=== PATIENT | female | born 1950 | race Caucasian/White ===

== ENCOUNTER 2016-12-16 10:54 | Day surgery (SDC) | payer OTHER, MEDICARE ==
[2016-12-09 13:35] VITALS: BMI 22.0
[~2016-12-16] VITALS: Ht 175.3 cm; Wt 97.8 kg
[~2016-12-16 10:54] MED LIST: ASCA500 PO; CALC500T PO; CEFAZOLIN 2000 MG/60 ML D5W IV SCH; CHOL1000 PO; COLON CARE PO; FENTANYL CITRATE INJ 50 MCG/1 ML 2 ML VIAL ONE; Glucosamine PO; HEPARIN SOD 5000 UNIT/0.5 ML CARP SQ SCH; LACTATED RINGER'S 1000ML 1,000 ML IV SCH; LEVO50TA6 PO; LUTE20CA PO; MIDAZOLAM HCL 1 MG/ML 2ML VIAL ONE; MULT-506 PO; NAPR1TAB9 PO; OMEG10007 PO; RALO60TA12 PO; VITA1TAB4 PO
[2016-12-16 11:28] VITALS: BP 144/81; PULSE 63; TEMP 37.2; O2SAT 94; Ht 175.3 cm; Wt 97.8 kg
[2016-12-16] MEDS ORDERED: LIDOCAINE HCL 2% 2 ML VIAL (20MG/ML) ONE (12:00)
[2016-12-16] MEDS ORDERED: PROPOFOL IV EMULSION 10 MG/ML 20 ML VIAL IV ONE ×4 (12:00→13:32)
[2016-12-16] MEDS ORDERED: ONDANSETRON INJ 2 MG/ML 2 ML VIAL IV PRN ×2 (12:15→14:00)
[2016-12-16] MEDS ORDERED: FENTANYL CITRATE INJ 50 MCG/1 ML 2 ML VIAL IV PRN (12:15)
[2016-12-16] MEDS ORDERED: ATROPINE SULFATE 0.1 MG/ML 5ML SYR IV PRN (12:15)
[2016-12-16] MEDS ORDERED: KETOROLAC TROMETHAMINE 30 MG/ML VIAL IV. PRN (12:15)
--- NOTE | 2016-12-16 12:23 | History and Physical ---
History & Physical Date Dec 16, 2016. Chief Complaint breast ca History of Present Illness The patient is a 66 year old female with complaints of left breast ca...needs infusaport for chemo Additional History Hepatic Disease: No Endocrine Disorder: No Kidney Disease: No Hypertension: No Heart Disease: No Bleeding Tendencies: No Infectious Diseases: No Allergies Coded Allergies: No Known Allergies (Unverified , 12/16/16) PER H&P Home Medications Scheduled Ascorbic Acid (Vitamin C), 500 MG PO QAM Calcium Gluconate (Calcium Gluconate), 250 MG PO DAILY Cholecalciferol (Vitamin D3), 2,000 UNITS PO QAM Fish Oil (Henriette-3), 1 CAP PO NOON Levothyroxine Sodium (Levothyroxine Sodium), 1 TAB PO QAM Lutein (Lutein), 20 MG PO QAM Multivitamin (Multivitamin), 1 TAB PO QAM Raloxifene Hcl (Evista), 60 MG PO QAM Vitamin E (Vitamin E), 400 UNITS PO QAM [Colon Care], 1 TAB PO BID [Glucosamine], 500 MG PO BID Scheduled PRN Naproxen (Aleve), 220 MG PO QAM PRN for Pain Physical Examination Skin: warm/dry Eyes: normal inspection, EOMI Head: normocephalic Neck: supple, no adenopathy Respiratory/Chest: lungs clear, no respiratory distress Cardiovascular: regular rate, rhythm Abdomen / GI: normal bowel sounds, non tender Back: normal inspection Extremities: normal inspection Neurologic/Psych: no motor/sensory deficits, oriented x 3 Diagnosis breast ca needs mediport for chemo infustion Plan of Treatment right subclavian mediport insertion under fluro
[2016-12-16] MEDS ORDERED: HYDR-5688 PO (12:44)
--- NOTE | 2016-12-16 12:46 | Discharge Instructions ---
Discharge Instructions Visit Reason for Visit: Left Breast Cancer Discharge Discharge Diagnosis / Problem: A-port placement Discharge Goals Goal(s): Therapeutic intervention Activity Recommendations Activity Limitations: per Instructions/Follow-up section Shower/Bathe: no limitations Anesthesia . Post Anesthesia Instructions: If you have had General Anesthesia or IV Sedation: * Do not drive today. * Resume driving when surgeon permits. * Do not make important decisions or sign legal documents today. * Call surgeon for: 1. Temperature elevations greater than 101 degrees F. 2. Uncontrollable pain. 3. Excessive bleeding. 4. Persistent nausea and vomiting. 5. Medication intolerance (nausea, vomiting or rash). * For nausea and vomiting use only clear liquids such as: tea, soda, bouillon until nausea subsides, then gradually increase diet as tolerated. * If you have any concerns or questions, call your surgeon's office. If physician is unavailable and it is an emergency, call 911 or go to the nearest emergency room. . Instructions / Follow-Up Instructions / Follow-Up Dr. Peña in 1-2 weeks, call [phone] if you do not already have an appt Diet Recommendations Recommended Home Diet: no limitations Pending Studies Studies pending at discharge: no Medical Emergencies . Who to Call and When: Medical Emergencies: If at any time you feel your situation is an emergency, please call 911 immediately. . Non-Emergent Contact Non-Emergency issues call your: Surgeon Call Non-Emergent contact if: you have a fever, temperature is above 101.5, your pain is not controlled . . "Provider Documentation" section prepared by Howard Schwarz.
[2016-12-16] MEDS ORDERED: LACTATED RINGER'S 1000ML 1,000 ML IV SCH (13:50)
[2016-12-16] MEDS ORDERED: BUPIVACAINE/EPINEPHRINE 0.5% MPF 1:200,000 30 ML VIAL INJ ONE (13:54)
[2016-12-16] MEDS ORDERED: HEPARIN SOD (PORCINE) 1000 UNIT/ML 10 ML VIAL FLUSH ONE (13:54)
[2016-12-16] MEDS ORDERED: HYDROCODONE/ACETAMOPHEN 5/325MG TAB PO PRN (14:00)
[2016-12-16] MEDS ORDERED: MoRPHine SULFATE 2 MG/ML CARP IV PRN (14:00)
--- NOTE | 2016-12-16 14:09 | [facility] Operative Report ---
Operative Report Operative Date Dec 16, 2016. Pre-Operative Diagnosis Left Breast Cancer Post-Operative Diagnosis left breast cancer Procedure(s) Performed right subclavian mediport insertion under fluoro Surgeon Dr. Peña Machining Manager Surgeon(s) None Estimated Blood Loss 50ml Findings normal anatomy Specimens None per Surgeon Complication(s) None Disposition Recovery Room / PACU I attest to the content of the Intraoperative Record and any orders documented therein. Any exceptions are noted below.
--- NOTE | 2016-12-16 14:21 | DIAGNOSTIC IMAGING REPORT ---
CHEST ONE VIEW PORTABLE CLINICAL HISTORY: Port placement. COMPARISON STUDY: Chest radiograph November 04, 2016. FINDINGS: The tip of the right sided [id number] projects over the proximal SVC. There is no pneumothorax. No consolidation is present. Cardiomediastinal silhouette is stable. IMPRESSION: No pneumothorax following placement of a right subclavian [id number]. Electronically signed by: Flash Rios M.D. 12/16/2016 2:19 PM Dictated Date/Time: 12/16/2016 2:19 PM
[2016-12-16 14:25] VITALS: BP 152/85; PULSE 61; TEMP 36.7; O2SAT 96
--- NOTE | 2016-12-16 15:00 | Anesthesiology Progress Note ---
Anesthesia Post Op Note Date & Time Dec 16, 2016 at 15:00 Vital Signs Vital Signs Past 12 Hours Date Time Temp Pulse Resp B/P Pulse Ox O2 Delivery O2 Flow Rate FiO2 12/16/16 14:25 36.7 61 16 152/85 96 Room Air 12/16/16 14:20 36.1 55 16 146/84 96 Room Air 12/16/16 14:20 36.1 12/16/16 14:10 56 16 137/80 96 Room Air 12/16/16 14:03 36.2 65 16 119/74 96 Room Air 12/16/16 11:28 37.2 63 20 144/81 94 Room Air Notes Mental Status: alert / awake / arousable, participated in evaluation Pt Amnestic to Procedure: Yes Nausea / Vomiting: adequately controlled Pain: adequately controlled Airway Patency, RR, SpO2: stable & adequate BP & HR: stable & adequate Hydration State: stable & adequate Anesthetic Complications: no major complications apparent
--- NOTE | 2016-12-16 17:11 | OPERATIVE REPORT ---
DATE OF OPERATION: 12/16/2016 PREOPERATIVE DIAGNOSIS: Left breast cancer with need for chemotherapy/MediPort insertion. POSTOPERATIVE DIAGNOSIS: Same. PROCEDURE: Right subclavian MediPort insertion under fluoroscopy. SURGEON: Germán Peña DO ESTIMATED BLOOD LOSS: Approximately 50 mL. COMPLICATIONS: No immediate. ANESTHESIA: IV sedation with local. DESCRIPTION OF PROCEDURE: After informed consent was obtained, the patient was taken to the operating suite and placed in supine position. IV sedation was administered by anesthesia. The right arm was tucked and the towel was placed between her shoulder blades. The right upper chest wall was sterilely prepped and draped in usual fashion. Began by using Marcaine with epinephrine to create a skin wheal below the clavicle and up to the periosteum of the clavicle. I then made a horizontal skin incision with a 15 blade scalpel and carried it down through the soft tissue using electrocautery. I used blunt finger dissection to create housing pocket in the anterior portion of the incision. Next, I used an 18-gauge finder needle to access the right subclavian vein which I was able to do with a single stick. I easily advanced the guidewire. We used fluoroscopy to verify positioning. I also used fluoroscopy to advance a vascular dilator with a peel away sheath. All this went perfectly fine. However, when we went to advance the actually catheter right at where the sheath when underneath the clavicle, I was then able to get the catheter to make the turn. It was simply too flexed mobile. We tried multiple times taking the guidewire in and out as well as a vascular dilator. I decided to try a second stick. I took a more medial technique and again cannulated the subclavian vein with a second single stick. We used the same technique by advancing guidewire under fluoroscopy as well as the dilator and peel away sheath. Again, the angle of the sheath was such that the flexible catheter would not make the turn. I therefore placed the guidewire through the catheter itself. By doing this, I was able to remove the vascular dilator and advance the wire as well as the catheter through the peel away sheath simultaneously. Again, we did this under fluoroscopy. Once I got the catheter where I wanted in the superior vena cava, I was then able to remove the guidewire leaving the catheter and peel away sheath. We were able to cut the catheter and place it on to the MediPort itself. I will note that we did flush the entire system with injectable heparin prior to doing this. We were then able to peel away sheath leaving the catheter in the superior vena cava. I then secured the MediPort itself to the pectoralis muscle using 0 Ethibond. I used 3-point fixation to do this. I was able to draw dark venous blood without difficulty as well as flushed the MediPort easily with injectable heparin. I irrigated the wound. I closed in 2 layers using 3-0 Monocryl for both layers. An Op-Site dressing was placed. The patient was awakened and transferred to recovery in stable condition. Postoperative portable chest x-ray is currently pending to verify cath position around pneumothorax. I attest to the content of the Intraoperative Record and any orders documented therein. Any exceptions are noted below. JAIMEED
== END 2016-12-16 15:05 | disposition home or self-care (01) ==
LOC: C.ACU 10:54
PROVIDERS: ATTEND Surgery
DX: C50.912 Malignant neoplasm of unspecified site of left female breast (principal); E07.9 Disorder of thyroid, unspecified; M19.90 Unspecified osteoarthritis, unspecified site

== ENCOUNTER → 2016-12-17 | Outpatient (CLI) | payer OTHER, MEDICARE ==
[~2016-12-17] MED LIST changes: -CEFAZOLIN 2000 MG/60 ML D5W IV SCH; -FENTANYL CITRATE INJ 50 MCG/1 ML 2 ML VIAL ONE; -HEPARIN SOD 5000 UNIT/0.5 ML CARP SQ SCH; +HYDR-5688 PO; -LACTATED RINGER'S 1000ML 1,000 ML IV SCH; -MIDAZOLAM HCL 1 MG/ML 2ML VIAL ONE
[2016-12-17 13:44] LABS: HEMATOCRIT 39.6 % (37-47); MEAN CELL VOLUME 87.6 fL (80-100); MEAN CORPUSCULAR HEMOGLOBIN 29.9 pg (25-34); MEAN CORPUSCULAR HGB CONC 34.1 g/dl (32-36); MEAN PLATELET VOLUME 12.2 fL (7.4-10.4); PLATELET COUNT 206 K/uL (130-400); RED BLOOD COUNT 4.52 M/uL (4.2-5.4); WHITE BLOOD COUNT 7.44 K/uL (4.8-10.8)
[2016-12-17 14:10] LABS: MDIFF REQUEST Y
[2016-12-17 14:11] LABS: EOSINOPHIL % 2.7 %; LYMPH ABS # 1.99 K/uL (1.2-3.4); LYMPHOCYTE % 26.8 %; NEUTROPHILS % 64.2 %
[2016-12-17 14:16] LABS: ALT/SGPT 20 U/L (12-78); AST/SGOT 16 U/L (15-37); BLOOD UREA NITROGEN 19 mg/dl (7-18); BUN/CREATININE RATIO 33.1 (10-20); CALCIUM 9.5 mg/dl (8.5-10.1); CARBON DIOXIDE 24 mmol/L (21-32); CHLORIDE 107 mmol/L (98-107); CREATININE 0.58 mg/dl (0.60-1.20); GLUCOSE 88 mg/dl (70-99); POTASSIUM 3.9 mmol/L (3.5-5.1); SODIUM 143 mmol/L (136-145)
[2016-12-17 14:19] LABS: ALB/GLOB RATIO 1.2 (0.9-2); ALKALINE PHOSPHATASE 59 U/L (45-117)
--- NOTE | 2016-12-17 17:21 | ECHOCARDIOGRAM REPORT ---
*NOTICE TO RECEIVING [employer] This information is strictly Confidential and protected under [place] law. [place] law prohibits you from making any further disclosure of this information unless further disclosure is expressly permitted by the written consent of the person to whom it pertains or is authorized by law. A general authorization for the release of medical or other information is not sufficient for this purpose. Hospital accepts no responsibility if the information is made available to any other person, INCLUDING THE PATIENT. Interpretation Summary * Name: RAMON BECK Study Date: 12/17/2016 01:07 PM BP: 140/77 mmHg * Patient Location: [facility] HR: 62 * : 1950 (M/d/yyyy) Gender: Female Height: 69 in * Age: 66 yrs Ethnicity: [place] Weight: 215 lb * Referring Physician: DAVID * Performed By: Rachel Berg RDCS * * Reason For Study: Neoplasm, Pre chemotherapy, Breast Cancer * BSA: 2.1 m2 * -- Conclusions -- * 1. Normal left ventricular size with hyperdynamic systolic function. EF 65-70%. Mild left ventricular hypertrophy. Type I diastolic dysfunction. * 2. The left atrium is mildly dilated. * 3. No significant valvular abnormalities. * 4. No prior study available for comparison. Procedure Details * A complete two-dimensional transthoracic echocardiogram was performed (2D, M-mode, Doppler and color flow Doppler). Left Ventricle * Normal left ventricular size with hyperdynamic systolic function. EF 65-70%. Mild left ventricular hypertrophy. Type I diastolic dysfunction. Right Ventricle * The right ventricle is normal in size and function. * The right ventricular systolic function is normal as assessed by tricuspid annular plane systolic excursion (TAPSE) (normal >1.5 cm). Atria * The left atrium is mildly dilated. * The right atrium is borderline dilated. * There is no evidence of atrial septal defect, but resolution does not allow assessment for a patent foramen ovale. Mitral Valve * There is mild mitral annular calcification. * There is no mitral valve stenosis. * There is trace mitral regurgitation. Tricuspid Valve * The tricuspid valve is not well visualized, but is grossly normal. * There is no tricuspid stenosis. * Significant tricuspid regurgitation is absent. Aortic Valve * The aortic valve is normal in structure and function. * The aortic valve is trileaflet. * No hemodynamically significant valvular aortic stenosis. * No aortic regurgitation is present. Pulmonic Valve * The pulmonary valve is inadequately visualized, but the Doppler data is adequate for interpretation. * There is no pulmonic valvular stenosis. * There is no significant pulmonary regurgitation. Great Vessels * The aortic root is normal size. * Aortic arch of normal dimension. * Normal pulmonary venous flow pattern. Pericardium/Pleural * There is no pericardial effusion. Great Vessels * Normal inferior vena cava size and collapsability with sniff indicates a normal right atrial pressure of 3 mmHg Left Ventricular Diastolic Function * Grade I diastolic dysfunction, (abnormal relaxation pattern). MMode 2D Measurements and Calculations IVSd 1.2 cm IVSs 1.6 cm LVIDd 5.1 cm LVIDs 2.9 cm LVPWd 1.1 cm LVPWs 1.8 cm IVS/LVPW 1.1 FS 42.5 % EDV(Teich) 122.1 ml ESV(Teich) 32.6 ml EF(Teich) 73.3 % EDV(cubed) 130.3 ml ESV(cubed) 24.8 ml EF(cubed) 81.0 % % IVS thick 40.6 % % LVPW thick 62.8 % LV mass(C)d 217.4 grams LV mass(C)dI 102.1 grams/m\S\2 LV mass(C)s 188.9 grams LV mass(C)sI 88.7 grams/m\S\2 SV(Teich) 89.5 ml SI(Teich) 42.0 ml/m\S\2 SV(cubed) 105.5 ml SI(cubed) 49.5 ml/m\S\2 Ao root diam 3.5 cm Ao root area 9.4 cm\S\2 ACS 2.5 cm LA dimension 4.0 cm LA/Ao 1.1 LVAd ap4 30.5 cm\S\2 LVLd ap4 8.8 cm EDV(MOD-sp4) 90.9 ml EDV(sp4-el) 89.9 ml LVAs ap4 14.9 cm\S\2 LVLs ap4 6.8 cm ESV(MOD-sp4) 30.5 ml ESV(sp4-el) 28.0 ml EF(MOD-sp4) 66.4 % EF(sp4-el) 68.9 % LVAd ap2 22.1 cm\S\2 LVLd ap2 8.4 cm EDV(MOD-sp2) 49.3 ml EDV(sp2-el) 49.2 ml LVAs ap2 12.4 cm\S\2 LVLs ap2 7.6 cm ESV(MOD-sp2) 17.4 ml ESV(sp2-el) 17.2 ml EF(MOD-sp2) 64.7 % EF(sp2-el) 65.0 % LVLd %diff -4.51 % EDV(MOD-bp) 68.8 ml LVLs %diff 11.1 % ESV(MOD-bp) 24.0 ml EF(MOD-bp) 65.1 % SV(MOD-sp4) 60.4 ml SI(MOD-sp4) 28.4 ml/m\S\2 SV(MOD-sp2) 31.9 ml SI(MOD-sp2) 15.0 ml/m\S\2 SV(MOD-bp) 44.8 ml SI(MOD-bp) 21.0 ml/m\S\2 SV(sp4-el) 61.9 ml SI(sp4-el) 29.1 ml/m\S\2 SV(sp2-el) 32.0 ml SI(sp2-el) 15.0 ml/m\S\2 Doppler Measurements and Calculations MV E max danielito 67.9 cm/sec MV A max danielito 112.0 cm/sec MV E/A 0.61 MV dec time 0.23 sec Ao V2 max 157.5 cm/sec Ao max PG 9.9 mmHg Ao max PG (full) 2.5 mmHg LV V1 max PG 7.4 mmHg LV V1 max 136.2 cm/sec TV E max danielito 48.1 cm/sec PA V2 max 99.9 cm/sec PA max PG 4.0 mmHg
== END | disposition home or self-care (01) ==
LOC: C.CPL 12:39
PROVIDERS: ATTEND Internal Medicine Hematology & Oncology
DX: C50.919 Malignant neoplasm of unspecified site of unspecified female breast (principal)

== ENCOUNTER → 2017-09-10 | Outpatient (CLI) | payer OTHER, MEDICARE ==
[~2017-09-10] MED LIST changes: -HYDR-5688 PO; -RALO60TA12 PO; +RALO60TA30 PO
[2017-09-10 13:11] VITALS: BP 114/72; PULSE 64; TEMP 37.1; O2SAT 94
--- NOTE | 2017-09-10 16:55 | Radiation Oncology Follow-Up ---
Radiation Oncology Follow-Up Date of Visit Sep 10, 2017. Reason For Visit One-month follow-up and cancer survivorship care plan Radiation Completion Date 07/24/17 Diagnosis (1) Breast cancer Status: Resolved Onset Date: 10/30/2016 Stage: ll Permanent Comment: Multiple prior breast biopsies benign Participation in a tamoxifen clinical trial. Abnormal left breast mammogram 10/01/2016 Status post ultrasound-guided biopsy 10/30/2016 revealing ductal carcinoma grade 2 Estrogen receptor was negative, progesterone receptor was negative, and HER-2/ max was negative Status post left partial mastectomy and sentinel lymph node biopsy 11/14/2016 Stage pT2 pN0 cM0 Status post systemic chemotherapy with Adriamycin and Cytoxan for 4 cycles followed by weekly Taxol for 12 weeks. Status post completion of radiation therapy 07/24/2017. She received 6640 cGy Last Edited By: Rosi Jennings on Sep 10, 2017 16:54 History of Present Illness Ms. Epstein has a remote family history of breast cancer. The patient's maternal grandmother had breast cancer. The patient's mother from leukemia. The patient has had a history of prior lumpectomies. Her first was of a lump in the left breast in her early 20s which was benign. The second was a lump in the right breast in her early 30s. The third was a left breast lumpectomy in her mid 40s and the fourth was a right breast lumpectomy in her mid 50s. After the final surgery the patient was placed on a study that randomized her to tamoxifen or a placebo. The patient stated that she was on the study for at least 5 years but that she terminated in early. This was not due to any side effects. She further stated that ultimately she was told after the study was unblinded that she was receiving tamoxifen. Because of this history the patient was followed closely with screening mammograms. On 10/01/2016 the patient underwent a bilateral digital screening mammogram with CAD. This revealed an asymmetry in the left breast at the 12:00 anterior depth. Additional imaging was recommended. Therefore on 10/16/2016 the patient underwent a unilateral left digital diagnostic mammogram with tomosynthesis and a targeted left breast ultrasound. This confirmed the persistence of an irregular and spiculated mass/focal asymmetry at the 12 o'clock position middle to anterior depth of the left breast that was new compared to the prior available mammogram dated on 08/31/2015 and 08/30/2014. An axillary lymph node was noted projecting over the pectoralis muscle on the MLO view. Further evaluation by targeted ultrasound was performed. Real-time high-resolution sonographic evaluation was performed at the 12 o'clock position of the left breast and the left axilla. At the 12:00 axis 1 cm from the nipple there was a multilobulated irregular hypoechoic solid vascular mass measuring approximately 3.3 x 1.6 x 3.3 cm. This correlated with the mammographic mass/focal asymmetry and was suspicious for malignancy. Additional sonographic evaluation of the left axilla demonstrated a slightly enlarged lymph node that maintain a normal echogenic fatty hilum. However there was a focal cortical thickening measuring from 3.3-5.0 mm that was indeterminant. This was given a BI-RADS Category 5 which was highly suggestive of malignancy and a biopsy was recommended. On 10/30/2016 the patient underwent a biopsy of the left breast mass and left axillary lymph node. The left axillary lymph node was benign with no tumor seen. 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 There was no lymphovascular or perineural invasion. Estrogen receptors were negative, progesterone receptors were negative and HER-2/max by IHC was negative. Further evaluation by FISH analysis confirmed the negativity of her to. The patient is therefore a triple negative. Case: [id number]. Patient was seen by Dr. Germán Peña for evaluation and discussion of the surgical options. The patient proceeded with a left breast partial mastectomy with sentinel node biopsy performed on . A labeled non-sentinel lymph node was negative for metastatic carcinoma on frozen section. An additional sentinel node was identified and was also negative for metastatic carcinoma. The partial mastectomy specimen confirmed a tumor mass measuring 3.5 x 2.0 x 2.0 cm. This was a high-grade lesion with [place] grade 3. There was also high- grade DCIS with comedonecrosis. No lymphovascular invasion and no perineural invasion was seen. The invasive carcinoma margins were negative however the distance from the closest margin was less than 0.1 cm and was listed as the inferior margin. The DCIS was negative but the distance from the closest margin was 0.1 cm and also listed as the inferior margin. The final AJCC staging was therefore a pT2 pN0(sn-), ER negative, AR negative and HER-2/max negative. Case : [id number]. The patient was seen by Dr. Angelo Arroyo for medical oncology evaluation on . He recommended systemic chemotherapy to reduce her risk of recurrence. He discussed dose dense AC-T this consists of 4 cycles (every 14 days) of doxorubicin 60 mg/m and cyclophosphamide 600 mg/m given IV once every 2 weeks with G-CSF support. This will be followed by Paclitaxel, dosed either once every 2 weeks at 175 mg/m for 4 cycles or weekly at 80 mg/m for 12 weeks. He also discussed the possibility of participating in a clinical trial, and RG- BR 003. This is a large phase 3 cooperative group trial for patients with node positive or high-risk node-negative triple negative breast cancers. This randomizes the patient to dose dense AC followed by weekly Taxol plus or minus carboplatin dosed once every 3 weeks. The patient is scheduled for a port placement. We were also asked to see the patient to discuss the ultimate role of adjuvant radiation following the completion of her systemic chemotherapy. She has now completed systemic chemotherapy. Her last treatment was 05/01/2017. She received dose dense Adriamycin and Cytoxan for 4 cycles. She then received Taxol weekly for 12 weeks. She tolerated this well. She did not require any breaks in treatment. She did develop fatigue. She has alopecia and changes of her fingernails and toenails. She denies neuropathy. She has noticed no changes to her breast. She's noted no masses or tenderness and no change of the axilla. She's had no swelling of her arm. She is here to discuss radiation therapy. She was treated with conventional radiation therapy. Treatment completed 2016. She received 6640 cGy. Interim History She's been doing well over this past month. She did have some dryness of the skin and mild peeling. She is noted no masses or tenderness no change of the axilla. She has had no swelling of her arm. She has seen Dr. Arroyo in follow-up and mammography has been scheduled next month. She stated she will be having her port flushed also that day and has a follow-up appointment with Dr. Arroyo on 10/07/2017. She was noted to have a 4 pound weight gain today and she was concerned about the weight gain. Allergies Coded Allergies: No Known Allergies (Unverified , 12/16/16) PER H&P Home Medications Scheduled Ascorbic Acid (Vitamin C), 500 MG PO QAM Calcium Gluconate (Calcium Gluconate), 250 MG PO DAILY Cholecalciferol (Vitamin D3), 2,000 UNITS PO QAM Fish Oil ([place]-3), 1 CAP PO NOON Levothyroxine Sodium (Levothyroxine Sodium), 1 TAB PO QAM Lutein (Lutein), 20 MG PO QAM Multivitamin (Multivitamin), 1 TAB PO QAM Raloxifene Hcl (Evista), 60 MG PO QAM Vitamin E (Vitamin E), 400 UNITS PO QAM [Colon Care], 1 TAB PO BID [Glucosamine], 500 MG PO BID Scheduled PRN Naproxen (Aleve), 220 MG PO QAM PRN for Pain Review of Systems Gastrointestinal: Symptoms: WNL Oral: Symptoms: No Problems Respiratory: Symptoms: WNL Urinary: Symptoms: WNL Skin: Symptoms: Dry Desquamation Other Skin Symptoms: Skin on left areaola area w/minimal slight salgado desquamation -resolving; Breast: Right Upper Arm Measurement: 33.0 Right Mid Arm Measurement: 27.0 Right Wrist Measurement: 17.3 Left Upper Arm Measurement: 33.0 Left Mid Arm Measurement: 26.5 Left Wrist Measurement: 16.5 Arm Dominence: Right Additional Notes: She completed a distress management report and answered "no" to all questions. Physical Exam Vital Signs Date Time Temp Pulse Resp B/P (MAP) Pulse Ox O2 Delivery O2 Flow Rate FiO2 09/10/17 13:11 37.1 64 16 114/72 94 Fatigue: None General Appearance: no apparent distress Eyes: normal inspection, EOMI ENT: normal ENT inspection, hearing grossly normal Neck: no adenopathy, thyroid normal Respiratory/Chest: lungs clear, no respiratory distress, no accessory muscle use Breast: Breast examination reveals well-healed incisions of the left breast. She does have dryness of the skin with resolving dry desquamation and hyperpigmentation. There are no masses or tenderness and no axillary adenopathy. She has no skin retractions or nipple changes. Using the [place] score cosmesis she has a good outcome. The right breast showed no masses or tenderness and no axillary adenopathy. Cardiovascular: regular rate, rhythm, no gallop, no murmur Extremities: no pedal edema Neurologic/Psychiatric: no motor/sensory deficits, alert, normal mood/affect Skin: warm/dry Laboratory Studies Test 07/04/17 10:40 White Blood Count 4.49 K/uL (4.8-10.8) Red Blood Count 4.28 M/uL (4.2-5.4) Hemoglobin 13.1 g/dL (12.0-16.0) Hematocrit 38.2 % (37-47) Mean Corpuscular Volume 89.3 fL (80-100) Mean Corpuscular Hemoglobin 30.6 pg (25-34) Mean Corpuscular Hemoglobin Concent 34.3 g/dl (32-36) Platelet Count 196 K/uL (130-400) Mean Platelet Volume 11.7 fL (7.4-10.4) Neutrophils (%) (Auto) 55.7 % Lymphocytes (%) (Auto) 28.7 % Monocytes (%) (Auto) 8.5 % Eosinophils (%) (Auto) 6.2 % Basophils (%) (Auto) 0.7 % Neutrophils # (Auto) 2.50 K/uL (1.4-6.5) Lymphocytes # (Auto) 1.29 K/uL (1.2-3.4) Monocytes # (Auto) 0.38 K/uL (0.11-0.59) Eosinophils # (Auto) 0.28 K/uL (0-0.5) Basophils # (Auto) 0.03 K/uL (0-0.2) RDW Standard Deviation 43.8 fL (36.4-46.3) RDW Coefficient of Variation 13.5 % (11.5-14.5) Immature Granulocyte % (Auto) 0.2 % Immature Granulocyte # (Auto) 0.01 K/uL (0.00-0.02) Sodium Level 141 mmol/L (136-145) Potassium Level 3.9 mmol/L (3.5-5.1) Chloride Level 107 mmol/L (98-107) Carbon Dioxide Level 28 mmol/L (21-32) Anion Gap 6.0 mmol/L (3-11) Blood Urea Nitrogen 14 mg/dl (7-18) Creatinine 0.64 mg/dl (0.60-1.20) Estimated GFR () 106.3 Estimated GFR (Non- 91.7 BUN/Creatinine Ratio 21.9 (10-20) Random Glucose 105 mg/dl (70-99) Calcium Level 9.0 mg/dl (8.5-10.1) Total Bilirubin 0.4 mg/dl (0.2-1) Aspartate Amino Transferase (AST) 25 U/L (15-37) Alanine Aminotransferase (ALT) 36 U/L (12-78) Alkaline Phosphatase 51 U/L (45-117) Lactate Dehydrogenase 197 U/L (84-246) Total Protein 6.9 gm/dl (6.4-8.2) Albumin 3.5 gm/dl (3.4-5.0) Globulin 3.4 gm/dl (2.5-4.0) Albumin/Globulin Ratio 1.0 (0.9-2) Assessment & Plan Plan: Continue with scheduled mammography. We discussed using a over-the- counter moisturizer for the dry skin. Continue follow-up with her primary care physician. She'll continue follow-up with Dr. Arroyo. Today we completed a cancer survivorship care plan. A copy of the document was given to the patient. She was given a survivorship booklet. We asked her to return to our office in 6 months. She will call if she has any questions or concerns in the interim. Total Time In Follow-Up I spent 20 minutes speaking to the patient and performing examination. I spent 20 minutes reviewing information, preparing the survivorship document, and completing this note. Copy To Jonathan Strong M.D.; Germán Peña D.O.; Angelo Arroyo MD Problem Qualifiers (1) Breast cancer: Breast location: central portion of breast Estrogen receptor status: negative Patient sex: female Laterality: left Qualified Codes: C50.112 - Malignant neoplasm of central portion of left female breast; Z17.1 - Estrogen receptor negative status [ER-]
== END | disposition home or self-care (01) ==
LOC: C.ONC 12:50
PROVIDERS: ATTEND Physician Assistant Medical
DX: Z08 Encounter for follow-up examination after completed treatment for malignant neoplasm (principal); Z92.3 Personal history of irradiation; Z85.3 Personal history of malignant neoplasm of breast

== ENCOUNTER → 2017-10-07 | Outpatient (CLI) | payer OTHER, MEDICARE ==
--- NOTE | 2017-10-08 14:37 | MAMMOGRAPHY REPORT ---
BILATERAL DIGITAL DIAGNOSTIC MAMMOGRAM TOMOSYNTHESIS WITH CAD AND TARGETED LEFT ULTRASOUND: 7 CLINICAL HISTORY: 66-year-old woman with a history of left breast cancer status post breast conservat ion treatment presents to establish new baseline in the left breast and for routine screening of the right breast. She has a history of left lumpectomy and sentinel lymph node biopsy as well as radiati on and adjuvant chemotherapy. TECHNIQUE: Bilateral CC and MLO 2-D and tomosynthesis images and spot magnification left CC and ML v iews were obtained. Current study was also evaluated with a Computer Aided Detection (CAD) system. COMPARISON: Comparison is made to exams dated: 10/30/2016 mammogram, 10/16/2016 mammogram, 10/16/2016 ultrasound, 10/01/2016 mammogram - [facility], 08/31/2015 mammogram, and 08/31/2015 m ammogram. BREAST COMPOSITION: There are scattered areas of fibroglandular density in both breasts. FINDINGS: There is diffuse skin thickening and trabecular edema of the left breast. There is also e xpected architectural distortion, density and surgical clips in the 12:00 anterior through posterior left breast, denoting the surgical site. Surgical clips also project over the left axilla, denoting the area of lymph node sampling. No obvious new mass, unexpected distortion or suspicious calcificat ions are seen in the left breast. The mammographic findings are likely related to treatment. Howeve r, there is a 12 mm diameter dense round mass projecting over the superior left pectoralis muscle on the MLO view, with associated biopsy marker clip. This could represent the previously biopsied lymph node which yielded benign pathology results without evidence of metastatic disease. It does not rep resent the sentinel lymph node which was biopsied during surgery as the marker clip remains in the east. Further evaluation with ultrasound was performed. The right breast parenchymal pattern is similar to prior exams. There are mild vascular calcificatio ns. No new suspicious mass, asymmetry, architectural distortion or suspicious calcifications are mary ntified in the right breast. Targeted ultrasound was performed in the left axilla to assess for the newly visualized 12 mm diamete r mass with associated biopsy marker clip, and also throughout the superior left breast to assess the area of prior surgery. In the left axilla, there is a circumscribed lobulated hypoechoic homogeneou s solid mass measuring 1.2 x 1.4 x 1.2 cm. Internal blood flow is demonstrated and a biopsy marker c lip is seen along the lateral edge. This likely represents the previously biopsied lymph node but th ere has been interval increase in cortical thickening and it is now morphologically abnormal. Option s of repeat biopsy versus excisional biopsy were discussed with the patient and also the patient's ph ysicians, Dr. Arroyo and Dr. Peña. We will opt to excise the entire lymph node with preoperat oni wire localization to ensure removal of the lymph node containing a biopsy marker clip. Another l ymph node is seen in the left axilla measuring 10 mm, slightly deeper within the axilla. Sonographic evaluation of the superior left breast 11:00 through 2:00 axes demonstrates trabecular ed dasha and a linear defect representing surgical scar. No suspicious solid or cystic mass is currently identified. IMPRESSION: ACR BI-RADS CATEGORY 4: SUSPICIOUS, TARGETED ULTRASOUND ACR BI-RADS CATEGORY 4: SUSPICIO US 1. There are expected postsurgical and posttreatment changes in the left breast without definite odell mographic evidence of malignancy. 2. However, there is an enlarging 12 mm left axillary lymph node comparing to prior mammograms, ultr asound and prior ultrasound-guided biopsy, as this lymph node contains a ribbon-shaped biopsy marker clip. It is morphologically abnormal on ultrasound and suspicious for metastatic disease. Surgical excisional biopsy with preoperative wire localization is recommended. 3. Stable mammographic appearance of the right breast, without mammographic evidence of malignancy. These results and recommendations were discussed with the patient at the time of the exam. The findi ngs also discussed with the patient's oncologist, Dr. Arroyo and her surgeon, Dr. Peña, after the exam. Approximately 10% of breast cancers are not detected with mammography. A negative mammographic report should not delay biopsy if a clinically suggestive mass is present. Val Denis M.D. ay/:10/07/2017 14:15:22 [employer] Draftsman: Sabiha ACOSTA(Johny)(Bean), [facility] letter sent: Abnormal 4/5 BI-RADS Code: ACR BI-RADS Category 4: Suspicious Ultrasound BI-RADS: ACR BI-RADS Category 4: Suspici ous
--- NOTE | 2017-10-11 11:52 | CODING QUERY NO DIAGNOSIS ---
TREATMENT RENDERED WITHOUT A DIAGNOSIS To promote full compliance with coding requirements relating to patient care, physician participation is requested in all cases of objective c developer uncertainty. Please assist us with providing a diagnosis/symptom for the test(s) below: A diagnosis/symptom was not documented on your Order. A valid diagnosis/symptom is required to bill all insurances. Please remember that we are unable to code a diagnosis of rule out, probable, possible, questionable, or suspected. Tests that require a diagnosis: DOS: 10/07/17 * B/L DIAGNOSTIC MAMMOGRAM W/ ULTRASOUND DIAGNOSIS: Provider Signature: Date: Thank you [facility] Information Management Once completed, please kindly fax back to [phone] For questions please call [phone]
== END | disposition home or self-care (01) ==
LOC: C.MAMM 12:47
PROVIDERS: ATTEND Internal Medicine
DX: R92.8 Other abnormal and inconclusive findings on diagnostic imaging of breast (principal); Z85.3 Personal history of malignant neoplasm of breast; Z98.890 Other specified postprocedural states

== ENCOUNTER → 2017-11-06 | Day surgery (SDC) | payer OTHER, MEDICARE ==
[2017-10-31 14:47] VITALS: BMI 33.0
--- NOTE | 2017-10-31 15:22 | PAT Medication Instructions ---
Service Date Oct 31, 2017. Current Home Medication List Ascorbic Acid (Vitamin C), 500 MG PO QAM Calcium Gluconate (Calcium Gluconate), 250 MG PO BID Cholecalciferol (Vitamin D3), 2,000 UNITS PO QAM Fish Oil ([place]-3), 1 CAP PO NOON Levothyroxine Sodium (Levothyroxine Sodium), 1 TAB PO QAM Lutein (Lutein), 20 MG PO QAM Multivitamin (Multivitamin), 1 TAB PO QAM Naproxen (Aleve), 220 MG PO QAM PRN for Pain Raloxifene Hcl (Evista), 60 MG PO QAM Vitamin E (Vitamin E), 400 UNITS PO QAM [Colon Care], 1 TAB PO BID [Glucosamine], 500 MG PO BID Medication Instructions For Your Scheduled Surgery - Check with surgeon for instructions: Raloxifene Hcl (Evista), 60 MG PO QAM Naproxen (Aleve), 220 MG PO QAM PRN for Pain - Hold the following medications starting 11/01/17: Fish Oil ([place]-3), 1 CAP PO NOON [Glucosamine], 500 MG PO BID Lutein (Lutein), 20 MG PO QAM Vitamin E (Vitamin E), 400 UNITS PO QAM - Hold the following medications the morning of surgery: Ascorbic Acid (Vitamin C), 500 MG PO QAM Calcium Gluconate (Calcium Gluconate), 250 MG PO BID Multivitamin (Multivitamin), 1 TAB PO QAM Cholecalciferol (Vitamin D3), 2,000 UNITS PO QAM [Colon Care], 1 TAB PO BID - Take the following medications the morning of surgery with a sip of water: Levothyroxine Sodium (Levothyroxine Sodium), 1 TAB PO QAM If you have any questions please call us at [phone] or [phone] or [phone]
[~2017-11-06] VITALS: Ht 175.3 cm; Wt 103.2 kg
[~2017-11-06] MED LIST changes: +ATROPINE SULFATE 0.1 MG/ML 5ML SYR IV PRN; +BUPIVACAINE/EPINEPHRINE 0.5% MPF 1:200,000 30 ML VIAL ONE; +CEFAZOLIN 2000MG IV PUSH 10 ML IV SCH; +EpHEDrine SULFATE INJ 50 MG/ML AMP IV PRN; +EpHEDrine SULFATE INJ 50 MG/ML AMP ONE; +FENTANYL CITRATE INJ 50 MCG/1 ML 2 ML VIAL IV PRN; +FENTANYL CITRATE INJ 50 MCG/1 ML 2 ML VIAL ONE; +GLYCOPYRROLATE INJ 0.2 MG/ML VIAL ONE; +HYDR-5688 PO; +HYDROCODONE/ACETAMOPHEN 5/325MG TAB PO PRN; +LACTATED RINGER'S 1000ML 1,000 ML IV SCH; +LACTATED RINGER'S 1000ML IV SCH; +LIDOCAINE HCL 2% 2 ML VIAL (20MG/ML) ONE; +MIDAZOLAM HCL 1 MG/ML 2ML VIAL ONE; +MoRPHine SULFATE 2 MG/ML CARP IV PRN; +ONDANSETRON INJ 2 MG/ML 2 ML VIAL IV PRN; +PROMETHAZINE HCL INJ 6.25 MG in SODIUM CHLORIDE 0.9% 50ML 50 ML IV PRN; +PROPOFOL IV EMULSION 10 MG/ML 20 ML VIAL IV ONE
[2017-11-06 08:55] VITALS: BP 132/74; PULSE 57; TEMP 37; O2SAT 93; Ht 175.3 cm; Wt 103.2 kg
--- NOTE | 2017-11-06 11:34 | History & Physical Bridge Note ---
H&P Re-Evaluation Bridge Note: I have examined the patient, reviewed the History & Physical and in the interval since the performance of the History & Physical I have noted the following changes of clinical significance: No changes noted
--- NOTE | 2017-11-06 11:52 | Discharge Instructions ---
Discharge Instructions Date of Service Nov 06, 2017. Visit Reason for Visit: L Axillary Lymphadenopathy, L Br Ca/Hos Loc Discharge Discharge Diagnosis / Problem: lymph node biopsy Discharge Goals Goal(s): Diagnostic testing Activity Recommendations Activity Limitations: as noted below Shower/Bathe: tomorrow Driving or Machine Use: resume 3 days after discharge (if not taking [place]) Anesthesia . Post Anesthesia Instructions: If you have had General Anesthesia or IV Sedation: * Do not drive today. * Resume driving when surgeon permits. * Do not make important decisions or sign legal documents today. * Call surgeon for: 1. Temperature elevations greater than 101 degrees F. 2. Uncontrollable pain. 3. Excessive bleeding. 4. Persistent nausea and vomiting. 5. Medication intolerance (nausea, vomiting or rash). * For nausea and vomiting use only clear liquids such as: tea, soda, bouillon until nausea subsides, then gradually increase diet as tolerated. * If you have any concerns or questions, call your surgeon's office. If physician is unavailable and it is an emergency, call 911 or go to the nearest emergency room. . Instructions / Follow-Up Instructions / Follow-Up Dr. Peña in 1-2 weeks, call [phone] if you do not already have an appt Diet Recommendations Recommended Home Diet: no limitations Pending Studies Studies pending at discharge: yes List of pending studies: pathology Medical Emergencies . Who to Call and When: Medical Emergencies: If at any time you feel your situation is an emergency, please call 911 immediately. . Non-Emergent Contact Non-Emergency issues call your: Surgeon Call Non-Emergent contact if: you have a fever, temperature is above 101.5, your pain is not controlled, wound has increased redness, you have any medication questions . . "Provider Documentation" section prepared by Howard Schwarz. .
--- NOTE | 2017-11-06 13:29 | [facility] Operative Report ---
Operative Report Operative Date Nov 06, 2017. Pre-Operative Diagnosis Left Axillary Lymphadenopathy Post-Operative Diagnosis Same as preoperative Procedure(s) Performed Left Axillary Excisional Lymph Node Biopsy with Needle Localization Surgeon Dr. Germán Peña Brand Recorder Surgeon(s) Howard Schwarz PA-C Estimated Blood Loss 5ml Findings firm/enlarged left axillary lymph node Specimens FROZEN: 1.) Left Axillary Lymph Node PERMANENT: A.) Additional Left Axillary Lymph Node Tissue Anesthesia LMA Disposition Recovery Room / PACU Description of Procedure Prior to arriving in the operating area the patient had been to radiology and had an ultrasound-guided needle localization of the left axillary lymph node. After informed consent was obtained she was then taken to the operating room and placed in a supine position with the left arm extended. After successful placement of a laryngeal mask airway the identifying needle was cut down to about half an inch from the skin and then the left axillary area was sterilely prepped and draped in usual fashion. I began with of vertical incision just lateral to the insertion point of the guidewire. We made skin flaps and then delivered the wire into the wound itself. I continued using traction countertraction and electrocautery to create flaps and to come around the area of the guidewire in 360. As we went more distally I was then able to palpate the enlarged node. I was actually able to identify the marking clip. We continued to used traction countertraction electrocautery to come around underneath the node itself. I was able to identify the pedicle and clipped it twice proximally once distally with a clip vehicle technician and transected it with a scissor. We delivered the node in one large specimen. It was sent to the lab for frozen section is requested by oncology as well as for permanent sectioning. It would not change the course of her treatment so we did not wait for the results. We thoroughly irrigated the wound and closed it in multiple layers using 2-0 Vicryl for deep layers 3-0 Vicryl for mid layers and 4-0 Monocryl for skin. There was adequate hemostasis at the end of the procedure. Benzoin Steri-Strips and sterile dressing were applied. The patient was awaken and transferred recovery in stable condition I attest to the content of the Intraoperative Record and any orders documented therein. Any exceptions are noted below.
--- NOTE | 2017-11-06 13:50 | Anesthesiology Progress Note ---
Anesthesia Post Op Note Date & Time Nov 06, 2017 at 13:50 Vital Signs Pain Intensity: 1 Vital Signs Past 12 Hours Date Time Temp Pulse Resp B/P (MAP) Pulse Ox O2 Delivery O2 Flow Rate FiO2 11/06/17 13:40 36.5 72 16 133/73 97 Room Air 11/06/17 13:30 74 16 130/72 95 Room Air 11/06/17 13:20 80 16 132/81 97 Oxymask 7 11/06/17 13:10 36.7 89 16 127/75 97 Oxymask 7 11/06/17 08:55 37 57 20 132/74 (93) 93 Room Air Notes Mental Status: alert / awake / arousable, participated in evaluation Pt Amnestic to Procedure: Yes Nausea / Vomiting: adequately controlled Pain: adequately controlled Airway Patency, RR, SpO2: stable & adequate BP & HR: stable & adequate Hydration State: stable & adequate Anesthetic Complications: no major complications apparent
[2017-11-06 13:55] VITALS: BP 129/66; PULSE 72; TEMP 36.6; O2SAT 94
[2017-11-06 14:25] VITALS: BP 137/80; PULSE 71; O2SAT 95
--- NOTE | 2017-11-06 14:27 | MAMMOGRAPHY REPORT ---
NEEDLE LOCALIZATION LEFT BREAST: 11/06/2017 CLINICAL HISTORY: Abnormal left axillary lymph node. The axillary lymph node was previously biopsied and yielded benign pathology, however, the lymph node has increased in size on follow-up. History o f left breast cancer status post lumpectomy. PROCEDURE DESCRIPTION: With ultrasound guidance, aseptic technique, and 1% lidocaine as the local ane sthetic, the abnormal left axillary lymph node with an associated biopsy marker clip was localized wi th a 5 cm Hernandez II needle. The distal aspect of the wire is located within the lymph node. The nee dle was removed. The patient tolerated the procedure without complication. COMPARISON: Comparison is made to exams dated: 10/07/2017 ultrasound, 10/07/2017 mammogram, 10/16/20 16 mammogram, 10/16/2016 ultrasound, 10/01/2016 mammogram - [facility], and 5 mammogram. IMPRESSION: NEEDLE LOCALIZATION Ultrasound-guided needle localization of the abnormal left axillary lymph node and associated biopsy marker clip. Sindy Dixon M.D. ah/:11/06/2017 08:23:51 Rubber Tubing Backer: Eliane ACOSTA(Johny)(M), [facility]
[2017-11-06 14:55] VITALS: BP 142/77; PULSE 76; TEMP 36.4; O2SAT 95
== END | disposition home or self-care (01) ==
LOC: C.ACU 07:55
PROVIDERS: ATTEND Surgery
DX: C77.3 Secondary and unspecified malignant neoplasm of axilla and upper limb lymph nodes (principal); Z85.3 Personal history of malignant neoplasm of breast; Z90.12 Acquired absence of left breast and nipple; M19.90 Unspecified osteoarthritis, unspecified site; L82.1 Other seborrheic keratosis; Z82.3 Family history of stroke; Z80.3 Family history of malignant neoplasm of breast

== ENCOUNTER → 2017-11-12 | Day surgery (SDC) | payer OTHER, MEDICARE ==
[2017-11-03 11:02] VITALS: Ht 175.3 cm; Wt 103.2 kg
[~2017-11-12] VITALS: Ht 175.3 cm; Wt 103.2 kg
[~2017-11-12] MED LIST changes: +500ML BSS 0.3ML EPI 1:1000PF IRRIG ONE; +ACETAMINOPHEN 325 MG TAB PO PRN; +AMVISC PLUS 0.8ML SYRINGE INT OCU ONE; +BSS FLUSH ONE; -BUPIVACAINE/EPINEPHRINE 0.5% MPF 1:200,000 30 ML VIAL ONE; -CEFAZOLIN 2000MG IV PUSH 10 ML IV SCH; +ENDOCOAT 0.85ML SYRINGE INT OCU ONE; -EpHEDrine SULFATE INJ 50 MG/ML AMP ONE; +EpINEphrine INJ 1MG/ML AMP 1 MG/ML AMP ONE; -FENTANYL CITRATE INJ 50 MCG/1 ML 2 ML VIAL IV PRN; -FENTANYL CITRATE INJ 50 MCG/1 ML 2 ML VIAL ONE; -GLYCOPYRROLATE INJ 0.2 MG/ML VIAL ONE; -HYDROCODONE/ACETAMOPHEN 5/325MG TAB PO PRN; -LACTATED RINGER'S 1000ML 1,000 ML IV SCH; +LACTATED RINGER'S 1000ML 500 ML IV SCH; -LACTATED RINGER'S 1000ML IV SCH; +LIDOCAINE 4% OP SOLN DROP CHARGE ONE; +LIDOCAINE 4% OP SOLN DROP CHARGE OPR SCH; +LIDOCAINE HCL 1% MPF 2 ML VIAL ONE; -LIDOCAINE HCL 2% 2 ML VIAL (20MG/ML) ONE; +MIX: 4ML BSS 1ML EPI 1:1000 PF TOP ONE; +MOXIFLOXACIN OPH SOLN PER DROP CHARGE ONE; -MoRPHine SULFATE 2 MG/ML CARP IV PRN; -ONDANSETRON INJ 2 MG/ML 2 ML VIAL IV PRN; +POVIDONE-IODINE OP SOLN 30 ML BTL ONE; -PROMETHAZINE HCL INJ 6.25 MG in SODIUM CHLORIDE 0.9% 50ML 50 ML IV PRN; +PROPARACAINE 0.5% OP SOLN PER DROP CHARGE OPR SCH; -PROPOFOL IV EMULSION 10 MG/ML 20 ML VIAL IV ONE; +TOBRAMYCIN/DEXAMETHASONE OPH OINT PER APPLN CHARGE ONE
[2017-11-12] MEDS: PHENYLEPHRINE HCL 2.5% OP SOLN PER DROP CHARGE OPR SCH ×3 (07:27→07:35)
[2017-11-12] MEDS: TROPICAMIDE 1% OP SOLN PER DROP CHARGE OPR SCH ×3 (07:28→07:36)
[2017-11-12] MEDS: CYCLOPENTOLATE HCL 1% OP SOLN PER DROP CHARGE OPR SCH ×3 (07:29→07:37)
[2017-11-12] MEDS: MOXIFLOXACIN OPH SOLN PER DROP CHARGE OPR SCH ×3 (07:30→07:38)
--- NOTE | 2017-11-12 08:31 | [facility] Post Operative Brief Note ---
Immediate Operative Summary Operative Date Nov 12, 2017. Pre-Operative Diagnosis Cataract Right Eye Post-Operative Diagnosis Same Procedure(s) Performed Right Cataract Phacoemulsification With Intraocular Lens Implant Surgeon Dr. Castillo Entry Level Mechanical Engineer Surgeon(s) None Estimated Blood Loss 0 Findings right cataract Specimens None Complication(s) None Disposition
--- NOTE | 2017-11-12 08:32 | [facility] Operative Report ---
Operative Report Date of Service Nov 12, 2017. Operative Report DATE OF OPERATION: 11/12/17 PREOPERATIVE DIAGNOSIS: Senile nuclear cataract, right eye POSTOPERATIVE DIAGNOSIS: Senile nuclear cataract, right eye PROCEDURE PERFORMED: Phacoemulsification with intraocular lens implantation, right eye SURGEON: Dr. Justin Castillo ANESTHESIA: Topical with 1% intracameral lidocaine and monitored anesthesia care COMPLICATIONS: None DESCRIPTION OF PROCEDURE: After positively identifying the patient both verbally and by wristband in the preoperative area, the right eye was marked as the operative eye. The patient was then brought back to the operating room by the anesthesia and nursing staff where they were given a drop of Lidocaine and betadine into the operative eye. They were then sterilely prepped and draped in the standard fashion typical for ophthalmic surgery. Steri-strips were placed along the upper eyelids to keep the lashes back, and a lid speculum was placed into the operative eye. At this point, a documented time out was performed with members of the ophthalmology, nursing, and anesthesia staffs all agreeing upon the correct patient, correct location for surgery, correct procedure, and correct type and power of intraocular lens to be implanted. The microscope was then swung into position. First, a paracentesis wound was made using a sideport blade. Then, in sequence, 1% preservative-free lidocaine followed by Endocoat viscoelastic was injected into the anterior chamber. Next , the main incision was made with a keratome blade in triplanar fashion. A sharp cystotome was introduced into the eye and used to create a tear in the anterior capsule, which was directed into a continuous curvilinear capsulorrhexis using Utrata forceps. Hydrodissection was then performed with BSS on a flat-tip cannula. Next, the phacoemulsification handpiece was introduced into the eye and used to remove the nucleus in a [id number] fashion. This was done without complication and then the irrigation-aspiration handpiece was introduced into the eye and used to remove all remaining cortical and epinuclear material. Amvisc was then injected into the anterior chamber as well as into the capsular bag and using the lens injector system, an MX60 9.0 D lens, serial number [id number], and expiration date 11/2019 was injected into the capsular bag and rotated into the correct position. Next, the irrigation- aspiration handpiece was used to remove all remaining Amvisc. BSS was used to hydrate the main wound, and then BSS was injected into the paracentesis site to reach physiologic pressure and then the main wound was checked and found to be watertight. The patient was given drops of Vigamox and Tobradex ointment into the operative eye, and then the surrounding area was cleaned and dried. A clear plastic shield was placed over the eye and the patient was then sat up and taken from the operating room by the anesthesia staff having tolerated the procedure well and suffering no complications. DISPOSITION: The patient was returned to the recovery room in stable condition. I attest to the content of the Intraoperative Record and any orders documented therein. Any exceptions are noted below.
--- NOTE | 2017-11-12 08:33 | Discharge Instructions-SurgCtr ---
Discharge Instructions Date of Service Nov 12, 2017. Visit Reason for Visit: Right Cataract Discharge Discharge Diagnosis / Problem: right cataract Discharge Goals Goal(s): Decrease discomfort, Improve function Activity Recommendations Activity Limitations: as noted below Anesthesia . Post Anesthesia Instructions: If you have had General Anesthesia or IV Sedation: * Do not drive today. * Resume driving when surgeon permits. * Do not make important decisions or sign legal documents today. * Call surgeon for: 1. Temperature elevations greater than 101 degrees F. 2. Uncontrollable pain. 3. Excessive bleeding. 4. Persistent nausea and vomiting. 5. Medication intolerance (nausea, vomiting or rash). * For nausea and vomiting use only clear liquids such as: tea, soda, bouillon until nausea subsides, then gradually increase diet as tolerated. * If you have any concerns or questions, call your surgeon's office. If physician is unavailable and it is an emergency, call 911 or go to the nearest emergency room. . Instructions / Follow-Up Instructions / Follow-Up ACTIVITY RECOMMENDATIONS: * Light activities. * You may walk outside, read, watch television. * You may notice redness on the white part of the eye and some blurry vision - this is normal. MEDICATIONS: Resume previous medications unless instructed otherwise by your surgeon. Start all eye drops at 10:30 am today: * Eye drops (today): Prednisone - one drop in operative eye every 2 hours while awake Ofloxacin - one drop in operative eye every 2 hours while awake Ilevro - one drop in operative eye daily SPECIAL CARE INSTRUCTIONS: * Tape plastic shield over eye to sleep at night. Call your doctor at with any concerns or problems. FOLLOW UP VISIT: Follow-up with Dr Castillo at [place] office as scheduled. Diet Recommendations Home Diet: no limitations Procedures Procedures Performed: Right Cataract Phacoemulsification With Intraocular Lens Implant Pending Studies Studies pending at discharge: no Medical Emergencies . Who to Call and When: Medical Emergencies: If at any time you feel your situation is an emergency, please call 911 immediately. . Non-Emergent Contact Non-Emergency issues call your: Surgeon . . "Provider Documentation" section prepared by Justin Castillo. .
[2017-11-12 08:36] VITALS: TEMP 36.7
[2017-11-12 09:02] VITALS: BP 134/82; PULSE 56; O2SAT 96
--- NOTE | 2017-11-12 09:10 | Anesthesiology Progress Note ---
Anesthesia Post Op Note Date & Time Nov 12, 2017 at 09:10 Vital Signs Pain Intensity: 0 Vital Signs Past 12 Hours Date Time Temp Pulse Resp B/P (MAP) Pulse Ox O2 Delivery O2 Flow Rate FiO2 11/12/17 09:02 56 18 134/82 (99) 96 Room Air 11/12/17 08:36 36.7 58 16 167/98 (121) 95 Room Air 11/12/17 07:19 36.6 66 16 135/85 (102) 95 Room Air Notes Mental Status: alert / awake / arousable, participated in evaluation Nausea / Vomiting: adequately controlled Pain: adequately controlled Airway Patency, RR, SpO2: stable & adequate BP & HR: stable & adequate Hydration State: stable & adequate Anesthetic Complications: no major complications apparent
== END | disposition home or self-care (01) ==
LOC: X.SURG 07:10
PROVIDERS: ATTEND Ophthalmology
DX: H25.11 Age-related nuclear cataract, right eye (principal); E89.0 Postprocedural hypothyroidism; M19.90 Unspecified osteoarthritis, unspecified site; Z85.3 Personal history of malignant neoplasm of breast; Z92.21 Personal history of antineoplastic chemotherapy; E66.9 Obesity, unspecified

== ENCOUNTER → 2017-12-01 | Outpatient (CLI) | payer OTHER, MEDICARE ==
[~2017-12-01] MED LIST changes: -500ML BSS 0.3ML EPI 1:1000PF IRRIG ONE; -ACETAMINOPHEN 325 MG TAB PO PRN; -AMVISC PLUS 0.8ML SYRINGE INT OCU ONE; -ATROPINE SULFATE 0.1 MG/ML 5ML SYR IV PRN; -BSS FLUSH ONE; -ENDOCOAT 0.85ML SYRINGE INT OCU ONE; -EpHEDrine SULFATE INJ 50 MG/ML AMP IV PRN; -EpINEphrine INJ 1MG/ML AMP 1 MG/ML AMP ONE; -HYDR-5688 PO; -LACTATED RINGER'S 1000ML 500 ML IV SCH; -LIDOCAINE 4% OP SOLN DROP CHARGE ONE; -LIDOCAINE 4% OP SOLN DROP CHARGE OPR SCH; -LIDOCAINE HCL 1% MPF 2 ML VIAL ONE; -MIDAZOLAM HCL 1 MG/ML 2ML VIAL ONE; -MIX: 4ML BSS 1ML EPI 1:1000 PF TOP ONE; -MOXIFLOXACIN OPH SOLN PER DROP CHARGE ONE; -POVIDONE-IODINE OP SOLN 30 ML BTL ONE; -PROPARACAINE 0.5% OP SOLN PER DROP CHARGE OPR SCH; -TOBRAMYCIN/DEXAMETHASONE OPH OINT PER APPLN CHARGE ONE
--- NOTE | 2017-12-01 12:49 | DIAGNOSTIC IMAGING REPORT ---
PET/CT HISTORY: BREAST CANCER TECHNIQUE: PET/CT was performed from the base of the skull through the pelvis following the intravenous administration of 12.1 mCi of F18-FDG. Non-contrast CT imaging was performed over the same range without breath-hold for attenuation correction of PET images and anatomic correlation, but not for primary interpretation as it is not of standard diagnostic quality. CT DOSE: 667.66 mGycm COMPARISON: None. FINDINGS: HEAD AND NECK: There is no FDG-avid disease or significant lymphadenopathy in the imaged portions of the head and the neck. CHEST: There are 4 FDG avid left axillary lymph nodes. The largest measures 2.5 x 1.6 cm. These lymph nodes demonstrate an SUV max of 18. There is a 5.5 cm fluid collection within the left axilla consistent with a seroma. There is mild FDG uptake associated with the superior border of the fluid collection demonstrating an SUV max of 2.5. This is adjacent to the surgical clip and favors postoperative change. There is also mild FDG uptake associated with the skin and trabecular thickening within the left breast also suggestive of postoperative changes. Right subclavian Port-A-Cath terminates in the SVC. No mediastinal or hilar lymphadenopathy. No FDG avid pulmonary nodules. There is a 6 mm nodule within the left lateral breast on image 82 which demonstrates mild FDG uptake with an SUV max of 1.9. ABDOMEN/PELVIS: Below the diaphragm, tracer is distributed physiologically in the gastrointestinal and genitourinary tracts. There is no significant lymphadenopathy and no FDG-avid disease. A 1.2 cm photopenic lesion within the right hepatic dome consistent with a cyst. Left-sided nephrolithiasis. Colonic diverticulosis. MUSCULOSKELETAL: There is no FDG-avid or destructive bone lesion. IMPRESSION: 1. FDG avid left axillary lymphadenopathy consistent with metastatic disease. 2. A 5.5 cm fluid collection within the left axilla which likely represents a postoperative seroma. 3. Mild FDG uptake associated with the left breast skin and trabecular thickening which also favors postoperative changes. 4. A 6 mm nodular focus within the lateral left breast demonstrating mild FDG uptake. This could be due postoperative changes or residual malignancy. Follow up breast MRI may help for further evaluation. Electronically signed by: Matti Bryan M.D. 12/01/2017 12:48 PM Dictated Date/Time: 12/01/2017 12:31 PM
== END | disposition home or self-care (01) ==
LOC: C.PET 09:24
PROVIDERS: ATTEND Internal Medicine Hematology & Oncology
DX: C50.212 Malignant neoplasm of upper-inner quadrant of left female breast (principal)

== ENCOUNTER → 2017-12-03 | Day surgery (SDC) | payer OTHER, MEDICARE ==
[2017-11-26 07:48] VITALS: Ht 175.3 cm; Wt 103.2 kg
[~2017-12-03] VITALS: Ht 175.3 cm; Wt 103.2 kg
[~2017-12-03] MED LIST changes: +500ML BSS 0.3ML EPI 1:1000PF IRRIG ONE; +ACETAMINOPHEN 325 MG TAB PO PRN; +AMVISC PLUS 0.8ML SYRINGE INT OCU ONE; +ATROPINE SULFATE 0.1 MG/ML 5ML SYR IV PRN; +AcetaZOLAMIDE 250 MG TAB ONE; +BSS FLUSH ONE; +ENDOCOAT 0.85ML SYRINGE INT OCU ONE; +EpHEDrine SULFATE INJ 50 MG/ML AMP IV PRN; +EpINEphrine INJ 1MG/ML AMP 1 MG/ML AMP ONE; +LACTATED RINGER'S 1000ML 1,000 ML IV SCH; +LIDOCAINE 4% OP SOLN DROP CHARGE ONE; +LIDOCAINE 4% OP SOLN DROP CHARGE OPL SCH; +LIDOCAINE HCL 1% MPF 2 ML VIAL ONE; +MIDAZOLAM HCL 1 MG/ML 2ML VIAL ONE; +MIX: 4ML BSS 1ML EPI 1:1000 PF TOP ONE; +MOXIFLOXACIN OPH SOLN PER DROP CHARGE ONE; +POVIDONE-IODINE OP SOLN 30 ML BTL ONE; +PROPARACAINE 0.5% OP SOLN PER DROP CHARGE OPL SCH; +TOBRAMYCIN/DEXAMETHASONE OPH OINT PER APPLN CHARGE ONE
[2017-12-03] MEDS: PHENYLEPHRINE HCL 2.5% OP SOLN PER DROP CHARGE OPL SCH ×3 (06:37→06:47)
[2017-12-03] MEDS: TROPICAMIDE 1% OP SOLN PER DROP CHARGE OPL SCH ×3 (06:38→06:48)
[2017-12-03] MEDS: CYCLOPENTOLATE HCL 1% OP SOLN PER DROP CHARGE OPL SCH ×4 (06:39→06:49)
[2017-12-03] MEDS: MOXIFLOXACIN OPH SOLN PER DROP CHARGE OPL SCH ×3 (06:40→06:51)
--- NOTE | 2017-12-03 07:30 | [facility] Post Operative Brief Note ---
Immediate Operative Summary Operative Date Dec 03, 2017. Pre-Operative Diagnosis Cataract Left Eye Post-Operative Diagnosis Same Procedure(s) Performed Left Cataract Phacoemulsification With Intraocular Lens Implant Surgeon Dr. Castillo Client Care Representative Surgeon(s) None Estimated Blood Loss 0 Findings left cataract Specimens None Complication(s) None Disposition
--- NOTE | 2017-12-03 07:31 | [facility] Operative Report ---
Operative Report Date of Service Dec 03, 2017. Operative Report DATE OF OPERATION: 12/03/17 PREOPERATIVE DIAGNOSIS: Senile nuclear cataract, left eye POSTOPERATIVE DIAGNOSIS: Senile nuclear cataract, left eye PROCEDURE PERFORMED: Phacoemulsification with intraocular lens implantation, left eye SURGEON: Dr. Justin Castillo ANESTHESIA: Topical with 1% intracameral lidocaine and monitored anesthesia care COMPLICATIONS: None DESCRIPTION OF PROCEDURE: After positively identifying the patient both verbally and by wristband in the preoperative area, the left eye was marked as the operative eye. The patient was then brought back to the operating room by the anesthesia and nursing staff where they were given a drop of Lidocaine and betadine into the operative eye. They were then sterilely prepped and draped in the standard fashion typical for ophthalmic surgery. Steri-strips were placed along the upper eyelids to keep the lashes back, and a lid speculum was placed into the operative eye. At this point, a documented time out was performed with members of the ophthalmology, nursing, and anesthesia staffs all agreeing upon the correct patient, correct location for surgery, correct procedure, and correct type and power of intraocular lens to be implanted. The microscope was then swung into position. First, a paracentesis wound was made using a sideport blade. Then, in sequence, 1% preservative-free lidocaine followed by Endocoat viscoelastic was injected into the anterior chamber. Next , the main incision was made with a keratome blade in triplanar fashion. A sharp cystotome was introduced into the eye and used to create a tear in the anterior capsule, which was directed into a continuous curvilinear capsulorrhexis using Utrata forceps. Hydrodissection was then performed with BSS on a flat-tip cannula. Next, the phacoemulsification handpiece was introduced into the eye and used to remove the nucleus in a [id number] fashion. This was done without complication and then the irrigation-aspiration handpiece was introduced into the eye and used to remove all remaining cortical and epinuclear material. Amvisc was then injected into the anterior chamber as well as into the capsular bag and using the lens injector system, an MX60 10.0 D lens, serial number [id number], and expiration date 02/2018 was injected into the capsular bag and rotated into the correct position. Next, the irrigation- aspiration handpiece was used to remove all remaining Amvisc. BSS was used to hydrate the main wound, and then BSS was injected into the paracentesis site to reach physiologic pressure and then the main wound was checked and found to be watertight. The patient was given drops of Vigamox and Tobradex ointment into the operative eye, and then the surrounding area was cleaned and dried. A clear plastic shield was placed over the eye and the patient was then sat up and taken from the operating room by the anesthesia staff having tolerated the procedure well and suffering no complications. DISPOSITION: The patient was returned to the recovery room in stable condition. I attest to the content of the Intraoperative Record and any orders documented therein. Any exceptions are noted below.
--- NOTE | 2017-12-03 07:32 | Discharge Instructions-SurgCtr ---
Discharge Instructions Date of Service Dec 03, 2017. Visit Reason for Visit: Cataract Left Eye Discharge Discharge Diagnosis / Problem: left cataract Discharge Goals Goal(s): Decrease discomfort, Improve function Activity Recommendations Activity Limitations: as noted below Anesthesia . Post Anesthesia Instructions: If you have had General Anesthesia or IV Sedation: * Do not drive today. * Resume driving when surgeon permits. * Do not make important decisions or sign legal documents today. * Call surgeon for: 1. Temperature elevations greater than 101 degrees F. 2. Uncontrollable pain. 3. Excessive bleeding. 4. Persistent nausea and vomiting. 5. Medication intolerance (nausea, vomiting or rash). * For nausea and vomiting use only clear liquids such as: tea, soda, bouillon until nausea subsides, then gradually increase diet as tolerated. * If you have any concerns or questions, call your surgeon's office. If physician is unavailable and it is an emergency, call 911 or go to the nearest emergency room. . Instructions / Follow-Up Instructions / Follow-Up ACTIVITY RECOMMENDATIONS: * Light activities. * You may walk outside, read, watch television. * You may notice redness on the white part of the eye and some blurry vision - this is normal. MEDICATIONS: Resume previous medications unless instructed otherwise by your surgeon. Start all eye drops at 9:30 am today: * Eye drops (today): Prednisone - one drop in operative eye every 2 hours while awake Ofloxacin - one drop in operative eye every 2 hours while awake Ilevro - one drop in operative eye daily SPECIAL CARE INSTRUCTIONS: * Tape plastic shield over eye to sleep at night. Call your doctor at with any concerns or problems. FOLLOW UP VISIT: Follow-up with Dr Castillo at [facility] as scheduled. Diet Recommendations Home Diet: no limitations Procedures Procedures Performed: Left Cataract Phacoemulsification With Intraocular Lens Implant Pending Studies Studies pending at discharge: no Medical Emergencies . Who to Call and When: Medical Emergencies: If at any time you feel your situation is an emergency, please call 911 immediately. . Non-Emergent Contact Non-Emergency issues call your: Surgeon . . "Provider Documentation" section prepared by Justin Castillo. .
[2017-12-03 07:41] VITALS: TEMP 36.8
[2017-12-03 08:00] VITALS: BP 124/85; PULSE 57; O2SAT 95
--- NOTE | 2017-12-03 08:11 | Anesthesiology Progress Note ---
Anesthesia Post Op Note Date & Time Dec 03, 2017 at 08:10 Vital Signs Pain Intensity: 0 Vital Signs Past 12 Hours Date Time Temp Pulse Resp B/P (MAP) Pulse Ox O2 Delivery O2 Flow Rate FiO2 12/03/17 08:00 57 124/85 (98) 95 Room Air 12/03/17 07:41 36.8 55 16 133/83 (100) 95 Room Air 12/03/17 06:26 36.7 62 16 123/84 (97) 95 Room Air Notes Mental Status: alert / awake / arousable, participated in evaluation Nausea / Vomiting: adequately controlled Pain: adequately controlled Airway Patency, RR, SpO2: stable & adequate BP & HR: stable & adequate Hydration State: stable & adequate Anesthetic Complications: no major complications apparent
== END | disposition home or self-care (01) ==
LOC: X.SURG 06:06
PROVIDERS: ATTEND Ophthalmology
DX: H25.12 Age-related nuclear cataract, left eye (principal); Z85.3 Personal history of malignant neoplasm of breast

== ENCOUNTER 2017-12-18 06:49 | Inpatient (IN) | payer OTHER, MEDICARE ==
[2017-12-11 15:43] VITALS: BMI 33.0
[~2017-12-18] VITALS: Ht 175.3 cm; Wt 100.0 kg
[~2017-12-18 06:49] MED LIST changes: -500ML BSS 0.3ML EPI 1:1000PF IRRIG ONE; +ACETAMINOPHEN 1000 MG/100 ML IV IV ONE; -ACETAMINOPHEN 325 MG TAB PO PRN; -AMVISC PLUS 0.8ML SYRINGE INT OCU ONE; -ATROPINE SULFATE 0.1 MG/ML 5ML SYR IV PRN; -AcetaZOLAMIDE 250 MG TAB ONE; -BSS FLUSH ONE; +CEFAZOLIN 2000MG IV PUSH 10 ML IV SCH; -ENDOCOAT 0.85ML SYRINGE INT OCU ONE; -EpHEDrine SULFATE INJ 50 MG/ML AMP IV PRN; -EpINEphrine INJ 1MG/ML AMP 1 MG/ML AMP ONE; -LIDOCAINE 4% OP SOLN DROP CHARGE ONE; -LIDOCAINE 4% OP SOLN DROP CHARGE OPL SCH; -LIDOCAINE HCL 1% MPF 2 ML VIAL ONE; -MIDAZOLAM HCL 1 MG/ML 2ML VIAL ONE; -MIX: 4ML BSS 1ML EPI 1:1000 PF TOP ONE; -MOXIFLOXACIN OPH SOLN PER DROP CHARGE ONE; +NEPA0.6D OPL; +OFLO0.3S OPL; -POVIDONE-IODINE OP SOLN 30 ML BTL ONE; +PRED1SUS OPL; -PROPARACAINE 0.5% OP SOLN PER DROP CHARGE OPL SCH; -TOBRAMYCIN/DEXAMETHASONE OPH OINT PER APPLN CHARGE ONE
[2017-12-18] MEDS ORDERED: PIPERACILL/TAZOBAC CONSULT ACTIVE PRN (07:30)
[2017-12-18 08:15] VITALS: BP 147/84; PULSE 68; TEMP 36.9; O2SAT 93; Ht 175.3 cm; Wt 100.0 kg
[2017-12-18 08:43] LABS: CALCIUM 9.5 mg/dl (8.5-10.1); CREATININE 0.57 mg/dl (0.60-1.20)
[2017-12-18 08:55] LABS: BASO % 0.3 %; BASO ABS # 0.02 K/uL (0-0.2); EOS % 0.9 %; EOS ABS # 0.05 K/uL (0-0.5); HEMATOCRIT 37.6 % (37-47); HEMOGLOBIN 12.9 g/dL (12.0-16.0); IG# 0.01 K/uL (0.00-0.02); LYMPH % 21.3 %; LYMPH ABS # 1.24 K/uL (1.2-3.4); MEAN CELL VOLUME 88.5 fL (80-100); MEAN CORPUSCULAR HEMOGLOBIN 30.4 pg (25-34); MEAN CORPUSCULAR HGB CONC 34.3 g/dl (32-36); MEAN PLATELET VOLUME 11.1 fL (7.4-10.4); MONO % 13.9 %; MONO ABS # 0.81 K/uL (0.11-0.59); NEUT % 63.4 %; NEUT ABS # 3.68 K/uL (1.4-6.5); PLATELET COUNT 172 K/uL (130-400); RED CELL DISTRIBUTION WIDTH SD 45.8 fL (36.4-46.3); WHITE BLOOD COUNT 5.81 K/uL (4.8-10.8)
[2017-12-18] MEDS ORDERED: PIPERACILL/TAZOBAC IV 3.375 GM in DEXTROSE 5% 100ML 100 ML IV SCH (09:00)
--- NOTE | 2017-12-18 09:57 | DIAGNOSTIC IMAGING REPORT ---
Study: Breast ultrasound. HISTORY: Pain. Edema. FINDINGS: Complex septated collection left breast upper outer aspect. This measures 6 x 5 cm at maximum. This is noted in the patient's prior PET scan dated 12/11/2017. Diagnostic considerations include seroma, old hematoma, with abscess less likely but completely impossible to exclude. IMPRESSION: Complex septated cystic collection upper outer aspect left breast measuring 6 x 5 cm. This potentially relates to the seroma noted in the patient's prior PET scan. Other possibilities include old hematoma, versus the less likely possibility of abscess. Electronically signed by: Efraín Vasquez M.D. 12/18/2017 9:56 AM Dictated Date/Time: 12/18/2017 9:47 AM
--- NOTE | 2017-12-18 13:50 | Surgery Progress Note ---
Surgery Progress Note Date of Service Dec 18, 2017. Subjective pt was here today for axillary dissection but surgery cancelled due to erythema at surgical site. per patient began friday/friday. denies fever. denies pain. Objective Vital Signs: Date Time Temp Pulse Resp B/P (MAP) Pulse Ox O2 Delivery O2 Flow Rate FiO2 12/18/17 07:26 37.5 63 18 131/75 (93) 93 Room Air General Appearance: no apparent distress Head: normocephalic, atraumatic Neck: no JVD Respiratory/Chest: no respiratory distress, no accessory muscle use Abdomen: non tender, non distended, soft Extremities: + pertinent finding (left breast and left axilla erythema. warm to touch. +blister on inferior aspect of breast. nontender. ) Laboratory Results: Results Past 24 Hours Test 12/18/17 07:14 12/18/17 08:02 12/18/17 08:45 Range/Units Bedside Glucose 102 70-90 mg/dl Sodium Level 138 136-145 mmol/L Potassium Level 3.7 3.5-5.1 mmol/L Chloride Level 106 98-107 mmol/L Carbon Dioxide Level 26 21-32 mmol/L Anion Gap 6.0 3-11 mmol/L Blood Urea Nitrogen 14 7-18 mg/dl Creatinine 0.57 0.60-1.20 mg/dl Est Creatinine Clear Calc Drug Dose 116.2 ml/min Estimated GFR () 109.6 Estimated GFR (Non- 94.6 BUN/Creatinine Ratio 25.3 10-20 Random Glucose 94 70-99 mg/dl Calcium Level 9.5 8.5-10.1 mg/dl White Blood Count 5.81 4.8-10.8 K/uL Red Blood Count 4.25 4.2-5.4 M/uL Hemoglobin 12.9 12.0-16.0 g/dL Hematocrit 37.6 37-47 % Mean Corpuscular Volume 88.5 80-100 fL Mean Corpuscular Hemoglobin 30.4 25-34 pg Mean Corpuscular Hemoglobin Concent 34.3 32-36 g/dl Platelet Count 172 130-400 K/uL Mean Platelet Volume 11.1 7.4-10.4 fL Neutrophils (%) (Auto) 63.4 % Lymphocytes (%) (Auto) 21.3 % Monocytes (%) (Auto) 13.9 % Eosinophils (%) (Auto) 0.9 % Basophils (%) (Auto) 0.3 % Neutrophils # (Auto) 3.68 1.4-6.5 K/uL Lymphocytes # (Auto) 1.24 1.2-3.4 K/uL Monocytes # (Auto) 0.81 0.11-0.59 K/uL Eosinophils # (Auto) 0.05 0-0.5 K/uL Basophils # (Auto) 0.02 0-0.2 K/uL RDW Standard Deviation 45.8 36.4-46.3 fL RDW Coefficient of Variation 14.0 11.5-14.5 % Immature Granulocyte % (Auto) 0.2 % Immature Granulocyte # (Auto) 0.01 0.00-0.02 K/uL Assessment & Plan mastitis. US shows complex fluid collection. wbc normal. erythema is already decreased from this AM after 1 dose of antibiotics will re-eval in AM for possible drainage. continue IV antibiotics
[2017-12-18] MEDS ORDERED: IV FLUIDS COMPLETED PRN (14:00)
[2017-12-18 15:27] VITALS: BP 122/76; PULSE 70; TEMP 36.4; O2SAT 92
[2017-12-18] MEDS: PIPERACILL/TAZOBAC IV 3.375 GM in DEXTROSE 5% 100ML 100 ML IV SCH ×2 (16:48→23:21)
[2017-12-18] MEDS ORDERED: NURSING VERBAL MED ORDER ONE (21:30)
[2017-12-18 22:56] VITALS: BP 119/74; PULSE 64; TEMP 36.8; O2SAT 94
[2017-12-19] MEDS: PIPERACILL/TAZOBAC IV 3.375 GM in DEXTROSE 5% 100ML 100 ML IV SCH ×3 (06:31→22:30)
[2017-12-19] MEDS: LEVOTHYROXINE 50 MCG TAB PO SCH (06:33)
[2017-12-19 07:34] VITALS: BP 130/85; PULSE 63; TEMP 37.1; O2SAT 92
[2017-12-19] MEDS ORDERED: NURSING VERBAL MED ORDER ONE (07:45)
[2017-12-19] MEDS ORDERED: AMOX875T PO (07:55)
--- NOTE | 2017-12-19 07:59 | Discharge Instructions ---
Discharge Instructions Date of Service Dec 19, 2017. Admission Reason for Admission: Left Breast Cancer Discharge Discharge Diagnosis / Problem: Breast abscess Discharge Goals Goal(s): Decrease discomfort, Improve function Activity Recommendations Activity Limitations: as noted below Lifting Limitations: gradually increase as tolerated Exercise/Sports Limitations: gradually increase as tolerated Shower/Bathe: tomorrow Driving or Machine Use: resume 1 day after discharge . Instructions / Follow-Up Instructions / Follow-Up You have been prescribed Augmentin to take as directed for your infection. Please finish this course of antibiotics as prescribed. Please follow-up with Dr. Peña in 1-2 weeks. Contact our office at to schedule an appointment if you have not done so already. Please contact our office with any other questions or concerns. [facility] [employer] [address] [facility] [address]. Current Hospital Diet Patient's current hospital diet: Regular Diet Discharge Diet Recommended Diet: Regular Diet Pending Studies Studies pending at discharge: no Medical Emergencies . Who to Call and When: Medical Emergencies: If at any time you feel your situation is an emergency, please call 911 immediately. . Non-Emergent Contact Non-Emergency issues call your: Primary Care Provider, Surgeon Call Non-Emergent contact if: you have a fever, temperature is above 101.5, your pain is not controlled, your pain is worsening, wound has increased drainage, wound has increased redness . "Provider Documentation" section prepared by Sancho Dubois. . VTE Core Measure Inpt VTE Proph given/why not?: SCD's [place] Drug Monitoring Program Search Results: patient reviewed within database, no issues identified
[2017-12-19] MEDS ORDERED: ZOLPIDEM TARTRATE 10 MG TAB PO PRN (08:00)
[2017-12-19 08:15] LABS: CREATININE 0.61 mg/dl (0.60-1.20)
--- NOTE | 2017-12-19 09:56 | Surgery Progress Note ---
Surgery Progress Note Date of Service Dec 19, 2017. Subjective + feeling well per the patient and nursing, the patient had a large volume of serous fluid drained overnight. she has no pain/no complaints. Objective Vital Signs: Date Time Temp Pulse Resp B/P (MAP) Pulse Ox O2 Delivery O2 Flow Rate FiO2 12/19/17 07:34 37.1 63 16 130/85 (100) 92 Room Air 12/18/17 22:56 36.8 64 18 119/74 (89) 94 Room Air 12/18/17 19:45 Room Air 12/18/17 15:27 36.4 70 18 122/76 (91) 92 Room Air General Appearance: no apparent distress Head: atraumatic Respiratory/Chest: no respiratory distress, no accessory muscle use Abdomen: non tender, soft Incision(s): findings (pt still has erythema over left breast/axilla but much improved. nontender. no palpable fluid. ) Laboratory Results: Results Past 24 Hours Test 12/19/17 07:41 Range/Units Creatinine 0.61 0.60-1.20 mg/dl Est Creatinine Clear Calc Drug Dose 109.6 ml/min Estimated GFR () 107.2 Estimated GFR (Non- 92.5 Hepatitis C Antibody Screen NEG NEG Assessment & Plan 12/19/17 the fluid appears to have self drained. I see no reason to go to the OR for drainage today clinically doing well will keep one more day for IV antibiotics. will plan d/c tomorrow am after morning antibiotics given d/c on augmentin Dr. Perry covering this weekend. 12/18/17 mastitis. US shows complex fluid collection. wbc normal. erythema is already decreased from this AM after 1 dose of antibiotics will re-eval in AM for possible drainage. continue IV antibiotics mastitis. US shows complex fluid collection. wbc normal. erythema is already decreased from this AM after 1 dose of antibiotics will re-eval in AM for possible drainage. continue IV antibiotics
[2017-12-19 15:28] VITALS: BP 124/76; PULSE 65; TEMP 37.8; O2SAT 95
[2017-12-19 15:47] VITALS: TEMP 36.7
[2017-12-19 23:25] VITALS: BP 107/64; PULSE 68; TEMP 37; O2SAT 91
[2017-12-20] MEDS: PIPERACILL/TAZOBAC IV 3.375 GM in DEXTROSE 5% 100ML 100 ML IV SCH ×2 (06:13→06:47)
[2017-12-20] MEDS: LEVOTHYROXINE 50 MCG TAB PO SCH (06:13)
[2017-12-20 06:57] VITALS: BP 117/84; PULSE 65; TEMP 36.9; O2SAT 93
[2017-12-20 08:42] LABS: CREATININE 0.53 mg/dl (0.60-1.20)
--- NOTE | 2017-12-20 10:50 | Surgery Progress Note ---
Surgery Progress Note Date of Service Dec 20, 2017. Subjective + feeling well, No nausea, No vomiting Less pain Thinks erythema is markedly improved Objective Vital Signs: Date Time Temp Pulse Resp B/P (MAP) Pulse Ox O2 Delivery O2 Flow Rate FiO2 12/20/17 06:57 36.9 65 14 117/84 (95) 93 Room Air 12/19/17 23:25 37.0 68 14 107/64 (78) 91 Room Air 12/19/17 23:20 Room Air 12/19/17 15:47 36.7 12/19/17 15:35 Room Air 12/19/17 15:28 37.8 65 18 124/76 (92) 95 Room Air Laboratory Results: Results Past 24 Hours Test 12/20/17 07:49 Range/Units Creatinine 0.53 0.60-1.20 mg/dl Est Creatinine Clear Calc Drug Dose 126.1 ml/min Estimated GFR () 112.3 Estimated GFR (Non- 96.9 Left breast with pale redness, mild tenderness Assessment & Plan S/P lumpectomy of left breat Developed cellulitis Improve with antibiotics Can D/C to home on oral antibiotics To see see Dr Peña next Friday
[2017-12-20 12:05] VITALS: BP 117/84; PULSE 65; TEMP 36.9; O2SAT 93
--- NOTE | 2017-12-26 13:07 | Discharge Summary ---
Discharge Summary Date of Service Dec 26, 2017. Admission Date/Reason Dec 19, 2017 at 13:38 Left Breast Cancer. Discharge Date/Disposition Dec 20, 2017 Home Diagnosis Principal Diagnosis: Left Breast Mastitis and complex fluid collection. Procedure(s) Performed None Medication Reconciliation Augmentin 1 Tablet BID x 14 Tabs Admission Physical Exam As per Admitting History & Physical. Hospital Course 12/18/17: Patient presented to same day surgery today for a scheduled left breast biopsy/axillary dissection for left breast cancer. At this time she was found to have erythema and swelling on her left breast. The procedure was cancelled due to possible mastitis vs abscess and the patient was admitted on observation to med/surg. At this time she was placed on antibiotics and an U/S was ordered to further evaluate for a possible abscess. US shows complex fluid collection. wbc normal. At this time we kept her on antibiotics and planned for reevaluation in the morning and possible I&D in the OR if there would be enough fluid to drain. 12/19/17: Erythema and swelling seem to be improving. No signs of a significant collection of fluid to drain at this time. Plan to keep her on IV antibiotics 1 more day and then possible D/C tomorrow if she is doing well on PO antibiotics and F/U with Dr. Peña in 1 week. [facility] covering this weekend. These findings were discussed with Dr. Perry who will be covering. 12/20/17: Dr. Perry covering today. Patient doing well, seems to be improving. D/C today on 1 week course of Augmentin and instructions to follow-up with Dr. Peña in 1 week. Discharge Instructions Please refer to the electronic Patient Visit Report (Discharge Instructions) for additional information.
== END 2017-12-20 12:35 | disposition home or self-care (01) | DRG 600 ==
LOC: C.ACU 06:49 → C.MSN 07:35 → EDBEDREQ 07:36 → ENRESERV 07:45 → OBSVTOIN 12-19 13:38
PROVIDERS: ADMIT Surgery; ATTEND Surgery
DX: N61.0 Mastitis without abscess (principal); C77.3 Secondary and unspecified malignant neoplasm of axilla and upper limb lymph nodes; C50.912 Malignant neoplasm of unspecified site of left female breast; M19.90 Unspecified osteoarthritis, unspecified site; L82.1 Other seborrheic keratosis; Z80.3 Family history of malignant neoplasm of breast; Z53.09 Procedure and treatment not carried out because of other contraindication

== ENCOUNTER → 2017-12-26 | Outpatient (CLI) | payer OTHER, MEDICARE ==
[~2017-12-26] MED LIST changes: -ACETAMINOPHEN 1000 MG/100 ML IV IV ONE; +AMOX875T PO; -CEFAZOLIN 2000MG IV PUSH 10 ML IV SCH; -LACTATED RINGER'S 1000ML 1,000 ML IV SCH
== END | disposition home or self-care (01) ==
LOC: C.PATHSPEC 14:07
PROVIDERS: ATTEND Surgery
DX: C44.501 Unspecified malignant neoplasm of skin of breast (principal)

== ENCOUNTER → 2017-12-29 | Outpatient (CLI) | payer OTHER, MEDICARE ==
--- NOTE | 2017-12-29 13:33 | DIAGNOSTIC IMAGING REPORT ---
CHEST 2 VIEWS ROUTINE HISTORY: 67 years-old Female R05 acute cough COMPARISON: Chest radiograph 12/16/2016, PET CT 12/01/2017 TECHNIQUE: PA and lateral views of the chest FINDINGS: Cardiomediastinal and hilar silhouettes are within normal limits. Mild ectasia of the thoracic aorta redemonstrated. Right subclavian [id number] catheter appears unchanged. No pneumothorax, pleural effusion, focal airspace consolidation or overt pulmonary edema. Surgical clips project over the left breast and axillary regions. Bones of the chest appear grossly intact. IMPRESSION: No acute process. The above report was generated using voice recognition software. It may contain grammatical, syntax or spelling errors. Electronically signed by: David Cabrera M.D. 12/29/2017 1:32 PM Dictated Date/Time: 12/29/2017 1:30 PM
== END | disposition home or self-care (01) ==
LOC: C.RAD1850 13:12
PROVIDERS: ATTEND Surgery
DX: R05 Cough (principal)

== ENCOUNTER → 2018-04-06 | Outpatient (CLI) | payer OTHER, MEDICARE ==
[~2018-04-06] MED LIST changes: -AMOX875T PO
[2018-04-06 13:34] LABS: BASO % 0.2 %; BASO ABS # 0.01 K/uL (0-0.2); EOS % 1.1 %; EOS ABS # 0.07 K/uL (0-0.5); HEMATOCRIT 28.4 % (37-47); HEMOGLOBIN 9.3 g/dL (12.0-16.0); IG# 0.05 K/uL (0.00-0.02); LYMPH % 15.1 %; LYMPH ABS # 0.98 K/uL (1.2-3.4); MEAN CELL VOLUME 98.6 fL (80-100); MEAN CORPUSCULAR HEMOGLOBIN 32.3 pg (25-34); MEAN CORPUSCULAR HGB CONC 32.7 g/dl (32-36); MEAN PLATELET VOLUME 10.6 fL (7.4-10.4); MONO % 11.9 %; MONO ABS # 0.77 K/uL (0.11-0.59); NEUT % 70.9 %; NEUT ABS # 4.61 K/uL (1.4-6.5); PLATELET COUNT 207 K/uL (130-400); RED CELL DISTRIBUTION WIDTH CV 23.4 % (11.5-14.5); RED CELL DISTRIBUTION WIDTH SD 81.5 fL (36.4-46.3); WHITE BLOOD COUNT 6.49 K/uL (4.8-10.8)
[2018-04-06 13:57] LABS: ALBUMIN 3.8 gm/dl (3.4-5.0); ALT/SGPT 36 U/L (12-78); AST/SGOT 26 U/L (15-37); BLOOD UREA NITROGEN 18 mg/dl (7-18); CALCIUM 8.9 mg/dl (8.5-10.1); CARBON DIOXIDE 27 mmol/L (21-32); CREATININE 0.66 mg/dl (0.60-1.20); GLUCOSE 87 mg/dl (70-99); SODIUM 140 mmol/L (136-145)
[2018-04-06 14:00] LABS: ALKALINE PHOSPHATASE 101 U/L (45-117); TOTAL PROTEIN 7.2 gm/dl (6.4-8.2)
== END | disposition home or self-care (01) ==
LOC: C.LABSPEC 13:22
PROVIDERS: ATTEND Internal Medicine Hematology & Oncology
DX: C50.212 Malignant neoplasm of upper-inner quadrant of left female breast (principal)

== ENCOUNTER → 2018-04-08 | Outpatient (CLI) | payer OTHER, MEDICARE | END | disposition home or self-care (01) | LOC: C.PATHSPEC 18:04 | PROVIDERS: ATTEND Surgery | DX: L98.9 Disorder of the skin and subcutaneous tissue, unspecified (principal); L82.1 Other seborrheic keratosis; C44.501 Unspecified malignant neoplasm of skin of breast ==

== ENCOUNTER → 2018-06-26 | Outpatient (CLI) | payer OTHER, MEDICARE ==
[~2018-06-26] MED LIST changes: +CAPE1TAB3 PO; +CEPH500C2 PO; -COLON CARE PO; +METR0.7527 EX; -MULT-506 PO; -OFLO0.3S OPL; -PRED1SUS OPL
[2018-06-26 09:27] LABS: EOS % 6.9 %; EOS ABS # 0.28 K/uL (0-0.5); HEMATOCRIT 35.5 % (37-47); IG# 0.01 K/uL (0.00-0.02); LYMPH ABS # 0.73 K/uL (1.2-3.4); MEAN CORPUSCULAR HEMOGLOBIN 31.1 pg (25-34); MEAN CORPUSCULAR HGB CONC 33.8 g/dl (32-36); MEAN PLATELET VOLUME 10.5 fL (7.4-10.4); MONO % 15.6 %; MONO ABS # 0.63 K/uL (0.11-0.59); NEUT % 59.3 %; PLATELET COUNT 172 K/uL (130-400); RED CELL DISTRIBUTION WIDTH CV 17.3 % (11.5-14.5); RED CELL DISTRIBUTION WIDTH SD 55.9 fL (36.4-46.3); WHITE BLOOD COUNT 4.05 K/uL (4.8-10.8)
[2018-06-26 09:45] LABS: ALBUMIN 3.2 gm/dl (3.4-5.0); ALT/SGPT 25 U/L (12-78); AST/SGOT 19 U/L (15-37); BLOOD UREA NITROGEN 15 mg/dl (7-18); CALCIUM 8.6 mg/dl (8.5-10.1); CARBON DIOXIDE 25 mmol/L (21-32); GLUCOSE 94 mg/dl (70-99); POTASSIUM 3.5 mmol/L (3.5-5.1); SODIUM 140 mmol/L (136-145)
[2018-06-26 09:49] LABS: ALKALINE PHOSPHATASE 58 U/L (45-117); TOTAL PROTEIN 6.3 gm/dl (6.4-8.2)
== END | disposition home or self-care (01) ==
LOC: C.LABSPEC 09:10
PROVIDERS: ATTEND Internal Medicine Hematology & Oncology
DX: C50.212 Malignant neoplasm of upper-inner quadrant of left female breast (principal)

== ENCOUNTER → 2018-07-13 | Outpatient (CLI) | payer OTHER, MEDICARE ==
[~2018-07-13] MED LIST changes: -CAPE1TAB3 PO; -CEPH500C2 PO
[2018-07-13 13:06] LABS: BASO % 0.1 %; BASO ABS # 0.01 K/uL (0-0.2); EOS % 0.1 %; EOS ABS # 0.01 K/uL (0-0.5); HEMATOCRIT 36.1 % (37-47); HEMOGLOBIN 12.7 g/dL (12.0-16.0); IG# 0.02 K/uL (0.00-0.02); LYMPH % 11.1 %; LYMPH ABS # 0.89 K/uL (1.2-3.4); MEAN CELL VOLUME 89.1 fL (80-100); MEAN CORPUSCULAR HEMOGLOBIN 31.4 pg (25-34); MEAN CORPUSCULAR HGB CONC 35.2 g/dl (32-36); MEAN PLATELET VOLUME 10.3 fL (7.4-10.4); MONO % 23.7 %; MONO ABS # 1.89 K/uL (0.11-0.59); NEUT % 64.7 %; NEUT ABS # 5.17 K/uL (1.4-6.5); PLATELET COUNT 209 K/uL (130-400); RED CELL DISTRIBUTION WIDTH CV 18.8 % (11.5-14.5); RED CELL DISTRIBUTION WIDTH SD 59.7 fL (36.4-46.3); WHITE BLOOD COUNT 7.99 K/uL (4.8-10.8)
[2018-07-13 13:25] LABS: ALBUMIN 2.8 gm/dl (3.4-5.0); ALT/SGPT 19 U/L (12-78); AST/SGOT 13 U/L (15-37); BLOOD UREA NITROGEN 16 mg/dl (7-18); CALCIUM 8.3 mg/dl (8.5-10.1); CARBON DIOXIDE 24 mmol/L (21-32); CREATININE 0.45 mg/dl (0.60-1.20); GLUCOSE 110 mg/dl (70-99); POTASSIUM 3.3 mmol/L (3.5-5.1); SODIUM 134 mmol/L (136-145)
[2018-07-13 13:30] LABS: ALKALINE PHOSPHATASE 59 U/L (45-117); TOTAL PROTEIN 6.1 gm/dl (6.4-8.2)
== END | disposition home or self-care (01) ==
LOC: C.LABSPEC 12:44
PROVIDERS: ATTEND Internal Medicine Hematology & Oncology
DX: C50.212 Malignant neoplasm of upper-inner quadrant of left female breast (principal)

== ENCOUNTER 2019-01-25 15:55 | Inpatient (IN) ==
[2019-01-25] MEDS ORDERED: PIPERACILL/TAZOBAC CONSULT ACTIVE PRN ×2 (16:35→19:10)
[2019-01-25] MEDS ORDERED: PIPERACILLIN/TAZOBACTAM 4.5 GM/120 ML BAG IV ONE (16:35)
[2019-01-25] MEDS ORDERED: DAPTOmycin 300 MG in SYRINGE 0 ML IV ONE (16:35)
[2019-01-25] MEDS ORDERED: CONSULT PHARMACY STA (17:48)
--- NOTE | 2019-01-25 17:59 | History & Physical Report ---
Date of Service January 25, 2019 Assessment & Plan (1) Cellulitis: - Presented with left breast cellulitis; follows with wound clinic, failed outpatient treatment with Doxycycline and Cefepime. - Most recent wound culture on 01/21 positive for Pseudomonas and MRSA. - Has been afebrile, hemodynamically stable. - Received Zosyn/Daptomycin in the ER; will continue antibiotics per recent sensitivities as Pseudomonas is now intermediately sensitive to cefepime. - ID consulted, follows with Dr. Britton as an outpatient. - Wound care consulted for dressing changes -- follows closely with wound clinic. - Blood cultures x 2 pending; no indication for lactate level. (2) Breast cancer: - Initially diagnosed in September 2016, triple negative breast cancer. - S/p partial left mastectomy and LN biopsy on 11/14/16. - Completed RT in 2016 and again in 2018. - Currently follows with Dr. Arroyo; has progressed through multiple chemotherapy treatments. - Receiving Halaven chemotherapy, most recent treatment on 01/21/19. (3) Chronic pain: - Continue home Oxycontin 40 mg twice daily with Oxycodone 10 mg every 4 hours as needed. (4) Hypothyroidism: - Continue Synthroid 50 mcg daily. - No recent documented TSH, will order in AM. (5) Chronic diastolic heart failure: - Echo in Nov 2016 showed EF 65-70%, grade I DD. - Monitor I/Os and daily weights. (6) Neutropenia: - ANC of 800, related to recent chemotherapy. - Neutropenic precautions. - Monitor CBC with diff qAM. (7) Anemia due to antineoplastic chemotherapy: - Hemoglobin currently stable. - Transfuse for hgb <7.5 or for active bleeding. (8) Hypokalemia: Replace with potassium chloride 20 mEq IV x1 now -Follow BMP in the morning (9) DVT prophylaxis: - SCDs; Lovenox q24hr. Dispo: Med/surg for IV abx, ID consult. FULL CODE - confirmed with patient and her son at bedside. History of Present Illness Chief Complaint: Cellulitis Primary Care Provider: Jonathan Dhillon MD Mrs. Epstein is a 68 year old female with history of metastatic breast cancer, hypothyroidism who presented for left breast cellulitis. Wound developed ~1.5 years ago; she has followed with the wound clinic closely with no improvement. Pt. has progressed through multiple lines of chemotherapy and is currently receiving Halaven treatment. Wound culture from 11/20 was positive for Pseudomonas and MRSA; she was taking Doxycycline as an outpatient. Cefepime IV was also added to antibiotic regimen again just 3 days prior to admission after she was seen in the wound clinic and had evidence of worsening infection with necrotic tissue that was debrided. Her repeat wound culture on 01/21 was positive for the same organisms, however the Pseudomonas was now intermediately sensitive to cefepime. She was sent to the ER by ID, Dr. Britton, due to failure of outpatient treatment. Pt. has chronic pain at site of wound and secondary to metastatic breast cancer. She takes Oxycontin 40 mg twice daily along with Oxycodone 10 mg every 4 hours at home for chronic pain. Denies increased drainage from wound over last week, fever/chills, N/V at home. Denies chest pain, SOB, increased LE edema, abdominal pain, diarrhea or constipation, dysuria or hematuria. Lab work showed neutropenia with an ANC of 800 and chemotherapy induced anemia. Blood cultures and urinalysis are pending. Will admit for IV antibiotics, ID consult and wound care. Allergies Allergy/AdvReac Type Severity Reaction Status Date / Time No Known Allergies Allergy Verified 01/25/19 17:19 Home Medications Home Medications Medication Instructions Recorded Confirmed Type ascorbic acid (vitamin C) 500 mg 500 mg PO QAM tab 07/24/18 01/25/19 History chewable tablet levothyroxine 50 mcg tablet 50 mcg PO DAILY 07/24/18 01/25/19 History naproxen sodium 220 mg tablet 220 mg PO BID PRN 07/24/18 01/25/19 History omega 8-hcw-[id number]-fish oil 1,000 mg 1 tab PO DAILY cap 07/24/18 01/25/19 History (120 mg-180 mg) capsule vitamin E (dl, acetate) 400 unit 400 units PO QAM cap 07/24/18 01/25/19 History capsule calcium citrate 250 mg tablet 250 mg PO DAILY tab 08/21/18 01/25/19 History cholecalciferol (vitamin D3) 1,000 1,000 units PO DAILY 08/21/18 01/25/19 History unit capsule oxycodone ER 10 mg tablet,crush 10 mg PO Q4 PRN 08/21/18 01/25/19 History resistant,extended release 12 hr doxycycline hyclate 100 mg capsule 100 mg PO BID #60 cap 11/30/18 01/25/19 Rx ondansetron HCl [Zofran] 8 mg PO Q8 PRN 01/25/19 01/25/19 History oxycodone [OxyContin] 40 mg PO Q12H 01/25/19 01/25/19 History Past Med/Surg History Medical History Bilateral cataracts (Chronic) Hypothyroidism (Chronic) Mastitis (Chronic) Metastatic breast cancer (Chronic) Osteoarthritis (Chronic) Surgical History Status post breast lumpectomy Status post left foot surgery (Chronic) Family History Mother Leukemia Grandmother (Maternal) Breast cancer Father CVA (cerebral vascular accident) Other No pertinent family history Social History Preferred Language: Portuguese Communication Ability: Effective Beliefs That Will Affect Care: None Current Living Situation: Alone Other Information That Helps Us Care for You: No Feels Safe at Home: Yes Safety Concerns: Feels Safe At This Time Smoking Status: Never smoker Hx Alcohol Use: No Hx Substance Use: No Review of Systems All systems reviewed & are unremarkable except as noted in HPI & below Constitutional: + fatigue and + weakness; no fever, no chills and no anorexia Respiratory: no cough, no chest congestion, no dyspnea and no sputum production Cardiovascular: no chest pain, no palpitations, no syncope and no edema Gastrointestinal: no abdominal pain, no nausea, no vomiting, no constipation and no diarrhea/loose stools Genitourinary (Female): no dysuria, no difficulty urinating and no hematuria Musculoskeletal: no joint pain Integumentary: + non-healing lesions (Left breast wound ); no rash Allergy / Immunological: no rash Physical Exam Vital Signs (Past 24 Hours): Last Vital Signs Temp 37.5 C 01/25/19 16:04 Pulse 81 01/25/19 17:19 Resp 17 01/25/19 17:19 BP 123/67 01/25/19 17:19 Pulse Ox 92 01/25/19 17:19 Physical Exam: General: Resting comfortably in no apparent distress HEENT: NC/AT; PERRLA with EOMI; [place] conjunctiva, MMM. Neck: Supple and nontender Cardiac: RRR s Lungs: CTA bilaterally Abdomen: Bowel normoactive X 4; Nontender to palpation Extremities: Warm. +1 bilat LE edema, non pitting. L slightly greater than R. Neuro: No focal weakness Skin: Extensive left breast wound extending into left abdomen, necrotic areas with large erythematous raised lesions. Results & Data Laboratory Results 01/25/19 01/25/19 01/25/19 Range/Units 21:00 19:35 19:35 WBC (4.8-10.8) K/uL RBC (4.2-5.4) M/uL Hgb (12.0-16.0) g/dL Hct (37-47) % MCV (80-100) fL MCH (25-34) pg MCHC (32-36) g/dL RDW Std Deviation (36.4-46.3) fL RDW Coeff of [place] (11.5-14.5) % Plt Count (130-400) K/uL MPV (7.4-10.4) fL Immature Gran % (Auto) % Neut % (Auto) % Lymph % (Auto) % [place] % (Auto) % Eos % (Auto) % Baso % (Auto) % Immature Gran # (Auto) (0.00-0.02) K/uL Neut # (Auto) (1.4-6.5) K/uL Lymph # (Auto) (1.2-3.4) K/uL [place] # (Auto) (0.11-0.59) K/uL Eos # (Auto) (0-0.5) K/uL Baso # (Auto) (0-0.2) K/uL Anisocytosis Ovalocytes PT 11.5 (9.0-12.0) Seconds INR 1.1 (0.9-1.1) APTT 47.6 H* (21.0-31.0) Seconds PTT Ratio 1.8 Sodium 137 (136-145) mmol/L Potassium 3.3 L (3.5-5.1) mmol/L Chloride 100 (98-107) mmol/L Carbon Dioxide 28 (21-32) mmol/L Anion Gap 9.0 (3-11) BUN 17 (7-18) mg/dl Creatinine 0.50 L (0.6-1.2) mg/dl Est Cr Clr Drug Dosing Not Reportable Est GFR ( Amer) 113.7 Est GFR (Non-Af Amer) 98.1 BUN/Creatinine Ratio 33.7 H (10-20) Glucose 98 (70-99) mg/dl Calcium 9.1 (8.5-10.1) mg/dl Total Bilirubin 0.5 (0.2-1) mg/dl AST 27 (15-37) U/L ALT 19 (12-78) U/L Alkaline Phosphatase 51 (45-117) U/L Total Protein 6.2 L (6.4-8.2) gm/dl Albumin 2.7 L (3.4-5.0) gm/dl Globulin 3.5 (2.5-4.0) gm/dl Albumin/Globulin Ratio 0.8 L (0.9-2) Lipase 76 (73-393) U/L Urine Color Yellow Urine Appearance Clear (Clear) Urine pH 7.5 (4.5-7.5) Ur Specific [place] 1.012 (1.000-1.030) Urine Protein Negative (Negative) Urine Glucose (UA) Negative (Negative) Urine Ketones Negative (Negative) Urine Blood 1+ H (Negative) Urine Nitrite Negative (Negative) Urine Bilirubin Negative (Negative) Urine Urobilinogen Negative (Negative) Ur Leukocyte Esterase Negative (Negative) Urine WBC (Auto) 1-5 (0-5) /hpf Urine RBC (Auto) 5-10 H (0-4) /hpf U Hyaline Cast (Auto) 0 (0-5) /lpf U Epithel Cells (Auto) 5-10 H (0-5) /lpf Urine Bacteria (Auto) Negative (Negative) 01/25/19 Range/Units 19:23 WBC 1.35 L (4.8-10.8) K/uL RBC 3.67 L (4.2-5.4) M/uL Hgb 8.7 L (12.0-16.0) g/dL Hct 28.1 L (37-47) % MCV 76.6 L (80-100) fL MCH 23.7 L (25-34) pg MCHC 31.0 L (32-36) g/dL RDW Std Deviation 55.3 H (36.4-46.3) fL RDW Coeff of [place] 19.9 H (11.5-14.5) % Plt Count 272 (130-400) K/uL MPV 9.8 (7.4-10.4) fL Immature Gran % (Auto) 0.0 % Neut % (Auto) 63.8 % Lymph % (Auto) 22.2 % [place] % (Auto) 9.6 % Eos % (Auto) 3.7 % Baso % (Auto) 0.7 % Immature Gran # (Auto) 0.00 (0.00-0.02) K/uL Neut # (Auto) 0.86 L* (1.4-6.5) K/uL Lymph # (Auto) 0.30 L (1.2-3.4) K/uL [place] # (Auto) 0.13 (0.11-0.59) K/uL Eos # (Auto) 0.05 (0-0.5) K/uL Baso # (Auto) 0.01 (0-0.2) K/uL Anisocytosis Present Ovalocytes 1+ PT (9.0-12.0) Seconds INR (0.9-1.1) APTT (21.0-31.0) Seconds PTT Ratio Sodium (136-145) mmol/L Potassium (3.5-5.1) mmol/L Chloride (98-107) mmol/L Carbon Dioxide (21-32) mmol/L Anion Gap (3-11) BUN (7-18) mg/dl Creatinine (0.6-1.2) mg/dl Est Cr Clr Drug Dosing Est GFR ( Amer) Est GFR (Non-Af Amer) BUN/Creatinine Ratio (10-20) Glucose (70-99) mg/dl Calcium (8.5-10.1) mg/dl Total Bilirubin (0.2-1) mg/dl AST (15-37) U/L ALT (12-78) U/L Alkaline Phosphatase (45-117) U/L Total Protein (6.4-8.2) gm/dl Albumin (3.4-5.0) gm/dl Globulin (2.5-4.0) gm/dl Albumin/Globulin Ratio (0.9-2) Lipase (73-393) U/L Urine Color Urine Appearance (Clear) Urine pH (4.5-7.5) Ur Specific [place] (1.000-1.030) Urine Protein (Negative) Urine Glucose (UA) (Negative) Urine Ketones (Negative) Urine Blood (Negative) Urine Nitrite (Negative) Urine Bilirubin (Negative) Urine Urobilinogen (Negative) Ur Leukocyte Esterase (Negative) Urine WBC (Auto) (0-5) /hpf Urine RBC (Auto) (0-4) /hpf U Hyaline Cast (Auto) (0-5) /lpf U Epithel Cells (Auto) (0-5) /lpf Urine Bacteria (Auto) (Negative) Code Status & VTE Plan Code Status FULL CODE Supervising Physician Co-Signing Physician Notes PA Supervision Note: I personally saw and examined the patient. I verified all dover points and agree with SALVADOR Hutton with the following exceptions and/or additions: Patient is a 68-year-old female here with history of metastatic breast cancer with long-standing, worsening left sided breast and chest wall cellulitis with open wounds. She has been followed closely with the wound care center and infectious disease and is growing out Pseudomonas and MRSA from the necrotic w ounds. They were recently debrided and culture is now showing that the Pseudomonas is resistant to cefepime. She has no evidence of sepsis but is mildly neutropenic secondary to recent chemotherapy, no fever. History as above ROS as above Vitals reviewed AAO x3, NAD Skin on left breast and left sided chest wall spreading down to left abdomen with massive area of erythema with necrotic open wounds draining purulence with granulation tissue, exquisitely tender to palpation. 68-year-old female here with metastatic breast cancer and worsening acute on chronic left sided breast and chest wall cellulitis and necrotic wound secondary to malignancy. -Start Zosyn and daptomycin as above and follow cultures -Follow CBC -Appreciate infectious disease and wound care consultations -Continue daily local wound care -Pain control as needed -will add normal saline plus KCl 20 mEq IV at 75 mL's per hour in the setting of infection and poor p.o. intake with recent chemotherapy (1) Cellulitis Site of cellulitis: other site Qualified Code(s): L03.818 - Cellulitis of other sites
[2019-01-25] MEDS ORDERED: MoRPHine SULFATE 2 MG/ML CARP IV STA (19:10)
[2019-01-25] MEDS ORDERED: PROCHLORPERAZINE 10 MG in SYRINGE 8 ML IV PRN (19:10)
[2019-01-25] MEDS ORDERED: ONDANSETRON INJ 2 MG/ML 2 ML VIAL IV PRN (19:10)
[2019-01-25] MEDS ORDERED: POLYETHYLENE (MIRALAX) 17 GM PACK PO PRN (19:10)
[2019-01-25] MEDS ORDERED: MoRPHine SULFATE 2 MG/ML CARP ONE (19:15)
[2019-01-25] MEDS ORDERED: DAPTOMYCIN CONSULT ACTIVE PRN (20:04)
[2019-01-25 20:13] LABS: Alanine Aminotransferase 19 U/L (12-78); Albumin Level 2.7 gm/dl (3.4-5.0); Aspartate Aminotransferase 27 U/L (15-37); BUN Creatinine Ratio 33.7 (10-20); Blood Urea Nitrogen 17 mg/dl (7-18); Calcium 9.1 mg/dl (8.5-10.1); Carbon Dioxide 28 mmol/L (21-32); Chloride 100 mmol/L (98-107); Est GFR (African American) 113.7; Est GFR (Non-African American) 98.1; Glucose 98 mg/dl (70-99); Potassium 3.3 mmol/L (3.5-5.1); Sodium 137 mmol/L (136-145)
[2019-01-25 20:15] LABS: Hematocrit (blood only) 28.1 % (37-47); Hemoglobin 8.7 g/dL (12.0-16.0); Mean Corpuscular Volume 76.6 fL (80-100); Mean Platelet Volume 9.8 fL (7.4-10.4); Platelet Count 272 K/uL (130-400); RDW Coefficient of Variation 19.9 % (11.5-14.5); RDW Standard Deviation 55.3 fL (36.4-46.3); Red Blood Count 3.67 M/uL (4.2-5.4); White Blood Count 1.35 K/uL (4.8-10.8)
[2019-01-25] MEDS ORDERED: PATIENT'S HEIGHT AND/OR WEIGHT NEEDED SCH (20:15)
[2019-01-25 20:17] LABS: Albumin Globulin Ratio 0.8 (0.9-2); Alkaline Phosphatase 51 U/L (45-117); Bilirubin,Total 0.5 mg/dl (0.2-1); Globulin 3.5 gm/dl (2.5-4.0); Total Protein 6.2 gm/dl (6.4-8.2)
[2019-01-25 20:24] LABS: Anisocytosis Present; Basophils # (auto) 0.01 K/uL (0-0.2); Basophils % (auto) 0.7 %; Eosinophils # (auto) 0.05 K/uL (0-0.5); Eosinophils % (auto) 3.7 %; Lymphocytes % (auto) 22.2 %; Monocytes # (auto) 0.13 K/uL (0.11-0.59); Monocytes % (auto) 9.6 %; Neutrophils # (auto) 0.86 K/uL (1.4-6.5); Neutrophils % (auto) 63.8 %; Ovalocytes 1+
[2019-01-25 20:45] LABS: INR 1.1 (0.9-1.1); Partial Thromboplastin Ratio 1.8; Prothrombin Time 11.5 Seconds (9.0-12.0)
[2019-01-25 20:48] LABS: Partial Thromboplastin Time 47.6 Seconds (21.0-31.0)
[2019-01-25] MEDS: DOCUSATE SODIUM 100 MG CAP PO SCH (20:55)
[2019-01-25] MEDS: OXYCODONE HCL IR 5 MG TAB (IMMEDIATE RELEASE) PO PRN (20:57)
[2019-01-25] MEDS: OXYCODONE HCL 40 MG TABCR (OXYCONTIN) PO SCH (21:05)
[2019-01-25 21:21] LABS: Appearance Urine Clear (Clear); Bacteria Urine Automated Negative (Negative); Bilirubin Urine Negative (Negative); Blood Urine 1+ (Negative); Cast Urine Automated 0 /lpf (0-5); Color Urine Yellow; Glucose Urine UA Negative (Negative); Ketones Urine Negative (Negative); Leukocyte Esterase Urine Negative (Negative); Nitrite Urine Negative (Negative); Protein Urine Negative (Negative); Specific Gravity Urine 1.012 (1.000-1.030); Urobilinogen Urine Negative (Negative); pH Urine 7.5 (4.5-7.5)
[2019-01-25] MEDS: PIPERACILLIN/TAZOBACTAM 3.375 GM in DEXTROSE 5% 100 ML IV SCH (21:49)
[2019-01-25] MEDS ORDERED: ENOXAPARIN INJ 40 MG/0.4 ML SYR SQ SCH (22:00)
[2019-01-25] MEDS ORDERED: PIPERACILLIN/TAZOBACTAM 3.375 GM/115 ML BAG IV SCH (22:30)
[2019-01-25] MEDS ORDERED: ZOLPIDEM TARTRATE 5 MG TAB PO ONE (22:45)
--- NOTE | 2019-01-25 23:16 | Emergency Department Note ---
Entered by Kirstin Kamara acting as a scribe for Marcio Sawyer DO History of Present Illness General Chief complaint: Referred by Doctor Stated complaint: SENT BY DOCTOR,BREAST CANCER Source: patient and family (son) History of Present Illness Onset (ago): year(s) 3 Location: left (breast) Radiation: other (left side) Pain Consistency: + other (worsening) Maximum Pain Intensity: 3 Quality: + other (left breast wound) Associated symptoms: + other (Negative any other open wounds or sores, abdominal pain); no cough and no fever/chills The patient is a 68 year old female who presents to the Emergency Room after being referred by her PCP. She is accompanied by her son who reports the patient has breast cancer and she has an infectious wound on her left breast spreading down her left side. Her son states she has been treated with IV antibiotics for the past 6 weeks. He reports he contacted infectious disease and they recommended the patient come to the ED for further evaluation. The patient states she has had this wound for the past 3 years and she has a home nurse soham gifford changes her dressing. She reports her wound has worsened and she has never been admitted for her wound in the past. Pt denies any fevers, chills, any other open wounds or sores, cough, abdominal pain. Home Medications Home Medications Medication Instructions Recorded Confirmed Type ascorbic acid (vitamin C) 500 mg 500 mg PO QAM tab 07/24/18 01/25/19 History chewable tablet levothyroxine 50 mcg tablet 50 mcg PO DAILY 07/24/18 01/25/19 History naproxen sodium 220 mg tablet 220 mg PO BID PRN 07/24/18 01/25/19 History omega 9-amw-eap-fish oil 1,000 mg 1 tab PO DAILY cap 07/24/18 01/25/19 History (120 mg-180 mg) capsule vitamin E (dl, acetate) 400 unit 400 units PO QAM cap 07/24/18 01/25/19 History capsule calcium citrate 250 mg tablet 250 mg PO DAILY tab 08/21/18 01/25/19 History cholecalciferol (vitamin D3) 1,000 1,000 units PO DAILY 08/21/18 01/25/19 History unit capsule oxycodone ER 10 mg tablet,crush 10 mg PO Q4 PRN 08/21/18 01/25/19 History resistant,extended release 12 hr doxycycline hyclate 100 mg capsule 100 mg PO BID #60 cap 11/30/18 01/25/19 Rx ondansetron HCl [Zofran] 8 mg PO Q8 PRN 01/25/19 01/25/19 History oxycodone [OxyContin] 40 mg PO Q12H 01/25/19 01/25/19 History Allergies Allergy/AdvReac Type Severity Reaction Status Date / Time No Known Allergies Allergy Verified 01/25/19 17:19 Past Med/Surg History Medical History Bilateral cataracts (Chronic) Hypothyroidism (Chronic) Mastitis (Chronic) Metastatic breast cancer (Chronic) Osteoarthritis (Chronic) Surgical History Status post breast lumpectomy Status post left foot surgery (Chronic) Family History Mother Leukemia Grandmother (Maternal) Breast cancer Father CVA (cerebral vascular accident) Other No pertinent family history Social History Preferred Language: Bangladeshi Communication Ability: Effective Beliefs That Will Affect Care: None Current Living Situation: Alone Other Information That Helps Us Care for You: No Feels Safe at Home: Yes Safety Concerns: Feels Safe At This Time Smoking Status: Never smoker Hx Alcohol Use: No Hx Substance Use: No Review of Systems See HPI for pertinent positives & negatives. and A total of 10 systems reviewed and were otherwise negative Physical Exam Vital Signs Vital Signs - 24 hr 01/25/19 16:04 01/25/19 17:18 01/25/19 17:19 Temperature 37.5 C Temperature Source Oral Sepsis Recent Fever Within 48 Hours No Sepsis New/Unexplained Change in Mental Status No Sepsis Action Taken by Nursing No Action Required Pulse Rate 90 Pulse Rate [Right Finger] 81 Pulse Rhythm [Right Finger] Pulse Strength [Right Finger] Respiratory Rate 18 17 Respiratory Effort / Characteristics Non-Labored Respiratory Depth Normal Respiratory Pattern Blood Pressure 125/75 Blood Pressure [Right Arm] 123/67 Blood Pressure Mean 91 Blood Pressure Mean [Right Arm] 85 Blood Pressure Position [Right Arm] Pulse Oximetry 93 92 Oxygen Delivery Method Room Air Room Air Room Air 01/25/19 18:52 01/25/19 19:45 01/25/19 22:56 Temperature 36.8 C 37.4 C Temperature Source Oral Oral Sepsis Recent Fever Within 48 Hours Sepsis New/Unexplained Change in Mental Status Sepsis Action Taken by Nursing Pulse Rate 83 Pulse Rate [Right Finger] 75 78 Pulse Rhythm [Right Finger] Regular Pulse Strength [Right Finger] Normal Respiratory Rate 18 20 18 Respiratory Effort / Characteristics Non-Labored Spontaneous Respiratory Depth Normal Respiratory Pattern Regular Blood Pressure 126/82 Blood Pressure [Right Arm] 122/70 102/59 L Blood Pressure Mean Blood Pressure Mean [Right Arm] 87 73 Blood Pressure Position [Right Arm] Lying Lying Pulse Oximetry 96 95 92 Oxygen Delivery Method Room Air Room Air Room Air GENERAL: Sitting up in bed, no distress, non-toxic EYE EXAM: normal conjunctiva. OROPHARYNX: no exudate, no erythema, lips, buccal mucosa, and tongue normal and mucous membranes are moist NECK: supple, no nuchal rigidity, no adenopathy, non-tender LUNGS: Clear to auscultation. Normal chest wall mechanics HEART: no murmurs, S1 normal and S2 normal ABDOMEN: abdomen soft, non-tender, normo-active bowel, sounds, no masses, no rebound or guarding. BACK: Back is symmetrical on inspection and there is no deformity, no midline tenderness, no CVA tenderness. SKIN: no rashes and no bruising. Erythema with multiple open wounds throughout the left chest tracking through the left axilla down to left upper abdomen. Foul smelling. UPPER EXTREMITIES: upper extremities are grossly normal. LOWER EXTREMITIES: No pitting edema. NEURO EXAM: Normal sensorium, cranial nerves II-XII grossly intact, normal speech, no gross weakness of arms, no gross weakness of legs. Course ED COURSE: Vital signs were reviewed and showed normotensive The patients medical record was reviewed The above diagnostic studies were performed and reviewed. ED treatments and interventions as stated above. 1611: The patient was evaluated in room C6. A complete history and physical examination was performed. 1639: I reviewed the patient's case with Dr. Montero, [facility] Hospitalist. She will evaluate the patient for further management. 1655: Upon reevaluation, the patient will be further evaluated by Dr. Montero, [facility] Hospitalist. I discussed my findings with the patient and she understands and agrees with the treatment plan. Based on the patients age, coexisting illnesses, exam and lab findings the decision to treat as an inpatient was made. The patient remained stable while under my care. The patient will be evaluated for further management. Consultations Consultation #1: I reviewed the patient's case with Dr. Montero, [facility] Hospitalist. She will evaluate the patient for further management. Time: 16:39 Administered Medications Docusate Sodium (Colace) 100 mg PO BID [facility] Stop: 02/24/19 20:59 Last Admin: 01/25/19 20:55 Dose: 100 mg Documented by: [id number] Enoxaparin Sodium (Lovenox) 40 mg SQ Q24H [facility] Stop: 02/24/19 19:09 Last Admin: 01/25/19 21:49 Dose: Not Given Documented by: [id number] Piperacillin Sod/Tazobactam (Sod 3.375 gm/ Dextrose) 115 mls @ 28.75 mls/hr IV Q8H [facility]; Protocol Stop: 02/04/19 21:59 Last Admin: 01/25/19 21:49 Dose: 28.8 mls/hr Documented by: [id number] Oxycodone HCl (Roxicodone Immediate Rel) 10 mg PO Q4H PRN PRN Reason: Pain Stop: 02/08/19 17:47 Last Admin: 01/25/19 20:57 Dose: 10 mg Documented by: [id number] Oxycodone HCl (Oxycontin) 40 mg PO Q12H [facility] Stop: 02/08/19 20:59 Last Admin: 01/25/19 21:05 Dose: 40 mg Documented by: [id number] Discontinued Medications Daptomycin 300 mg/ Syringe 6 mls @ 3 mls/min IV NOW ONE Stop: 01/25/19 16:36 Last Admin: 01/25/19 17:21 Dose: 3 mls/min Documented by: [id number] Piperacillin Sod/Tazobactam Sod (Zosyn) 4.5 gm in 120 mls @ 240 mls/hr IV NOW ONE Stop: 01/25/19 17:04 Last Infusion: 01/25/19 17:26 Dose: 0 mls/hr Documented by: [id number] Admin: 01/25/19 16:42 Dose: 240 mls/hr Documented by: [id number] Miscellaneous Information (Pharmacy Consult) 1 ea N/A NOW STA Stop: 01/25/19 17:49 Last Admin: 01/25/19 20:56 Dose: 1 ea Documented by: [id number] Morphine Sulfate (Morphine Sulfate) 2 mg IV NOW STA Stop: 01/25/19 19:11 Last Admin: 01/25/19 19:19 Dose: 2 mg Documented by: [id number] Morphine Sulfate (Morphine Sulfate) Confirm Administered Dose 2 mg .ROUTE .K- ED ONE Stop: 01/25/19 19:16 Last Admin: 01/25/19 19:19 Dose: Not Given Documented by: [id number] Zolpidem Tartrate (Ambien) 5 mg PO ONE ONE Stop: 01/25/19 22:46 Last Admin: 01/25/19 22:40 Dose: 5 mg Documented by: [id number] Medical Decision Making Differential Diagnosis Differential diagnosis includees etiologies such as cellulitis, abscess, MRSA infection, DVT, necrotizing fasciitis, dermatitis, drug eruption, as well as others were entertained. Medical Records Attestation: I reviewed the patient's medical records. Home Medications Current Medication List: was personally reviewed by me Laboratory Data Attestation: I reviewed the patient's lab results. Result diagrams: 01/25/19 19:23 01/25/19 19:35 Lab Results 01/25/19 01/25/19 01/25/19 Range/Units 19:23 19:35 19:35 WBC 1.35 L (4.8-10.8) K/uL RBC 3.67 L (4.2-5.4) M/uL Hgb 8.7 L (12.0-16.0) g/dL Hct 28.1 L (37-47) % MCV 76.6 L (80-100) fL MCH 23.7 L (25-34) pg MCHC 31.0 L (32-36) g/dL RDW Std Deviation 55.3 H (36.4-46.3) fL RDW Coeff of [place] 19.9 H (11.5-14.5) % Plt Count 272 (130-400) K/uL MPV 9.8 (7.4-10.4) fL Immature Gran % (Auto) 0.0 % Neut % (Auto) 63.8 % Lymph % (Auto) 22.2 % Todd % (Auto) 9.6 % Eos % (Auto) 3.7 % Baso % (Auto) 0.7 % Immature Gran # (Auto) 0.00 (0.00-0.02) K/uL Neut # (Auto) 0.86 L* (1.4-6.5) K/uL Lymph # (Auto) 0.30 L (1.2-3.4) K/uL Todd # (Auto) 0.13 (0.11-0.59) K/uL Eos # (Auto) 0.05 (0-0.5) K/uL Baso # (Auto) 0.01 (0-0.2) K/uL Anisocytosis Present Ovalocytes 1+ PT 11.5 (9.0-12.0) Seconds INR 1.1 (0.9-1.1) APTT 47.6 H* (21.0-31.0) Seconds PTT Ratio 1.8 Sodium 137 (136-145) mmol/L Potassium 3.3 L (3.5-5.1) mmol/L Chloride 100 (98-107) mmol/L Carbon Dioxide 28 (21-32) mmol/L Anion Gap 9.0 (3-11) BUN 17 (7-18) mg/dl Creatinine 0.50 L (0.6-1.2) mg/dl Est Cr Clr Drug Dosing Not Reportable Est GFR ( Amer) 113.7 Est GFR (Non-Af Amer) 98.1 BUN/Creatinine Ratio 33.7 H (10-20) Glucose 98 (70-99) mg/dl Calcium 9.1 (8.5-10.1) mg/dl Total Bilirubin 0.5 (0.2-1) mg/dl AST 27 (15-37) U/L ALT 19 (12-78) U/L Alkaline Phosphatase 51 (45-117) U/L Total Protein 6.2 L (6.4-8.2) gm/dl Albumin 2.7 L (3.4-5.0) gm/dl Globulin 3.5 (2.5-4.0) gm/dl Albumin/Globulin Ratio 0.8 L (0.9-2) Lipase 76 (73-393) U/L Urine Color Urine Appearance (Clear) Urine pH (4.5-7.5) Ur Specific [place] (1.000-1.030) Urine Protein (Negative) Urine Glucose (UA) (Negative) Urine Ketones (Negative) Urine Blood (Negative) Urine Nitrite (Negative) Urine Bilirubin (Negative) Urine Urobilinogen (Negative) Ur Leukocyte Esterase (Negative) Urine WBC (Auto) (0-5) /hpf Urine RBC (Auto) (0-4) /hpf U Hyaline Cast (Auto) (0-5) /lpf U Epithel Cells (Auto) (0-5) /lpf Urine Bacteria (Auto) (Negative) 01/25/19 Range/Units 21:00 WBC (4.8-10.8) K/uL RBC (4.2-5.4) M/uL Hgb (12.0-16.0) g/dL Hct (37-47) % MCV (80-100) fL MCH (25-34) pg MCHC (32-36) g/dL RDW Std Deviation (36.4-46.3) fL RDW Coeff of [place] (11.5-14.5) % Plt Count (130-400) K/uL MPV (7.4-10.4) fL Immature Gran % (Auto) % Neut % (Auto) % Lymph % (Auto) % Todd % (Auto) % Eos % (Auto) % Baso % (Auto) % Immature Gran # (Auto) (0.00-0.02) K/uL Neut # (Auto) (1.4-6.5) K/uL Lymph # (Auto) (1.2-3.4) K/uL Todd # (Auto) (0.11-0.59) K/uL Eos # (Auto) (0-0.5) K/uL Baso # (Auto) (0-0.2) K/uL Anisocytosis Ovalocytes PT (9.0-12.0) Seconds INR (0.9-1.1) APTT (21.0-31.0) Seconds PTT Ratio Sodium (136-145) mmol/L Potassium (3.5-5.1) mmol/L Chloride (98-107) mmol/L Carbon Dioxide (21-32) mmol/L Anion Gap (3-11) BUN (7-18) mg/dl Creatinine (0.6-1.2) mg/dl Est Cr Clr Drug Dosing Est GFR ( Amer) Est GFR (Non-Af Amer) BUN/Creatinine Ratio (10-20) Glucose (70-99) mg/dl Calcium (8.5-10.1) mg/dl Total Bilirubin (0.2-1) mg/dl AST (15-37) U/L ALT (12-78) U/L Alkaline Phosphatase (45-117) U/L Total Protein (6.4-8.2) gm/dl Albumin (3.4-5.0) gm/dl Globulin (2.5-4.0) gm/dl Albumin/Globulin Ratio (0.9-2) Lipase (73-393) U/L Urine Color Yellow Urine Appearance Clear (Clear) Urine pH 7.5 (4.5-7.5) Ur Specific [place] 1.012 (1.000-1.030) Urine Protein Negative (Negative) Urine Glucose (UA) Negative (Negative) Urine Ketones Negative (Negative) Urine Blood 1+ H (Negative) Urine Nitrite Negative (Negative) Urine Bilirubin Negative (Negative) Urine Urobilinogen Negative (Negative) Ur Leukocyte Esterase Negative (Negative) Urine WBC (Auto) 1-5 (0-5) /hpf Urine RBC (Auto) 5-10 H (0-4) /hpf U Hyaline Cast (Auto) 0 (0-5) /lpf U Epithel Cells (Auto) 5-10 H (0-5) /lpf Urine Bacteria (Auto) Negative (Negative) Blood Pressure Blood Pressure Findings: Normal blood pressure Blood Pressure Disposition: did not require urgent referral MDM Narrative Patient is a 68-year-old female who presents the ER for extensive cellulitis along her left chest wall with breast cancer getting chemotherapy. She is followed up with wound care clinic and infectious disease. Recent cultures grew out MRSA and Pseudomonas which were both fairly resistant. Labs were obtained and showed a leukopenia and neutropenia. INR was normal. BMP with mild hypokalemia. LFTs bilirubin and lipase was unremarkable. UA was negative. Patient was given IV Zosyn and daptomycin. She was given IV fluids. She was updated bedside. Previous cultures and blood work were reviewed. She is admitted to the hospitalist for further workup. Both the patient and family member were updated at bedside. Did discuss case with pharmacy. Impression & Plan Cellulitis, Neutropenia Discharge Plan Visit Data *Final* Discharge Date/Time: 01/25/19 18:52 Chief Complaint: Referred by Doctor Stated Complaint: SENT BY DOCTOR,BREAST CANCER ED Provider: Marcio Sawyer Discharge Problem: Cellulitis, Neutropenia Patient Disposition: Being Evaluated by Hospitalist Discharge Instructions Interventions: ED Discharge Assessment Last Done: 01/25/19 18:52 The scribe's documentation has been prepared under my direction and personally reviewed by me in its entirety. I confirm that the note above accurately reflects all work, treatment, procedures, and medical decision making performed by me.
[2019-01-25] MEDS: NSS + 20MEQ KCL 20 MEQ/1,000 ML BAG IV SCH (23:50)
[2019-01-25] MEDS: POTASSIUM CHLORIDE / WTR 10 MEQ/100 ML PLCT IV SCH (23:51)
[2019-01-26] MEDS: POTASSIUM CHLORIDE / WTR 10 MEQ/100 ML PLCT IV SCH (01:03)
[2019-01-26] MEDS: PIPERACILLIN/TAZOBACTAM 3.375 GM in DEXTROSE 5% 100 ML IV SCH (05:53)
[2019-01-26] MEDS: LEVOTHYROXINE SODIUM 50 MCG TABLET PO SCH (05:54)
[2019-01-26 06:56] LABS: Hematocrit (blood only) 28.1 % (37-47); Mean Corpuscular Volume 76.4 fL (80-100); Mean Platelet Volume 10.4 fL (7.4-10.4); Platelet Count 282 K/uL (130-400); RDW Coefficient of Variation 19.9 % (11.5-14.5); RDW Standard Deviation 55.7 fL (36.4-46.3); Red Blood Count 3.68 M/uL (4.2-5.4); White Blood Count 1.34 K/uL (4.8-10.8)
[2019-01-26 07:07] LABS: Anisocytosis Present; Basophils # (auto) 0.01 K/uL (0-0.2); Basophils % (auto) 0.7 %; Eosinophils # (auto) 0.04 K/uL (0-0.5); Giant Platelets 1+; Immature Granulocytes # (auto) 0.02 K/uL (0.00-0.02); Immature Granulocytes % (auto) 1.5 %; Lymphocytes # (auto) 0.35 K/uL (1.2-3.4); Lymphocytes % (auto) 26.1 %; Microcytosis Present; Monocytes # (auto) 0.15 K/uL (0.11-0.59); Monocytes % (auto) 11.2 %; Neutrophils # (auto) 0.77 K/uL (1.4-6.5); Neutrophils % (auto) 57.5 %; Ovalocytes 1+
[2019-01-26 07:13] LABS: Albumin Level 2.6 gm/dl (3.4-5.0); BUN Creatinine Ratio 26.8 (10-20); Creatinine Clr Calc Pharmacy 148.6 ml/min; Est GFR (African American) 121.3; Est GFR (Non-African American) 104.7; Magnesium 1.8 mg/dl (1.8-2.4); Potassium 3.5 mmol/L (3.5-5.1)
[2019-01-26 07:24] LABS: Albumin Globulin Ratio 0.7 (0.9-2); Bilirubin,Total 0.5 mg/dl (0.2-1); Globulin 3.5 gm/dl (2.5-4.0); Total Protein 6.1 gm/dl (6.4-8.2)
[2019-01-26] MEDS: CHOLECALCIFEROL 1,000 UNITS TAB PO SCH (08:10)
[2019-01-26] MEDS: ASCORBIC ACID 500 MG TAB PO SCH (08:10)
[2019-01-26] MEDS: DOCUSATE SODIUM 100 MG CAP PO SCH ×2 (08:10→20:14)
[2019-01-26] MEDS: OXYCODONE HCL 40 MG TABCR (OXYCONTIN) PO SCH ×2 (08:12→20:14)
--- NOTE | 2019-01-26 10:03 | Infectious Disease Consult ---
Date of Consultation January 26, 2019 Assessment & Plan (1) MRSA (methicillin resistant Staphylococcus aureus) infection: Patient with metastatic breast cancer on chemotherapy status post radiation therapy with large nonhealing left breast wound with MRSA and highly resistant Pseudomonas which also. Patient will be treated with IV Zerbaxa 1 g every 8 hours along with daptomycin. Length of antibiotics to be determined by clinical response, likely in the range of 7-10 days. Will follow. (2) Pseudomonas aeruginosa infection: (3) Cellulitis of left breast: History of Present Illness Reason for Consultation: Breast cellulitis Attending Physician: Christin Montero MD History of Present Illness 68-year-old female with known history of metastatic breast cancer on multiple chemotherapy regimens, previous radiation therapy, with long history of nonhealing left breast wound. She is been followed at the wound care center, with cultures growing MRSA and highly resistant pseudomonas aeruginosa. She was initially given oral doxycycline when she deferred IV therapy, more recently started on cefepime, but isolate is highly resistant and likely resistant to this antibiotic. She has had progression of the wound, but no fever, chills, or other systemic complaints other than weakness and fatigue. Pain at maximum 3 out of 10 in intensity left chest wall. Currently on daptomycin and Zosyn. Allergies Allergy/AdvReac Type Severity Reaction Status Date / Time No Known Allergies Allergy Verified 01/25/19 17:19 Home Medications Home Medications Medication Instructions Recorded Confirmed Type ascorbic acid (vitamin C) 500 mg 500 mg PO QAM tab 07/24/18 01/25/19 History chewable tablet levothyroxine 50 mcg tablet 50 mcg PO DAILY 07/24/18 01/25/19 History naproxen sodium 220 mg tablet 220 mg PO BID PRN 07/24/18 01/25/19 History omega 1-ent-zuv-fish oil 1,000 mg 1 tab PO DAILY cap 07/24/18 01/25/19 History (120 mg-180 mg) capsule vitamin E (dl, acetate) 400 unit 400 units PO QAM cap 07/24/18 01/25/19 History capsule calcium citrate 250 mg tablet 250 mg PO DAILY tab 08/21/18 01/25/19 History cholecalciferol (vitamin D3) 1,000 1,000 units PO DAILY 08/21/18 01/25/19 History unit capsule oxycodone ER 10 mg tablet,crush 10 mg PO Q4 PRN 08/21/18 01/25/19 History resistant,extended release 12 hr doxycycline hyclate 100 mg capsule 100 mg PO BID #60 cap 11/30/18 01/25/19 Rx ondansetron HCl [Zofran] 8 mg PO Q8 PRN 01/25/19 01/25/19 History oxycodone [OxyContin] 40 mg PO Q12H 01/25/19 01/25/19 History Patient History Medical History Bilateral cataracts (Chronic) Hypothyroidism (Chronic) Mastitis (Chronic) Metastatic breast cancer (Chronic) Osteoarthritis (Chronic) Surgical History Status post breast lumpectomy Status post left foot surgery (Chronic) Family History Mother Leukemia Grandmother (Maternal) Breast cancer Father CVA (cerebral vascular accident) Other No pertinent family history Social History Preferred Language: Slovenian Communication Ability: Effective Beliefs That Will Affect Care: None Current Living Situation: Alone Other Information That Helps Us Care for You: No Feels Safe at Home: Yes Safety Concerns: Feels Safe At This Time Smoking Status: Never smoker Hx Alcohol Use: No Hx Substance Use: No Review of Systems All systems were reviewed and are negative except as per HPI Physical Exam Vital Signs (Past 24 Hours): Last Vital Signs Temp 37.3 C 01/26/19 07:18 Pulse 72 01/26/19 07:18 Resp 20 01/26/19 07:18 BP 129/76 01/26/19 07:18 Pulse Ox 95 01/26/19 07:18 Constitutional: well developed, well nourished, + ill appearing (Chronically) and comfortable; no acute distress Eyes: PERRL, conjunctivae normal, anicteric sclerae ENMT: external ear and nose normal, oropharynx normal Neck: trachea midline, no thyromegaly neck nontender Respiratory: normal respiratory effort, lungs clear to auscultation normal percussion; does not use accessory muscles Cardiovascular: Rate/Rhythm: regular rate and regular rhythm Heart Sounds: normal S1 and normal S2; no gallop, no murmur and no cardiac rub Vessels: normal peripheral pulses; no JVD Gastrointestinal (Abdomen): normal bowel sounds, soft, nontender, no hepatospl enomegaly Musculoskeletal: no cyanosis or clubbing, extremities motor strength 5/5 Spine: thoracic spine normal to inspection and lumbar spine normal to inspection; no cervical spinal tenderness Skin: normal turgor and + wound (Large open wound left chest wall/left breast with significant extension and) Neurologic: patellar DTR's 2+ bilat, sensation intact no focal motor deficits Psychiatric: A+Ox3, euthymic affect Orientation: cooperative Lymphatic: no cervical or axillary lymphadenopathy no inguinal lymphadenopathy Results & Data Laboratory Results Short CBC 01/25/19 01/26/19 Range/Units 19:23 06:07 WBC 1.35 L 1.34 L (4.8-10.8) K/uL Hgb 8.7 L 9.0 L (12.0-16.0) g/dL Hct 28.1 L 28.1 L (37-47) % Plt Count 272 282 (130-400) K/uL BMP 01/25/19 01/26/19 19:35 06:07 Sodium 137 136 Potassium 3.3 L 3.5 Chloride 100 102 Carbon Dioxide 28 29 BUN 17 11 Creatinine 0.50 L 0.41 L Glucose 98 89 Calcium 9.1 8.0 L Liver Function 01/25/19 01/26/19 Range/Units 19:35 06:07 Total Bilirubin 0.5 0.5 (0.2-1) mg/dl AST 27 26 (15-37) U/L ALT 19 17 (12-78) U/L Alkaline Phosphatase 51 52 (45-117) U/L Albumin 2.7 L 2.6 L (3.4-5.0) gm/dl Urine 01/25/19 Range/Units 21:00 Urine Color Yellow Urine Appearance Clear (Clear) Urine pH 7.5 (4.5-7.5) Ur Specific [place] 1.012 (1.000-1.030) Urine Protein Negative (Negative) Urine Glucose (UA) Negative (Negative) Diagnostic Findings Clinical Laboratory Report Name: RAMON BECK Acct: [id number] Status: REG AMBR : 1950 [facility] Date: 01/21/19 Age: 68 Sex: F Dis Date: Loc: Wound Care Center Spec: [id number] Collected: 01/21/19-UNK Received: 01/21/19-[address]: Amanda Bennett,D.O. Copy To: Jonathan Strong M.D. Self, Referred Source: Breast,Left OV Order: Ordered: Surf Wnd Cul/Sm Procedure Result Verified Site Gram Stain Final 01/22/19 Gram Stain Result Rare Gram Positive Cocci No WBCs Seen Surface Wound Culture Final 01/23/19 Organism 1 Pseudomonas aeruginosa Quantity Moderate Sens Sensitivities to Follow +MixWound Plus Low Counts of Probable Skin Katarina Organism 2 Staph aureus MRSA Quantity Moderate Sens Sensitivities to Follow Sensitivity results indicate a Methicillin-Resistant Staph aureus. Phoned to WOUND CLINIC ANSWERING MACHINE on 01/23/19 at 0907 by Tom Isabel aerugino MRSA RX M.I.C. RX M.I.C. --- --------- --- --------- Amikacin S <=16 Aztreonam R >16 Cefepime I 16 Ceftazidime I 16 Ciprofloxacin R >2 Clindamycin S <=0.5 Daptomycin S <=0.5 Erythromycin S <=0.5 Gentamicin S <=4 Imipenem R >8 Levofloxacin R >4 Oxacillin R >2 Rifampin S <=1 Tetracycline S <=4 Tobramycin S <=4 Trimeth/Sulfa S <=0.5/9.5 Pip/Tazo S 64 Vancomycin S 2 S = SENSITIVE I = INTERMEDIATE R = RESISTANT Name: RAMON BECK : 1950 PAGE 1 Printed: 01/26/19 1003 END OF REPORT
[2019-01-26] MEDS: OXYCODONE HCL IR 5 MG TAB (IMMEDIATE RELEASE) PO PRN ×3 (12:25→21:33)
[2019-01-26] MEDS: NSS + 20MEQ KCL 20 MEQ/1,000 ML BAG IV SCH (13:27)
[2019-01-26] MEDS: CEFTOLOZANE/TAZOBACTAM 1,500 MG in DEXTROSE 5% 100 ML IV SCH ×2 (13:32→21:33)
--- NOTE | 2019-01-26 13:57 | Hospitalist Progress Note ---
Date of Service January 26, 2019 Assessment & Plan (1) Cellulitis: - Presented with left breast cellulitis; follows with wound clinic, failed outpatient treatment with Doxycycline and Cefepime. - Most recent wound culture on 01/21 positive for Pseudomonas and MRSA. - ID consulted, appreciate input. - Converted to Zerbaxa IV q8hr for Pseuomonas coverage; continue Daptomycin for MRSA. - Wound care consulted for dressing changes -- follows closely with wound clinic. - Blood cultures x 2 pending. - Will need minimum 7-10 day course of IV abx; pt. does not have home IV abx coverage -- will need daily infusion appointments if discharged to home. (2) Breast cancer: - Initially diagnosed in September 2016, triple negative breast cancer. - S/p partial left mastectomy and LN biopsy on 11/14/16. - Completed RT in 2016 and again in 2018. - Currently follows with Dr. Arroyo; has progressed through multiple chemotherapy treatments. - Receiving Halaven chemotherapy, most recent treatment on 01/21/19. (3) Chronic pain: - Continue home Oxycontin 40 mg twice daily with Oxycodone 10 mg every 4 hours as needed. (4) Hypothyroidism: - Continue Synthroid 50 mcg daily. - TSH was 1.3. (5) Chronic diastolic heart failure: - Echo in Nov 2016 showed EF 65-70%, grade I DD. - Monitor I/Os and daily weights. (6) Neutropenia: - ANC of 770, related to recent chemotherapy. - Neutropenic precautions. - Monitor CBC with diff qAM. (7) Anemia due to antineoplastic chemotherapy: - Hemoglobin currently stable. - Transfuse for hgb <7.5 or for active bleeding. (8) Hypokalemia: - Monitor K level daily. - Receiving IV fluids with KCl 20 mEq at 75 cc/hr. (9) DVT prophylaxis: - SCDs; Lovenox q24hr. Dispo: Med/surg for IV abx, ID following. FULL CODE - confirmed with patient and her son at bedside. Supervising Physician Co-Signing Physician Notes PA Supervision Note: I did not personally see or examine the patient today, but I verified all dover points of SALVADOR Hutton's assessment and plan with the following exceptions/additions: None Subjective Pt. is doing well today. Has chronic pain at site of wound, no increasing/acute pain noted. Pain is well controlled with Oxycodone/Oxycontin regimen. Will continue IV abx per ID recs. Wound care consulted to evaluate dressing change today. Review of Systems All systems reviewed & are unremarkable except as noted in HPI & below Constitutional: no fever, no chills, no fatigue, no weakness and no anorexia Respiratory: no cough and no dyspnea Cardiovascular: no chest pain, no palpitations and no edema Gastrointestinal: no abdominal pain, no nausea and no constipation Genitourinary (Female): no difficulty urinating Musculoskeletal: no joint pain Integumentary: + non-healing lesions (See HPI), + sores, + wounds and + erythema Allergy / Immunological: no rash Physical Exam Vital Signs (Past 24 Hours): Last Vital Signs Temp 37.3 C 01/26/19 11:20 Pulse 71 01/26/19 11:20 Resp 20 01/26/19 11:20 BP 121/70 01/26/19 11:20 Pulse Ox 90 01/26/19 11:20 Physical Exam: General: Resting comfortably in no apparent distress HEENT: NC/AT; PERRLA with EOMI; [place] conjunctiva, MMM. Neck: Supple and nontender Cardiac: RRR Lungs: CTA bilaterally Abdomen: Bowel normoactive X 4; Nontender to palpation Extremities: Warm. +1 bilat non pitting LE edema. Neuro: No focal weakness Skin: Extensive left breast wound not examined today -- will be evaluated by wound care. Results & Data Laboratory Results 01/26/19 01/26/19 01/25/19 Range/Units 06:07 06:07 21:00 WBC 1.34 L (4.8-10.8) K/uL RBC 3.68 L (4.2-5.4) M/uL Hgb 9.0 L (12.0-16.0) g/dL Hct 28.1 L (37-47) % MCV 76.4 L (80-100) fL MCH 24.5 L (25-34) pg MCHC 32.0 (32-36) g/dL RDW Std Deviation 55.7 H (36.4-46.3) fL RDW Coeff of [place] 19.9 H (11.5-14.5) % Plt Count 282 (130-400) K/uL MPV 10.4 (7.4-10.4) fL Immature Gran % (Auto) 1.5 % Neut % (Auto) 57.5 % Lymph % (Auto) 26.1 % Dixie % (Auto) 11.2 % Eos % (Auto) 3.0 % Baso % (Auto) 0.7 % Immature Gran # (Auto) 0.02 (0.00-0.02) K/uL Neut # (Auto) 0.77 L* (1.4-6.5) K/uL Lymph # (Auto) 0.35 L (1.2-3.4) K/uL Dixie # (Auto) 0.15 (0.11-0.59) K/uL Eos # (Auto) 0.04 (0-0.5) K/uL Baso # (Auto) 0.01 (0-0.2) K/uL Giant Platelets 1+ Anisocytosis Present Microcytosis Present Ovalocytes 1+ PT (9.0-12.0) Seconds INR (0.9-1.1) APTT (21.0-31.0) Seconds PTT Ratio Sodium 136 (136-145) mmol/L Potassium 3.5 (3.5-5.1) mmol/L Chloride 102 (98-107) mmol/L Carbon Dioxide 29 (21-32) mmol/L Anion Gap 5.0 (3-11) BUN 11 (7-18) mg/dl Creatinine 0.41 L (0.6-1.2) mg/dl Est Cr Clr Drug Dosing 148.6 Est GFR ( Amer) 121.3 Est GFR (Non-Af Amer) 104.7 BUN/Creatinine Ratio 26.8 H (10-20) Glucose 89 (70-99) mg/dl Calcium 8.0 L (8.5-10.1) mg/dl Magnesium 1.8 (1.8-2.4) mg/dl Total Bilirubin 0.5 (0.2-1) mg/dl AST 26 (15-37) U/L ALT 17 (12-78) U/L Alkaline Phosphatase 52 (45-117) U/L Total Protein 6.1 L (6.4-8.2) gm/dl Albumin 2.6 L (3.4-5.0) gm/dl Globulin 3.5 (2.5-4.0) gm/dl Albumin/Globulin Ratio 0.7 L (0.9-2) Lipase (73-393) U/L TSH 1.300 (0.300-4.500) uIu/ml Urine Color Yellow Urine Appearance Clear (Clear) Urine pH 7.5 (4.5-7.5) Ur Specific [place] 1.012 (1.000-1.030) Urine Protein Negative (Negative) Urine Glucose (UA) Negative (Negative) Urine Ketones Negative (Negative) Urine Blood 1+ H (Negative) Urine Nitrite Negative (Negative) Urine Bilirubin Negative (Negative) Urine Urobilinogen Negative (Negative) Ur Leukocyte Esterase Negative (Negative) Urine WBC (Auto) 1-5 (0-5) /hpf Urine RBC (Auto) 5-10 H (0-4) /hpf U Hyaline Cast (Auto) 0 (0-5) /lpf U Epithel Cells (Auto) 5-10 H (0-5) /lpf Urine Bacteria (Auto) Negative (Negative) 01/25/19 01/25/19 01/25/19 Range/Units 19:35 19:35 19:23 WBC 1.35 L (4.8-10.8) K/uL RBC 3.67 L (4.2-5.4) M/uL Hgb 8.7 L (12.0-16.0) g/dL Hct 28.1 L (37-47) % MCV 76.6 L (80-100) fL MCH 23.7 L (25-34) pg MCHC 31.0 L (32-36) g/dL RDW Std Deviation 55.3 H (36.4-46.3) fL RDW Coeff of Nahun 19.9 H (11.5-14.5) % Plt Count 272 (130-400) K/uL MPV 9.8 (7.4-10.4) fL Immature Gran % (Auto) 0.0 % Neut % (Auto) 63.8 % Lymph % (Auto) 22.2 % Dixie % (Auto) 9.6 % Eos % (Auto) 3.7 % Baso % (Auto) 0.7 % Immature Gran # (Auto) 0.00 (0.00-0.02) K/uL Neut # (Auto) 0.86 L* (1.4-6.5) K/uL Lymph # (Auto) 0.30 L (1.2-3.4) K/uL Dixie # (Auto) 0.13 (0.11-0.59) K/uL Eos # (Auto) 0.05 (0-0.5) K/uL Baso # (Auto) 0.01 (0-0.2) K/uL Giant Platelets Anisocytosis Present Microcytosis Ovalocytes 1+ PT 11.5 (9.0-12.0) Seconds INR 1.1 (0.9-1.1) APTT 47.6 H* (21.0-31.0) Seconds PTT Ratio 1.8 Sodium 137 (136-145) mmol/L Potassium 3.3 L (3.5-5.1) mmol/L Chloride 100 (98-107) mmol/L Carbon Dioxide 28 (21-32) mmol/L Anion Gap 9.0 (3-11) BUN 17 (7-18) mg/dl Creatinine 0.50 L (0.6-1.2) mg/dl Est Cr Clr Drug Dosing Not Reportable Est GFR ( Amer) 113.7 Est GFR (Non-Af Amer) 98.1 BUN/Creatinine Ratio 33.7 H (10-20) Glucose 98 (70-99) mg/dl Calcium 9.1 (8.5-10.1) mg/dl Magnesium (1.8-2.4) mg/dl Total Bilirubin 0.5 (0.2-1) mg/dl AST 27 (15-37) U/L ALT 19 (12-78) U/L Alkaline Phosphatase 51 (45-117) U/L Total Protein 6.2 L (6.4-8.2) gm/dl Albumin 2.7 L (3.4-5.0) gm/dl Globulin 3.5 (2.5-4.0) gm/dl Albumin/Globulin Ratio 0.8 L (0.9-2) Lipase 76 (73-393) U/L TSH (0.300-4.500) uIu/ml Urine Color Urine Appearance (Clear) Urine pH (4.5-7.5) Ur Specific [place] (1.000-1.030) Urine Protein (Negative) Urine Glucose (UA) (Negative) Urine Ketones (Negative) Urine Blood (Negative) Urine Nitrite (Negative) Urine Bilirubin (Negative) Urine Urobilinogen (Negative) Ur Leukocyte Esterase (Negative) Urine WBC (Auto) (0-5) /hpf Urine RBC (Auto) (0-4) /hpf U Hyaline Cast (Auto) (0-5) /lpf U Epithel Cells (Auto) (0-5) /lpf Urine Bacteria (Auto) (Negative) (1) Cellulitis Site of cellulitis: other site Qualified Code(s): L03.818 - Cellulitis of other sites (2) Neutropenia Neutropenia type: unspecified Qualified Code(s): D70.9 - Neutropenia, unspecified
[2019-01-26] MEDS: DAPTOmycin 275 MG in SYRINGE 0 ML IV SCH (16:43)
[2019-01-27] MEDS: NSS + 20MEQ KCL 20 MEQ/1,000 ML BAG IV SCH (02:01)
[2019-01-27] MEDS: OXYCODONE HCL IR 5 MG TAB (IMMEDIATE RELEASE) PO PRN ×4 (05:43→18:45)
[2019-01-27] MEDS: LEVOTHYROXINE SODIUM 50 MCG TABLET PO SCH (05:43)
[2019-01-27] MEDS: CEFTOLOZANE/TAZOBACTAM 1,500 MG in DEXTROSE 5% 100 ML IV SCH ×3 (05:44→22:04)
[2019-01-27 06:54] LABS: Hematocrit (blood only) 28.3 % (37-47); Hemoglobin 8.7 g/dL (12.0-16.0); Mean Corpuscular Hgb Conc 30.7 g/dL (32-36); Mean Corpuscular Volume 76.1 fL (80-100); Platelet Count 329 K/uL (130-400); RDW Coefficient of Variation 19.9 % (11.5-14.5); RDW Standard Deviation 54.8 fL (36.4-46.3); Red Blood Count 3.72 M/uL (4.2-5.4); White Blood Count 1.32 K/uL (4.8-10.8)
[2019-01-27 06:59] LABS: Albumin Globulin Ratio 0.7 (0.9-2); Albumin Level 2.6 gm/dl (3.4-5.0); BUN Creatinine Ratio 15.7 (10-20); Bilirubin,Total 0.5 mg/dl (0.2-1); Calcium 7.9 mg/dl (8.5-10.1); Creatinine Clr Calc Pharmacy 177.5 ml/min; Est GFR (Non-African American) 111.3; Globulin 3.5 gm/dl (2.5-4.0); Magnesium 1.8 mg/dl (1.8-2.4); Potassium 3.4 mmol/L (3.5-5.1); Total Protein 6.1 gm/dl (6.4-8.2)
[2019-01-27 08:17] LABS: Anisocytosis Present; Basophils # (auto) 0.02 K/uL (0-0.2); Basophils % (auto) 1.5 %; Eosinophils # (auto) 0.03 K/uL (0-0.5); Eosinophils % (auto) 2.3 %; Immature Granulocytes # (auto) 0.03 K/uL (0.00-0.02); Immature Granulocytes % (auto) 2.3 %; Lymphocytes # (auto) 0.43 K/uL (1.2-3.4); Lymphocytes % (auto) 32.6 %; Microcytosis Present; Monocytes # (auto) 0.19 K/uL (0.11-0.59); Monocytes % (auto) 14.4 %; Neutrophils # (auto) 0.62 K/uL (1.4-6.5); Neutrophils % (auto) 46.9 %; Ovalocytes 1+
[2019-01-27] MEDS: ASCORBIC ACID 500 MG TAB PO SCH (08:25)
[2019-01-27] MEDS: OXYCODONE HCL 40 MG TABCR (OXYCONTIN) PO SCH ×2 (08:25→20:33)
[2019-01-27] MEDS: DOCUSATE SODIUM 100 MG CAP PO SCH ×2 (08:25→20:33)
[2019-01-27] MEDS: CHOLECALCIFEROL 1,000 UNITS TAB PO SCH (08:26)
[2019-01-27] MEDS: ENOXAPARIN INJ 40 MG/0.4 ML SYR SQ SCH ×2 (10:49→10:58)
[2019-01-27] MEDS: HEPARIN 100 UNIT/ML 5ML FLUSH FLUSH PRN (10:51)
--- NOTE | 2019-01-27 15:07 | Hospitalist Progress Note ---
Date of Service January 27, 2019 Assessment & Plan (1) Cellulitis: - Presented with left breast and left hemithorax acute on chronic open wounds and cellulitis with necrosis related to metastatic breast CA; follows with wound clinic, failed outpatient treatment with Doxycycline and Cefepime. - Most recent wound culture on 01/21 positive for highly resistant Pseudomonas and MRSA. - ID consulted, appreciate input. - Cont to Zerbaxa IV q8hr for Pseuomonas coverage; continue Daptomycin for MRSA. Length of treatment at least 7-10 days and may need to stay in hospital for this if cannot be approved at home - Wound care consulted for dressing changes -- follows closely with wound clinic. - Blood cultures x 2 NGTD -pain control-increase oxycodone to 15mg prn on top of Oxycontin (2) Breast cancer: - Initially diagnosed in September 2016, triple negative breast cancer. WIth mets to skin - S/p partial left mastectomy and LN biopsy on 11/14/16. - Completed RT in 2017 and again in 2018. - Currently follows with Dr. Arroyo; has progressed through multiple chemotherapy treatments. - Receiving Halaven chemotherapy, most recent treatment on 01/21/19. (3) Chronic pain: - Continue home Oxycontin 40 mg twice daily with increased dose of Oxycodone 15 mg every 4 hours as needed. (4) Hypothyroidism: - Continue Synthroid 50 mcg daily. - TSH was 1.3. (5) Chronic diastolic heart failure: - Echo in Nov 2016 showed EF 65-70%, grade I DD.Not volume overloaded - Monitor I/Os and daily weights. (6) Neutropenia: - ANC of 600s, related to recent chemotherapy. - Neutropenic precautions. - Monitor CBC with diff qAM. (7) Anemia due to antineoplastic chemotherapy: - Hemoglobin currently stable. - Transfuse for hgb <7.5 or for active bleeding. (8) Hypokalemia: - Monitor K level daily. -replaced (9) Lightheaded: likely vagal secondary to pain-giove 1 L NS now at 150 mL/hr -increase pain meds watch vitals (10) DVT prophylaxis: - SCDs; Lovenox q24hr. Dispo: continued stay FULL CODE - confirmed with patient and her son at bedside. Subjective Having a lot of pain in left thorax at site of cellulitis and wounds. Feeling lightheaded when I saw her which improved by the time I left. Vitals stable. No CP or SOB, no abd pain, no nausea Review of Systems All systems reviewed & are unremarkable except as noted in HPI & below Physical Exam Vital Signs (Past 24 Hours): Last Vital Signs Temp 37.0 C 01/27/19 15:00 Pulse 82 01/27/19 15:00 Resp 20 01/27/19 15:00 BP 158/58 H 01/27/19 15:00 Pulse Ox 96 01/27/19 15:00 Constitutional: WD/WN, vitals as above Eyes: PERRL, conjunctivae normal, anicteric sclerae ENMT: external ear and nose normal, oropharynx normal Neck: trachea midline, no thyromegaly Respiratory: normal respiratory effort, lungs clear to auscultation Cardiovascular: RRR, no murmur, no edema Chest (Breasts): normal inspection/palpation of breasts (large area of erythema, open wounds, necrosis) Gastrointestinal (Abdomen): normal bowel sounds, soft, nontender, no hepatosplenomegaly Musculoskeletal: Extremities: extremities normal to inspection; no cyanosis and no clubbing Skin: no rashes, warm and dry Neurologic: moves all extremities and awake; no focal motor deficits Psychiatric: A+Ox3, euthymic affect Results & Data Laboratory Results 01/28/19 01/27/19 01/27/19 Range/Units 05:17 05:56 05:56 WBC 1.77 L (4.8-10.8) K/uL RBC 3.72 L (4.2-5.4) M/uL Hgb 8.9 L (12.0-16.0) g/dL Hct 28.2 L (37-47) % MCV 75.8 L (80-100) fL MCH 23.9 L (25-34) pg MCHC 31.6 L (32-36) g/dL RDW Std Deviation 54.2 H (36.4-46.3) fL RDW Coeff of Nahun 19.7 H (11.5-14.5) % Plt Count 332 (130-400) K/uL MPV 10.6 H (7.4-10.4) fL Immature Gran % (Auto) 1.7 2.3 % Neut % (Auto) 43.0 46.9 % Lymph % (Auto) 35.6 32.6 % [place] % (Auto) 16.9 14.4 % Eos % (Auto) 1.1 2.3 % Baso % (Auto) 1.7 1.5 % Immature Gran # (Auto) 0.03 H 0.03 H (0.00-0.02) K/uL Neut # (Auto) 0.76 L* 0.62 L* (1.4-6.5) K/uL Lymph # (Auto) 0.63 L 0.43 L (1.2-3.4) K/uL [place] # (Auto) 0.30 0.19 (0.11-0.59) K/uL Eos # (Auto) 0.02 0.03 (0-0.5) K/uL Baso # (Auto) 0.03 0.02 (0-0.2) K/uL Hypochromasia Present Anisocytosis Present Present Microcytosis Present Ovalocytes 1+ 1+ Total Creatine Kinase 50 (26-192) U/L (1) Cellulitis Site of cellulitis: other site Qualified Code(s): L03.818 - Cellulitis of other sites (2) Neutropenia Neutropenia type: unspecified Qualified Code(s): D70.9 - Neutropenia, unspecified
[2019-01-27] MEDS ORDERED: SODIUM CHLORIDE 0.9% 1000ML 1,000 ML IV SCH (15:15)
--- NOTE | 2019-01-27 16:21 | Infectious Disease Progress Nt ---
Date of Service January 27, 2019 Assessment & Plan (1) MRSA (methicillin resistant Staphylococcus aureus) infection: Patient with metastatic breast cancer on chemotherapy status post radiation therapy with large nonhealing left breast wound with MRSA and highly resistant Pseudomonas which also. Patient will be continued on IV Zerbaxa 1 g every 8 hours along with daptomycin. Length of antibiotics to be determined by clinical response, likely in the range of 7-10 days. Will follow. (2) Pseudomonas aeruginosa infection: (3) Cellulitis of left breast: Subjective Patient seen in follow-up for left breast infection and nonhealing wound. Now on daptomycin and Zerbaxa, tolerating without apparent difficulty. Remains afebrile Review of Systems All systems reviewed & are unremarkable except as noted in HPI & below Physical Exam Vital Signs (Past 24 Hours): Last Vital Signs Temp 37.0 C 01/27/19 15:00 Pulse 82 01/27/19 15:00 Resp 20 01/27/19 15:00 BP 158/58 H 01/27/19 15:00 Pulse Ox 96 01/27/19 15:00 Constitutional: well developed, well nourished, + ill appearing (Chronically) and comfortable; no acute distress Eyes: PERRL, conjunctivae normal, anicteric sclerae ENMT: external ear and nose normal, oropharynx normal Neck: trachea midline, no thyromegaly neck nontender Respiratory: normal respiratory effort, lungs clear to auscultation normal percussion; does not use accessory muscles Cardiovascular: Rate/Rhythm: regular rate and regular rhythm Heart Sounds: normal S1 and normal S2; no gallop, no murmur and no cardiac rub Vessels: normal peripheral pulses; no JVD Gastrointestinal (Abdomen): normal bowel sounds, soft, nontender, no hepatosplenomegaly Musculoskeletal: no cyanosis or clubbing, extremities motor strength 5/5 Spine: thoracic spine normal to inspection and lumbar spine normal to inspection; no cervical spinal tenderness Skin: normal turgor and + wound (Large open wound left chest wall/left breast with significant extension and) Neurologic: patellar DTR's 2+ bilat, sensation intact no focal motor deficits Psychiatric: A+Ox3, euthymic affect Orientation: cooperative Lymphatic: no cervical or axillary lymphadenopathy no inguinal lymphadenopathy Results & Data Laboratory Results Short CBC 01/27/19 Range/Units 05:56 WBC 1.32 L (4.8-10.8) K/uL Hgb 8.7 L (12.0-16.0) g/dL Hct 28.3 L (37-47) % Plt Count 329 (130-400) K/uL BMP 01/27/19 05:56 Sodium 137 Potassium 3.4 L Chloride 103 Carbon Dioxide 29 BUN 5 L D Creatinine 0.34 L Glucose 87 Calcium 7.9 L Cardiac Enzymes 01/27/19 Range/Units 05:56 Total Creatine Kinase 50 (26-192) U/L Liver Function 01/27/19 Range/Units 05:56 Total Bilirubin 0.5 (0.2-1) mg/dl AST 26 (15-37) U/L ALT 18 (12-78) U/L Alkaline Phosphatase 52 (45-117) U/L Albumin 2.6 L (3.4-5.0) gm/dl
[2019-01-27] MEDS: DAPTOmycin 275 MG in SYRINGE 0 ML IV SCH (17:41)
[2019-01-27] MEDS: ZOLPIDEM TARTRATE 5 MG TAB PO PRN (20:33)
[2019-01-28] MEDS: OXYCODONE HCL IR 5 MG TAB (IMMEDIATE RELEASE) PO PRN ×3 (05:35→14:07)
[2019-01-28] MEDS: LEVOTHYROXINE SODIUM 50 MCG TABLET PO SCH (05:39)
[2019-01-28 06:19] LABS: Hematocrit (blood only) 28.2 % (37-47); Hemoglobin 8.9 g/dL (12.0-16.0); Mean Corpuscular Hgb Conc 31.6 g/dL (32-36); Mean Corpuscular Volume 75.8 fL (80-100); Mean Platelet Volume 10.6 fL (7.4-10.4); Platelet Count 332 K/uL (130-400); RDW Coefficient of Variation 19.7 % (11.5-14.5); RDW Standard Deviation 54.2 fL (36.4-46.3); Red Blood Count 3.72 M/uL (4.2-5.4); White Blood Count 1.77 K/uL (4.8-10.8)
[2019-01-28] MEDS: CEFTOLOZANE/TAZOBACTAM 1,500 MG in DEXTROSE 5% 100 ML IV SCH ×3 (06:28→22:01)
[2019-01-28 06:38] LABS: Anisocytosis Present; Basophils # (auto) 0.03 K/uL (0-0.2); Basophils % (auto) 1.7 %; Eosinophils # (auto) 0.02 K/uL (0-0.5); Eosinophils % (auto) 1.1 %; Hypochromasia Present; Immature Granulocytes # (auto) 0.03 K/uL (0.00-0.02); Immature Granulocytes % (auto) 1.7 %; Lymphocytes # (auto) 0.63 K/uL (1.2-3.4); Lymphocytes % (auto) 35.6 %; Monocytes % (auto) 16.9 %; Neutrophils # (auto) 0.76 K/uL (1.4-6.5); Ovalocytes 1+
[2019-01-28] MEDS: OXYCODONE HCL 40 MG TABCR (OXYCONTIN) PO SCH (07:47)
[2019-01-28] MEDS: DOCUSATE SODIUM 100 MG CAP PO SCH ×2 (07:47→20:03)
[2019-01-28] MEDS: ENOXAPARIN INJ 40 MG/0.4 ML SYR SQ SCH (07:48)
[2019-01-28] MEDS: ASCORBIC ACID 500 MG TAB PO SCH (07:48)
[2019-01-28] MEDS: CHOLECALCIFEROL 1,000 UNITS TAB PO SCH (07:48)
[2019-01-28] MEDS: HEPARIN 100 UNIT/ML 5ML FLUSH FLUSH PRN (07:48)
[2019-01-28 08:53] LABS: BUN Creatinine Ratio 10.7 (10-20); Calcium 8.2 mg/dl (8.5-10.1); Creatinine Clr Calc Pharmacy 175.8 ml/min; Est GFR (Non-African American) 111.3; Magnesium 1.8 mg/dl (1.8-2.4); Potassium 3.2 mmol/L (3.5-5.1)
[2019-01-28] MEDS ORDERED: MAGNESIUM SULFATE / D5W 1 GM/100 ML BAG IV ONE (10:45)
[2019-01-28] MEDS: POTASSIUM CHLORIDE / WTR 20 MEQ/100 ML PLCT IV SCH ×2 (11:11→13:17)
[2019-01-28] MEDS ORDERED: MoRPHine SULFATE 4 MG/ML 1 ML CARP\\VIAL ONE (16:08)
[2019-01-28] MEDS: MoRPHine SULFATE 4 MG/ML 1 ML CARP\\VIAL IV PRN (16:20)
--- NOTE | 2019-01-28 16:56 | Hospitalist Progress Note ---
Date of Service January 28, 2019 Assessment & Plan (1) Cellulitis: - Presented with left breast and left hemithorax acute on chronic open wounds and cellulitis with necrosis related to metastatic breast CA; follows with wound clinic, failed outpatient treatment with Doxycycline and Cefepime. - Most recent wound culture on 01/21 positive for highly resistant Pseudomonas and MRSA. - ID consulted, appreciate input. -Difficult to tell if is much improved from previous-still continues with significant drainage - Cont Zerbaxa IV q8hr for Pseuomonas coverage; continue Daptomycin for MRSA. Length of treatment at least 7-10 days and may need to stay in hospital for this if cannot be approved at home-today is day #3 - Wound care consulted for dressing changes -- follows closely with wound clinic. - Blood cultures x 2 NGTD -pain control-increase OxyContin to 50 mg p.o. every 12 hours and continue oxycodone 15mg prn every 4 hours, added IV morphine as needed for breakthrough pain (2) Breast cancer: - Initially diagnosed in September 2016, triple negative breast cancer. WIth mets to skin - S/p partial left mastectomy and LN biopsy on 11/14/16. - Completed RT in 2017 and again in 2018. - Currently follows with Dr. Arroyo; has progressed through multiple chemotherapy treatments. - Receiving Halaven chemotherapy, most recent treatment on 01/21/19. (3) Chronic pain: -Increase Oxycontin to 50 mg twice daily as above with increased dose of Oxycodone 15 mg every 4 hours as needed. (4) Hypothyroidism: - Continue Synthroid 50 mcg daily. - TSH was 1.3. (5) Chronic diastolic heart failure: - Echo in Nov 2016 showed EF 65-70%, grade I DD.Not volume overloaded - Monitor I/Os and daily weights. (6) Neutropenia: - ANC in the 700s, related to recent chemotherapy. -Continue neutropenic precautions. - Monitor CBC with diff qAM. (7) Anemia due to antineoplastic chemotherapy: - Hemoglobin currently stable at 8.9. - Transfuse for hgb <7.5 or for active bleeding. (8) Hypokalemia: Persists at 3.2 today, likely due to poor oral intake -Replaced with IV potassium (9) Lightheaded: likely vagal secondary to pain-now resolved after 1 L of IV fluids and improved pain control (10) DVT prophylaxis: - SCDs; Lovenox q24hr. Dispo: continued stay for IV antibiotics, case management working on possibly transfer to [facility] if our pharmacy will supply her Zerbaxa Discussed her care with her son Al on the phone per her request FULL CODE - Subjective Pain is still not well controlled in the left hemithorax. No more lightheadedness today. No shortness of breath or abdominal pain, no diarrhea. She is tolerating p.o. Review of Systems All systems reviewed & are unremarkable except as noted in HPI & below Physical Exam Vital Signs (Past 24 Hours): Last Vital Signs Temp 37.2 C 01/28/19 15:02 Pulse 71 01/28/19 15:02 Resp 18 01/28/19 15:02 BP 126/74 01/28/19 15:02 Pulse Ox 91 01/28/19 15:02 Constitutional: WD/WN, vitals as above Eyes: PERRL, conjunctivae normal, anicteric sclerae ENMT: external ear and nose normal, oropharynx normal Neck: trachea midline, no thyromegaly Respiratory: normal respiratory effort, lungs clear to auscultation Cardiovascular: RRR, no murmur, no edema Chest (Breasts): normal inspection/palpation of breasts (large area of erythema, open wounds, necrosis) Gastrointestinal (Abdomen): normal bowel sounds, soft, nontender, no hepatosplenomegaly Musculoskeletal: Extremities: extremities normal to inspection; no cyanosis and no clubbing Skin: no rashes, warm and dry Neurologic: moves all extremities and awake; no focal motor deficits Psychiatric: A+Ox3, euthymic affect Results & Data Laboratory Results 01/28/19 Range/Units 05:15 Sodium 136 (136-145) mmol/L Potassium 3.2 L (3.5-5.1) mmol/L Chloride 101 (98-107) mmol/L Carbon Dioxide 29 (21-32) mmol/L Anion Gap 7.0 (3-11) BUN 4 L (7-18) mg/dl Creatinine 0.34 L (0.6-1.2) mg/dl Est Cr Clr Drug Dosing 175.8 ml/min Est GFR ( Amer) 129.0 Est GFR (Non-Af Amer) 111.3 BUN/Creatinine Ratio 10.7 (10-20) Glucose 99 (70-99) mg/dl Calcium 8.2 L (8.5-10.1) mg/dl Magnesium 1.8 (1.8-2.4) mg/dl (1) Cellulitis Site of cellulitis: other site Qualified Code(s): L03.818 - Cellulitis of other sites (2) Neutropenia Neutropenia type: unspecified Qualified Code(s): D70.9 - Neutropenia, unspecified
[2019-01-28] MEDS: DAPTOmycin 275 MG in SYRINGE 0 ML IV SCH (17:17)
[2019-01-28] MEDS: OXYCODONE HCL 10 MG TABCR (OXYCONTIN) PO SCH (20:04)
[2019-01-28] MEDS: ZOLPIDEM TARTRATE 5 MG TAB PO PRN (20:04)
[2019-01-29] MEDS: OXYCODONE HCL IR 5 MG TAB (IMMEDIATE RELEASE) PO PRN ×4 (05:18→20:37)
[2019-01-29] MEDS: CEFTOLOZANE/TAZOBACTAM 1,500 MG in DEXTROSE 5% 100 ML IV SCH ×3 (05:19→21:32)
[2019-01-29] MEDS: HEPARIN 100 UNIT/ML 5ML FLUSH FLUSH PRN ×3 (05:19→16:35)
[2019-01-29] MEDS: LEVOTHYROXINE SODIUM 50 MCG TABLET PO SCH (05:20)
[2019-01-29 07:06] LABS: Basophils # (auto) 0.01 K/uL (0-0.2); Basophils % (auto) 0.4 %; Eosinophils # (auto) 0.01 K/uL (0-0.5); Eosinophils % (auto) 0.4 %; Hematocrit (blood only) 29.7 % (37-47); Hemoglobin 9.3 g/dL (12.0-16.0); Immature Granulocytes # (auto) 0.03 K/uL (0.00-0.02); Immature Granulocytes % (auto) 1.1 %; Lymphocytes # (auto) 0.76 K/uL (1.2-3.4); Lymphocytes % (auto) 28.8 %; Mean Corpuscular Hgb Conc 31.3 g/dL (32-36); Mean Corpuscular Volume 75.4 fL (80-100); Mean Platelet Volume 10.1 fL (7.4-10.4); Monocytes # (auto) 0.49 K/uL (0.11-0.59); Monocytes % (auto) 18.6 %; Neutrophils # (auto) 1.34 K/uL (1.4-6.5); Neutrophils % (auto) 50.7 %; Platelet Count 341 K/uL (130-400); RDW Coefficient of Variation 19.7 % (11.5-14.5); RDW Standard Deviation 53.7 fL (36.4-46.3); Red Blood Count 3.94 M/uL (4.2-5.4); White Blood Count 2.64 K/uL (4.8-10.8)
[2019-01-29 07:43] LABS: BUN Creatinine Ratio 15.5 (10-20); Calcium 8.3 mg/dl (8.5-10.1); Est GFR (African American) 130.3; Est GFR (Non-African American) 112.4; Potassium 3.6 mmol/L (3.5-5.1)
[2019-01-29] MEDS: DOCUSATE SODIUM 100 MG CAP PO SCH ×2 (08:04→20:37)
[2019-01-29] MEDS: ENOXAPARIN INJ 40 MG/0.4 ML SYR SQ SCH (08:05)
[2019-01-29] MEDS: CHOLECALCIFEROL 1,000 UNITS TAB PO SCH (08:05)
[2019-01-29] MEDS: ASCORBIC ACID 500 MG TAB PO SCH (08:05)
[2019-01-29] MEDS: OXYCODONE HCL 10 MG TABCR (OXYCONTIN) PO SCH ×2 (08:11→20:37)
--- NOTE | 2019-01-29 14:52 | Infectious Disease Progress Nt ---
Date of Service January 29, 2019 Assessment & Plan (1) MRSA (methicillin resistant Staphylococcus aureus) infection: Patient with metastatic breast cancer on chemotherapy status post radiation therapy with large nonhealing left breast wound with MRSA and highly resistant Pseudomonas . Patient will be continued on IV Zerbaxa 1 g every 8 hours along with daptomycin. We will continue to follow. (2) Pseudomonas aeruginosa infection: (3) Cellulitis of left breast: Subjective Patient seen in follow-up for left breast infection and nonhealing wound. On daptomycin and Zerbaxa, tolerating without apparent difficulty. Remains afebrile Physical Exam Vital Signs (Past 24 Hours): Last Vital Signs Temp 37.2 C 01/29/19 12:09 Pulse 74 01/29/19 12:09 Resp 15 01/29/19 12:09 BP 119/72 01/29/19 12:09 Pulse Ox 92 01/29/19 12:09 Constitutional: well developed, well nourished, + ill appearing (Chronically) and comfortable; no acute distress Eyes: PERRL, conjunctivae normal, anicteric sclerae ENMT: external ear and nose normal, oropharynx normal Neck: trachea midline, no thyromegaly neck nontender Respiratory: normal respiratory effort, lungs clear to auscultation normal percussion; does not use accessory muscles Cardiovascular: Rate/Rhythm: regular rate and regular rhythm Heart Sounds: normal S1 and normal S2; no gallop, no murmur and no cardiac rub Vessels: normal peripheral pulses; no JVD Gastrointestinal (Abdomen): normal bowel sounds, soft, nontender, no hepatosplenomegaly Musculoskeletal: no cyanosis or clubbing, extremities motor strength 5/5 Spine: thoracic spine normal to inspection and lumbar spine normal to inspection; no cervical spinal tenderness Skin: normal turgor and + wound (Large open wound left chest wall/left breast with significant extension and) Neurologic: patellar DTR's 2+ bilat, sensation intact no focal motor deficits Psychiatric: A+Ox3, euthymic affect Orientation: cooperative Lymphatic: no cervical or axillary lymphadenopathy no inguinal lymphadenopathy Results & Data Laboratory Results Short CBC 01/29/19 Range/Units 06:53 WBC 2.64 L (4.8-10.8) K/uL Hgb 9.3 L (12.0-16.0) g/dL Hct 29.7 L (37-47) % Plt Count 341 (130-400) K/uL BMP 01/29/19 06:53 Sodium 133 L Potassium 3.6 Chloride 100 Carbon Dioxide 27 BUN 5 L Creatinine 0.33 L Glucose 99 Calcium 8.3 L Diagnostic Findings Microbiology 01/26/19 08:52 Blood Blood Culture - Preliminary No growth to date. 01/26/19 08:39 Blood Blood Culture - Preliminary No growth to date.
[2019-01-29] MEDS: DAPTOmycin 275 MG in SYRINGE 0 ML IV SCH (16:35)
--- NOTE | 2019-01-29 17:05 | Hospitalist Progress Note ---
Date of Service January 29, 2019 Assessment & Plan (1) Cellulitis: - Presented with left breast and left hemithorax acute on chronic open wounds and cellulitis with necrosis related to metastatic breast CA; follows with wound clinic, failed outpatient treatment with Doxycycline and Cefepime. - Most recent wound culture on 01/21 positive for highly resistant Pseudomonas and MRSA. - ID consulted, appreciate input. -Difficult to tell if is much improved from previous-still continues with significant drainage but perhaps is improved - Cont Zerbaxa IV q8hr for Pseuomonas coverage; continue Daptomycin for MRSA. Length of treatment at least 7-10 days and may need to stay in hospital for this if cannot be approved at home-today is day #4 - Wound care consulted for dressing changes -- follows closely with wound clinic. - Blood cultures x 2 remain NGTD -pain control- continue increased dose of OxyContin 50 mg p.o. every 12 hours and continue oxycodone 15mg prn every 4 hours, continue IV morphine as needed for breakthrough pain-encouraged her to not get behind on her as needed pain meds (2) Breast cancer: - Initially diagnosed in September 2016, triple negative breast cancer. With mets to skin - S/p partial left mastectomy and LN biopsy on 11/14/16. - Completed RT in 2017 and again in 2018. - Currently follows with Dr. Arroyo; has progressed through multiple chemotherapy treatments. - Receiving Halaven chemotherapy, most recent treatment on 01/21/19. -Patient reports she has received her chemotherapy while on IV antibiotics in the past 2 months-she is due for chemotherapy again this coming Friday - will defer to oncology as to whether she will get her dose next week (3) Chronic pain: --Continue increased dose of Oxycontin 50 mg twice daily as above with increased dose of Oxycodone 15 mg every 4 hours as needed. (4) Hypothyroidism: - Continue Synthroid 50 mcg daily. - TSH was 1.3. (5) Chronic diastolic heart failure: - Echo in Nov 2016 showed EF 65-70%, grade I DD.Not volume overloaded - Monitor I/Os and daily weights. (6) Neutropenia: - ANC now up to 1340 today-previous neutropenia related to recent chemotherapy. -Can discontinue neutropenic precautions - Monitor CBC with diff qAM. 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 (8) Hypokalemia: Improved today to 3.6 with increased p.o. intake -Check BMP and replace as needed (9) Lightheaded: likely vagal secondary to pain on 01/27-now resolved after 1 L of IV fluids and improved pain control (10) DVT prophylaxis: - SCDs; Lovenox q24hr. Dispo: continued stay for IV antibiotics, case management working on possibly transfer to [facility] if our pharmacy will supply her Zerbaxa. Patient needs continued stay for IV morphine as needed while working on improved pain regimen given severe pain in the left hemithorax -Consider palliative consult for pain management on Friday if needed Discussed her care with her son Al at the bedside FULL CODE - Subjective Patient reports increased pain this morning but she did not take any as needed pain meds overnight. Otherwise, appetite is low but she is trying to eat. No diarrhea. No chest pain or shortness of breath. I discussed her case with her son at the bedside and he is concerned about her being discharged too soon without her pain being adequately controlled. Review of Systems All systems reviewed & are unremarkable except as noted in HPI & below Physical Exam Vital Signs (Past 24 Hours): Last Vital Signs Temp 36.3 C L 01/29/19 15:13 Pulse 75 01/29/19 15:13 Resp 16 01/29/19 15:13 BP 120/62 01/29/19 15:13 Pulse Ox 92 01/29/19 15:13 Constitutional: WD/WN, vitals as above Eyes: PERRL, conjunctivae normal, anicteric sclerae ENMT: external ear and nose normal, oropharynx normal Neck: trachea midline, no thyromegaly Respiratory: normal respiratory effort, lungs clear to auscultation Cardiovascular: RRR, no murmur, no edema Chest (Breasts): normal inspection/palpation of breasts (large area of eryth dasha, open wounds, necrosis, with yellow serous drainage) Gastrointestinal (Abdomen): normal bowel sounds, soft, nontender, no hepatosplenomegaly Musculoskeletal: Extremities: extremities normal to inspection; no cyanosis and no clubbing Skin: no rashes, warm and dry Neurologic: moves all extremities and awake; no focal motor deficits Psychiatric: A+Ox3, euthymic affect Results & Data Laboratory Results 01/29/19 01/29/19 Range/Units 06:53 06:53 WBC 2.64 L (4.8-10.8) K/uL RBC 3.94 L (4.2-5.4) M/uL Hgb 9.3 L (12.0-16.0) g/dL Hct 29.7 L (37-47) % MCV 75.4 L (80-100) fL MCH 23.6 L (25-34) pg MCHC 31.3 L (32-36) g/dL RDW Std Deviation 53.7 H (36.4-46.3) fL RDW Coeff of Nahun 19.7 H (11.5-14.5) % Plt Count 341 (130-400) K/uL MPV 10.1 (7.4-10.4) fL Immature Gran % (Auto) 1.1 % Neut % (Auto) 50.7 % Lymph % (Auto) 28.8 % [place] % (Auto) 18.6 % Eos % (Auto) 0.4 % Baso % (Auto) 0.4 % Immature Gran # (Auto) 0.03 H (0.00-0.02) K/uL Neut # (Auto) 1.34 L (1.4-6.5) K/uL Lymph # (Auto) 0.76 L (1.2-3.4) K/uL [place] # (Auto) 0.49 (0.11-0.59) K/uL Eos # (Auto) 0.01 (0-0.5) K/uL Baso # (Auto) 0.01 (0-0.2) K/uL Sodium 133 L (136-145) mmol/L Potassium 3.6 (3.5-5.1) mmol/L Chloride 100 (98-107) mmol/L Carbon Dioxide 27 (21-32) mmol/L Anion Gap 6.0 (3-11) BUN 5 L (7-18) mg/dl Creatinine 0.33 L (0.6-1.2) mg/dl Est Cr Clr Drug Dosing 181.0 ml/min Est GFR ( Amer) 130.3 Est GFR (Non-Af Amer) 112.4 BUN/Creatinine Ratio 15.5 (10-20) Glucose 99 (70-99) mg/dl Calcium 8.3 L (8.5-10.1) mg/dl Magnesium 2.0 (1.8-2.4) mg/dl (1) Cellulitis Site of cellulitis: other site Qualified Code(s): L03.818 - Cellulitis of o ther sites (2) Neutropenia Neutropenia type: unspecified Qualified Code(s): D70.9 - Neutropenia, unspecified
[2019-01-29] MEDS: MoRPHine SULFATE 4 MG/ML 1 ML CARP\\VIAL IV PRN ×3 (18:10→23:19)
[2019-01-30] MEDS: ZOLPIDEM TARTRATE 5 MG TAB PO PRN ×2 (02:44→20:13)
[2019-01-30] MEDS: OXYCODONE HCL IR 5 MG TAB (IMMEDIATE RELEASE) PO PRN ×3 (05:57→16:48)
[2019-01-30] MEDS: CEFTOLOZANE/TAZOBACTAM 1,500 MG in DEXTROSE 5% 100 ML IV SCH ×3 (05:57→21:04)
[2019-01-30] MEDS: LEVOTHYROXINE SODIUM 50 MCG TABLET PO SCH (05:57)
[2019-01-30 06:24] LABS: Basophils # (auto) 0.01 K/uL (0-0.2); Basophils % (auto) 0.3 %; Eosinophils # (auto) 0.02 K/uL (0-0.5); Eosinophils % (auto) 0.6 %; Hematocrit (blood only) 29.2 % (37-47); Immature Granulocytes # (auto) 0.02 K/uL (0.00-0.02); Immature Granulocytes % (auto) 0.6 %; Lymphocytes # (auto) 0.73 K/uL (1.2-3.4); Lymphocytes % (auto) 23.1 %; Mean Corpuscular Hgb Conc 30.8 g/dL (32-36); Mean Corpuscular Volume 76.2 fL (80-100); Mean Platelet Volume 10.7 fL (7.4-10.4); Monocytes # (auto) 0.72 K/uL (0.11-0.59); Monocytes % (auto) 22.8 %; Neutrophils # (auto) 1.66 K/uL (1.4-6.5); Neutrophils % (auto) 52.6 %; Platelet Count 391 K/uL (130-400); RDW Coefficient of Variation 20.4 % (11.5-14.5); RDW Standard Deviation 55.7 fL (36.4-46.3); Red Blood Count 3.83 M/uL (4.2-5.4); White Blood Count 3.16 K/uL (4.8-10.8)
[2019-01-30 06:51] LABS: BUN Creatinine Ratio 18.7 (10-20); Calcium 8.4 mg/dl (8.5-10.1); Creatinine Clr Calc Pharmacy 161.4 ml/min; Est GFR (African American) 125.5; Est GFR (Non-African American) 108.3; Magnesium 2.1 mg/dl (1.8-2.4); Potassium 3.5 mmol/L (3.5-5.1)
[2019-01-30 06:52] LABS: Phosphorus 3.6 mg/dl (2.5-4.9)
[2019-01-30 06:59] LABS: Anisocytosis Present; Ovalocytes 1+
[2019-01-30] MEDS: CHOLECALCIFEROL 1,000 UNITS TAB PO SCH (08:12)
[2019-01-30] MEDS: OXYCODONE HCL 10 MG TABCR (OXYCONTIN) PO SCH (08:12)
[2019-01-30] MEDS: ASCORBIC ACID 500 MG TAB PO SCH (08:12)
[2019-01-30] MEDS: ENOXAPARIN INJ 40 MG/0.4 ML SYR SQ SCH (08:12)
[2019-01-30] MEDS: DOCUSATE SODIUM 100 MG CAP PO SCH ×2 (08:12→20:13)
[2019-01-30] MEDS: HEPARIN 100 UNIT/ML 5ML FLUSH FLUSH PRN ×5 (08:13→21:05)
[2019-01-30] MEDS: MoRPHine SULFATE 4 MG/ML 1 ML CARP\\VIAL IV PRN (10:24)
[2019-01-30] MEDS ORDERED: MoRPHine SULFATE 4 MG/ML 1 ML CARP\\VIAL IV PRN (12:25)
--- NOTE | 2019-01-30 16:22 | Hospitalist Progress Note ---
Date of Service January 30, 2019 Assessment & Plan (1) Cellulitis: - Presented with left breast and left hemithorax acute on chronic open wounds and cellulitis with necrosis related to metastatic breast CA; follows with wound clinic, failed outpatient treatment with Doxycycline and Cefepime. - Most recent wound culture on 01/21 positive for highly resistant Pseudomonas and MRSA. - ID consulted, appreciate input. -Difficult to tell if is much improved from previous-still continues with significant drainage but perhaps is improved - Cont Zerbaxa IV q8hr for Pseuomonas coverage; continue Daptomycin for MRSA. Length of treatment at least 7-10 days and may need to stay in hospital for this if cannot be approved at home-today is day #5 - Wound care consulted for dressing changes -- follows closely with wound clinic. - Blood cultures x 2 remain NGTD -pain control- remains inadequate, especially with dressing changes-->will AGAIN increase dose of OxyContin to 60 mg p.o. every 12 hours and continue oxycodone 15mg prn every 4 hours, -will dc IV morphine for adverse side effects and add IV Dilaudid 0.5mg IV q3h prn severe breakthrough pain -requires continued hospital stay mostly for pain management -consider Palliative/Pain Management consult on Friday (2) Breast cancer: - Initially diagnosed in September 2016, triple negative breast cancer. With mets to skin - S/p partial left mastectomy and LN biopsy on 11/14/16. - Completed RT in 2017 and again in 2018. - Currently follows with Dr. Arroyo; has progressed through multiple chemotherapy treatments. - Receiving Halaven chemotherapy, most recent treatment on 01/21/19. -Patient reports she has received her chemotherapy while on IV antibiotics in the past 2 months-she is due for chemotherapy again this coming Friday - will defer to oncology as to whether she will get her dose next week (3) Chronic pain: --Continue pain meds as above (4) Hypothyroidism: - Continue Synthroid 50 mcg daily. - TSH was 1.3. (5) Chronic diastolic heart failure: - Echo in Nov 2016 showed EF 65-70%, grade I DD.Not volume overloaded - Monitor I/Os and daily weights. (6) Neutropenia: - ANC now improved-previous neutropenia related to recent chemotherapy. - discontinued neutropenic precautions - Monitor CBC with diff qAM. (7) Anemia due to antineoplastic chemotherapy: - Hemoglobin stable at 9.0 - Transfuse for hgb <7.5 or for active bleeding. (8) Hypokalemia: resolved with replacement and with increased p.o. intake -Check BMP and replace as needed (9) Lightheaded: Resolved--> was likely vagal secondary to pain on 01/27-now resolved after 1 L of IV fluids and improved pain control (10) DVT prophylaxis: - SCDs; Lovenox q24hr. Dispo: continued stay for IV antibiotics, case management working on possibly transfer to [facility] if our pharmacy will supply her Zerbaxa. Patient needs continued stay for IV pain control as needed while working on improved pain regimen given severe pain in the left hemithorax -Consider palliative consult for pain management on Friday if needed FULL CODE - Subjective Still having some severe pain expecially with dressing changes here. Required IV morphine today but states this makes her feel "very weird." No nausea, is eating better today. No SOB. Not lightheaded Review of Systems All systems reviewed & are unremarkable except as noted in HPI & below Physical Exam Vital Signs (Past 24 Hours): Last Vital Signs Temp 37.0 C 01/30/19 15:29 Pulse 86 01/30/19 15:29 Resp 16 01/30/19 15:29 BP 111/69 01/30/19 15:29 Pulse Ox 93 01/30/19 15:29 Constitutional: WD/WN, vitals as above Eyes: PERRL, conjunctivae normal, anicteric sclerae ENMT: Ears: no hearing impairment Neck: trachea midline, no thyromegaly Respiratory: normal respiratory effort, lungs clear to auscultation Cardiovascular: RRR, no murmur, no edema Chest (Breasts): Chest: + abnormal inspection of chest (dressing not removed today as she just had it completely replaced) Gastrointestinal (Abdomen): normal bowel sounds, soft, nontender, no hepatosplenomegaly Musculoskeletal: Extremities: extremities normal to inspection; no cyanosis an d no clubbing Skin: no rashes, warm and dry Neurologic: moves all extremities and awake; no focal motor deficits Psychiatric: A+Ox3, euthymic affect Results & Data Laboratory Results 01/31/19 01/31/19 01/30/19 Range/Units 05:37 05:37 05:40 WBC 3.54 L 3.16 L (4.8-10.8) K/uL RBC 3.81 L 3.83 L (4.2-5.4) M/uL Hgb 9.1 L 9.0 L (12.0-16.0) g/dL Hct 28.9 L 29.2 L (37-47) % MCV 75.9 L 76.2 L (80-100) fL MCH 23.9 L 23.5 L (25-34) pg MCHC 31.5 L 30.8 L (32-36) g/dL RDW Std Deviation 56.7 H 55.7 H (36.4-46.3) fL RDW Coeff of Nahun 20.7 H 20.4 H (11.5-14.5) % Plt Count 396 391 (130-400) K/uL MPV 10.0 10.7 H (7.4-10.4) fL Immature Gran % (Auto) 1.4 0.6 % Neut % (Auto) 43.8 52.6 % Lymph % (Auto) 22.6 23.1 % [place] % (Auto) 31.6 22.8 % Eos % (Auto) 0.3 0.6 % Baso % (Auto) 0.3 0.3 % Immature Gran # (Auto) 0.05 H 0.02 (0.00-0.02) K/uL Neut # (Auto) 1.55 1.66 (1.4-6.5) K/uL Lymph # (Auto) 0.80 L 0.73 L (1.2-3.4) K/uL [place] # (Auto) 1.12 H 0.72 H (0.11-0.59) K/uL Eos # (Auto) 0.01 0.02 (0-0.5) K/uL Baso # (Auto) 0.01 0.01 (0-0.2) K/uL Anisocytosis Present Ovalocytes 1+ 1+ Sodium 137 (136-145) mmol/L Potassium 3.8 (3.5-5.1) mmol/L Chloride 101 (98-107) mmol/L Carbon Dioxide 29 (21-32) mmol/L Anion Gap 7.0 (3-11) BUN 9 (7-18) mg/dl Creatinine 0.44 L (0.6-1.2) mg/dl Est Cr Clr Drug Dosing 135.8 ml/min Est GFR ( Amer) 118.5 Est GFR (Non-Af Amer) 102.3 BUN/Creatinine Ratio 21.0 H (10-20) Glucose 90 (70-99) mg/dl Calcium 8.6 (8.5-10.1) mg/dl Phosphorus (2.5-4.9) mg/dl Magnesium (1.8-2.4) mg/dl 01/30/19 Range/Units 05:40 WBC (4.8-10.8) K/uL RBC (4.2-5.4) M/uL Hgb (12.0-16.0) g/dL Hct (37-47) % MCV (80-100) fL MCH (25-34) pg MCHC (32-36) g/dL RDW Std Deviation (36.4-46.3) fL RDW Coeff of Nahun (11.5-14.5) % Plt Count (130-400) K/uL MPV (7.4-10.4) fL Immature Gran % (Auto) % Neut % (Auto) % Lymph % (Auto) % [place] % (Auto) % Eos % (Auto) % Baso % (Auto) % Immature Gran # (Auto) (0.00-0.02) K/uL Neut # (Auto) (1.4-6.5) K/uL Lymph # (Auto) (1.2-3.4) K/uL [place] # (Auto) (0.11-0.59) K/uL Eos # (Auto) (0-0.5) K/uL Baso # (Auto) (0-0.2) K/uL Anisocytosis Ovalocytes Sodium 135 L (136-145) mmol/L Potassium 3.5 (3.5-5.1) mmol/L Chloride 101 (98-107) mmol/L Carbon Dioxide 30 (21-32) mmol/L Anion Gap 4.0 (3-11) BUN 7 (7-18) mg/dl Creatinine 0.37 L (0.6-1.2) mg/dl Est Cr Clr Drug Dosing 161.4 ml/min Est GFR ( Amer) 125.5 Est GFR (Non-Af Amer) 108.3 BUN/Creatinine Ratio 18.7 (10-20) Glucose 92 (70-99) mg/dl Calcium 8.4 L (8.5-10.1) mg/dl Phosphorus 3.6 (2.5-4.9) mg/dl Magnesium 2.1 (1.8-2.4) mg/dl (1) Cellulitis Site of cellulitis: other site Qualified Code(s): L03.818 - Cellulitis of other sites (2) Neutropenia Neutropenia type: unspecified Qualified Code(s): D70.9 - Neutropenia, unsp ecified
[2019-01-30] MEDS: DAPTOmycin 275 MG in SYRINGE 0 ML IV SCH (16:49)
[2019-01-30] MEDS: POLYETHYLENE (MIRALAX) 17 GM PACK PO SCH (16:55)
[2019-01-30] MEDS: OXYCODONE HCL 20 MG TABCR (OXYCONTIN) PO SCH (19:19)
[2019-01-30] MEDS: HYDROmorphone INJ 0.5 MG/0.5 ML SYR IV PRN (21:04)
[2019-01-31] MEDS: OXYCODONE HCL IR 5 MG TAB (IMMEDIATE RELEASE) PO PRN ×4 (01:42→21:16)
[2019-01-31] MEDS: LEVOTHYROXINE SODIUM 50 MCG TABLET PO SCH (05:31)
[2019-01-31] MEDS: HYDROmorphone INJ 0.5 MG/0.5 ML SYR IV PRN ×3 (05:31→17:11)
[2019-01-31] MEDS: CEFTOLOZANE/TAZOBACTAM 1,500 MG in DEXTROSE 5% 100 ML IV SCH ×3 (05:32→21:11)
[2019-01-31] MEDS: HEPARIN 100 UNIT/ML 5ML FLUSH FLUSH PRN ×3 (05:32→21:11)
[2019-01-31 05:58] LABS: Basophils # (auto) 0.01 K/uL (0-0.2); Basophils % (auto) 0.3 %; Eosinophils # (auto) 0.01 K/uL (0-0.5); Eosinophils % (auto) 0.3 %; Hematocrit (blood only) 28.9 % (37-47); Hemoglobin 9.1 g/dL (12.0-16.0); Immature Granulocytes # (auto) 0.05 K/uL (0.00-0.02); Immature Granulocytes % (auto) 1.4 %; Lymphocytes % (auto) 22.6 %; Mean Corpuscular Hgb Conc 31.5 g/dL (32-36); Mean Corpuscular Volume 75.9 fL (80-100); Monocytes # (auto) 1.12 K/uL (0.11-0.59); Monocytes % (auto) 31.6 %; Neutrophils # (auto) 1.55 K/uL (1.4-6.5); Neutrophils % (auto) 43.8 %; Platelet Count 396 K/uL (130-400); RDW Coefficient of Variation 20.7 % (11.5-14.5); RDW Standard Deviation 56.7 fL (36.4-46.3); Red Blood Count 3.81 M/uL (4.2-5.4); White Blood Count 3.54 K/uL (4.8-10.8)
[2019-01-31 06:29] LABS: Calcium 8.6 mg/dl (8.5-10.1); Creatinine Clr Calc Pharmacy 135.8 ml/min; Est GFR (African American) 118.5; Est GFR (Non-African American) 102.3; Potassium 3.8 mmol/L (3.5-5.1)
[2019-01-31 06:30] LABS: Ovalocytes 1+
[2019-01-31] MEDS: OXYCODONE HCL 20 MG TABCR (OXYCONTIN) PO SCH ×2 (07:58→19:37)
[2019-01-31] MEDS: DOCUSATE SODIUM 100 MG CAP PO SCH ×2 (07:58→19:37)
[2019-01-31] MEDS: CHOLECALCIFEROL 1,000 UNITS TAB PO SCH (07:58)
[2019-01-31] MEDS: ENOXAPARIN INJ 40 MG/0.4 ML SYR SQ SCH (07:59)
[2019-01-31] MEDS: ASCORBIC ACID 500 MG TAB PO SCH (07:59)
[2019-01-31] MEDS: POLYETHYLENE (MIRALAX) 17 GM PACK PO SCH ×2 (08:01→08:05)
[2019-01-31] MEDS: SENNA 8.6 MG TAB PO SCH (11:11)
[2019-01-31] MEDS: DAPTOmycin 275 MG in SYRINGE 0 ML IV SCH (17:10)
[2019-01-31] MEDS: CeleBREX 200 MG CAP PO SCH (17:20)
--- NOTE | 2019-01-31 20:45 | Hospitalist Progress Note ---
Date of Service January 31, 2019 Assessment & Plan (1) Cellulitis: Of the chest. Most recent cx with MDR pseudomonas & MRSA. Remains on zerbaxa q8h & daptomycin. has PORT in place for IV abx. ID consult appreciated; will defer to them length of abx course. (2) Breast cancer: Initial diagnosis - 09/2016. Extensive mets to skin. Primary oncologist - Dr. Arroyo. Current chemo - Halaven (last Rx 01/21/19). Mets to skin with infection causes severe pain. Oxycontin has been increased to 60mg BID during this admission. Will add celebrex 100 BID for adjunctive therapy. (3) Chronic pain: Add celebrex BID. Cont oxycontin BID along with IV dilaudid prn. Oxycodone prn as well. (4) Hypothyroidism: Continue Synthroid 50 mcg daily. Most recent TSH was 1.3. (5) Chronic diastolic heart failure: compensated (6) Neutropenia: Resolved. CBC in am. (7) Anemia due to antineoplastic chemotherapy: Microcytosis present. Check iron studies in am. (8) DVT prophylaxis: lovenox daily cont to titrate/adjust pain meds for optimal pain control will check with SW re:discharge plan Subjective main complaint is that of ongoing dull,achy pain of the chest wall requiring multiple doses of IV narcotic each day this is despite increases in oxycontin since admission no bowel movement in several days denies any new complaints Constitutional: no fever Respiratory: no cough and no dyspnea Cardiovascular: no chest pain Gastrointestinal: no abdominal pain Physical Exam Vital Signs (Past 24 Hours): Last Vital Signs Temp 37.4 C 01/31/19 15:53 Pulse 73 01/31/19 15:53 Resp 16 01/31/19 15:53 BP 106/57 L 01/31/19 15:53 Pulse Ox 94 01/31/19 15:53 Constitutional: well developed and well nourished; no acute distress ENMT: external ear and nose normal, oropharynx normal Respiratory: normal respiratory effort, lungs clear to auscultation Cardiovascular: Rate/Rhythm: regular rate and regular rhythm Heart Sounds: normal S1 and normal S2; no murmur Vessels: posterior tibial pulses present and dorsalis pedis pulses present; no JVD Extremities: normal capillary refill Chest (Breasts): Additional Comments: numerous dressings on chest wall - these were not removed today Gastrointestinal (Abdomen): normal bowel sounds, soft, nontender, no hepatosplenomegaly Psychiatric: Orientation: alert and oriented x 3 Mood: + depressed mood Results & Data Laboratory Results Laboratory Results - last 24 hr 01/31/19 01/31/19 05:37 05:37 WBC 3.54 L RBC 3.81 L Hgb 9.1 L Hct 28.9 L MCV 75.9 L MCH 23.9 L MCHC 31.5 L RDW Std Deviation 56.7 H RDW Coeff of Nahun 20.7 H Plt Count 396 MPV 10.0 Immature Gran % (Auto) 1.4 Neut % (Auto) 43.8 Lymph % (Auto) 22.6 [place] % (Auto) 31.6 Eos % (Auto) 0.3 Baso % (Auto) 0.3 Immature Gran # (Auto) 0.05 H Neut # (Auto) 1.55 Lymph # (Auto) 0.80 L [place] # (Auto) 1.12 H Eos # (Auto) 0.01 Baso # (Auto) 0.01 Ovalocytes 1+ Sodium 137 Potassium 3.8 Chloride 101 Carbon Dioxide 29 Anion Gap 7.0 BUN 9 Creatinine 0.44 L Est Cr Clr Drug Dosing 135.8 Est GFR ( Amer) 118.5 Est GFR (Non-Af Amer) 102.3 BUN/Creatinine Ratio 21.0 H Glucose 90 Calcium 8.6 (1) Cellulitis Site of cellulitis: other site Qualified Code(s): L03.818 - Cellulitis of other sites (2) Neutropenia Neutropenia type: unspecified Qualified Code(s): D70.9 - Neutropenia, unspecified
[2019-01-31] MEDS: ZOLPIDEM TARTRATE 5 MG TAB PO PRN (21:11)
[2019-02-01] MEDS: CEFTOLOZANE/TAZOBACTAM 1,500 MG in DEXTROSE 5% 100 ML IV SCH ×3 (05:48→21:15)
[2019-02-01] MEDS: LEVOTHYROXINE SODIUM 50 MCG TABLET PO SCH (05:50)
[2019-02-01] MEDS: OXYCODONE HCL IR 5 MG TAB (IMMEDIATE RELEASE) PO PRN ×5 (05:52→23:30)
[2019-02-01 06:02] LABS: Hematocrit (blood only) 28.6 % (37-47); Hemoglobin 8.8 g/dL (12.0-16.0); Mean Corpuscular Hgb Conc 30.8 g/dL (32-36); Mean Corpuscular Volume 77.5 fL (80-100); Mean Platelet Volume 9.7 fL (7.4-10.4); Platelet Count 353 K/uL (130-400); RDW Coefficient of Variation 20.6 % (11.5-14.5); RDW Standard Deviation 57.9 fL (36.4-46.3); Red Blood Count 3.69 M/uL (4.2-5.4); White Blood Count 4.15 K/uL (4.8-10.8)
[2019-02-01 06:29] LABS: Calcium 8.1 mg/dl (8.5-10.1); Creatinine Clr Calc Pharmacy 117.2 ml/min; Est GFR (African American) 112.9; Est GFR (Non-African American) 97.4
[2019-02-01 06:34] LABS: Ferritin 70.9 ng/ml (8-388)
[2019-02-01] MEDS: HYDROmorphone INJ 0.5 MG/0.5 ML SYR IV PRN ×4 (07:40→21:17)
[2019-02-01] MEDS: HEPARIN 100 UNIT/ML 5ML FLUSH FLUSH PRN ×7 (07:40→22:21)
[2019-02-01] MEDS: DOCUSATE SODIUM 100 MG CAP PO SCH ×2 (08:41→20:07)
[2019-02-01] MEDS: ENOXAPARIN INJ 40 MG/0.4 ML SYR SQ SCH (08:41)
[2019-02-01] MEDS: CeleBREX 200 MG CAP PO SCH (08:41)
[2019-02-01] MEDS: OXYCODONE HCL 20 MG TABCR (OXYCONTIN) PO SCH ×2 (08:41→20:07)
[2019-02-01] MEDS: SENNA 8.6 MG TAB PO SCH (08:42)
[2019-02-01] MEDS: ASCORBIC ACID 500 MG TAB PO SCH (08:42)
[2019-02-01] MEDS: CHOLECALCIFEROL 1,000 UNITS TAB PO SCH (08:42)
--- NOTE | 2019-02-01 11:18 | Infectious Disease Progress Nt ---
Date of Service February 01, 2019 Assessment & Plan (1) Cellulitis of left breast: pt will continue on current abx, now with highly resititant pseudomonas growing from most recent wound culture. will continue min 14 days and will plan to follow in wound center next Friday. will adjust duration of abx at that time. continue local wound care. ok for d/c when otherwise stable and plans for outpt abx arranged. Subjective pt seen in followup, tolerating dapto and zerbaxa. no f/c. still with pain in wound but unchanged. no pain at port site. states she has f/u at wound center next Friday. no abd pain, no n/v/d. all remaining ros reviewed and are negative. Physical Exam Vital Signs (Past 24 Hours): Last Vital Signs Temp 37.3 C 02/01/19 10:53 Pulse 79 02/01/19 10:53 Resp 16 02/01/19 10:53 BP 109/62 02/01/19 10:53 Pulse Ox 91 02/01/19 10:53 Constitutional: WD/WN, vitals as above Eyes: PERRL, conjunctivae normal, anicteric sclerae ENMT: external ear and nose normal, oropharynx normal Neck: normal visual inspection Respiratory: normal respiratory effort, lungs clear to auscultation Cardiovascular: RRR, no murmur, no edema Gastrointestinal (Abdomen): normal bowel sounds, soft, nontender, no hepatosplenomegaly Musculoskeletal: no cyanosis or clubbing, extremities motor strength 5/5 Skin: no rashes, warm and dry chest wall dressing c/d/i Psychiatric: A+Ox3, euthymic affect Results & Data Laboratory Results Microbiology 01/26/19 08:52 Blood Blood Culture - Final No growth 01/26/19 08:39 Blood Blood Culture - Final No growth
[2019-02-01] MEDS: DAPTOmycin 275 MG in SYRINGE 0 ML IV SCH (17:21)
[2019-02-01] MEDS: DOCUSATE SODIUM/SENNA 50/8.6MG TAB PO SCH (19:26)
--- NOTE | 2019-02-01 20:11 | Hospitalist Progress Note ---
Date of Service February 01, 2019 Assessment & Plan (1) Cellulitis: Of the chest. Most recent cx with MDR pseudomonas & MRSA. Remains on zerbaxa q8h & daptomycin. has PORT in place for IV abx. ID consult appreciated; will defer to them length of abx course. but looking at minimum of 14 days of Rx. will examine the chest tomorrow. (2) Breast cancer: Initial diagnosis - 09/2016. Extensive mets to skin. Primary oncologist - Dr. Arroyo. Current chemo - Halaven (last Rx 01/21/19). Mets to skin with infection causes severe pain. Oxycontin has been increased to 60mg BID during this admission. added celebrex 100 BID for adjunctive therapy. cont oxycodone for breakthrough. (3) Chronic pain: Added celebrex BID. Cont oxycontin BID along with IV dilaudid prn. Oxycodone prn. (4) Hypothyroidism: Continue Synthroid 50 mcg daily. Most recent TSH was 1.3. (5) Chronic diastolic heart failure: compensated (6) Neutropenia: CBC in am. (7) Anemia due to antineoplastic chemotherapy: Microcytosis present. Trans sat <20% add Fe at d/c (currently severely constipated --- Fe will make worse). (8) DVT prophylaxis: lovenox daily (9) Constipation due to opioid therapy: miralax senna and add additional colace/senna may need relistor left message for pt's son today to SNF next 1-2 days?? Subjective pain most times of the day -- 3/10 pain worst w/ dressing changes no "good" bowel movement in 1-2 weeks no new complaints Constitutional: no fever Respiratory: no cough and no dyspnea Cardiovascular: no chest pain Gastrointestinal: + constipation; no abdominal pain, no nausea, no vomiting and no diarrhea/loose stools Physical Exam Vital Signs (Past 24 Hours): Last Vital Signs Temp 37.5 C 02/01/19 19:20 Pulse 75 02/01/19 19:20 Resp 18 02/01/19 19:20 BP 117/67 02/01/19 19:20 Pulse Ox 93 02/01/19 19:20 Constitutional: well developed and well nourished; no acute distress ENMT: external ear and nose normal, oropharynx normal Respiratory: normal respiratory effort, lungs clear to auscultation Cardiovascular: Rate/Rhythm: regular rate and regular rhythm Heart Sounds: normal S1 and normal S2; no murmur Vessels: posterior tibial pulses present and dorsalis pedis pulses present; no JVD Extremities: normal capillary refill Gastrointestinal (Abdomen): normal bowel sounds, soft, nontender, no he patosplenomegaly Skin: large dressings covering the left chest Psychiatric: Orientation: alert and oriented x 3 Mood: + depressed mood Results & Data Laboratory Results Laboratory Results - last 24 hr 02/01/19 02/01/19 05:44 05:44 WBC 4.15 L RBC 3.69 L Hgb 8.8 L Hct 28.6 L MCV 77.5 L MCH 23.8 L MCHC 30.8 L RDW Std Deviation 57.9 H RDW Coeff of Nahun 20.6 H Plt Count 353 MPV 9.7 Sodium 136 Potassium 4.0 Chloride 102 Carbon Dioxide 30 Anion Gap 4.0 BUN 11 Creatinine 0.51 L Est Cr Clr Drug Dosing 117.2 Est GFR ( Amer) 112.9 Est GFR (Non-Af Amer) 97.4 BUN/Creatinine Ratio 22.0 H Glucose 86 Calcium 8.1 L Iron 16 L TIBC 219 L Transferrin 167 L Transferrin % Sat 7 L Ferritin 70.9 (1) Cellulitis Site of cellulitis: other site Qualified Code(s): L03.818 - Cellulitis of other sites (2) Neutropenia Neutropenia type: unspecified Qualified Code(s): D70.9 - Neutropenia, unspecified
[2019-02-02] MEDS: OXYCODONE HCL IR 5 MG TAB (IMMEDIATE RELEASE) PO PRN ×4 (05:31→22:24)
[2019-02-02] MEDS: LEVOTHYROXINE SODIUM 50 MCG TABLET PO SCH (05:37)
[2019-02-02] MEDS: CEFTOLOZANE/TAZOBACTAM 1,500 MG in DEXTROSE 5% 100 ML IV SCH ×3 (05:37→21:01)
[2019-02-02 06:14] LABS: Basophils # (auto) 0.02 K/uL (0-0.2); Basophils % (auto) 0.4 %; Eosinophils # (auto) 0.01 K/uL (0-0.5); Eosinophils % (auto) 0.2 %; Hematocrit (blood only) 28.6 % (37-47); Hemoglobin 8.9 g/dL (12.0-16.0); Immature Granulocytes # (auto) 0.06 K/uL (0.00-0.02); Immature Granulocytes % (auto) 1.2 %; Lymphocytes # (auto) 1.12 K/uL (1.2-3.4); Lymphocytes % (auto) 23.2 %; Mean Corpuscular Hgb Conc 31.1 g/dL (32-36); Mean Corpuscular Volume 76.5 fL (80-100); Monocytes # (auto) 1.29 K/uL (0.11-0.59); Monocytes % (auto) 26.7 %; Neutrophils # (auto) 2.33 K/uL (1.4-6.5); Neutrophils % (auto) 48.3 %; Platelet Count 377 K/uL (130-400); RDW Coefficient of Variation 20.5 % (11.5-14.5); RDW Standard Deviation 56.7 fL (36.4-46.3); Red Blood Count 3.74 M/uL (4.2-5.4); White Blood Count 4.83 K/uL (4.8-10.8)
[2019-02-02] MEDS: HYDROmorphone INJ 0.5 MG/0.5 ML SYR IV PRN ×2 (06:40→11:53)
[2019-02-02 06:42] LABS: Ovalocytes 1+
[2019-02-02 06:58] LABS: BUN Creatinine Ratio 21.5 (10-20); Creatinine Clr Calc Pharmacy 117.2 ml/min; Est GFR (African American) 112.9; Est GFR (Non-African American) 97.4
[2019-02-02] MEDS: OXYCODONE HCL 20 MG TABCR (OXYCONTIN) PO SCH (09:01)
[2019-02-02] MEDS: ENOXAPARIN INJ 40 MG/0.4 ML SYR SQ SCH (09:02)
[2019-02-02] MEDS: DOCUSATE SODIUM 100 MG CAP PO SCH ×2 (09:02→20:33)
[2019-02-02] MEDS: POLYETHYLENE (MIRALAX) 17 GM PACK PO SCH (09:02)
[2019-02-02] MEDS: ASCORBIC ACID 500 MG TAB PO SCH (09:02)
[2019-02-02] MEDS: CHOLECALCIFEROL 1,000 UNITS TAB PO SCH (09:02)
[2019-02-02] MEDS: SENNA 8.6 MG TAB PO SCH (09:02)
[2019-02-02] MEDS: CeleBREX 200 MG CAP PO SCH (09:03)
[2019-02-02] MEDS: HEPARIN 100 UNIT/ML 5ML FLUSH FLUSH PRN ×3 (11:54→16:10)
[2019-02-02] MEDS ORDERED: HYDROmorphone INJ 1 MG/ML SYRINGE ONE (12:17)
[2019-02-02] MEDS ORDERED: HYDROmorphone INJ 1 MG/ML SYRINGE IV STA (12:37)
[2019-02-02] MEDS ORDERED: BISACODYL 10 MG SUPP PR SCH (12:40)
[2019-02-02] MEDS ORDERED: OXYCODONE HCL 20 MG TABCR (OXYCONTIN) PO SCH (12:45)
[2019-02-02] MEDS: DAPTOmycin 275 MG in SYRINGE 0 ML IV SCH (16:09)
[2019-02-02] MEDS: DOCUSATE SODIUM/SENNA 50/8.6MG TAB PO SCH (18:11)
[2019-02-02] MEDS: ZOLPIDEM TARTRATE 5 MG TAB PO PRN (20:32)
[2019-02-02] MEDS: OXYCODONE HCL 40 MG TABCR (OXYCONTIN) PO SCH (20:32)
--- NOTE | 2019-02-02 22:02 | Hospitalist Progress Note ---
Date of Service February 02, 2019 Assessment & Plan (1) Cellulitis: Of the left chest. Most recent cx with MDR pseudomonas & MRSA. Remains on zerbaxa q8h & daptomycin. has PORT in place for IV abx. The patient had images of the left chest stored on her personal cell phone from November 2018. Comparing those images with the current appearance of the left chest I do believe there has been improvement with the infectious process present. I encouraged her to take a photo of this region at least once a week so that in the event she has future infection she can compare the appearance of her chest with old photos. Will speak with infectious disease about the length of antibiotic treatment. The social work team continues to help coordinate IV antibiotics for after discharge in conjunction with [facility]. (2) Breast cancer: Initial diagnosis - 09/2016. Extensive mets to skin. Primary oncologist - Dr. Arroyo. Current chemo - Halaven (last Rx 01/21/19). Mets to skin with infection causes severe pain. Despite recent increases in OxyContin to 60 mg twice daily as well as addition of Celebrex twice a day for adjunctive therapy she continues with frequent use of as needed oxycodone as well as as needed Dilaudid. She has been on narcotics for at least one year if not longer. She clearly has a large tolerance to narcotics and I believe she would benefit from additional adjustment in her OxyContin to 80 mg twice a day. (3) Chronic pain: See above in "breast cancer" (4) Hypothyroidism: Continue Synthroid 50 mcg daily. Most recent TSH was 1.3. (5) Chronic diastolic heart failure: compensated (6) Neutropenia: Resolved (7) Anemia due to antineoplastic chemotherapy: Microcytosis present. Trans sat <20% add Fe at d/c (currently severely constipated --- Fe will make worse). (8) DVT prophylaxis: lovenox daily (9) Constipation due to opioid therapy: Despite MiraLAX, senna, and Colace the patient has continued with severe opiate-induced constipation. I recommended use of suppository today. She was reluctant to do this. She would likely benefit from Relistor while hospitalized and after discharge Movantik. This will certainly continue to be an ongoing issue in light of her heavy narcotic usage. left message for pt's son on February 01 Disposition to fdc depends on coordination of IV antibiotic therapy Subjective A review of the patient's record shows that she continues to use copious amounts of oxycodone for breakthrough pain as well as intravenous Dilaudid. This is despite recent increases in OxyContin. The patient continues to state that most times her pain is less than 5 out of 10 on a pain scale. I examined the patient's left chest cellulitis and skin deformity from her breast cancer. I was chaperoned by her nurse Morena today. The patient voiced that she would love to stay at [facility] for the duration of her antibiotic course rather than transferring to fdc. She listed several reasons for these feelings. She continues to have severe constipation with last good bowel movement being nearly 2 weeks ago. Continues to blame the constipation on lack of receiving her [employer] branded stool softener which she typically takes at home. Constitutional: no fever and no chills Respiratory: no cough and no dyspnea Cardiovascular: no chest pain Gastrointestinal: + constipation Physical Exam Vital Signs (Past 24 Hours): Last Vital Signs Temp 37.1 C 02/02/19 19:04 Pulse 82 02/02/19 19:04 Resp 16 02/02/19 19:04 BP 110/68 02/02/19 19:04 Pulse Ox 91 02/02/19 19:04 Constitutional: well developed and well nourished; no acute distress ENMT: external ear and nose normal, oropharynx normal Respiratory: normal respiratory effort, lungs clear to auscultation Cardiovascular: Rate/Rhythm: regular rate and regular rhythm Heart Sounds: normal S1 and normal S2; no murmur Vessels: posterior tibial pulses present and dorsalis pedis pulses present; no JVD Extremities: normal capillary refill Gastrointestinal (Abdomen): normal bowel sounds, soft, nontender, no hepatosplenomegaly Skin: With the assistance of her nurse Morena all dressings from the left chest wall were removed. There is considerable deformity of the left chest wall. There are numerous tumor deposits of the skin particularly inferiorly. Just inferior to the left clavicle there is a large open ulceration with black eschar-like material covering that ulcer. Surrounding this open ulcer is 1/2 inch rim of additional ulceration that is covered with yellow to green exudate. For most of the left chest wall there is considerable erythema irritated skin but no obvious cellulitis. In the expected location of the left breast there appears to be remnants of left breast tissue with intact skin. There was no odor during the dressing changes. Psychiatric: Orientation: alert and oriented x 3 Mood: + depressed mood Results & Data Laboratory Results Laboratory Results - last 24 hr 02/02/19 02/02/19 05:38 05:39 WBC 4.83 RBC 3.74 L Hgb 8.9 L Hct 28.6 L MCV 76.5 L MCH 23.8 L MCHC 31.1 L RDW Std Deviation 56.7 H RDW Coeff of [place] 20.5 H Plt Count 377 MPV 10.0 Immature Gran % (Auto) 1.2 Neut % (Auto) 48.3 Lymph % (Auto) 23.2 [place] % (Auto) 26.7 Eos % (Auto) 0.2 Baso % (Auto) 0.4 Immature Gran # (Auto) 0.06 H Neut # (Auto) 2.33 Lymph # (Auto) 1.12 L [place] # (Auto) 1.29 H Eos # (Auto) 0.01 Baso # (Auto) 0.02 Ovalocytes 1+ Sodium 134 L Potassium 4.0 Chloride 99 Carbon Dioxide 27 Anion Gap 8.0 BUN 11 Creatinine 0.51 L Est Cr Clr Drug Dosing 117.2 Est GFR ( Amer) 112.9 Est GFR (Non-Af Amer) 97.4 BUN/Creatinine Ratio 21.5 H Glucose 88 Calcium 8.0 L (1) Cellulitis Site of cellulitis: other site Qualified Code(s): L03.818 - Cellulitis of other sites (2) Neutropenia Neutropenia type: unspecified Qualified Code(s): D70.9 - Neutropenia, unspecified
[2019-02-03] MEDS: OXYCODONE HCL IR 5 MG TAB (IMMEDIATE RELEASE) PO PRN ×4 (05:19→20:06)
[2019-02-03] MEDS: CEFTOLOZANE/TAZOBACTAM 1,500 MG in DEXTROSE 5% 100 ML IV SCH ×3 (05:20→21:27)
[2019-02-03] MEDS: LEVOTHYROXINE SODIUM 50 MCG TABLET PO SCH (05:31)
[2019-02-03 07:20] LABS: BUN Creatinine Ratio 24.6 (10-20); Calcium 8.1 mg/dl (8.5-10.1); Creatinine Clr Calc Pharmacy 135.8 ml/min; Est GFR (African American) 118.5; Est GFR (Non-African American) 102.3
[2019-02-03] MEDS: OXYCODONE HCL 40 MG TABCR (OXYCONTIN) PO SCH ×2 (08:20→21:27)
[2019-02-03] MEDS: CHOLECALCIFEROL 1,000 UNITS TAB PO SCH (08:21)
[2019-02-03] MEDS: ASCORBIC ACID 500 MG TAB PO SCH (08:21)
[2019-02-03] MEDS: CeleBREX 200 MG CAP PO SCH (08:21)
[2019-02-03] MEDS: DOCUSATE SODIUM 100 MG CAP PO SCH ×2 (08:21→21:27)
[2019-02-03] MEDS: SENNA 8.6 MG TAB PO SCH (08:22)
[2019-02-03] MEDS: POLYETHYLENE (MIRALAX) 17 GM PACK PO SCH (08:22)
[2019-02-03] MEDS: ENOXAPARIN INJ 40 MG/0.4 ML SYR SQ SCH (08:22)
[2019-02-03] MEDS: HYDROmorphone INJ 0.5 MG/0.5 ML SYR IV PRN ×2 (14:06→18:44)
[2019-02-03] MEDS: DAPTOmycin 275 MG in SYRINGE 0 ML IV SCH (17:16)
[2019-02-03] MEDS: HEPARIN 100 UNIT/ML 5ML FLUSH FLUSH PRN ×3 (17:22→22:29)
[2019-02-03] MEDS: DOCUSATE SODIUM/SENNA 50/8.6MG TAB PO SCH (18:43)
--- NOTE | 2019-02-03 21:42 | Hospitalist Progress Note ---
Date of Service February 03, 2019 Assessment & Plan (1) Cellulitis: Of the left chest. Most recent cx with MDR pseudomonas & MRSA. Remains on zerbaxa q8h & daptomycin. has PORT in place for IV abx. ID wants 14 more days of IV abx. will cont such. will not examine wounds today -did so yesterday. (2) Breast cancer: Initial diagnosis - 09/2016. Extensive mets to skin. Primary oncologist - Dr. Arroyo. Current chemo - Halaven (last Rx 01/21/19). Mets to skin with infection causes severe pain. Pain improved w/ titration of oxycontin to 80 BID cont oxycodone prn cont celebrex (3) Chronic pain: See above in "breast cancer" (4) Hypothyroidism: Continue Synthroid 50 mcg daily. Most recent TSH was 1.3. (5) Chronic diastolic heart failure: compensated (6) Neutropenia: Resolved (7) Anemia due to antineoplastic chemotherapy: Microcytosis present. Trans sat <20% add Fe at d/c (currently severely constipated --- Fe will make worse). (8) DVT prophylaxis: lovenox daily (9) Constipation due to opioid therapy: improved cont aggressive bowel regimen Disposition to residential depends on coordination of IV antibiotic therapy son updated at bedside today Subjective pt states pain is relatively well-controlled today despite her saying that she is still using PRN oxy frequently no new issues ambulating frequently finally had "good bowel movement" son at bedside and updated Constitutional: no fever and no chills Respiratory: no cough and no dyspnea Cardiovascular: no chest pain Physical Exam Vital Signs (Past 24 Hours): Last Vital Signs Temp 37.4 C 02/03/19 18:50 Pulse 74 02/03/19 18:50 Resp 18 02/03/19 18:50 BP 104/60 02/03/19 18:50 Pulse Ox 92 02/03/19 18:50 Constitutional: well developed and well nourished; no acute distress very comfortable today ENMT: external ear and nose normal, oropharynx normal Respiratory: normal respiratory effort, lungs clear to auscultation Cardiovascular: Rate/Rhythm: regular rate and regular rhythm Heart Sounds: normal S1 and normal S2; no murmur Vessels: posterior tibial pulses present and dorsalis pedis pulses present; no JVD Extremities: normal capillary refill Gastrointestinal (Abdomen): normal bowel sounds, soft, nontender, no he patosplenomegaly Psychiatric: Orientation: alert and oriented x 3 Results & Data Laboratory Results Laboratory Results - last 24 hr 02/03/19 02/03/19 06:35 06:35 Sodium 136 Potassium 4.0 Chloride 101 Carbon Dioxide 31 Anion Gap 5.0 BUN 11 Creatinine 0.44 L Est Cr Clr Drug Dosing 135.8 Est GFR ( Amer) 118.5 Est GFR (Non-Af Amer) 102.3 BUN/Creatinine Ratio 24.6 H Glucose 101 H Calcium 8.1 L Total Creatine Kinase 54 (1) Cellulitis Site of cellulitis: other site Qualified Code(s): L03.818 - Cellulitis of other sites (2) Neutropenia Neutropenia type: unspecified Qualified Code(s): D70.9 - Neutropenia, unspecified
[2019-02-04] MEDS: CEFTOLOZANE/TAZOBACTAM 1,500 MG in DEXTROSE 5% 100 ML IV SCH ×3 (05:50→21:31)
[2019-02-04] MEDS: LEVOTHYROXINE SODIUM 50 MCG TABLET PO SCH (05:50)
[2019-02-04] MEDS: OXYCODONE HCL IR 5 MG TAB (IMMEDIATE RELEASE) PO PRN ×3 (05:59→16:02)
[2019-02-04] MEDS: HEPARIN 100 UNIT/ML 5ML FLUSH FLUSH PRN ×3 (07:04→22:46)
[2019-02-04] MEDS: OXYCODONE HCL 40 MG TABCR (OXYCONTIN) PO SCH ×2 (08:01→21:31)
[2019-02-04] MEDS: DOCUSATE SODIUM 100 MG CAP PO SCH ×2 (08:02→21:31)
[2019-02-04] MEDS: CHOLECALCIFEROL 1,000 UNITS TAB PO SCH (08:02)
[2019-02-04] MEDS: ENOXAPARIN INJ 40 MG/0.4 ML SYR SQ SCH (08:03)
[2019-02-04] MEDS: ASCORBIC ACID 500 MG TAB PO SCH (08:03)
[2019-02-04] MEDS: SENNA 8.6 MG TAB PO SCH (08:03)
[2019-02-04] MEDS: POLYETHYLENE (MIRALAX) 17 GM PACK PO SCH (08:04)
[2019-02-04] MEDS: CeleBREX 200 MG CAP PO SCH (08:04)
[2019-02-04 10:03] LABS: Hematocrit (blood only) 28.7 % (37-47); Hemoglobin 8.8 g/dL (12.0-16.0); Mean Corpuscular Hgb Conc 30.7 g/dL (32-36); Mean Corpuscular Volume 77.4 fL (80-100); Platelet Count 350 K/uL (130-400); RDW Coefficient of Variation 20.1 % (11.5-14.5); RDW Standard Deviation 56.9 fL (36.4-46.3); Red Blood Count 3.71 M/uL (4.2-5.4); White Blood Count 5.75 K/uL (4.8-10.8)
[2019-02-04 10:28] LABS: BUN Creatinine Ratio 25.4 (10-20); C Reactive Protein 8.36 mg/dl (0-0.29); Calcium 8.4 mg/dl (8.5-10.1); Creatinine Clr Calc Pharmacy 128.8 ml/min; Est GFR (Non-African American) 100.1; Magnesium 2.1 mg/dl (1.8-2.4); Potassium 4.3 mmol/L (3.5-5.1)
[2019-02-04] MEDS: HYDROmorphone INJ 0.5 MG/0.5 ML SYR IV PRN ×2 (11:31→19:08)
[2019-02-04] MEDS: DAPTOmycin 275 MG in SYRINGE 0 ML IV SCH (17:21)
[2019-02-04] MEDS: DOCUSATE SODIUM/SENNA 50/8.6MG TAB PO SCH (19:08)
--- NOTE | 2019-02-04 20:44 | Hospitalist Progress Note ---
Date of Service February 04, 2019 Assessment & Plan (1) Cellulitis: Of the left chest. Most recent cx with MDR pseudomonas & MRSA. Remains on zerbaxa q8h & daptomycin. has PORT in place for IV abx. The patient will continue to receive at least 14 more days of IV Zerbaxa and daptomycin per infectious disease recommendations. (2) Breast cancer: Initial diagnosis - 09/2016. Extensive mets to skin. Primary oncologist - Dr. Arroyo. Current chemo - Halaven (last Rx 01/21/19). Mets to skin with infection causes severe pain. Pain is largely improved w/ titration of oxycontin to 80 BID recently. cont oxycodone prn cont celebrex We will try to wean the Dilaudid off as she likely will be transferring to [facility] soon (3) Chronic pain: See above in "breast cancer" (4) Hypothyroidism: Continue Synthroid 50 mcg daily. Most recent TSH was 1.3. (5) Chronic diastolic heart failure: compensated (6) Neutropenia: Resolved (7) Anemia due to antineoplastic chemotherapy: Microcytosis present. Trans sat <20% add Fe supplementation at d/c (8) DVT prophylaxis: lovenox daily (9) Breast mass, right: The patient's right sided breast mass very easily could be a separate primary breast cancer. I do not feel that this represents a cyst or abscess. I recommended to the patient that she focus on her cellulitis as as this is the largest problem she is currently is facing in addition to her original left- sided breast cancer. She can certainly talk to Dr. Arroyo in the cancer center upon follow-up there about any other testing for the right breast if she desires. (10) Constipation due to opioid therapy: improved cont aggressive bowel regimen Disposition to [facility] alf home depends on coordination of IV antibiotic therapy Social work continues to assist with her disposition Subjective during care of the patient today the registered nurse felt that she was palpating a right breast mass. The patient herself stated that she had not noticed any particular lesion in the right breast. Overall Mrs. Epstein feels her pain in the left chest wall is controlled. However, looking at the MAR, she continues to require frequent oxycodone on an as-needed basis as well as Dilaudid as needed. The patient also reports she had another stool. Denies any other new complaints. Constitutional: no fever, no chills and no anorexia Respiratory: no dyspnea Cardiovascular: no chest pain Gastrointestinal: no abdominal pain Physical Exam Vital Signs (Past 24 Hours): Last Vital Signs Temp 37.1 C 02/04/19 19:42 Pulse 74 02/04/19 19:42 Resp 18 02/04/19 19:42 BP 107/63 02/04/19 19:42 Pulse Ox 91 02/04/19 19:42 Constitutional: well developed and well nourished; no acute distress ENMT: external ear and nose normal, oropharynx normal Respiratory: normal respiratory effort, lungs clear to auscultation Cardiovascular: Rate/Rhythm: regular rate and regular rhythm Heart Sounds: normal S1 and normal S2; no murmur Vessels: posterior tibial pulses present and dorsalis pedis pulses present; no JVD Extremities: normal capillary refill Chest (Breasts): Additional Comments: In the presence of the patient's nurse I performed a right-sided breast exam. In the inferior portion of the breast between 9 and 6:00 there is a large area of either heavy induration versus a large breast mass. The skin has a dimpling appearance. There is no overlying erythema or swelling suggestive of an abscess. In the tail of the breast as it approaches the right axilla there were multiple but appeared to be metastatic breast lesions. I did not feel any discrete axillary lymph nodes. Gastrointestinal (Abdomen): normal bowel sounds, soft, nontender, no hepatosplenomegaly Psychiatric: Orientation: alert and oriented x 3 Mood: + depressed mood (1) Chronic pain Chronic pain type: due to neoplasm Qualified Code(s): G89.3 - Neoplasm related pain (acute) (chronic) (2) Cellulitis Site of cellulitis: other site Qualified Code(s): L03.818 - Cellulitis of other sites (3) Hypothyroidism Hypothyroidism type: acquired Qualified Code(s): E03.9 - Hypothyroidism, unspecified (4) Neutropenia Neutropenia type: unspecified Qualified Code(s): D70.9 - Neutropenia, unspecified (5) Breast cancer Breast location: unspecified site of breast Estrogen receptor status: unspecified Patient sex: female Laterality: left Qualified Code(s): C50.912 - Malignant neoplasm of unspecified site of left female breast
[2019-02-05] MEDS: OXYCODONE HCL IR 5 MG TAB (IMMEDIATE RELEASE) PO PRN ×3 (02:35→14:54)
[2019-02-05] MEDS: HYDROmorphone INJ 0.5 MG/0.5 ML SYR IV PRN (05:49)
[2019-02-05] MEDS: LEVOTHYROXINE SODIUM 50 MCG TABLET PO SCH (05:50)
[2019-02-05] MEDS: CEFTOLOZANE/TAZOBACTAM 1,500 MG in DEXTROSE 5% 100 ML IV SCH ×2 (05:50→13:10)
[2019-02-05 06:51] LABS: Creatinine Clr Calc Pharmacy 163.6 ml/min; Est GFR (African American) 125.5; Est GFR (Non-African American) 108.3
[2019-02-05] MEDS: HEPARIN 100 UNIT/ML 5ML FLUSH FLUSH PRN ×2 (07:09→14:55)
[2019-02-05] MEDS: POLYETHYLENE (MIRALAX) 17 GM PACK PO SCH (08:57)
[2019-02-05] MEDS: ASCORBIC ACID 500 MG TAB PO SCH (08:58)
[2019-02-05] MEDS: CHOLECALCIFEROL 1,000 UNITS TAB PO SCH (08:58)
[2019-02-05] MEDS: DOCUSATE SODIUM 100 MG CAP PO SCH (08:59)
[2019-02-05] MEDS: SENNA 8.6 MG TAB PO SCH (08:59)
[2019-02-05] MEDS: CeleBREX 200 MG CAP PO SCH (08:59)
[2019-02-05] MEDS: OXYCODONE HCL 40 MG TABCR (OXYCONTIN) PO SCH (09:00)
[2019-02-05] MEDS: ENOXAPARIN INJ 40 MG/0.4 ML SYR SQ SCH (09:00)
[2019-02-05 11:54] VITALS: BP 122/77; PULSE 75; TEMP 98.8; O2SAT 96
--- NOTE | 2019-02-05 12:00 | Discharge Summary ---
Date of Service February 05, 2019 Admission HPI Per Admitting Provider Mrs. Epstein is a 68 year old female with history of metastatic breast cancer, hypothyroidism who presented for left breast cellulitis. Wound developed ~1.5 years ago; she has followed with the wound clinic closely with no improvement. Pt. has progressed through multiple lines of chemotherapy and is currently receiving Halaven treatment. Wound culture from 11/20 was positive for Pseudomonas and MRSA; she was taking Doxycycline as an outpatient. Cefepime IV was also added to antibiotic regimen again just 3 days prior to admission after she was seen in the wound clinic and had evidence of worsening infection with necrotic tissue that was debrided. Her repeat wound culture on 01/21 was positive for the same organisms, however the Pseudomonas was now intermediately sensitive to cefepime. She was sent to the ER by ID, Dr. Britton, due to failure of outpatient treatment. Pt. has chronic pain at site of wound and secondary to metastatic breast cancer. She takes Oxycontin 40 mg twice daily along with Oxycodone 10 mg every 4 hours at home for chronic pain. Denies increased drainage from wound over last week, fever/chills, N/V at home. Denies chest pain, SOB, increased LE edema, abdominal pain, diarrhea or constipation, dysuria or hematuria. Lab work showed neutropenia with an ANC of 800 and chemotherapy induced anemia. Blood cultures and urinalysis are pending. Will admit for IV antibiotics, ID consult and wound care. Principal Diagnosis Extensive breast cellulitis Discharge Exam Constitutional WD/WN, vitals as above Eyes PERRL, conjunctivae normal, anicteric sclerae ENMT external ear and nose normal, oropharynx normal Ears: no hearing impairment Neck trachea midline, no thyromegaly Respiratory normal respiratory effort, lungs clear to auscultation Cardiovascular RRR, no murmur, no edema Chest (Breasts) normal inspection/palpation of breasts (large area of erythema, open wounds, necrosis, with yellow serous drainage on left, right breast with large area of induration in the entire lower right quadrant versus mass?) Chest: + abnormal inspection of chest (dressing not completely removed today as she just had it completely replaced-but erythema around the lateral left edge does seem improved, still with purulent drainage on dressings) Gastrointestinal (Abdomen) normal bowel sounds, soft, nontender, no hepatosplenomegaly Musculoskeletal Extremities: extremities normal to inspection; no cyanosis and no clubbing Skin no rashes, warm and dry Neurologic moves all extremities and awake; no focal motor deficits Psychiatric A+Ox3, euthymic affect Discharge Data Allergies Allergy/AdvReac Type Severity Reaction Status Date / Time No Known Allergies Allergy Verified 01/25/19 17:19 Consultations 01/25/19 16:36 ED Decision to Admit Stat 01/25/19 19:10 Consult Infectious Diseases Routine Ordered Studies Chest x-ray Hospital Course (1) Cellulitis: Of the left chest. Most recent cx with MDR pseudomonas & MRSA. Remains on zerbaxa q8h & daptomycin. has PORT in place for IV abx. The patient will continue to receive at least 12 more days of IV Zerbaxa and daptomycin per infectious disease recommendations. -Should have weekly CBC, CMP, CPK while on antibiotics -Should follow-up with the wound care center and infectious disease within 2 weeks -Continue wound care dressings as per their instructions (2) Breast cancer: Initial diagnosis - 09/2016. Extensive mets to skin. Primary oncologist - Dr. Arroyo. Current chemo - Halaven (last Rx 01/21/19). Mets to skin with infection causes severe pain. Pain is largely improved w/ titration of oxycontin to 80 BID recently. cont oxycodone immediate release 15 mg p.o. every 4 hours prn breakthrough pain cont celebrex 200 mg once daily She has been weaned off IV Dilaudid (3) Chronic pain: See above in "breast cancer" (4) Hypothyroidism: Continue Synthroid 50 mcg daily. Most recent TSH was 1.3. (5) Chronic diastolic heart failure: compensated (6) Neutropenia: Resolved (7) Anemia due to antineoplastic chemotherapy: Microcytosis present. Trans sat <20% Consider adding Fe supplementation, however with opioid-induced constipation, she may be a better candidate for IV iron-would defer to oncology for this (8) Breast mass, right: The patient's right sided breast mass very easily could be a separate primary breast cancer. I do not feel that this represents a cyst or abscess. I recommended to the patient that she focus on her cellulitis as as this is the largest problem she is currently is facing in addition to her original left- sided breast cancer. She can certainly talk to Dr. Arroyo in the cancer center upon follow-up there about any other testing for the right breast if she desires. (9) Constipation due to opioid therapy: improved cont aggressive bowel regimen (10) DVT prophylaxis: lovenox daily SQ was provided Disposition to [facility] nursing [facility] to continue on IV antibioti c therapy Stable for discharge today Total Time Total Time Spent Total Time Spent (In Minutes): Greater than 30 minutes Total Time Includes: Examination of the Patient, Discharge Planning, Medication Reconciliation and Communication With Other Providers (Pharmacist) Discharge Plan Discharge Items Patient Disposition: Transfer Shelter [facility] Reason For Visit: BREAST CELLULITIS Discharge Diagnosis: Breast cellulitis, chronic pain Condition: Fair Discharge Goals: Decrease discomfort, Diagnostic testing and Improve disease control Activity: As commented below Lifting: None Non-emergency contact: Primary Care Provider and Oncologist Call non-emergency contact if: you have any medication questions, your symptoms worsen, your pain is not controlled, your pain is worsening, your pain is unusual for you, your temperature is above 101, your wound has increased redness, your wound has increased drainage and your wound pain has increased Follow-up/Referrals: Shantel Britton DO [Physician] - (Follow-up within 2 weeks) Jonathan Dhillon MD [Primary Care Provider] - Diet: Regular Addtl Provider Instructions: This patient was admitted for MRSA and highly resistant Pseudomonas infection of the left hemithorax originally from a breast cellulitis. She has metastatic breast cancer to the skin. She needs 12 more days of IV Zerbaxa and daptomycin. She should follow-up with the wound care center as scheduled and with infectious disease specialist, Dr. Britton. She should follow-up with her oncologist within 2 weeks as well. Her chronic pain medication was adjusted during her inpatient stay. Her CBC should be followed as she is pancytopenic. She should have a CBC, CMP, CPK once weekly while on antibiotics. Prescriptions: New oxycodone [OxyContin] 40 mg Tablet,Oral Only,Ext.Rel.12 Hr 80 mg PO Q12 Qty: 12 RF: 0 celecoxib [Celebrex] 200 mg Capsule 200 mg PO QAM Qty: 30 RF: 0 oxycodone 5 mg Tablet 15 mg PO Q4H PRN (Reason: pain) Qty: 30 RF: 0 zolpidem 5 mg Tablet 5 mg PO HS PRN (Reason: insomnia) Qty: 3 RF: 0 sennosides [Senokot] 8.6 mg Tablet 17.2 mg PO QAM Qty: 60 RF: 0 polyethylene glycol 3350 [Miralax] 17 gram Powder In Packet 17 g PO DAILY Qty: 30 RF: 0 sennosides-docusate sodium [Senna with Docusate Sodium] 8.6-50 mg Tablet 1 tab PO DAILY@1900 Qty: 30 RF: 0 docusate sodium 100 mg Capsule 100 mg PO BID Qty: 60 RF: 0 Zerbaxa 1.5 gram recon soln 1.5 gm IV Q8H 12 Days RF: 0 daptomycin 350 mg recon soln 275 mg IV DAILY Qty: 12 RF: 0 Continued ascorbic acid (vitamin C) 500 mg tablet,chewable 500 mg PO QAM RF: 0 omega 8-izv-kel-fish oil 1,000 mg (120 mg-180 mg) capsule 1 tab PO DAILY RF: 0 levothyroxine 50 mcg tablet 50 mcg PO DAILY RF: 0 vitamin E (dl, acetate) 400 unit capsule 400 units PO QAM RF: 0 calcium citrate 250 mg calcium tablet 250 mg PO DAILY RF: 0 cholecalciferol (vitamin D3) 1,000 unit capsule 1,000 units PO DAILY RF: 0 ondansetron HCl [Zofran] 8 mg Tablet 8 mg PO Q8 PRN (Reason: Nausea) RF: 0 Discontinued naproxen sodium [Aleve] 220 mg tablet 220 mg PO BID PRN (Reason: pain) RF: 0 doxycycline hyclate 100 mg capsule 100 mg PO BID Qty: 60 RF: 0 oxycodone 10 mg tablet,oral only,ext.rel.12 hr 10 mg PO Q4 PRN (Reason: Breakthrough Pain) RF: 0 oxycodone [OxyContin] 40 mg Tablet,Oral Only,Ext.Rel.12 Hr 40 mg PO Q12H RF: 0 Stand-Alone Forms: [facility] Discharge Orders: Discharge Order (Routine); Ordered 02/05/19 Ordered By: Christin Montero Skilled Items Patient informed of condition?: Yes DNR: No Discharge Level of Care: Skilled Communicable Disease: Yes Discharge Prognosis: Improving Admission Data Admit Date/Time: 01/25/19 17:44 Attending Provider: Christin Montero Admit Provider: Christin Montero Primary Care Provider: Jonathan Dhillon Other Providers: Christin Montero ; Shantel Britton ; Home,Nursing Agency Service: Medical Other Pending Studies at Discharge: No
== END 2019-02-05 15:28 | DRG 844 ==
LOC: ED 15:55 → SUATTDRO 17:44 → 4E 17:44

== ENCOUNTER 2019-02-15 14:52 | Inpatient (IN) ==
[2019-02-15] MEDS ORDERED: SODIUM CHLORIDE 0.9% 1000ML 1,000 ML IV SCH (15:45)
[2019-02-15 15:52] LABS: Hematocrit (blood only) 30.6 % (37-47); Hemoglobin 9.4 g/dL (12.0-16.0); Mean Corpuscular Volume 76.1 fL (80-100); Red Blood Count 4.02 M/uL (4.2-5.4); White Blood Count 8.64 K/uL (4.8-10.8)
[2019-02-15 15:53] LABS: Basophils # (auto) 0.01 K/uL (0-0.2); Basophils % (auto) 0.1 %; Eosinophils # (auto) 0.13 K/uL (0-0.5); Eosinophils % (auto) 1.5 %; Immature Granulocytes # (auto) 0.01 K/uL (0.00-0.02); Immature Granulocytes % (auto) 0.1 %; Lymphocytes # (auto) 1.07 K/uL (1.2-3.4); Lymphocytes % (auto) 12.4 %; Mean Corpuscular Hgb Conc 30.7 g/dL (32-36); Mean Platelet Volume 10.5 fL (7.4-10.4); Monocytes # (auto) 0.48 K/uL (0.11-0.59); Monocytes % (auto) 5.6 %; Neutrophils # (auto) 6.94 K/uL (1.4-6.5); Neutrophils % (auto) 80.3 %; Platelet Count 457 K/uL (130-400); RDW Coefficient of Variation 20.7 % (11.5-14.5); RDW Standard Deviation 57.1 fL (36.4-46.3)
--- NOTE | 2019-02-15 15:58 | XRay Report ---
XR chest 1V portable CLINICAL HISTORY: Dyspnea dyspnea COMPARISON STUDY: 09/10/2018 FINDINGS: Interval development of parenchymal nodularity, right pleural effusion, as well as mediasti nal and hilar adenopathy. This is consistent with progressive metastatic disease. IMPRESSION: Interval development of parenchymal nodularity, adenopathy, and right pleural effusion. This appearance is consistent with progressive metastatic disease. The above report was generated using voice recognition software. It may contain grammatical, syntax or spelling errors. Electronically signed by: Efraín Vasquez M.D. 02/15/2019 3:57 PM
[2019-02-15 16:10] LABS: Albumin Level 2.5 gm/dl (3.4-5.0); Aspartate Aminotransferase 43 U/L (15-37); BUN Creatinine Ratio 42.5 (10-20); Blood Urea Nitrogen 15 mg/dl (7-18); Calcium 8.8 mg/dl (8.5-10.1); Carbon Dioxide 31 mmol/L (21-32); Chloride 104 mmol/L (98-107); Creatinine Clr Calc Pharmacy 180.7 ml/min; Est GFR (Non-African American) 111.3; Glucose 96 mg/dl (70-99); Magnesium 1.8 mg/dl (1.8-2.4); Potassium 3.9 mmol/L (3.5-5.1); Sodium 139 mmol/L (136-145)
[2019-02-15 16:14] LABS: Alanine Aminotransferase 20 U/L (12-78); Albumin Globulin Ratio 0.7 (0.9-2); Alkaline Phosphatase 57 U/L (45-117); Bilirubin,Total 0.3 mg/dl (0.2-1); Globulin 3.8 gm/dl (2.5-4.0); INR 1.1 (0.9-1.1); Partial Thromboplastin Ratio 1.8; Prothrombin Time 11.6 Seconds (9.0-12.0); Total Protein 6.3 gm/dl (6.4-8.2); Troponin I < 0.015 ng/ml (0-0.045)
[2019-02-15 16:17] LABS: iSTAT Creatinine 0.4 mg/dl (0.6-1.3); iSTAT Hemoglobin 9.9 g/dl (12.0-16.0); iSTAT Ionized Calcium 1.17 mmol/l (1.12-1.32); iSTAT Potassium 3.9 mEq/L (3.3-5.0)
[2019-02-15 16:18] LABS: Partial Thromboplastin Time 47.8 Seconds (21.0-31.0)
[2019-02-15 16:23] LABS: Anisocytosis Present; Ovalocytes 1+; Polychromasia 1+
[2019-02-15 16:28] LABS: Influenza A virus by PCR Neg for Influ A (Neg); Influenza B virus by PCR Neg for Influ B (Neg)
[2019-02-15] MEDS ORDERED: OPTIRAY 320 125ml IV PRN (17:16)
--- NOTE | 2019-02-15 17:28 | CT Scan Report ---
CT angio chest PE protocol CT DOSE: 700.02 mGy.cm HISTORY: Chest pain PE TECHNIQUE: Multiaxial CT images of the chest were performed following the intravenous administration of contrast to evaluate the pulmonary arteries. Maximal intensity projection images were also obtaine d. A dose lowering technique was utilized adhering to the principles of ALARA. COMPARISON STUDY: None. FINDINGS: Limited study in reference to pulmonary embolus due to patient respiratory and somatic telma on. No evidence for a major central pulmonary embolus. Second third order vessels are considered nondiagn ostic evaluated. Diffuse chest wall nodularity consistent with diffuse metastatic change. Large right pleural effusion . Underlying abnormal cystic nodularity of the lung bases with superimposed atelectasis of the right lower lobe. Similar but less prominent Findings involving the left hemithorax with multiple areas of nodularity as well as a smaller left ef fusion. Moderate superimposed chest wall anasarca. Limited evaluation the upper abdomen shows hepatic metastatic disease and probable upper abdominal ad enopathy. IMPRESSION: 1. No evidence for major central pulmonary embolus. 2. Nondiagnostic evaluation of the peripheral arterial vasculature due to respiratory and somatic mot ion. 3. Diffuse soft tissue and pulmonary nodularity throughout the chest wall as well as bilateral lungs consistent with diffuse metastatic disease. 4. Right and to a lesser extent left pleural effusion with right lower lobe volume loss and associate d parenchymal cystic/necrotic parenchymal change. The above report was generated using voice recognition software. It may contain grammatical, syntax or spelling errors. Electronically signed by: Efraín Vasquez M.D. 02/15/2019 5:27 PM
--- NOTE | 2019-02-15 17:38 | Ultrasound Report ---
US venous doppler LE BI HISTORY: Pain. Edema. R>L LE edema COMPARISON STUDY: None. FINDINGS: There is normal compressibility, flow, and augmentation within the bilateral lower extremit y deep venous systems. IMPRESSION: No DVT within the right or left lower extremity. The above report was generated using voice recognition software. It may contain grammatical, syntax or spelling errors. Electronically signed by: Efraín Vasquez M.D. 02/15/2019 5:37 PM
[2019-02-15] MEDS ORDERED: OXYCODONE HCL IR 5 MG TAB (IMMEDIATE RELEASE) PO STA (19:01)
--- NOTE | 2019-02-15 19:33 | History & Physical Report ---
Date of Service February 15, 2019 Assessment & Plan (1) Pleural effusion: 68 y/o F Hx metastatic breast CA receiving chemo, chronic L breast wound, hypothyroidism, anemia, diastolic CHF. The pt was recently admitted for recurrent cellulitis of a nonhealing wound of the L breast. She was placed on a 2 week course of IV Zerbaxa and PO Doxy to cover both MRSA and Pseudomonas which were cultured from the wound. She was DCd to [facility] to complete her IV antibiotics. She presents from [facility] with progressive SOB and hypoxia. A CTA was obtained in the ER demonstrating a large R pleural effusion with right lower lobe volume loss and associated cystic/necrotic parenchymal change. She does not have acute CP or a productive cough and denies recent fevers or rigors. Initial labs are consistent with baseline values. 1) R pleural effusion - SOB/hypoxia - she will be observed on telemetry overnight. We have requested a thoracic surgery consult as she will need diagnostic and therapeutic thoracentesis. The effusion may be malignant, infectious or less likely due to CHF as she does not appear to be clinically volume overloaded. She is on broad spectrum coverage for cellulitis and the regimen should be adequate for a pneumonia so we would not add an additional antibiotic at present. She is placed on an 02 protocol. 2) Cellulitis of L breast. She follows at a wound clinic and will complete a 2 week antibiotic course on 02/18 3) Breast CA - her chemo is on hold due to her cellulitis and will resume after per pt. 4) Diastolic CHF - does not normally take diuretics. I believe that her LE edema is presently more related to protein malnutrition, however, CHF should be kept in the differential for both her edema and effusion. The results of a thoracentesis should shed some light on this. 5) Hypothyroidism - cont Synthroid 6) Anemia - Hb is at baselinie 7) Protein malnutrition - supplements provided Full code - one dose Heparin given prior to likely thoracentesis AM Total time for this admit including review of labs, meds, imaging, records - discussion with pt and ER attending - 40 min History of Present Illness Chief Complaint: 68 y/o F Hx metastatic breast CA receiving chemo, chronic L breast wound, hypothyroidism, anemia, diastolic CHF. The pt was recently admitted for recurrent cellulitis of a nonhealing wound of the L breast. She was placed on a 2 week course of IV Zerbaxa and PO Doxy to cover both MRSA and Pseudomonas which were cultured from the wound. She was DCd to [facility] to complete her IV antibiotics. She presents from [facility] with progressive SOB and hypoxia. A CTA was obtained in the ER demonstrating a large R pleural effusion with right lower lobe volume loss and associated cystic/necrotic parenchymal change. She does not have acute CP or a productive cough and denies recent fevers or rigors. Initial labs are consistent with baseline values and also demonstrate a degree of protein malnutrition PMH: 1) Breast CA with lung mets - diagnosed 2015. Post partial L mastectomy, XRT and multiple chemo regimens, currently with Eribulin. 2) Nonhealing L breast wound and recurrent cellulitis - prior infections with Pseudomonas and MRSA 3) Chronic diastolic CHF 4) Hypothyroidism 5) Chronic anemia - Hb 9-10 at baseline 6) Chronic lower extremity edema Surgical: 1) Partial mastectomy 2) cataracts 3) Foot surgery 4) R chest port-a-cath Social: Does not drink or smoke Family: Mother due to leukemia Father due to complications of a CVA Primary Care Provider: Jonathan Dhillon MD Allergies Allergy/AdvReac Type Severity Reaction Status Date / Time No Known Allergies Allergy Verified 02/15/19 13:47 Home Medications Home Medications Medication Instructions Recorded Confirmed Type ascorbic acid (vitamin C) 500 mg 500 mg PO QAM tab 07/24/18 02/15/19 History chewable tablet levothyroxine 50 mcg tablet 50 mcg PO DAILY 07/24/18 02/15/19 History omega 7-fhw-[id number]-fish oil 1,000 mg 1 tab PO DAILY cap 07/24/18 02/15/19 History (120 mg-180 mg) capsule vitamin E (dl, acetate) 400 unit 400 units PO QAM cap 07/24/18 02/15/19 History capsule calcium citrate 250 mg tablet 250 mg PO DAILY tab 08/21/18 02/15/19 History cholecalciferol (vitamin D3) 1,000 1,000 units PO DAILY 08/21/18 02/15/19 History unit capsule ondansetron HCl [Zofran] 8 mg PO Q8 PRN 01/25/19 02/15/19 History ceftolozane-tazobactam [Zerbaxa] 1.5 gm IV Q8H 12 Days ea 02/05/19 02/15/19 Rx celecoxib [Celebrex] 200 mg PO QAM #30 cap 02/05/19 02/15/19 Rx docusate sodium 100 mg PO BID #60 cap 02/05/19 02/15/19 Rx oxycodone 15 mg PO Q4H PRN #30 tab 02/05/19 02/15/19 Rx oxycodone [OxyContin] 80 mg PO Q12 #12 tab 02/05/19 02/15/19 Rx polyethylene glycol 3350 [Miralax] 17 g PO DAILY #30 ea 02/05/19 02/15/19 Rx sennosides [Senokot] 17.2 mg PO QAM #60 tab 02/05/19 02/15/19 Rx sennosides-docusate sodium [Senna 1 tab PO DAILY@1900 #30 tab 02/05/19 02/15/19 Rx with Docusate Sodium] zolpidem 5 mg PO HS PRN #3 tab 02/05/19 02/15/19 Rx doxycycline hyclate 100 mg capsule 100 mg PO BID 02/15/19 02/15/19 History Past Med/Surg History Social History Preferred Language: [place] Beliefs That Will Affect Care: None Current Living Situation: Alone Feels Safe at Home: Yes Smoking Status: Never smoker Hx Alcohol Use: No Hx Substance Use: No Review of Systems Gen: Denies fevers, night sweats, rigors, fatigue, malaise, weight loss/gain ENT: Denies congestion, throat pain, hearing loss Eyes: Denies acute visual changes CV: She has chronic CP due to chest/lung mets Pulmonary: Progressive SOB as above GI: Denies N/V, diarrhea, constipation Neuro: Denies acute or unilateral weakness, acute gait impairment, headache or acute visual changes Musculoskeletal: Denies joint pain, inflammation - states LE edema has worsened Endocrine: Denies polydipsia, polyuria Skin: Denies acute rashes or ulcers Physical Exam Vital Signs (Past 24 Hours): Last Vital Signs Temp 36.7 C 02/15/19 14:56 Pulse 92 H 02/15/19 18:40 Resp 25 H 02/15/19 18:40 BP 147/87 H 02/15/19 18:40 Pulse Ox 93 02/15/19 18:40 Physical Exam: General: AAO x 3, no distress ENT: No erythema or exudates, no thrush Eyes: MARLENA, EOMI Head and neck: Normocephalic, atraumatic, No JVD, neck is supple. Chest/heart: Nontender, S1,2, RRR - Extensive wound/ulceration of L breast with exudate and crusting Lungs: There is no air entry into the R base - L lung is clear Abdomen: Nontender, nondistended, BS+ Neuro: AAO x 3, speech is clear, no unilateral weakness or loss of sensation, coordination intact Musculoskeletal: No joint inflammation, muscle tenderness, FROM - BL 2+ edema Skin: No acute rashes or ulcers - chornic ulcer/wound of L breast as above Extremities: No clubbing, cyanosis - + edema Results & Data Diagnostic Findings IMPRESSION: 1. No evidence for major central pulmonary embolus. 2. Nondiagnostic evaluation of the peripheral arterial vasculature due to respiratory and somatic motion. 3. Diffuse soft tissue and pulmonary nodularity throughout the chest wall as well as bilateral lungs consistent with diffuse metastatic disease. 4. Right and to a lesser extent left pleural effusion with right lower lobe volume loss and associated parenchymal cystic/necrotic parenchymal change.
[2019-02-15] MEDS ORDERED: MoRPHine SULFATE 4 MG/ML 1 ML CARP\\VIAL IV STA (19:51)
[2019-02-15] MEDS ORDERED: [UNRECOGNIZED DRUG - OTHER] IV SCH (20:59)
[2019-02-15] MEDS ORDERED: ONDANSETRON INJ 2 MG/ML 2 ML VIAL IV PRN (20:59)
[2019-02-15] MEDS ORDERED: ALUMINUM/MAGNESIUM SUSP 30 ML UDC PO PRN (20:59)
--- NOTE | 2019-02-15 21:52 | Emergency Department Note ---
Entered by Divine Lentz acting as a scribe for Jillian Leon MD History of Present Illness General Chief complaint: Shortness of Breath/Dyspnea Stated complaint: SHORTNESS OF BREATH Source: patient Limitations: no limitations History of Present Illness Provider complaint: shortness of breath Onset (ago): week(s) 1 Location: chest Maximum Pain Intensity: 4 Associated symptoms: + denies other symptoms (calf pain) and + other (+leg swelling ); no fever/chills The patient is a 68 year old female who presents to the Emergency Room with complaints of shortness of breath that began 1 week prior to arrival. The patient states that she has leg swelling but denies any fevers or calf pain. The patient states that she has been at [facility] getting IV antibiotics for her left breast cellulitis. The patient states that she doesn't normally wear o xygen, but her oxygenation has been borderline at the [facility]. The patient denies a history of blood clots. She was hospitalized last week due to the left anterior chest wound infection Home Medications Home Medications Medication Instructions Recorded Confirmed Type ascorbic acid (vitamin C) 500 mg 500 mg PO QAM tab 07/24/18 02/15/19 History chewable tablet levothyroxine 50 mcg tablet 50 mcg PO DAILY 07/24/18 02/15/19 History omega 9-dzh-jff-fish oil 1,000 mg 1 tab PO DAILY cap 07/24/18 02/15/19 History (120 mg-180 mg) capsule vitamin E (dl, acetate) 400 unit 400 units PO QAM cap 07/24/18 02/15/19 History capsule calcium citrate 250 mg tablet 250 mg PO DAILY tab 08/21/18 02/15/19 History cholecalciferol (vitamin D3) 1,000 1,000 units PO DAILY 08/21/18 02/15/19 History unit capsule ondansetron HCl [Zofran] 8 mg PO Q8 PRN 01/25/19 02/15/19 History ceftolozane-tazobactam [Zerbaxa] 1.5 gm IV Q8H 12 Days ea 02/05/19 02/15/19 Rx celecoxib [Celebrex] 200 mg PO QAM #30 cap 02/05/19 02/15/19 Rx docusate sodium 100 mg PO BID #60 cap 02/05/19 02/15/19 Rx oxycodone 15 mg PO Q4H PRN #30 tab 02/05/19 02/15/19 Rx oxycodone [OxyContin] 80 mg PO Q12 #12 tab 02/05/19 02/15/19 Rx polyethylene glycol 3350 [Miralax] 17 g PO DAILY #30 ea 02/05/19 02/15/19 Rx sennosides [Senokot] 17.2 mg PO QAM #60 tab 02/05/19 02/15/19 Rx sennosides-docusate sodium [Senna 1 tab PO DAILY@1900 #30 tab 02/05/19 02/15/19 Rx with Docusate Sodium] zolpidem 5 mg PO HS PRN #3 tab 02/05/19 02/15/19 Rx doxycycline hyclate 100 mg capsule 100 mg PO BID 02/15/19 02/15/19 History Allergies Allergy/AdvReac Type Severity Reaction Status Date / Time No Known Allergies Allergy Verified 02/15/19 13:47 Past Med/Surg History Social History Preferred Language: [place] Beliefs That Will Affect Care: None Current Living Situation: Alone Feels Safe at Home: Yes Smoking Status: Never smoker Hx Alcohol Use: No Hx Substance Use: No Review of Systems See HPI for pertinent positives & negatives. and A total of 10 systems reviewed and were otherwise negative Physical Exam Vital Signs Vital Signs - 24 hr 02/15/19 14:56 02/15/19 15:30 02/15/19 15:54 Temperature 36.7 C Temperature Source Oral Sepsis Recent Fever Within 48 Hours No Sepsis New/Unexplained Change in Mental Status No Sepsis Action Taken by Nursing No Action Required Pulse Rate 91 H 83 Pulse Rate from SpO2 Sensor 84 Respiratory Rate 18 23 Respiratory Effort / Characteristics Non-Labored Spontaneous Respiratory Depth Normal Respiratory Pattern Regular Blood Pressure 154/78 H Blood Pressure Mean 103 Blood Pressure Position Sitting Pulse Oximetry 84 L 90 93 Oxygen Delivery Method Room Air Oxymask Oxygen Flow Rate 6 02/15/19 15:56 02/15/19 16:00 02/15/19 16:39 Temperature Temperature Source Sepsis Recent Fever Within 48 Hours Sepsis New/Unexplained Change in Mental Status Sepsis Action Taken by Nursing Pulse Rate 85 87 Pulse Rate from SpO2 Sensor 85 Respiratory Rate 23 32 H Respiratory Effort / Characteristics Respiratory Depth Respiratory Pattern Blood Pressure Blood Pressure Mean Blood Pressure Position Pulse Oximetry 93 96 Oxygen Delivery Method Oxymask Oxygen Flow Rate 02/15/19 17:43 02/15/19 17:44 02/15/19 18:00 Temperature Temperature Source Sepsis Recent Fever Within 48 Hours Sepsis New/Unexplained Change in Mental Status Sepsis Action Taken by Nursing Pulse Rate 96 H 93 H 82 Pulse Rate from SpO2 Sensor 93 H 82 Respiratory Rate 32 H 31 H 22 Respiratory Effort / Characteristics Respiratory Depth Respiratory Pattern Blood Pressure 152/97 H Blood Pressure Mean 115 Blood Pressure Position Pulse Oximetry 94 95 Oxygen Delivery Method Oxygen Flow Rate 02/15/19 18:30 02/15/19 18:40 02/15/19 19:00 Temperature Temperature Source Sepsis Recent Fever Within 48 Hours Sepsis New/Unexplained Change in Mental Status Sepsis Action Taken by Nursing Pulse Rate 86 92 H 87 Pulse Rate from SpO2 Sensor 86 92 H Respiratory Rate 27 H 25 H 32 H Respiratory Effort / Characteristics Respiratory Depth Respiratory Pattern Blood Pressure 147/87 H Blood Pressure Mean 107 Blood Pressure Position Pulse Oximetry 95 93 Oxygen Delivery Method Oxygen Flow Rate 02/15/19 19:01 02/15/19 19:30 02/15/19 19:31 Temperature Temperature Source Sepsis Recent Fever Within 48 Hours Sepsis New/Unexplained Change in Mental Status Sepsis Action Taken by Nursing Pulse Rate 90 89 86 Pulse Rate from SpO2 Sensor Respiratory Rate 26 H 30 H 22 Respiratory Effort / Characteristics Respiratory Depth Respiratory Pattern Blood Pressure 150/73 H 140/78 Blood Pressure Mean 98 98 Blood Pressure Position Pulse Oximetry Oxygen Delivery Method Oxygen Flow Rate Vital signs reviewed. General: Elderly female, in no significant distress. On nasal canula oxygen. HEENT: No scleral icterus, PERRLA, neck supple. Atraumatic. Cardiovascular: Regular rate and rhythm, no extra sounds. Pulmonary: Diminished breath sounds with crackles at right base, hypoxic with increase work of breathing. Abdomen: Soft, nontender, nondistended, positive bowel sounds. Musculoskeletal: Atraumatic, no peripheral edema. Neurologic: Patient awake alert and oriented x 3, full strength in all 4 extremities. Cranial nerves 2 through 12 grossly intact. Skin: Warm, dry, no rash. Huge wound on left chest, erythema with some necrotic tissue. Course 1515: Past medical records reviewed. The patient was evaluated in room C4, and a complete history and physical examination were performed. 1700: I checked on and updated the patient on her results. 1814: Upon reevaluation, the patient is resting comfortably. I discussed laboratory and radiographic results with her. She verbalized agreement of the treatment plan. The patient will be evaluated for further management and care. 1910: I reviewed the patient's case with Dr. Shah [facility] Hospitalist. He will evaluate the patient for further management. Consultations Consultation #1: Dr. Shah [facility] Hospitalist Time: 19:11 Administered Medications Ioversol (Optiray 320 125ml) 119 ml IV ONCE PRN PRN Reason: Interaction Checking Stop: 02/19/19 17:15 Last Admin: 02/15/19 17:16 Dose: 119 ml Documented by: [id number] Discontinued Medications Sodium Chloride (Nss 1000ml) 1,000 mls @ 125 mls/hr IV .Q8H RENEE Stop: 03/17/19 15:44 Last Admin: 02/15/19 15:51 Dose: 125 mls/hr Documented by: [id number] Morphine Sulfate (Morphine Sulfate) 4 mg IV NOW STA Stop: 02/15/19 19:52 Last Admin: 02/15/19 20:04 Dose: 4 mg Documented by: [id number] Oxycodone HCl (Roxicodone Immediate Rel) 15 mg PO NOW STA Stop: 02/15/19 19:02 Last Admin: 02/15/19 19:07 Dose: 15 mg Documented by: [id number] Medical Decision Making Differential Diagnosis Differential diagnoses includes but is not limited to pneumonia, bronchitis, COPD/Asthma exacerbation, pneumothorax, pulmonary embolism, congestive heart failure, acute coronary syndrome, pleural effusion. Medical Records Attestation: I reviewed the patient's medical records. Home Medications Current Medication List: was personally reviewed by me Laboratory Data Attestation: I reviewed the patient's lab results. Result diagrams: 02/15/19 15:42 02/15/19 15:42 Lab Results 02/15/19 02/15/19 02/15/19 Range/Units 15:42 15:42 15:42 WBC 8.64 (4.8-10.8) K/uL RBC 4.02 L (4.2-5.4) M/uL Hgb 9.4 L (12.0-16.0) g/dL POC Hgb (12.0-16.0) g/dl Hct 30.6 L (37-47) % POC Hct (37-47) % MCV 76.1 L (80-100) fL MCH 23.4 L (25-34) pg MCHC 30.7 L (32-36) g/dL RDW Std Deviation 57.1 H (36.4-46.3) fL RDW Coeff of Nahun 20.7 H (11.5-14.5) % Plt Count 457 H (130-400) K/uL MPV 10.5 H (7.4-10.4) fL Immature Gran % (Auto) 0.1 % Neut % (Auto) 80.3 % Lymph % (Auto) 12.4 % [place] % (Auto) 5.6 % Eos % (Auto) 1.5 % Baso % (Auto) 0.1 % Immature Gran # (Auto) 0.01 (0.00-0.02) K/uL Neut # (Auto) 6.94 H (1.4-6.5) K/uL Lymph # (Auto) 1.07 L (1.2-3.4) K/uL [place] # (Auto) 0.48 (0.11-0.59) K/uL Eos # (Auto) 0.13 (0-0.5) K/uL Baso # (Auto) 0.01 (0-0.2) K/uL Polychromasia 1+ Anisocytosis Present Ovalocytes 1+ PT 11.6 (9.0-12.0) Seconds INR 1.1 (0.9-1.1) APTT 47.8 H* (21.0-31.0) Seconds PTT Ratio 1.8 POC Sodium (135-144) mEq/L Sodium 139 (136-145) mmol/L POC Potassium (3.3-5.0) mEq/L Potassium 3.9 (3.5-5.1) mmol/L POC Chloride (101-112) mEq/L Chloride 104 (98-107) mmol/L Carbon Dioxide 31 (21-32) mmol/L POC Total CO2 (24-31) mEq/l Anion Gap 5.0 (3-11) POC Anion Gap (16-25) mmol/L POC BUN (7-18) mg/dl BUN 15 (7-18) mg/dl Creatinine 0.34 L (0.6-1.2) mg/dl POC Creatinine (0.6-1.3) mg/dl Est Cr Clr Drug Dosing 180.7 ml/min Est GFR ( Amer) 129.0 Est GFR (Non-Af Amer) 111.3 BUN/Creatinine Ratio 42.5 H (10-20) Glucose 96 (70-99) mg/dl POC Glucose (other) (70-99) mg/dl Calcium 8.8 (8.5-10.1) mg/dl POC Ioniz Calcium Kraig (1.12-1.32) mmol/l Magnesium 1.8 (1.8-2.4) mg/dl Total Bilirubin 0.3 (0.2-1) mg/dl AST 43 H (15-37) U/L ALT 20 (12-78) U/L Alkaline Phosphatase 57 (45-117) U/L Troponin I < 0.015 (0-0.045) ng/ml Total Protein 6.3 L (6.4-8.2) gm/dl Albumin 2.5 L (3.4-5.0) gm/dl Globulin 3.8 (2.5-4.0) gm/dl Albumin/Globulin Ratio 0.7 L (0.9-2) Influenza Type A (PCR) (Neg) Influenza Type B (PCR) (Neg) 02/15/19 02/15/19 Range/Units 15:45 15:50 WBC (4.8-10.8) K/uL RBC (4.2-5.4) M/uL Hgb (12.0-16.0) g/dL POC Hgb 9.9 L (12.0-16.0) g/dl Hct (37-47) % POC Hct 29 L (37-47) % MCV (80-100) fL MCH (25-34) pg MCHC (32-36) g/dL RDW Std Deviation (36.4-46.3) fL RDW Coeff of Nahun (11.5-14.5) % Plt Count (130-400) K/uL MPV (7.4-10.4) fL Immature Gran % (Auto) % Neut % (Auto) % Lymph % (Auto) % [place] % (Auto) % Eos % (Auto) % Baso % (Auto) % Immature Gran # (Auto) (0.00-0.02) K/uL Neut # (Auto) (1.4-6.5) K/uL Lymph # (Auto) (1.2-3.4) K/uL [place] # (Auto) (0.11-0.59) K/uL Eos # (Auto) (0-0.5) K/uL Baso # (Auto) (0-0.2) K/uL Polychromasia Anisocytosis Ovalocytes PT (9.0-12.0) Seconds INR (0.9-1.1) APTT (21.0-31.0) Seconds PTT Ratio POC Sodium 138 (135-144) mEq/L Sodium (136-145) mmol/L POC Potassium 3.9 (3.3-5.0) mEq/L Potassium (3.5-5.1) mmol/L POC Chloride 99 L (101-112) mEq/L Chloride (98-107) mmol/L Carbon Dioxide (21-32) mmol/L POC Total CO2 29 (24-31) mEq/l Anion Gap (3-11) POC Anion Gap 15.0 L (16-25) mmol/L POC BUN 13 (7-18) mg/dl BUN (7-18) mg/dl Creatinine (0.6-1.2) mg/dl POC Creatinine 0.4 L (0.6-1.3) mg/dl Est Cr Clr Drug Dosing ml/min Est GFR ( Amer) Est GFR (Non-Af Amer) BUN/Creatinine Ratio (10-20) Glucose (70-99) mg/dl POC Glucose (other) 100 H (70-99) mg/dl Calcium (8.5-10.1) mg/dl POC Ioniz Calcium Kraig 1.17 (1.12-1.32) mmol/l Magnesium (1.8-2.4) mg/dl Total Bilirubin (0.2-1) mg/dl AST (15-37) U/L ALT (12-78) U/L Alkaline Phosphatase (45-117) U/L Troponin I (0-0.045) ng/ml Total Protein (6.4-8.2) gm/dl Albumin (3.4-5.0) gm/dl Globulin (2.5-4.0) gm/dl Albumin/Globulin Ratio (0.9-2) Influenza Type A (PCR) Neg for Influ A (Neg) Influenza Type B (PCR) Neg for Influ B (Neg) Imaging Data Radiologist's Impression: Radiology results as stated below per my review and the radiologist's interpretation: XR chest 1V portable CLINICAL HISTORY: Dyspnea dyspnea COMPARISON STUDY: 09/10/2018 FINDINGS: Interval development of parenchymal nodularity, right pleural effusion, as well as mediastinal and hilar adenopathy. This is consistent with progressive metastatic disease. IMPRESSION: Interval development of parenchymal nodularity, adenopathy, and right pleural effusion. This appearance is consistent with progressive metastatic disease. The above report was generated using voice recognition software. It may contain grammatical, syntax or spelling errors. Electronically signed by: Efraín Vasquez M.D. CT angio chest PE protocol CT DOSE: 700.02 mGy.cm HISTORY: Chest pain PE TECHNIQUE: Multiaxial CT images of the chest were performed following the intravenous administration of contrast to evaluate the pulmonary arteries. Maximal intensity projection images were also obtained. A dose lowering technique was utilized adhering to the principles of ALARA. COMPARISON STUDY: None. FINDINGS: Limited study in reference to pulmonary embolus due to patient respiratory and somatic motion. No evidence for a major central pulmonary embolus. Second third order vessels are considered nondiagnostic evaluated. Diffuse chest wall nodularity consistent with diffuse metastatic change. Large right pleural effusion. Underlying abnormal cystic nodularity of the lung bases with superimposed atelectasis of the right lower lobe. Similar but less prominent Findings involving the left hemithorax with multiple areas of nodularity as well as a smaller left effusion. Moderate superimposed chest wall anasarca. Limited evaluation the upper abdomen shows hepatic metastatic disease and probable upper abdominal adenopathy. IMPRESSION: 1. No evidence for major central pulmonary embolus. 2. Nondiagnostic evaluation of the peripheral arterial vasculature due to respiratory and somatic motion. 3. Diffuse soft tissue and pulmonary nodularity throughout the chest wall as well as bilateral lungs consistent with diffuse metastatic disease. 4. Right and to a lesser extent left pleural effusion with right lower lobe volume loss and associated parenchymal cystic/necrotic parenchymal change. The above report was generated using voice recognition software. It may contain grammatical, syntax or spelling errors. Electronically signed by: Efraín Vasquez M.D. 02/15/2019 5:27 PM 02/15/2019 3:57 PM US venous doppler LE BI HISTORY: Pain. Edema. R>L LE edema COMPARISON STUDY: None. FINDINGS: There is normal compressibility, flow, and augmentation within the bilateral lower extremity deep venous systems. IMPRESSION: No DVT within the right or left lower extremity. The above report was generated using voice recognition software. It may contain grammatical, syntax or spelling errors. Electronically signed by: Efraín Vasquez M.D. 02/15/2019 5:37 PM ECG Data Attestation: I personally reviewed and interpreted this ECG as follows: Indication: SOB/dyspnea Rate (beats per minute): 80 Rhythm: sinus rhythm Findings: + nonspecific-ST abn Additional Comments: Poor quality baseline for interpretation. Previous septal infarct possible. Possible nonspecific ST changes but significant interference from patient tremor. Blood Pressure Blood Pressure Findings: Elevated blood pressure Blood Pressure Disposition: elevated BP felt to be situational MDM Narrative This patient was evaluated and appeared to be chronically ill in some respiratory discomfort. Patient was on nasal cannula oxygen and switched to an oxygen mask with much better oxygen saturations. Chest x-ray was performed and reveals a large right pleural effusion and new densities throughout the lung martinez. This is pretty concerning for worsening metastatic process. CT scan of the chest was performed to rule out PE. This study is as above, negative for central emboli. Dopplers of the bilateral lower extremities are negative for DVT. Patient was given OxyIR 15 mg p.o. for pain control. Patient's case was discussed with Dr. Sams of thoracic surgery. He is happy to evaluate the patient for further management, patient will be admitted by the hospitalist service, discussed with Dr. Pan. Nursing staff requested additional pain medication for the patient prior to inpatient orders being placed. She was given 4 mg of IV morphine. Patient was informed of the findings and is understandably upset regarding the state of her malignancy. Her son was at the bedside. Patient is currently on antibiotics (Zerbaxa and doxycycline) for anterior chest wound. She is aware of the plan for admission and agrees. Impression & Plan Pleural effusion, Hypoxia, Metastatic breast cancer Discharge Plan Visit Data *Final* Discharge Date/Time: 02/15/19 20:21 Chief Complaint: Shortness of Breath/Dyspnea Stated Complaint: SHORTNESS OF BREATH ED Provider: Jillian Leon Discharge Problem: Pleural effusion, Hypoxia, Metastatic breast cancer Patient Disposition: Admitted As Inpatient Discharge Instructions Interventions: ED Discharge Assessment Last Done: 02/15/19 20:21 The scribe's documentation has been prepared under my direction and personally reviewed by me in its entirety. I confirm that the note above accurately reflects all work, treatment, procedures, and medical decision making performed by me.
[2019-02-15] MEDS: OXYCODONE HCL 40 MG TABCR (OXYCONTIN) PO SCH (22:33)
[2019-02-15] MEDS: DOCUSATE SODIUM 100 MG CAP PO SCH (22:34)
[2019-02-15] MEDS: DOXYCYCLINE HYCLATE 100 MG CAP PO SCH (22:34)
[2019-02-15] MEDS: CEFTOLOZANE/TAZOBACTAM 1,500 MG in DEXTROSE 5% 100 ML IV SCH (22:34)
[2019-02-15 23:17] LABS: Appearance Urine Clear (Clear); Bacteria Urine Automated Negative (Negative); Bilirubin Urine Negative (Negative); Blood Urine Trace (Negative); Color Urine Yellow; Glucose Urine UA Negative (Negative); Ketones Urine Negative (Negative); Leukocyte Esterase Urine Negative (Negative); Nitrite Urine Negative (Negative); Protein Urine Negative (Negative); Specific Gravity Urine 1.044 (1.000-1.030); Urobilinogen Urine Negative (Negative)
[2019-02-15] MEDS: OXYCODONE HCL IR 5 MG TAB (IMMEDIATE RELEASE) PO PRN (23:46)
[2019-02-16] MEDS: ZOLPIDEM TARTRATE 5 MG TAB PO PRN (00:58)
[2019-02-16] MEDS: OXYCODONE HCL IR 5 MG TAB (IMMEDIATE RELEASE) PO PRN ×4 (03:26→21:41)
[2019-02-16] MEDS ORDERED: METOPROLOL TARTRATE 1 MG/ML VIAL IV ONE (05:56)
[2019-02-16] MEDS: CEFTOLOZANE/TAZOBACTAM 1,500 MG in DEXTROSE 5% 100 ML IV SCH ×3 (05:58→21:45)
[2019-02-16] MEDS ORDERED: METOPROLOL TARTRATE 1 MG/ML VIAL IV STA (05:58)
[2019-02-16] MEDS: LEVOTHYROXINE SODIUM 50 MCG TABLET PO SCH (06:00)
[2019-02-16] MEDS ORDERED: IPRATROPIUM BROMIDE NEB SOLN 0.02% 2.5 ML VIAL INH ONE (06:01)
[2019-02-16] MEDS ORDERED: LEVALBUTEROL HCL 0.63 MG/3 ML NEB NEB ONE (06:01)
[2019-02-16] MEDS ORDERED: XOPENEX/ATROVENT 0.63mg/0.5MG NEB COMBO NEB ONE (06:02)
[2019-02-16] MEDS ORDERED: FUROSEMIDE 40 MG/4 ML VIAL IV ONE (06:05)
[2019-02-16] MEDS ORDERED: FUROSEMIDE 20 MG in SYRINGE 0 ML IV ONE (06:05)
--- NOTE | 2019-02-16 07:39 | Family Medicine Progress Note ---
Date of Service February 16, 2019 Assessment & Plan (1) Pleural effusion: Ms. Epstein is a 68 year old female with a past medical history of metastatic breast CA receiving chemo, chronic L breast wound, hypothyroidism, anemia, diastolic CHF. The pt was recently admitted for recurrent cellulitis of a nonhealing wound of the L breast. She was placed on a 2 week course of IV Zerbaxa and PO Doxy to cover both MRSA and Pseudomonas which were cultured from the wound. She was DCd to [facility] to complete her IV antibiotics. She presents from [facility] with progressive SOB and hypoxia. A CTA was obtained in the ER demonstrating a large R pleural effusion with right lower lobe volume loss and associated cystic/necrotic parenchymal change. Right pleural effusion - a/w SOB/hypoxia - thank you to Dr. Sams for consult -> drained 1.7L of fluid, consistent w/ exudate. Concerning for malignant effusion given hx of cancer w/metastases to lungs - wean O2 as tolerated, pt has been able to decrease from 10L to 3L via oxymask Cellulitis of L breast - follows at a wound clinic and will complete a 2 week antibiotic course of doxycycline and ceftolazone/tazobactam on 02/18 Atrial Fibrillation -patient had two runs of afib today, first lasting approx 15 mins and reverting back to sinus after 5mg of IV lopressor, and second lasting 3 minutes, and reverted back to sinus w/out intervention -pt was asymptomatic both times -concerning for paroxysmal afib given pt is asymptomatic during these episodes -ECHO ordered -lopressor 5mg ordered prn for HR >120 -will discuss anticoagulation w/patient tomorrow. Start heparin drip if she has another episode of afib. Her episodes may have just been provoked by large pleural effusion as opposed to paroxysmal afib. Breast Cancer - her chemo is on hold due to her cellulitis and will resume after per pt - consulted heme/onc Diastolic CHF - does not normally take diuretics Hypothyroidism - continue Synthroid Anemia -Hgb is at baseline level of 9.9 Protein malnutrition - supplements provided Code status: Full DVT Prophylaxis: 5,000 units heparin BID Disposition: remains on telemetry (2) Hypoxia: (3) Metastatic breast cancer: (4) Breast mass, right: (5) Cellulitis of left breast: (6) MRSA (methicillin resistant Staphylococcus aureus) infection: (7) Pseudomonas aeruginosa infection: (8) Chronic diastolic heart failure: (9) Hypothyroidism: (10) Anemia due to antineoplastic chemotherapy: Supervising Physician Co-Signing Physician Notes Attending attestation Pt seen and examined in concert with Dr. Benavides. In agreement with the documented findings as noted in the resident documentation with any exceptions or additions as noted here. Evaluated following pleural tap by CT surgery. Since that time, patient reports moderate improvement in symptoms, though still feeling shortness of breath with removal of supportive oxygen. On examination, decreased breath sounds of the b/l lower lobes worse on the right with faint scattered wheeze. S1/S2 nl RRR. Abd NT/ND BS +Ve. Breast wound dressed, C/D/I Right pleural effusion in the setting of metastatic breast cancer - suspect exudative effusion - consultation of heme/onc for impact of acute illness on course of therapy to determine further management - wean O2 as tolerated, pain mgmt with PO regimen Cellulitis of L breast - continue abx course Diastolic CHF - avoid fluid overload, monitor I/O Else see resident documentation as noted. Subjective Ms. Epstein reports she feels improved after her thoracentesis. She states that her breathing is much easier. She does report a cough, and states she has not had a history of pleural effusion before. She was asymptomatic during her 2 episodes of atrial fibrillation, and states that she does not have a history of afib. She notes that she has chronic leg swelling. Constitutional: + fatigue; no fever and no chills Respiratory: + cough Cardiovascular: + edema; no chest pain, no syncope and no calf pain Gastrointestinal: no abdominal pain, no nausea and no vomiting Physical Exam Vital Signs (Past 24 Hours): Last Vital Signs Temp 36.8 C 02/16/19 07:06 Pulse 83 02/16/19 07:06 Resp 19 02/16/19 07:06 BP 124/75 02/16/19 07:06 Pulse Ox 95 02/16/19 07:06 Constitutional: WD/WN, vitals as above cooperative and comfortable Respiratory: able to speak in complete sentences; no respiratory distress Auscultation: + diminished lung sounds and + crackles (over right side of lung) Cardiovascular: Rate/Rhythm: regular rate and regular rhythm Extremities: + edema (1+ edema bilaterally); no calf tenderness Gastrointestinal (Abdomen): Percussion/Palpation: abdomen soft; abdomen nontender, no guarding and abdomen not rigid Results & Data Laboratory Results Laboratory Results - last 24 hr 02/15/19 02/15/19 02/16/19 22:30 23:00 07:39 POC pH 7.34 L POC pCO2 57 H POC pO2 75 L POC HCO3 31 H POC Total CO2 32 H POC Base Excess 5.0 H POC ABG O2 Sat 94.0 Shilo Test NA O2 Delivery Device SimpleMask Urine Color Yellow Urine Appearance Clear Urine pH 6.0 Ur Specific Boomer 1.044 H Urine Protein Negative Urine Glucose (UA) Negative Urine Ketones Negative Urine Blood Trace H Urine Nitrite Negative Urine Bilirubin Negative Urine Urobilinogen Negative Ur Leukocyte Esterase Negative Urine WBC (Auto) 1-5 Urine RBC (Auto) 5-10 H U Hyaline Cast (Auto) 1-5 U Epithel Cells (Auto) 5-10 H Urine Bacteria (Auto) Negative Pleural Fluid Source Pleural Color Pleural Appearance Pleural WBC Pleural RBC Pleural Polynuclear % Pleural Mononuclear % Pleural Total Protein Pleural LDH Pleural Glucose Nasal Screen MRSA (PCR) Negative 02/16/19 Unknown POC pH POC pCO2 POC pO2 POC HCO3 POC Total CO2 POC Base Excess POC ABG O2 Sat Shilo Test O2 Delivery Device Urine Color Urine Appearance Urine pH Ur Specific Boomer Urine Protein Urine Glucose (UA) Urine Ketones Urine Blood Urine Nitrite Urine Bilirubin Urine Urobilinogen Ur Leukocyte Esterase Urine WBC (Auto) Urine RBC (Auto) U Hyaline Cast (Auto) U Epithel Cells (Auto) Urine Bacteria (Auto) Pleural Fluid Source RIGHT LUNG Pleural Color YELLOW Pleural Appearance CLEAR Pleural WBC 633 Pleural RBC < 3000 Pleural Polynuclear % 55.2 Pleural Mononuclear % 44.8 Pleural Total Protein 4.4 Pleural LDH 819 Pleural Glucose 102 Nasal Screen MRSA (PCR) Medications Administered Current Inpatient Medications Al Hydrox/Mg Hydrox/Simethicone (Maalox) 15 ml PO Q4H PRN PRN Reason: Dyspepsia Stop: 03/17/19 20:58 Ascorbic Acid (Vitamin C) [facility] Stop: 03/18/19 08:59 Last Admin: 02/16/19 09:45 Dose: 500 mg Documented by: Calcium Citrate (Citracal) 950 mg PO DAILY@1100 [facility] Stop: 03/18/19 10:59 Last Admin: 02/16/19 11:54 Dose: 950 mg Documented by: Celecoxib (Celebrex) 200 [facility] Stop: 03/18/19 08:59 Last Admin: 02/16/19 09:44 Dose: 200 mg Documented by: Docusate Sodium (Colace) 100 mg PO BID [facility] Stop: 03/17/19 20:59 Last Admin: 02/16/19 09:44 Dose: 100 mg Documented by: Doxycycline Hyclate (Vibramycin) 100 mg PO BID [facility] Stop: 02/22/19 20:59 Last Admin: 02/16/19 09:45 Dose: 100 mg Documented by: Heparin Sodium (Porcine) (Heparin Sod 100 Unit/Ml Flush) 5 ml FLUSH PRN PRN PRN Reason: Flush Stop: 03/18/19 01:59 Ceftolozane/Tazobactam 1,500 (mg/ Dextrose) 111.4 mls @ 111.4 mls/hr IV Q8H [facility] Stop: 02/18/19 23:59 Last Infusion: 02/16/19 15:35 Dose: Infused Documented by: Ioversol (Optiray 320 125ml) 119 ml IV ONCE PRN PRN Reason: Interaction Checking Stop: 02/19/19 17:15 Last Admin: 02/15/19 17:16 Dose: 119 ml Documented by: Levothyroxine Sodium (Synthroid) 50 mcg PO DAILYBB [facility] Stop: 03/18/19 06:29 Last Admin: 02/16/19 06:00 Dose: Not Given Documented by: Ondansetron HCl (Zofran) 4 mg IV Q6H PRN PRN Reason: Nausea Stop: 03/17/19 20:58 Oxycodone HCl (Oxycontin) 80 mg PO Q12 [facility] Stop: 03/01/19 20:59 Last Admin: 02/16/19 09:44 Dose: 80 mg Documented by: Oxycodone HCl (Roxicodone Immediate Rel) 15 mg PO Q4H PRN PRN Reason: pain Stop: 03/01/19 20:58 Last Admin: 02/16/19 15:35 Dose: 15 mg Documented by: Polyethylene Glycol (Miralax Powder Packet) 17 gm PO DAILY [facility] Stop: 03/18/19 08:59 Last Admin: 02/16/19 09:44 Dose: 17 gm Documented by: Senna/Docusate Sodium (Senokot S) 1 tab PO DAILY@1900 [facility] Stop: 03/18/19 18:59 Sennosides (Senokot) 17.2 mg PO QAM [facility] Stop: 03/18/19 08:59 Last Admin: 02/16/19 09:44 Dose: 17.2 mg Documented by: Vitamin D (Vitamin D3) 1,000 units PO DAILY [facility] Stop: 03/18/19 08:59 Last Admin: 02/16/19 09:44 Dose: 1,000 units Documented by: Vitamin E (Vitamin E) 400 units PO QAM [facility] Stop: 03/18/19 08:59 Last Admin: 02/16/19 09:44 Dose: 400 units Documented by: Zolpidem Tartrate (Ambien) 5 mg PO HS PRN PRN Reason: insomnia Stop: 03/17/19 20:58 Last Admin: 02/16/19 00:58 Dose: 5 mg Documented by: Resident Activity Tracking Resident Involvement: Resident Care Provided Care Provided: Adult Hospital Medicine (1) Hypothyroidism Hypothyroidism type: acquired Qualified Code(s): E03.9 - Hypothyroidism, unspecified
--- NOTE | 2019-02-16 07:51 | Post Operative Brief Note ---
Immediate Post Op Note v1 Date of Surgery February 16, 2019 Pre & Post Diagnosis right pleural effusion hx of breast cancer Procedure ultrasound guided right thoracentesis Surgeon Bradley Sams MD, FACS [employer] Counter Clerk Guzman Naylor MD Estimated Blood Loss 0 Findings Consistent with Post-Op Diagnosis
[2019-02-16 08:08] LABS: iSTAT Arterial Blood Gas HCO3 31 meg/L (19-24); iSTAT Arterial Blood Gas pCO2 57 mmHg (35-46); iSTAT Arterial Blood Gas pH 7.34 (7.35-7.45); iSTAT Carbon Dioxide 32 mEq/l (24-31)
--- NOTE | 2019-02-16 08:22 | XRay Report ---
XR chest 1V portable CLINICAL HISTORY: S/P Thoracentesis COMPARISON STUDY: Chest radiograph and chest CT February 15, 2019. FINDINGS: Right subclavian [id number] is in place. Numerous pulmonary metastases are noted. A righ t pleural effusion has decreased in size following thoracentesis. There is no pneumothorax. There is a small left pleural effusion. Cardiomediastinal silhouette is stable. IMPRESSION: Interval decrease in size of a right pleural effusion status post thoracentesis. No pne umothorax. Otherwise, unchanged appearance of the chest. Electronically signed by: Flash Rios M.D. 02/16/2019 8:21 AM
[2019-02-16 08:35] LABS: Glucose Pleural Fluid 102 mg/dl
[2019-02-16 08:41] LABS: LDH Pleural Fluid 819 U/L; Total Protein Pleural Fluid 4.4 g/dl
[2019-02-16 09:13] LABS: Appearance Pleural Fluid CLEAR; Color Pleural Fluid YELLOW; Mononuclear WBC Pleural 44.8 %; Polynuclear WBC Pleural 55.2 %; RBC Pleural Fluid (A) < 3000 /uL; Source Pleural Fluid RIGHT LUNG; WBC Pleural Fluid (A) 633 /uL
[2019-02-16] MEDS: SENNA 8.6 MG TAB PO SCH (09:44)
[2019-02-16] MEDS: DOCUSATE SODIUM 100 MG CAP PO SCH ×2 (09:44→20:04)
[2019-02-16] MEDS: POLYETHYLENE (MIRALAX) 17 GM PACK PO SCH (09:44)
[2019-02-16] MEDS: CHOLECALCIFEROL 1,000 UNITS TAB PO SCH (09:44)
[2019-02-16] MEDS: TOCOPHERYL, DL-ALPHA 400 UNITS CAP PO SCH (09:44)
[2019-02-16] MEDS: OXYCODONE HCL 40 MG TABCR (OXYCONTIN) PO SCH ×2 (09:44→20:04)
[2019-02-16] MEDS: CeleBREX 200 MG CAP PO SCH (09:44)
[2019-02-16] MEDS: DOXYCYCLINE HYCLATE 100 MG CAP PO SCH ×2 (09:45→20:03)
[2019-02-16] MEDS: ASCORBIC ACID 500 MG TAB PO SCH (09:45)
[2019-02-16] MEDS: CALCIUM CITRATE 950 MG TAB PO SCH (11:54)
[2019-02-16] MEDS: DOCUSATE SODIUM/SENNA 50/8.6MG TAB PO SCH (18:22)
[2019-02-16] MEDS ORDERED: METOPROLOL TARTRATE 1 MG/ML VIAL IV PRN (18:26)
[2019-02-16] MEDS: HEPARIN SOD 5,000 UNIT/0.5 ML VIAL SQ SCH (20:07)
--- NOTE | 2019-02-17 00:50 | Consultation Report ---
DATE OF CONSULTATION: 02/16/2019 REASON FOR CONSULTATION: Large right pleural effusion. HISTORY OF PRESENT ILLNESS: This is an unfortunate 68-year-old who has widely metastatic breast cancer who has a chronic left breast wound apparently secondary to her cancer who was found to have a very large right pleural effusion. She was quite short of breath and was admitted last night by Dr. Pan. I saw her in the morning of 02/16/2019. CT scan showed obvious metastatic disease on the right side also. Her big problem is the open wound with eschar and exophytic mass on her left chest. PAST MEDICAL HISTORY: 1. Enlarging right pleural effusion. 2. Cellulitis, left breast and open wound. 3. Metastatic breast cancer. 4. Diastolic failure. 5. Malnutrition. 6. Anemia. 7. Hypothyroidism. PAST SURGICAL HISTORY: 1. Multiple breast biopsies. 2. Left partial mastectomy, sentinel node biopsy 2015. 3. Insertion of a Port-A-Cath. 4. Radiation therapy (5000 cGy). MEDICATIONS 1. Vitamin C. 2. Doxycycline. 3. Synthroid. 4. Ambien. 5. Synthroid. 6. [place] 3 fish oil. 7. Zofran. 8. Vitamin D. 9. OxyContin for pain. 10. Celebrex. 11. Zerbaxa. 12. Zofran. 13. MiraLax. ALLERGIES: No known drug allergies. SOCIAL HISTORY: The patient has never smoked cigarettes. She lives alone at home. She is followed at the wound center. REVIEW OF SYSTEMS: The patient looks terrible. She has a nonhealing wound that looks absolutely awful on her left chest. This is due to her cancer. There is an eschar more superiorly but the wound is exophytic and does ooze fluid and blood. She has been markedly more short of breath. She did have recurrent cellulitis in this area of her left chest. She actually has been at [facility], more recently has become hypoxic. She also has chest pain because of this wound. She denies any visual or auditory changes. She denies any nausea, vomiting or diarrhea, but she has lost weight and does not have much of an appetite. She has had no focal neurologic deficits. PHYSICAL EXAMINATION: GENERAL: This is a 5 feet 9 inch, 180-pound white female who looks terrible. HEENT: Her extraocular movements are intact. She does not feel well. He has some temporal wasting. Tongue is midline. NECK: Thin, supple. She has well-healed right Port-A-Cath. LUNGS: She has decreased breath sounds on the right. She has a terrible, very large exophytic area in her left mid chest in the area of her left breast location. I do not see evidence of a breast now. ABDOMEN: Soft, nontender. EXTREMITIES: She has peripheral edema, but easily palpable pulses. She has about 2+. She has no joint effusions. NEUROLOGIC: She has a flat affect but has no focal deficits. ASSESSMENT AND PLAN: Large right homogenous effusion. We will proceed with a thoracentesis later today. CHICHO
--- NOTE | 2019-02-17 00:54 | Operative Report ---
DATE OF OPERATION: 02/16/2019 PREOPERATIVE DIAGNOSES: 1. Large right pleural effusion. 2. Metastatic breast cancer. POSTOPERATIVE DIAGNOSES: 1. Large right pleural effusion. 2. Metastatic breast cancer. PROCEDURE: Right thoracentesis under ultrasound guidance. SURGEON: Bradley Sams MD EDGING SUPERVISOR: Dr. Naylor ANESTHESIA: Local. DESCRIPTION OF PROCEDURE: The patient in seated position, right chest was evaluated with an ultrasound. We saw good window to approach this. She was prepped and draped in usual sterile fashion. After appropriate timeout had been called and of course, the consent had been obtained earlier, a 25-gauge needle was used to raise the skin wheal, at this area we had marked with the ultrasound. Large bore needle was used to enter the pleural cavity, got yellow fluid out and a guidewire was inserted with the needle and needle removed. Triple lumen catheter was slid over the guidewire. The guidewire removed. About 1500 mL of a yellowish fluid was drained, which appeared serous. She had some reexpansion coughing and we stopped. Her x-ray showed no evidence of pneumothorax and actually her lung field looks much better. She tolerated it well. We put antimicrobial dressing on the puncture site. I attest to the content of the Intraoperative Record and any orders documented therein. Any exceptions are noted below. MTDD
[2019-02-17] MEDS ORDERED: FUROSEMIDE 20 MG in SYRINGE 0 ML IV ONE ×2 (04:00→22:00)
[2019-02-17] MEDS: OXYCODONE HCL IR 5 MG TAB (IMMEDIATE RELEASE) PO PRN ×5 (04:44→23:59)
[2019-02-17] MEDS: CEFTOLOZANE/TAZOBACTAM 1,500 MG in DEXTROSE 5% 100 ML IV SCH ×3 (06:13→21:18)
[2019-02-17] MEDS: LEVOTHYROXINE SODIUM 50 MCG TABLET PO SCH (06:14)
[2019-02-17 06:59] LABS: Basophils # (auto) 0.02 K/uL (0-0.2); Basophils % (auto) 0.2 %; Eosinophils # (auto) 0.17 K/uL (0-0.5); Eosinophils % (auto) 1.6 %; Hematocrit (blood only) 31.4 % (37-47); Hemoglobin 9.2 g/dL (12.0-16.0); Immature Granulocytes # (auto) 0.02 K/uL (0.00-0.02); Immature Granulocytes % (auto) 0.2 %; Lymphocytes # (auto) 0.49 K/uL (1.2-3.4); Lymphocytes % (auto) 4.7 %; Mean Corpuscular Hgb Conc 29.3 g/dL (32-36); Mean Corpuscular Volume 78.5 fL (80-100); Monocytes # (auto) 0.92 K/uL (0.11-0.59); Monocytes % (auto) 8.9 %; Neutrophils # (auto) 8.72 K/uL (1.4-6.5); Neutrophils % (auto) 84.4 %; Platelet Count 425 K/uL (130-400); RDW Coefficient of Variation 20.6 % (11.5-14.5); RDW Standard Deviation 58.5 fL (36.4-46.3); White Blood Count 10.34 K/uL (4.8-10.8)
[2019-02-17 07:12] LABS: INR 1.2 (0.9-1.1); Prothrombin Time 11.9 Seconds (9.0-12.0)
--- NOTE | 2019-02-17 07:13 | Family Medicine Progress Note ---
Date of Service February 17, 2019 Assessment & Plan (1) Pleural effusion: Ms. Epstein is a 68 year old female with a past medical history of metastatic breast CA receiving chemo, chronic L breast wound, hypothyroidism, anemia, diastolic CHF. The pt was recently admitted for recurrent cellulitis of a nonhealing wound of the L breast. She was placed on a 2 week course of IV Zerbaxa and PO Doxy to cover both MRSA and Pseudomonas which were cultured from the wound. She was DCd to [facility] to complete her IV antibiotics. She presents from [facility] with progressive SOB and hypoxia. A CTA was obtained in the ER demonstrating a large R pleural effusion with right lower lobe volume loss and associated cystic/necrotic parenchymal change. Right pleural effusion - a/w SOB/hypoxia - thank you to Dr. Sams for consult -> drained 1.5L of fluid via thoracente sis, consistent w/exudate. Concerning for malignant effusion given hx of cancer w/metastases to lungs - wean O2 as tolerated. Pt was able to wean down from 10L via oxymask to 2L via nasal cannula, however felt more SOB overnight and required an increase to 4L - repeat CXR does show remnant small effusion on right side - pt was given 20mg of IV Lasix this AM with good effect. Will give Lasix prn based on patient's symptoms. Anticipate she will need to be discharged with 24h oxygen Cellulitis of L breast - follows at a wound clinic and will complete a 2 week antibiotic course of doxycycline and ceftolazone/tazobactam on 02/18 (tomorrow) Atrial Fibrillation -patient had two runs of afib yesterday, first lasting approx 15 mins and reverting back to sinus after 5mg of IV lopressor, and second lasting 3 minutes, and reverted back to sinus w/out intervention. She has not had further episodes of atrial fibrillation in the last 24h. -pt was asymptomatic both times -ECHO ordered -> limited secondary to motion degradation/bandages over chest but showed EF of 60-65% -lopressor 5mg ordered prn for HR >120 - discussed w/cardiology -> she does not require nursing home anticoagulation given episodes were related to pleural effusion as opposed to true paroxysmal afib -continue to monitor on telemetry Breast Cancer - her chemo is on hold due to her cellulitis and will resume after per pt - consulted heme/onc -> Dr. Arroyo will f/u in outpatient setting to determine course of treatment from here Diastolic CHF - does not normally take diuretics Hypothyroidism - continue Synthroid Anemia -Hgb is at baseline level of 9.2 Protein malnutrition - supplements provided Code status: Full DVT Prophylaxis: 5,000 units heparin BID Disposition: remains on telemetry (2) Hypoxia: (3) Metastatic breast cancer: (4) Breast mass, right: (5) Cellulitis of left breast: (6) MRSA (methicillin resistant Staphylococcus aureus) infection: (7) Pseudomonas aeruginosa infection: (8) Chronic diastolic heart failure: (9) Hypothyroidism: (10) Anemia due to antineoplastic chemotherapy: Supervising Physician Co-Signing Physician Notes Attending attestation Pt seen and examined in concert with Dr. Benavides. In agreement with the documented findings as noted in the resident documentation with any exceptions or additions as noted here. Gradually improving shortness of breath and tightness but still difficulty with short ambulation. Pain is well controlled at present. On examination, S1/S2 nl no MCG appreciated, decreased breath sounds bilaterally with worse at bases, worse on the right with rhonchi. Abd NT/ND BS +ve Right pleural effusion s/p thoracentesis - gradually diminished O2 need at 3L - exudative effusion concerning for metastatic source awaiting for pathology/serology. Will likely require ongoing O2 therapy Cellulitis, L breast - completing abx course tomorrow Atrial fibrillation - short runs with provoking factor without new event on tele. Echo without conclusive concern. Would avoid AC considering complicated factors Metastatic breast cancer on chemotherapy - heme/onc consultation appreciated Else see resident documentation as noted. Subjective Ms. Epstein states that she wishes to go back to [facility]. She is concerned about not receiving chemotherapy, and states that her tumors are growing while she is off the chemotherapy. She gets confused and anxious during our conversation, particularly regarding her breathing, but is easily reoriented by her son. She states that her breathing worsened this morning, and that she feels short of breath with exertion. She denies chest pain. She expresses frustration regarding having a Demarco catheter, and wants it removed. Physical Exam Vital Signs (Past 24 Hours): Last Vital Signs Temp 36.7 C 02/17/19 03:38 Pulse 77 02/17/19 03:38 Resp 20 02/17/19 03:38 BP 123/74 02/17/19 03:38 Pulse Ox 94 02/17/19 03:38 Constitutional: WD/WN, vitals as above cooperative and comfortable Respiratory: able to speak in complete sentences; no respiratory distress Auscultation: + diminished lung sounds Cardiovascular: Rate/Rhythm: regular rate and regular rhythm Extremities: + edema (1+ edema bilaterally); no calf tenderness Gastrointestinal (Abdomen): Percussion/Palpation: abdomen soft; abdomen nontender, no guarding and abdomen not rigid Skin: no rashes, warm and dry Genitourinary: demarco in place, draining yellow urine Results & Data Laboratory Results Laboratory Results - last 24 hr 02/17/19 02/17/19 02/17/19 06:29 06:29 06:29 WBC 10.34 RBC 4.00 L Hgb 9.2 L Hct 31.4 L MCV 78.5 L MCH 23.0 L MCHC 29.3 L RDW Std Deviation 58.5 H RDW Coeff of [place] 20.6 H Plt Count 425 H MPV 10.0 Immature Gran % (Auto) 0.2 Neut % (Auto) 84.4 Lymph % (Auto) 4.7 [place] % (Auto) 8.9 Eos % (Auto) 1.6 Baso % (Auto) 0.2 Immature Gran # (Auto) 0.02 Neut # (Auto) 8.72 H Lymph # (Auto) 0.49 L [place] # (Auto) 0.92 H Eos # (Auto) 0.17 Baso # (Auto) 0.02 Hypochromasia Present Anisocytosis Present Ovalocytes 1+ PT 11.9 INR 1.2 H Sodium 139 Potassium 3.7 Chloride 99 Carbon Dioxide 35 H Anion Gap 5.0 BUN 14 Creatinine 0.36 L Est Cr Clr Drug Dosing 166.5 Est GFR ( Amer) 126.6 Est GFR (Non-Af Amer) 109.3 BUN/Creatinine Ratio 38.8 H Glucose 93 Calcium 8.2 L Medications Administered Current Inpatient Medications Acetaminophen (Tylenol) 650 mg PO Q4H PRN PRN Reason: Pain Stop: 03/19/19 12:26 Al Hydrox/Mg Hydrox/Simethicone (Maalox) 15 ml PO Q4H PRN PRN Reason: Dyspepsia Stop: 03/17/19 20:58 Ascorbic Acid (Vitamin C) 500 mg PO QAM [facility] Stop: 03/18/19 08:59 Last Admin: 02/17/19 07:53 Dose: 500 mg Documented by: Calcium Citrate (Citracal) 950 mg PO DAILY@1100 [facility] Stop: 03/18/19 10:59 Last Admin: 02/17/19 10:36 Dose: 950 mg Documented by: Celecoxib (Celebrex) 200 mg PO QAM [facility] Stop: 03/18/19 08:59 Last Admin: 02/17/19 07:52 Dose: 200 mg Documented by: Docusate Sodium (Colace) 100 mg PO BID [facility] Stop: 03/17/19 20:59 Last Admin: 02/17/19 07:53 Dose: 100 mg Documented by: Doxycycline Hyclate (Vibramycin) 100 mg PO BID [facility] Stop: 02/22/19 20:59 Last Admin: 02/17/19 07:53 Dose: 100 mg Documented by: Heparin Sodium (Porcine) (Heparin Sod 100 Unit/Ml Flush) 5 ml FLUSH PRN PRN PRN Reason: Flush Stop: 03/18/19 01:59 Heparin Sodium (Porcine) (Heparin Sodium (Porcine)) 5,000 units SQ Q12 [facility] Stop: 03/18/19 20:59 Last Admin: 02/17/19 07:52 Dose: 5,000 units Documented by: Ceftolozane/Tazobactam 1,500 (mg/ Dextrose) 111.4 mls @ 111.4 mls/hr IV Q8H [facility] Stop: 02/18/19 23:59 Last Infusion: 02/17/19 15:22 Dose: Infused Documented by: Ioversol (Optiray 320 125ml) 119 ml IV ONCE PRN PRN Reason: Interaction Checking Stop: 02/19/19 17:15 Last Admin: 02/15/19 17:16 Dose: 119 ml Documented by: Levothyroxine Sodium (Synthroid) 50 mcg PO DAILYBB [facility] Stop: 03/18/19 06:29 Last Admin: 02/17/19 06:14 Dose: 50 mcg Documented by: Metoprolol Tartrate (Lopressor) 5 mg IV Q3H PRN PRN Reason: Tachycardia >120 Stop: 03/18/19 18:25 Ondansetron HCl (Zofran) 4 mg IV Q6H PRN PRN Reason: Nausea Stop: 03/17/19 20:58 Oxycodone HCl (Oxycontin) 80 mg PO Q12 [facility] Stop: 03/01/19 20:59 Last Admin: 02/17/19 10:36 Dose: 80 mg Documented by: Oxycodone HCl (Roxicodone Immediate Rel) 15 mg PO Q4H PRN PRN Reason: pain Stop: 03/01/19 20:58 Last Admin: 02/17/19 14:21 Dose: 15 mg Documented by: Polyethylene Glycol (Miralax Powder Packet) 17 gm PO DAILY [facility] Stop: 03/18/19 08:59 Last Admin: 02/17/19 07:54 Dose: Not Given Documented by: Senna/Docusate Sodium (Senokot S) 1 tab PO DAILY@1900 [facility] Stop: 03/18/19 18:59 Last Admin: 02/16/19 18:22 Dose: 1 tab Documented by: Sennosides (Senokot) 17.2 mg PO QAM [facility] Stop: 03/18/19 08:59 Last Admin: 02/17/19 08:55 Dose: 17.2 mg Documented by: Vitamin D (Vitamin D3) 1,000 units PO DAILY [facility] Stop: 03/18/19 08:59 Last Admin: 02/17/19 07:54 Dose: 1,000 units Documented by: Vitamin E (Vitamin E) 400 units PO QAM [facility] Stop: 03/18/19 08:59 Last Admin: 02/17/19 07:52 Dose: 400 units Documented by: Zolpidem Tartrate (Ambien) 5 mg PO HS PRN PRN Reason: insomnia Stop: 03/17/19 20:58 Last Admin: 02/16/19 00:58 Dose: 5 mg Documented by: Resident Activity Tracking Resident Involvement: Resident Care Provided Care Provided: Adult Hospital Medicine (1) Hypothyroidism Hypothyroidism type: acquired Qualified Code(s): E03.9 - Hypothyroidism, unspecified
[2019-02-17 07:24] LABS: Anisocytosis Present; Hypochromasia Present; Ovalocytes 1+
[2019-02-17 07:26] LABS: BUN Creatinine Ratio 38.8 (10-20); Calcium 8.2 mg/dl (8.5-10.1); Creatinine Clr Calc Pharmacy 166.5 ml/min; Est GFR (African American) 126.6; Est GFR (Non-African American) 109.3; Potassium 3.7 mmol/L (3.5-5.1)
[2019-02-17] MEDS: HEPARIN SOD 5,000 UNIT/0.5 ML VIAL SQ SCH ×2 (07:52→19:55)
[2019-02-17] MEDS: TOCOPHERYL, DL-ALPHA 400 UNITS CAP PO SCH (07:52)
[2019-02-17] MEDS: CeleBREX 200 MG CAP PO SCH (07:52)
[2019-02-17] MEDS: ASCORBIC ACID 500 MG TAB PO SCH (07:53)
[2019-02-17] MEDS: DOXYCYCLINE HYCLATE 100 MG CAP PO SCH ×2 (07:53→19:54)
[2019-02-17] MEDS: DOCUSATE SODIUM 100 MG CAP PO SCH ×2 (07:53→19:54)
[2019-02-17] MEDS: CHOLECALCIFEROL 1,000 UNITS TAB PO SCH (07:54)
[2019-02-17] MEDS: POLYETHYLENE (MIRALAX) 17 GM PACK PO SCH (07:54)
[2019-02-17] MEDS: SENNA 8.6 MG TAB PO SCH (08:55)
[2019-02-17] MEDS: CALCIUM CITRATE 950 MG TAB PO SCH (10:36)
[2019-02-17] MEDS: OXYCODONE HCL 40 MG TABCR (OXYCONTIN) PO SCH ×2 (10:36→21:17)
--- NOTE | 2019-02-17 10:36 | XRay Report ---
XR chest 2V routine CLINICAL HISTORY: sob, effusion dyspnea COMPARISON STUDY: 02/16/2019 FINDINGS: Similar study. Diffuse pulmonary nodularity as well as hilar armando pathology and enlargemen t area that this is unchanged. Right basilar effusion unchanged. No significant pneumothorax. IMPRESSION: Unchanging mediastinal and parenchymal/pleural based nodularity. Unchanged right pleural effusion. The above report was generated using voice recognition software. It may contain grammatical, syntax or spelling errors. Electronically signed by: Efraín Vasquez M.D. 02/17/2019 10:35 AM
[2019-02-17] MEDS ORDERED: ACETAMINOPHEN 325 MG TAB PO PRN (12:27)
--- NOTE | 2019-02-17 13:44 | Consultation Report ---
DATE OF CONSULTATION: 02/17/2019 MEDICAL ONCOLOGY CONSULTATION HISTORY OF PRESENT ILLNESS: Rula is a very pleasant 68-year-old female patient well known to [facility], currently under Dr. Arroyo's care with metastatic breast carcinoma. She had just completed a lengthy admission for recurrent cellulitis, but nonhealing wound involving her left breast. Specifically, she was placed on 2-week course of IV Zerbaxa and p.o. doxycycline to cover both pseudomonas and MRSA, which were culture positive from the wound. She was subsequently discharged to [facility] to complete IV antibiotics. She was brought back over through the Emergency Department from [facility] complaining of progressive shortness of breath and dyspnea. CTA of the chest revealed a large right pleural effusion with right lower lobe volume loss and associated necrotic parenchymal change. She denied any fevers or chills. She was subsequently seen by Dr. Bradley Sams and underwent thoracentesis on 02/16 yielding 1500 mL of yellowish fluid. Fluid cytology is pending, but most certainly suspicious for malignancy. Again, the patient is established with Dr. Angelo Arroyo, her original diagnosis was made approximately 3 years ago, stage IIA, recently developed metastatic disease and has been receiving Halaven, last course administered in mid December. Primary service is requesting assistance and therapeutic recommendations moving forward. PAST MEDICAL HISTORY: Again, significant for metastatic breast cancer, chronic normocytic normochromic anemia, hypothyroidism, nonhealing left-sided breast wound/cellulitis, hypothyroidism, chronic diastolic CHF. PAST SURGICAL HISTORY: Status post partial mastectomy, cataracts, foot surgery and right chest Port-A-Cath. MEDICATIONS: Prior to admission include vitamin C 500 mg p.o. daily, levothyroxine 50 mcg p.o. daily, omega-3 fish oil 1000 mg p.o. daily, vitamin E 400 units p.o. q.a.m., calcium citrate 250 mg p.o. daily, cholecalciferol 1000 units p.o. daily, Zofran 8 mg p.o. q. 8 hours p.r.n., Zerbaxa 1.5 grams IV q. 8 hours for 12 days, Celebrex 200 mg p.o. daily, docusate sodium 100 mg p.o. b.i.d., oxycodone 15 mg p.o. q. 4 hours p.r.n. for breakthrough, OxyContin 80 mg p.o. q. 12 hours, MiraLax 17 grams p.o. daily, Senokot 17.2 mg p.o. daily, Ambien 5 mg p.o. at bedtime p.r.n., doxycycline 100 mg p.o. b.i.d. ALLERGIES: No known drug allergies. SOCIAL HISTORY: The patient lives independently. She is a nonsmoker, nondrinker. Non-illicit drug user. FAMILY HISTORY: Father due to complications of cerebrovascular accident. Mother attributable to leukemia. REVIEW OF SYSTEMS: Most notably for shortness of breath, dyspnea on exertion, newly discovered right-sided malignant pleural effusion. GENERAL: Negative for fevers or chills. She admits to anorexia and loss of about 30 pounds weight. SKIN: Positive for nonhealing cellulitis/ulcer, left chest wall. HEENT: Negative for headaches, lightheadedness or dizziness. No acute visual or hearing deficits. No sinus symptoms, sore throat or dysphagia. LYMPH: No history of lymphoproliferative disease. CARDIAC: No history of coronary artery disease. No current angina or palpitations. PULMONARY: As per HPI. GASTROINTESTINAL: Negative for abdominal pain, nausea or vomiting. Positive for constipation from chronic opioids. No hematochezia or melena. GENITOURINARY: No hematuria, dysuria, urinary incontinence. PSYCHIATRIC: Negative for anxiety or depression. ENDOCRINE: Positive for hypothyroidism. NEUROLOGIC: Negative for seizure, stroke, or migraine headache. HEMATOLOGIC: Positive for chronic anemia. PHYSICAL EXAMINATION: GENERAL: Pleasant, but somewhat frustrated 68-year-old female patient, in no acute distress. VITAL SIGNS: Temperature 37, pulse 92, respiratory rate 22, blood pressure 136/81. SKIN: Without rash or lesion other than the aforementioned cellulitic site. HEENT: Atraumatic, normocephalic. Eyes: PERRLA, EOMI. Sclerae nonicteric. No conjunctival injection. Nares patent without rhinorrhea or discharge. Throat clear. Tongue midline. Mucous membranes are moist. NECK: Supple. Trachea is midline. LYMPH: No cervical or supraclavicular palpable nodes. HEART: Regular rate and rhythm. No clicks, rubs, murmurs or gallops. LUNGS: Diminished breath sounds in both posterior bases. ABDOMEN: Soft, nontender, nondistended, without palpable hepatosplenomegaly. EXTREMITIES: No calf tenderness or swelling. No clubbing, cyanosis or edema. MUSCULOSKELETAL: Strength and pulses are equal in all 4 quadrants. NEUROLOGICALLY: She is awake, alert and oriented x3. Cranial nerves II-XII are intact. LABORATORY DATA: WBC count 10,340, hemoglobin 9.2, platelet count 425,000. Sodium 139, potassium 3.7, chloride 99, carbon dioxide 35, creatinine 0.36, BUN 14. IMPRESSION: 1. Right-sided pleural effusion (await cytology). 2. Metastatic breast cancer. 3. Left chest wall cellulitis. 4. Diastolic congestive heart failure. 5. Hypothyroidism. 6. Chronic anemia. 7. Hypoalbuminemia. PLAN: I had the pleasure of visiting with Rula at bedside today. She was last seen in the office on 14 of January. Shortly thereafter, was admitted because of nonhealing chest wall ulceration/cellulitis. She has been on IV antibiotics for a couple of weeks while convalescing in [facility]. Apparently, she became acutely short of breath and was transported back to [facility] and admitted because of a large right pleural effusion. Dr. Sams saw the patient in consultation and performed a thoracentesis yesterday yielding 1500 mL of pleural fluid. Await cytology results; however, would not be surprising if the effusion is malignant. The patient had been receiving Halaven at Dr. Arroyo's direction. I spoke to Dr. Arroyo this morning regarding her case and he will make arrangements to see her back in short order once medically stable to decide how to proceed therapeutically. Agree with current management at present and have no further recommendations at this time. Thank you very much for assisting us in the care of this very pleasant patient. CHICHO
[2019-02-17] MEDS: DOCUSATE SODIUM/SENNA 50/8.6MG TAB PO SCH (18:11)
--- NOTE | 2019-02-17 20:03 | Progress Note ---
DATE: 02/15/2019 Ms. Epstein was seen today on 02/17/2019, 1 day after I performed a thoracentesis and she looks wonderful. I was surprised to see that she looks so much better. Her x-ray did look much better after we drained her yesterday. The fluid drained yesterday morning does show malignant cells consistent with metastatic adenocarcinoma which is triple negative. She is awake and alert. Her breath sounds are better. I removed her thoracentesis dressing and it is dry. Currently, the patient has a large exophytic lesion of her left chest from recurrent right breast cancer and is eager to resume therapy. At this point, on 3 liters she has 95% saturations. I assume this fluid is going to recur in which case I explained to her that there are different ways to treat this including an indwelling pleural catheter as well as a thoracoscopy with talc pleurodesis and I would wait for the fluid to reaccumulate before I would offer anything to her, especially in light of the fact that she is being treated. She understands. I will be glad to see her back in the office at any time. I will schedule appointment to see her in 2 weeks and we will discuss this in more detail. CHICHO
[2019-02-17] MEDS: HEPARIN 100 UNIT/ML 5ML FLUSH FLUSH PRN (22:32)
[2019-02-18] MEDS: HEPARIN 100 UNIT/ML 5ML FLUSH FLUSH PRN ×2 (04:54→06:52)
[2019-02-18 04:58] LABS: Basophils # (auto) 0.01 K/uL (0-0.2); Basophils % (auto) 0.1 %; Eosinophils % (auto) 3.1 %; Hematocrit (blood only) 30.4 % (37-47); Hemoglobin 9.2 g/dL (12.0-16.0); Immature Granulocytes # (auto) 0.02 K/uL (0.00-0.02); Immature Granulocytes % (auto) 0.2 %; Lymphocytes # (auto) 0.87 K/uL (1.2-3.4); Lymphocytes % (auto) 9.1 %; Mean Corpuscular Hgb Conc 30.3 g/dL (32-36); Mean Corpuscular Volume 77.6 fL (80-100); Mean Platelet Volume 9.7 fL (7.4-10.4); Monocytes # (auto) 0.51 K/uL (0.11-0.59); Monocytes % (auto) 5.4 %; Neutrophils # (auto) 7.82 K/uL (1.4-6.5); Neutrophils % (auto) 82.1 %; Platelet Count 384 K/uL (130-400); RDW Standard Deviation 56.7 fL (36.4-46.3); Red Blood Count 3.92 M/uL (4.2-5.4); White Blood Count 9.53 K/uL (4.8-10.8)
[2019-02-18 05:17] LABS: BUN Creatinine Ratio 47.4 (10-20); Calcium 8.2 mg/dl (8.5-10.1); Creatinine Clr Calc Pharmacy 206.7 ml/min; Est GFR (Non-African American) 117.3; Potassium 3.8 mmol/L (3.5-5.1)
[2019-02-18 05:22] LABS: Partial Thromboplastin Ratio 3.2
[2019-02-18 05:30] LABS: Anisocytosis Present; Hypochromasia Present; Ovalocytes 1+; Partial Thromboplastin Time 87.1 Seconds (21.0-31.0)
[2019-02-18] MEDS: LEVOTHYROXINE SODIUM 50 MCG TABLET PO SCH (05:45)
[2019-02-18] MEDS: CEFTOLOZANE/TAZOBACTAM 1,500 MG in DEXTROSE 5% 100 ML IV SCH ×3 (05:45→22:36)
[2019-02-18] MEDS: OXYCODONE HCL IR 5 MG TAB (IMMEDIATE RELEASE) PO PRN ×3 (06:32→23:06)
[2019-02-18] MEDS: OXYCODONE HCL 40 MG TABCR (OXYCONTIN) PO SCH ×2 (08:12→20:33)
[2019-02-18] MEDS: POLYETHYLENE (MIRALAX) 17 GM PACK PO SCH (08:12)
[2019-02-18] MEDS: TOCOPHERYL, DL-ALPHA 400 UNITS CAP PO SCH (08:13)
[2019-02-18] MEDS: CeleBREX 200 MG CAP PO SCH (08:13)
[2019-02-18] MEDS: SENNA 8.6 MG TAB PO SCH (08:13)
[2019-02-18] MEDS: ASCORBIC ACID 500 MG TAB PO SCH (08:13)
[2019-02-18] MEDS: DOXYCYCLINE HYCLATE 100 MG CAP PO SCH ×2 (08:13→20:34)
[2019-02-18] MEDS: DOCUSATE SODIUM 100 MG CAP PO SCH ×2 (08:14→20:34)
[2019-02-18] MEDS: CHOLECALCIFEROL 1,000 UNITS TAB PO SCH (08:14)
--- NOTE | 2019-02-18 10:15 | Progress Note ---
DATE: 02/18/2019 Ms. Epstein was seen today. Does not look as good as she did yesterday. She is requiring more oxygen up to 4 liters. She appears to be in atrial fibrillation. She still has some decreased breath sounds at the right base. We will check an x-ray tomorrow, but rather difficult situation. She has a raw surface from the tumor in her left breast and also has an eschar. One option in this patient would be to place a tube of some type and drain her and then do a pleurodesis. I will discuss this with her after I looked at the x-ray tomorrow. CHICHO
[2019-02-18] MEDS: CALCIUM CITRATE 950 MG TAB PO SCH (11:06)
[2019-02-18 11:44] LABS: INR 1.2 (0.9-1.1); Prothrombin Time 11.9 Seconds (9.0-12.0)
[2019-02-18 11:50] LABS: Albumin Level 2.4 gm/dl (3.4-5.0); BUN Creatinine Ratio 33.9 (10-20); Calcium 8.9 mg/dl (8.5-10.1); Creatinine Clr Calc Pharmacy 146.4 ml/min; Est GFR (African American) 121.3; Est GFR (Non-African American) 104.7; Potassium 3.8 mmol/L (3.5-5.1)
[2019-02-18 12:01] LABS: Albumin Globulin Ratio 0.6 (0.9-2); Bilirubin,Total 0.4 mg/dl (0.2-1); Globulin 3.8 gm/dl (2.5-4.0); Total Protein 6.2 gm/dl (6.4-8.2); Troponin I 0.039 ng/ml (0-0.045)
[2019-02-18 14:05] LABS: Partial Thromboplastin Ratio 1.1
--- NOTE | 2019-02-18 14:59 | Cardiology Consultation ---
Date of Consultation February 18, 2019 Assessment & Plan (1) Atrial fibrillation: Patient has paroxysmal atrial fibrillation. Undoubtedly her current illness plays a role in the development of this arrhythmia. Certainly pleural effusions and lung disease will promote atrial fibrillation. However, this is not mean she will not have additional episodes of atrial fibrillation going forward. Her episodes were brief at 1st but now she is having more sustained atrial fibrillation. She has some symptoms associated with the arrhythmia and some high ventricular rates. She does not appear to be on any medical therapy for atrial fibrillation at this time. I think initiation of amiodarone would be a reasonable choice. While this may not be ideal for some patients in her demographic, I do not think she will have significant toxicity in the short term, and in addition to reducing the episodes of atrial fibrillation may provide some rate control when she has atrial fibrillation. Her chads Vasc score appears to be 2 for gender and age. This would suggest her risk of stroke in the course of a year is somewhere between 2 and 3 percent. Certainly her malignancy places her at a higher risk given the underlying hypercoagulable state. I think anticoagulation can be deferred during her acute illness, especially if additional interventions may be necessary. Also, she may have a risk of hemorrhagic effusion given the malignant nature that process. While most patients with a chads Vasc score of 2 would be advised to consider systemic anticoagulation, I think hers can be deferred currently. Her risk of stroke in a year is relatively small and I suspect her overall mortality is likely high given her underlying malignancy. History of Present Illness Reason for Consultation: Atrial fibrillation Requesting Physician: Kulwinder Attending Physician: Gerald Miramontes MD History of Present Illness Patient is a 68-year-old woman without a known history of cardiovascular disease who was admitted to [facility] with a malignant effusion and associated dyspnea. Unfortunately, the patient suffers from metastatic breast cancer and is currently undergoing chemotherapy both for the systemic malignancy and treatment of an ulcerative lesion on the left breast. During this admission she did undergo thoracentesis with market improvement in her symptoms of dyspnea. However, the patient was apparently on telemetry and noted to have brief episodes of atrial fibrillation. These were associated with high ventricular rates. Initial episodes are relatively short in duration but recently they have become more sustained. Patient does notice a sense of palpitations associated with the arrhythmia and this morning felt like her breathing was slightly worse during an episode of atrial fibrillation. She did not endorse symptoms of dizziness or lightheadedness. She has not had symptoms of chest discomfort with the arrhythmia. She cannot recall having similar symptoms in the past or being told that she had atrial fibrillation previously. The patient is currently a resident of [facility] which she receives chemotherapy. She does report a good activity tolerance and next ambulate frequently. She has not report limiting symptoms associated with ambulation currently. She generally does not sleep well. But did not endorse symptoms orthopnea or paroxysmal nocturnal dyspnea. Allergies Allergy/AdvReac Type Severity Reaction Status Date / Time No Known Allergies Allergy Verified 02/15/19 13:47 Home Medications Home Medications Medication Instructions Recorded Confirmed Type ascorbic acid (vitamin C) 500 mg 500 mg PO QAM tab 07/24/18 02/15/19 History chewable tablet levothyroxine 50 mcg tablet 50 mcg PO DAILY 07/24/18 02/15/19 History omega 7-gbu-fno-fish oil 1,000 mg 1 tab PO DAILY cap 07/24/18 02/15/19 History (120 mg-180 mg) capsule vitamin E (dl, acetate) 400 unit 400 units PO QAM cap 07/24/18 02/15/19 History capsule calcium citrate 250 mg tablet 250 mg PO DAILY tab 08/21/18 02/15/19 History cholecalciferol (vitamin D3) 1,000 1,000 units PO DAILY 08/21/18 02/15/19 History unit capsule ondansetron HCl [Zofran] 8 mg PO Q8 PRN 01/25/19 02/15/19 History celecoxib [Celebrex] 200 mg PO QAM #30 cap 02/05/19 02/15/19 Rx docusate sodium 100 mg PO BID #60 cap 02/05/19 02/15/19 Rx oxycodone 15 mg PO Q4H PRN #30 tab 02/05/19 02/15/19 Rx oxycodone [OxyContin] 80 mg PO Q12 #12 tab 02/05/19 02/15/19 Rx polyethylene glycol 3350 [Miralax] 17 g PO DAILY #30 ea 02/05/19 02/15/19 Rx sennosides [Senokot] 17.2 mg PO QAM #60 tab 02/05/19 02/15/19 Rx sennosides-docusate sodium [Senna 1 tab PO DAILY@1900 #30 tab 02/05/19 02/15/19 Rx with Docusate Sodium] zolpidem 5 mg PO HS PRN #3 tab 02/05/19 02/15/19 Rx doxycycline hyclate 100 mg capsule 100 mg PO BID 02/15/19 02/15/19 History Patient History Medical History Bilateral cataracts (Chronic) Hypothyroidism (Chronic) Mastitis (Chronic) Metastatic breast cancer (Chronic) Osteoarthritis (Chronic) Surgical History Status post left foot surgery (Chronic) Status post breast lumpectomy Family History Mother Leukemia Grandmother (Maternal) Breast cancer Father Stroke Other No pertinent family history Social History Communication Ability: Effective Beliefs That Will Affect Care: Voodoo Current Living Situation: Intermediate Other Information That Helps Us Care for You: No Feels Safe at Home: Yes Safety Concerns: Feels Safe At This Time Smoking Status: Unknown if ever smoked Hx Alcohol Use: No Hx Substance Use: No Review of Systems Complete. Pertinent positives noted in history of present illness. No pain at her lesion on her breast. Breathing improved from admission. No current fevers or chills. Physical Exam Vital Signs (Past 24 Hours): Last Vital Signs Temp 36.5 C 02/18/19 11:08 Pulse 157 H 02/18/19 11:08 Resp 24 02/18/19 11:08 BP 141/92 H 02/18/19 11:08 Pulse Ox 95 02/18/19 11:08 Physical Exam: She is alert and oriented x3. Mood affect appear normal. She answered all questions appropriately. HEENT: Sclerae are anicteric. Pupils are equal and reactive to light and accommodation. Extraocular movements were intact. Neuro: Cranial nerves intact Neck: Neck was supple. Lungs: She has some crackles in the right base. The left chest appeared clear with good air movement. No expiratory wheezing. Normal respiratory effort. Cardiac: The rhythm was regular. S1 and S2 were normal. There are no murmurs on examination. The PMI was not markedly displaced on palpation. Chest: Patient had a bandage lesion in the left breast area. Abdomen: The abdomen was soft and nontender. Extremities: Patient has bilateral radial pulses that are equal in intensity. There is no evidence cyanosis or clubbing. Skin: There are no rashes noted on examination today. Results & Data Laboratory Results Abnormal Lab Results 02/18/19 02/18/19 02/18/19 04:48 04:48 04:48 WBC 9.53 RBC 3.92 L Hgb 9.2 L Hct 30.4 L MCV 77.6 L MCH 23.5 L MCHC 30.3 L RDW Std Deviation 56.7 H RDW Coeff of Nahun 20.0 H Plt Count 384 MPV 9.7 Immature Gran % (Auto) 0.2 Neut % (Auto) 82.1 Lymph % (Auto) 9.1 Randolph % (Auto) 5.4 Eos % (Auto) 3.1 Baso % (Auto) 0.1 Immature Gran # (Auto) 0.02 Neut # (Auto) 7.82 H Lymph # (Auto) 0.87 L Randolph # (Auto) 0.51 Eos # (Auto) 0.30 Baso # (Auto) 0.01 Hypochromasia Present Anisocytosis Present Ovalocytes 1+ PT INR APTT 87.1 H* PTT Ratio 3.2 Sodium 139 Potassium 3.8 Chloride 98 Carbon Dioxide 38 H Anion Gap 3.0 BUN 14 Creatinine 0.29 L Est Cr Clr Drug Dosing 206.7 Est GFR ( Amer) 136.0 Est GFR (Non-Af Amer) 117.3 BUN/Creatinine Ratio 47.4 H Glucose 102 H Calcium 8.2 L Total Bilirubin AST ALT Alkaline Phosphatase Troponin I Total Protein Albumin Globulin Albumin/Globulin Ratio 02/18/19 02/18/19 02/18/19 11:21 11:21 11:29 WBC RBC Hgb Hct MCV MCH MCHC RDW Std Deviation RDW Coeff of Nahun Plt Count MPV Immature Gran % (Auto) Neut % (Auto) Lymph % (Auto) Randolph % (Auto) Eos % (Auto) Baso % (Auto) Immature Gran # (Auto) Neut # (Auto) Lymph # (Auto) Randolph # (Auto) Eos # (Auto) Baso # (Auto) Hypochromasia Anisocytosis Ovalocytes PT 11.9 INR 1.2 H APTT 29.0 PTT Ratio 1.1 Sodium 138 Potassium 3.8 Chloride 98 Carbon Dioxide 37 H Anion Gap 3.0 BUN 14 Creatinine 0.41 L Est Cr Clr Drug Dosing 146.4 Est GFR ( Amer) 121.3 Est GFR (Non-Af Amer) 104.7 BUN/Creatinine Ratio 33.9 H Glucose 124 H Calcium 8.9 Total Bilirubin 0.4 AST 49 H ALT 19 Alkaline Phosphatase 55 Troponin I 0.039 Total Protein 6.2 L Albumin 2.4 L Globulin 3.8 Albumin/Globulin Ratio 0.6 L Diagnostic Findings Echocardiogram revealed preserved LV systolic function without significant valvular heart disease. ECG Additional Comments: Atrial fibrillation with rapid ventricular response
[2019-02-18] MEDS: HEPARIN SOD 5,000 UNIT/0.5 ML VIAL SQ SCH ×2 (15:34→20:34)
[2019-02-18] MEDS ORDERED: Nursing to Pharmacy Communication ONE (16:11)
[2019-02-18] MEDS ORDERED: AMIODARONE IV BOLUS / DRIP IV STA (16:29)
[2019-02-18] MEDS ORDERED: AMIODARONE / D5W 150 MG/100 ML BAG IV STA (16:29)
[2019-02-18] MEDS ORDERED: AMIODARONE / D5W 360 MG/200 ML BAG IV SCH (16:30)
--- NOTE | 2019-02-18 16:45 | Family Medicine Progress Note ---
Date of Service February 18, 2019 Assessment & Plan (1) Pleural effusion: Ms. Epstein is a 68 year old female with a past medical history of metastatic breast CA receiving chemo, chronic L breast wound, hypothyroidism, anemia, diastolic CHF. The pt was recently admitted for recurrent cellulitis of a nonhealing wound of the L breast. She was placed on a 2 week course of IV Zerbaxa and PO Doxy to cover both MRSA and Pseudomonas which were cultured from the wound. She was DCd to [facility] to complete her IV antibiotics. She presents from [facility] with progressive SOB and hypoxia. A CTA was obtained in the ER demonstrating a large R pleural effusion with right lower lobe volume loss and associated cystic/necrotic parenchymal change. Right pleural effusion - a/w SOB/hypoxia - thank you to Dr. Sams for consult -> drained 1.5L of fluid via thoracente sis on 02/16. -> Fluid showed malignant cells consistent with metastatic adenocarcinoma that was triple negative. -> Repeat chest x-ray tomorrow, Patient may require placement of a tube +/- pleurodesis given fluid is likely to reaccumulate - patient has been unable to be weaned from O2 thus far, and remains on oxygen via nasal cannula at 3-4L (patient does not use oxygen at home) - repeat CXR yesterday (1 day after thoracentesis) did show remnant small effusion on right side - pt was given 20mg of IV Lasix overnight due to worsening crackles & SOB. Will give Lasix prn based on patient's symptoms. Anticipate she will need to be discharged with 24h oxygen Cellulitis of L breast - follows at a wound clinic - completed 2 week antibiotic course of doxycycline and ceftolazone/tazobactam today Atrial Fibrillation -initially, patient had two runs of afib on 02/16 - first one lasting approx 15 mins and reverting back to sinus after 5mg of IV lopressor, and second lasting 3 minutes, and reverted back to sinus w/out intervention. -pt was asymptomatic both times -today, She had ~1 hour of sustained atrial fibrillation, with rates in the 160s. She was symptomatic with palpitations. She reverted back to sinus rhythm with 5 mg of IV Lopressor -trop negative -Cardiology consulted -> Will begin amiodarone drip tonight, transition to p.o. amiodarone on discharge -> CHADS-VASc score of 2, but will defer anticoagulation during acute illness, as she may require additional interventions and is at risk for hemorrhagic effusion -ECHO -> limited secondary to motion degradation/bandages over chest but showed EF of 60-65% Breast Cancer - her chemo is on hold due to her cellulitis and will resume after per pt - consulted heme/onc -> Dr. Arroyo will f/u in outpatient setting to determine course of treatment from here Diastolic CHF - does not normally take diuretics Hypothyroidism - continue Synthroid Anemia -Hgb is at baseline level of 9.2 Protein malnutrition - supplements provided Code status: Full. Will discuss palliative care w/patient given her malignant pleural effusion and general decline - attempted to this AM, but pt wanted her son present for this conversation. DVT Prophylaxis: 5,000 units heparin BID. Of note, aPTT was prolonged, however this was due to the fact that the blood draws were being taken from her line, after it was flushed with heparin. Her aPTT which was drawn today, without using the line, was normal. Disposition: remains on telemetry. Has bed available at [facility] when pt ready for d/c, (2) Hypoxia: (3) Metastatic breast cancer: (4) Breast mass, right: (5) Cellulitis of left breast: (6) MRSA (methicillin resistant Staphylococcus aureus) infection: (7) Pseudomonas aeruginosa infection: (8) Chronic diastolic heart failure: (9) Hypothyroidism: (10) Anemia due to antineoplastic chemotherapy: Supervising Physician Co-Signing Physician Notes Attending attestation Pt seen and examined in concert with Dr. Benavides. In agreement with the documented findings as noted in the resident documentation with any exceptions or additions as noted here. Drastic worsening of shortness of breath with palpitations - patient is in atrial fibrillation with RVR with symptoms. On examination, S1/S2 nl w/ tachycardia, decreased breath sounds bilateral bases worse on the RLL, Abd NT/ND BS+ve Atrial fibrillation with RVR - single dose lopressor and monitor for response - returned to sinus shortly thereafter with improvement in sx. Cardiology consultation to guide ongoing management. Right pleural effusion - CT surgery consultation appreciated - following CXR, continue O2 supplementation and furosemide Cellulitis of L breast - completed course, wound care Plan for goals of care conversation again tomorrow with son. Else see resident documentation as noted. Subjective Ms. Epstein went into atrial fibrillation again this morning, with rates up to the 170s. This persisted for approximately 1 hour, and she was seen during this time. She reported feeling like her heart racing, and was short of breath. She denied any chest pain during this time. She remains with shortness of breath on exertion. She repeatedly states that she wishes to return back to [facility], to pursue chemotherapy. Constitutional: + fatigue and + weakness; no fever and no chills Respiratory: + cough, + dyspnea and + dyspnea on exertion Cardiovascular: + palpitations; no chest pain and no calf pain Gastrointestinal: no abdominal pain, no nausea and no vomiting Physical Exam Vital Signs (Past 24 Hours): Last Vital Signs Temp 36.4 C L 02/18/19 15:46 Pulse 81 02/18/19 15:46 Resp 20 02/18/19 15:46 BP 111/69 02/18/19 15:46 Pulse Ox 93 02/18/19 15:46 Constitutional: + ill appearing and + frail appearing Respiratory: able to speak in complete sentences Auscultation: + diminished lung sounds Cardiovascular: Rate/Rhythm: + tachycardic; + abnormal rhythm Extremities: + pedal edema (1+ bilaterally) Gastrointestinal (Abdomen): Percussion/Palpation: abdomen soft; abdomen nontender, no guarding and abdomen not rigid Skin: no rashes, warm and dry Results & Data Laboratory Results Laboratory Results - last 24 hr 02/18/19 02/18/19 02/18/19 04:48 04:48 04:48 WBC 9.53 RBC 3.92 L Hgb 9.2 L Hct 30.4 L MCV 77.6 L MCH 23.5 L MCHC 30.3 L RDW Std Deviation 56.7 H RDW Coeff of Nahun 20.0 H Plt Count 384 MPV 9.7 Immature Gran % (Auto) 0.2 Neut % (Auto) 82.1 Lymph % (Auto) 9.1 [place] % (Auto) 5.4 Eos % (Auto) 3.1 Baso % (Auto) 0.1 Immature Gran # (Auto) 0.02 Neut # (Auto) 7.82 H Lymph # (Auto) 0.87 L [place] # (Auto) 0.51 Eos # (Auto) 0.30 Baso # (Auto) 0.01 Hypochromasia Present Anisocytosis Present Ovalocytes 1+ PT INR APTT 87.1 H* PTT Ratio 3.2 Sodium 139 Potassium 3.8 Chloride 98 Carbon Dioxide 38 H Anion Gap 3.0 BUN 14 Creatinine 0.29 L Est Cr Clr Drug Dosing 206.7 Est GFR ( Amer) 136.0 Est GFR (Non-Af Amer) 117.3 BUN/Creatinine Ratio 47.4 H Glucose 102 H Calcium 8.2 L Total Bilirubin AST ALT Alkaline Phosphatase Troponin I Total Protein Albumin Globulin Albumin/Globulin Ratio 02/18/19 02/18/19 02/18/19 11:21 11:21 11:29 WBC RBC Hgb Hct MCV MCH MCHC RDW Std Deviation RDW Coeff of [place]un Plt Count MPV Immature Gran % (Auto) Neut % (Auto) Lymph % (Auto) [place] % (Auto) Eos % (Auto) Baso % (Auto) Immature Gran # (Auto) Neut # (Auto) Lymph # (Auto) [place] # (Auto) Eos # (Auto) Baso # (Auto) Hypochromasia Anisocytosis Ovalocytes PT 11.9 INR 1.2 H APTT 29.0 PTT Ratio 1.1 Sodium 138 Potassium 3.8 Chloride 98 Carbon Dioxide 37 H Anion Gap 3.0 BUN 14 Creatinine 0.41 L Est Cr Clr Drug Dosing 146.4 Est GFR ( Amer) 121.3 Est GFR (Non-Af Amer) 104.7 BUN/Creatinine Ratio 33.9 H Glucose 124 H Calcium 8.9 Total Bilirubin 0.4 AST 49 H ALT 19 Alkaline Phosphatase 55 Troponin I 0.039 Total Protein 6.2 L Albumin 2.4 L Globulin 3.8 Albumin/Globulin Ratio 0.6 L Medications Administered Current Inpatient Medications Acetaminophen (Tylenol) 650 mg PO Q4H PRN PRN Reason: Pain Stop: 03/19/19 12:26 Al Hydrox/Mg Hydrox/Simethicone (Maalox) 15 ml PO Q4H PRN PRN Reason: Dyspepsia Stop: 03/17/19 20:58 Ascorbic Acid (Vitamin C) 500 mg PO QAM [facility] Stop: 03/18/19 08:59 Last Admin: 02/18/19 08:13 Dose: 500 mg Documented by: Calcium Citrate (Citracal) 950 mg PO DAILY@1100 [facility] Stop: 03/18/19 10:59 Last Admin: 02/18/19 11:06 Dose: 950 mg Documented by: Celecoxib (Celebrex) 200 mg PO QAM [facility] Stop: 03/18/19 08:59 Last Admin: 02/18/19 08:13 Dose: 200 mg Documented by: Docusate Sodium (Colace) 100 mg PO BID [facility]EE Stop: 03/17/19 20:59 Last Admin: 02/18/19 08:14 Dose: 100 mg Documented by: Doxycycline Hyclate (Vibramycin) 100 mg PO BID REENE Stop: 02/22/19 20:59 Last Admin: 02/18/19 08:13 Dose: 100 mg Documented by: Heparin Sodium (Porcine) (Heparin Sod 100 Unit/Ml Flush) 5 ml FLUSH PRN PRN PRN Reason: Flush Stop: 03/18/19 01:59 Last Admin: 02/18/19 06:52 Dose: 5 ml Documented by: Heparin Sodium (Porcine) (Heparin Sodium (Porcine)) 5,000 units SQ Q12 [facility] Stop: 03/18/19 20:59 Last Admin: 02/18/19 15:34 Dose: Not Given Documented by: Ceftolozane/Tazobactam 1,500 (mg/ Dextrose) 111.4 mls @ 111.4 mls/hr IV Q8H [facility]ENEE Stop: 02/18/19 23:59 Last Admin: 02/18/19 15:38 Dose: 111 mls/hr Documented by: Amiodarone HCl/Dextrose (Nexterone / D5w) 150 mg in 100 mls @ 600 mls/hr IV ONE STA Stop: 02/18/19 16:38 Amiodarone HCl/Dextrose (Nexterone / D5w) 360 mg in 200 mls @ 33.333 mls/hr IV .Q6H RENEE Stop: 02/18/19 22:29 Amiodarone HCl/Dextrose (Nexterone / D5w) 360 mg in 200 mls @ 16.667 mls/hr IV .Q12H [facility] Stop: 03/20/19 22:28 Ioversol (Optiray 320 125ml) 119 ml IV ONCE PRN PRN Reason: Interaction Checking Stop: 02/19/19 17:15 Last Admin: 02/15/19 17:16 Dose: 119 ml Documented by: Levothyroxine Sodium (Synthroid) 50 mcg PO DAILYBB [facility] Stop: 03/18/19 06:29 Last Admin: 02/18/19 05:45 Dose: 50 mcg Documented by: Metoprolol Tartrate (Lopressor) 5 mg IV Q3H PRN PRN Reason: Tachycardia >120 Stop: 03/18/19 18:25 Last Admin: 02/18/19 11:06 Dose: 5 mg Documented by: Ondansetron HCl (Zofran) 4 mg IV Q6H PRN PRN Reason: Nausea Stop: 03/17/19 20:58 Oxycodone HCl (Oxycontin) 80 mg PO Q12 [facility] Stop: 03/01/19 20:59 Last Admin: 02/18/19 08:12 Dose: 80 mg Documented by: Oxycodone HCl (Roxicodone Immediate Rel) 15 mg PO Q4H PRN PRN Reason: pain Stop: 03/01/19 20:58 Last Admin: 02/18/19 06:32 Dose: 15 mg Documented by: Polyethylene Glycol (Miralax Powder Packet) 17 gm PO DAILY [facility] Stop: 03/18/19 08:59 Last Admin: 02/18/19 08:12 Dose: 17 gm Documented by: Senna/Docusate Sodium (Senokot S) 1 tab PO DAILY@1900 [facility] Stop: 03/18/19 18:59 Last Admin: 02/17/19 18:11 Dose: 1 tab Documented by: Sennosides (Senokot) 17.2 mg PO QAM [facility] Stop: 03/18/19 08:59 Last Admin: 02/18/19 08:13 Dose: 17.2 mg Documented by: Vitamin D (Vitamin D3) 1,000 units PO DAILY [facility] Stop: 03/18/19 08:59 Last Admin: 02/18/19 08:14 Dose: 1,000 units Documented by: Vitamin E (Vitamin E) 400 units PO QAM [facility] Stop: 03/18/19 08:59 Last Admin: 02/18/19 08:13 Dose: 400 units Documented by: Zolpidem Tartrate (Ambien) 5 mg PO HS PRN PRN Reason: insomnia Stop: 03/17/19 20:58 Last Admin: 02/16/19 00:58 Dose: 5 mg Documented by: Resident Activity Tracking Resident Involvement: Resident Care Provided Care Provided: Adult Hospital Medicine (1) Hypothyroidism Hypothyroidism type: acquired Qualified Code(s): E03.9 - Hypothyroidism, unspecified
[2019-02-18] MEDS: DOCUSATE SODIUM/SENNA 50/8.6MG TAB PO SCH (19:02)
[2019-02-18] MEDS: AMIODARONE / D5W 360 MG/200 ML BAG IV SCH (23:07)
[2019-02-19] MEDS: OXYCODONE HCL IR 5 MG TAB (IMMEDIATE RELEASE) PO PRN ×2 (05:10→15:08)
[2019-02-19 05:20] LABS: Basophils # (auto) 0.01 K/uL (0-0.2); Basophils % (auto) 0.1 %; Eosinophils # (auto) 0.41 K/uL (0-0.5); Eosinophils % (auto) 4.2 %; Hematocrit (blood only) 32.3 % (37-47); Hemoglobin 9.6 g/dL (12.0-16.0); Immature Granulocytes # (auto) 0.01 K/uL (0.00-0.02); Immature Granulocytes % (auto) 0.1 %; Lymphocytes # (auto) 0.53 K/uL (1.2-3.4); Lymphocytes % (auto) 5.5 %; Mean Corpuscular Hgb Conc 29.7 g/dL (32-36); Mean Corpuscular Volume 78.4 fL (80-100); Mean Platelet Volume 9.8 fL (7.4-10.4); Monocytes # (auto) 1.08 K/uL (0.11-0.59); Monocytes % (auto) 11.2 %; Neutrophils # (auto) 7.61 K/uL (1.4-6.5); Neutrophils % (auto) 78.9 %; Platelet Count 408 K/uL (130-400); RDW Coefficient of Variation 19.8 % (11.5-14.5); RDW Standard Deviation 56.9 fL (36.4-46.3); Red Blood Count 4.12 M/uL (4.2-5.4); White Blood Count 9.65 K/uL (4.8-10.8)
[2019-02-19 05:31] LABS: Partial Thromboplastin Ratio 1.1; Partial Thromboplastin Time 28.8 Seconds (21.0-31.0)
[2019-02-19 05:45] LABS: BUN Creatinine Ratio 53.5 (10-20); Calcium 8.4 mg/dl (8.5-10.1); Creatinine Clr Calc Pharmacy 200.1 ml/min; Est GFR (African American) 134.5; Potassium 3.9 mmol/L (3.5-5.1)
[2019-02-19] MEDS: LEVOTHYROXINE SODIUM 50 MCG TABLET PO SCH (06:02)
--- NOTE | 2019-02-19 07:29 | XRay Report ---
XR chest 1V portable CLINICAL HISTORY: Shortness of breath. Pulmonary masses. COMPARISON STUDY: 02/17/2019 FINDINGS: The heart remains enlarged. There is a right-sided A-Port catheter unchanged in position. T here are numerous bilateral pulmonary masses, indicative of extensive metastatic disease. There is in creasing moderate right pleural effusion. There is a small left pleural effusion. There are associate d basilar airspace opacities likely representing compressive atelectasis.[ IMPRESSION: 1. Multiple bilateral pulmonary masses consistent with metastatic disease 2. Increasing moderate right pleural effusion. Electronically signed by: Timothy Escobedo M.D. 02/19/2019 7:28 AM
[2019-02-19] MEDS ORDERED: LIDOCAINE HCL 1% 20 ML VIAL ONE (08:01)
[2019-02-19] MEDS: DOCUSATE SODIUM 100 MG CAP PO SCH ×2 (08:04→20:51)
[2019-02-19] MEDS: CeleBREX 200 MG CAP PO SCH (08:04)
[2019-02-19] MEDS: CHOLECALCIFEROL 1,000 UNITS TAB PO SCH (08:04)
[2019-02-19] MEDS: DOXYCYCLINE HYCLATE 100 MG CAP PO SCH ×2 (08:04→20:52)
[2019-02-19] MEDS: SENNA 8.6 MG TAB PO SCH (08:04)
[2019-02-19] MEDS: TOCOPHERYL, DL-ALPHA 400 UNITS CAP PO SCH (08:05)
[2019-02-19] MEDS: ASCORBIC ACID 500 MG TAB PO SCH (08:05)
[2019-02-19] MEDS: OXYCODONE HCL 40 MG TABCR (OXYCONTIN) PO SCH ×2 (08:13→20:37)
[2019-02-19] MEDS: POLYETHYLENE (MIRALAX) 17 GM PACK PO SCH (08:14)
[2019-02-19] MEDS: HEPARIN SOD 5,000 UNIT/0.5 ML VIAL SQ SCH ×2 (08:15→20:55)
[2019-02-19] MEDS ORDERED: MoRPHine SULFATE 4 MG/ML 1 ML CARP\\VIAL IV STA (08:24)
--- NOTE | 2019-02-19 09:18 | Progress Note ---
DATE: 02/19/2019 MEDICAL ONCOLOGY PROGRESS NOTE DIAGNOSES: 1. Right-sided pleural effusion. 2. Metastatic breast cancer. 3. Left chest wall cellulitis. 4. Diastolic congestive heart failure. 5. Hypothyroidism. 6. Chronic anemia. 7. Hypoalbuminemia. SUBJECTIVE: Rula was seen seated at the bedside chair this morning. She appeared to be somewhat uncomfortable and stated her breathing has once again become difficult. She has no other complaints of pain; however, her p.o. intake is marginal at this point. Informally, spoke to Dr. Sams who plans to place a PleurX catheter and proceed with talc pleurodesis. Nursing reports no overnight difficulties otherwise. PHYSICAL EXAMINATION: GENERAL: A very pleasant 68-year-old female patient in no acute distress. VITAL SIGNS: Temperature 36.7, pulse 83, respiratory rate 20, blood pressure 130/78. SKIN: Without rash or lesion. HEENT: Oral mucosa without erythema or ulceration. HEART: Regular rate and rhythm. LUNGS: Blunt breath sounds, right greater than left. ABDOMEN: Soft, nontender, nondistended. EXTREMITIES: No clubbing, cyanosis or edema. NEUROLOGIC: Grossly intact. LABORATORY DATA: WBC count 9650, hemoglobin 9.6, platelet count 408,000. Sodium 136, potassium 3.9, chloride 96, carbon dioxide 38, BUN 16, creatinine 0.30, albumin 2.4. IMPRESSION: 1. Recurrent right-sided pleural effusion. 2. Metastatic breast cancer. 3. Left chest wall cellulitis. 4. Diastolic congestive failure. 5. Hypoalbuminemia. 6. Hypothyroidism. 7. Chronic anemia. PLAN: Rula was visited this morning at bedside. She continues to struggle with her breathing. Apparently, the fluid has reaccumulated and Dr. Sams is aware. He is planning to insert PleurX catheter and talc pleurodesis which will hopefully slow the reaccumulation. Dr. Arroyo manages Rula and will have to convene with her to decide what to do therapeutically in the future. I agree with her medical management overall and have nothing further to add. Dr. Arroyo will resume rounding over the weekend.
[2019-02-19] MEDS ORDERED: MoRPHine SULFATE 2 MG/ML CARP IV STA (09:59)
[2019-02-19] MEDS: MoRPHine SULFATE 2 MG/ML CARP IV PRN ×3 (10:10→21:08)
--- NOTE | 2019-02-19 10:26 | XRay Report ---
XR chest 1V portable HISTORY: effusion COMPARISON: Chest 02/19/2019. FINDINGS: Multiple bilateral pulmonary nodules/masses are again noted consistent with metastatic dise ase. No pneumothorax. [id number] right pleural effusion has decreased in size. Small left pleu ral effusion persist. The heart remains mildly enlarged. Right subclavian Port-A-Cath terminates at t he proximal SVC. This remains unchanged. There is a new line/tube overlying the right lower hemithora x. The tip appears to cross the midline. However, this could be due to the rotated study. This may re present an overlying line/tube or chest tube. IMPRESSION: 1. Decrease in size in the small moderate right pleural effusion. The small left pleural effusion per sist. 2. No pneumothorax. 3. There is a new line/tube overlying the right lower hemithorax. The tip appears to cross the midlin e. However, this could be due to the rotated study. This may represent an overlying line/tube or ches t tube. Clinical correlation recommended. Electronically signed by: Matti Bryan M.D. 02/19/2019 10:25 AM
[2019-02-19] MEDS: AMIODARONE / D5W 360 MG/200 ML BAG IV SCH (11:56)
[2019-02-19] MEDS: CALCIUM CITRATE 950 MG TAB PO SCH (11:58)
--- NOTE | 2019-02-19 17:28 | Family Medicine Progress Note ---
Date of Service February 19, 2019 Assessment & Plan (1) Pleural effusion: Ms. Epstein is a 68 year old female with a past medical history of metastatic breast CA receiving chemo, chronic L breast wound, hypothyroidism, anemia, diastolic CHF. The pt was recently admitted for recurrent cellulitis of a nonhealing wound of the L breast. She was placed on a 2 week course of IV Zerbaxa and PO Doxy to cover both MRSA and Pseudomonas which were cultured from the wound. She was DCd to [facility] to complete her IV antibiotics. She presents from [facility] with progressive SOB and hypoxia. A CTA was obtained in the ER demonstrating a large R pleural effusion with right lower lobe volume loss and associated cystic/necrotic parenchymal change. The patient had an initial thoracentesis to treat her pleural effusion (> 1000 cc) and was ready to be discharged to [facility] when fluid began to re-accumulate in her right side. She had another thoracentesis today and will most likely have a Pleurx Catheter and Pleuradesis performed by Dr. Sams. Further discussions with Dr. Arroyo will occur when he is on this weekend. At this time palliative care has yet to be discussed until she meets with Dr. Arroyo. SOB 2/ Right pleural effusion - Thoracic Surgery Consult --> drained 1.5L of fluid via thoracentesis on 02/16. -> Fluid showed malignant cells consistent with metastatic adenocarcinoma that was triple negative. -> Reaccumulation of fluid --> Repeat CXR on 02/19 showed Increasing moderate right pleural effusion. -> Repeat thoracentesis on 02/19 resulting in an additional 1000 cc of drained fluid -> Plan on Pleurex catheter and pleurodesis - patient has been unable to be weaned from O2 thus far, and remains on oxygen via nasal cannula at 3-4L (patient does not use oxygen at home) Cellulitis of L breast - Follows at a wound clinic - Completed 2 week antibiotic course of doxycycline and ceftolazone/tazobactam on 02/18/2019 Atrial Fibrillation -Initially, patient had two runs of afib on 02/16 - first one lasting approx 15 mins and reverting back to sinus after 5mg of IV lopressor, and second lasting 3 minutes, and reverted back to sinus w/out intervention. -Patient was asymptomatic both times -02/18 had ~1 hour of sustained atrial fibrillation, with rates in the 160s. She was symptomatic with palpitations. She reverted back to sinus rhythm with 5 mg of IV Lopressor -Cardiology consulted after sustained Afib episode -> Amiodarone drip started on 02/18 --> Anticipated PO Amiodarone on discharge -> CHADS-VASc score of 2, but will defer anticoagulation during acute illness, as she may require additional interventions and is at risk for hemorrhagic effusion (upcoming Pleurx Catheter Placement and possible pleurodesis) -ECHO -> limited secondary to motion degradation/bandages over chest but showed EF of 60-65% Breast Cancer - Chemotherapy has been help by Oncology due to episode of Cellulitis - Consulted heme/onc -> Dr. Arroyo will see patient over the weekend and determine further treatment Hypothyroidism - Continue Synthroid Anemia -Hgb is at baseline level of 9.2 Code status: Full Code --> Will discussed palliative care options with patient once she has seen Dr. Arroyo DVT Prophylaxis: 5,000 units heparin BID Disposition: Remains on telemetry. Has bed available at [facility] when pt ready for d/c (2) Hypoxia: (3) Metastatic breast cancer: (4) Breast mass, right: (5) Cellulitis of left breast: (6) MRSA (methicillin resistant Staphylococcus aureus) infection: (7) Pseudomonas aeruginosa infection: (8) Chronic diastolic heart failure: (9) Hypothyroidism: (10) Anemia due to antineoplastic chemotherapy: Supervising Physician Co-Signing Physician Notes ATTENDING NOTE I saw the patient concurrent with the resident physician and confirmed dover portions of the history and physical exam. I agree with the impression and plan as noted above. Upon examination, the patient is noted that she feels much improved status post a second thoracentesis this hospitalization. She tells us that it is much easier to breathe post procedure; she denies any complaints related to the procedure. EXAM Pleasant alert and oriented. No acute distress. Afebrile; vital signs as noted. Heart is irregularly irregular. Breath sounds are somewhat difficult to auscultate giving the bandaging applied subsequent to her thoracentesis; she has a rather short expiratory phase, decreased in the bases though this may be related to effort. She does some generalized lower extremity edema but no calf tenderness upon palpation IMPRESSION/PLAN Right-sided pleural effusion, recurrent, secondary to widely metastatic breast cancer -improved with thoracentesis today Left chest wall cellulitis, improving -completing course of antibiotics today Atrial fibrillation with rapid ventricular response, suspect secondary to acute illness -on amiodarone; cardiology input appreciated Chronic anemia -secondary to malignancy Hypoalbuminemia -secondary to malignancy Subjective Patient was examined this morning prior to her thoracentesis with Dr. Sams and complained of progressive shortness of breath. The patient also had an episode of palpitation this morning. The patient was re-evaluated after the procedure and states she had a significant improvement of her shortness of breath. At this time her oncologist Dr. Arroyo will be on service over the weekend and will discuss further treatment options going forward. Dr. Sams has discussed pleurex placement and pleuradesis with the patient. Physical Exam Vital Signs (Past 24 Hours): Last Vital Signs Temp 36.2 C L 02/19/19 15:56 Pulse 78 02/19/19 15:56 Resp 20 02/19/19 15:56 BP 125/74 02/19/19 15:56 Pulse Ox 90 02/19/19 15:56 Constitutional: no acute distress Frail, Ill appearing Eyes: PERRL, conjunctivae normal, anicteric sclerae Neck: trachea midline, no thyromegaly Respiratory: no respiratory distress Auscultation: + diminished lung sounds Cardiovascular: Rate/Rhythm: + abnormal rate and + abnormal rhythm irregularly irregular rhythm, 1+ lower extremity pitting edema Musculoskeletal: Head/Neck/Chest: normocephalic and head atraumatic Skin: no rashes, warm and dry Psychiatric: A+Ox3, euthymic affect Results & Data Laboratory Results Abnormal lab results 02/19/19 02/19/19 Range/Units 05:00 05:00 RBC 4.12 L (4.2-5.4) M/uL Hgb 9.6 L (12.0-16.0) g/dL Hct 32.3 L (37-47) % MCV 78.4 L (80-100) fL MCH 23.3 L (25-34) pg MCHC 29.7 L (32-36) g/dL RDW Std Deviation 56.9 H (36.4-46.3) fL RDW Coeff of [place]ahun 19.8 H (11.5-14.5) % Plt Count 408 H (130-400) K/uL Neut # (Auto) 7.61 H (1.4-6.5) K/uL Lymph # (Auto) 0.53 L (1.2-3.4) K/uL [place] # (Auto) 1.08 H (0.11-0.59) K/uL Chloride 96 L (98-107) mmol/L Carbon Dioxide 38 H (21-32) mmol/L Anion Gap 2.0 L (3-11) Creatinine 0.30 L (0.6-1.2) mg/dl BUN/Creatinine Ratio 53.5 H (10-20) Glucose 104 H (70-99) mg/dl Calcium 8.4 L (8.5-10.1) mg/dl Resident Activity Tracking Resident Involvement: Resident Care Provided Care Provided: Adult Hospital Medicine (1) Hypothyroidism Hypothyroidism type: acquired Qualified Code(s): E03.9 - Hypothyroidism, unspecified
--- NOTE | 2019-02-19 17:51 | Cardiology Progress Note ---
Date of Service February 19, 2019 Assessment & Plan (1) Atrial fibrillation: Patient has paroxysmal atrial fibrillation. She appears to be doing quite well on amiodarone infusion. I will switch to oral amiodarone. We will start with 400 milligrams twice daily for approximately 1 week and then transition her to 200 milligrams daily. Use may be adequate in both controlling her rhythm and her heart rates. She continues to have episodes of atrial fibrillation with high heart rates metoprolol could be added as well. Again, I think her anticoagulation is a moot point given her poor anticipated longevity. I do not think she requires any anticoagulation currently. Subjective This evening she complained back pain at the site of her thoracentesis. She has some difficulty lying flat as result. Her breathing is also somewhat worse today. Poor appetite. Physical Exam Vital Signs (Past 24 Hours): Last Vital Signs Temp 36.2 C L 02/19/19 15:56 Pulse 78 02/19/19 15:56 Resp 20 02/19/19 15:56 BP 125/74 02/19/19 15:56 Pulse Ox 90 02/19/19 15:56 Physical Exam: She is alert and oriented x3. Mood affect appear normal. She answered all questions appropriately. HEENT: Sclerae are anicteric. Pupils are equal and reactive to light and accommodation. Extraocular movements were intact. Neuro: Cranial nerves intact Lungs: She has rhonchi in both lung martinez, some crackles on the right side but no expiratory wheezing. Respiratory effort appears normal. Cardiac: The rhythm was regular. Abdomen: The abdomen was soft and nontender. Extremities: Patient has bilateral radial pulses that are equal in intensity. Skin: Bandaged wound in the left chest area.. Results & Data Laboratory Results Abnormal Lab Results 02/19/19 02/19/19 02/19/19 05:00 05:00 05:00 WBC 9.65 RBC 4.12 L Hgb 9.6 L Hct 32.3 L MCV 78.4 L MCH 23.3 L MCHC 29.7 L RDW Std Deviation 56.9 H RDW Coeff of Nahun 19.8 H Plt Count 408 H MPV 9.8 Immature Gran % (Auto) 0.1 Neut % (Auto) 78.9 Lymph % (Auto) 5.5 [place] % (Auto) 11.2 Eos % (Auto) 4.2 Baso % (Auto) 0.1 Immature Gran # (Auto) 0.01 Neut # (Auto) 7.61 H Lymph # (Auto) 0.53 L [place] # (Auto) 1.08 H Eos # (Auto) 0.41 Baso # (Auto) 0.01 APTT 28.8 PTT Ratio 1.1 Sodium 136 Potassium 3.9 Chloride 96 L Carbon Dioxide 38 H Anion Gap 2.0 L BUN 16 Creatinine 0.30 L Est Cr Clr Drug Dosing 200.1 Est GFR ( Amer) 134.5 Est GFR (Non-Af Amer) 116.0 BUN/Creatinine Ratio 53.5 H Glucose 104 H Calcium 8.4 L ECG Additional Comments: Review of her telemetry reveals sinus rhythm
[2019-02-19] MEDS: DOCUSATE SODIUM/SENNA 50/8.6MG TAB PO SCH (20:52)
[2019-02-19] MEDS: AMIODARONE 200 MG TAB PO SCH (21:08)
--- NOTE | 2019-02-19 21:40 | Operative Report ---
DATE OF OPERATION: 02/19/2019 PROCEDURE: Insertion of a right PleurX catheter under ultrasound guidance, SURGEON: Bradley Sams MD PROFILE SAW SETUP OPERATOR: SALVADOR Prado ANESTHESIA: Local. SPECIFICS OF PROCEDURE: Rula Epstein is a 68-year-old with widely metastatic breast cancer who has a large open wound on her left breast. She came in and really was quite short of breath and had a large right pleural effusion and I tapped her. She improved tremendously. She was just tapped 3 days ago and actually did well. We drained over 1500 mL of fluid. The following day she looked great. Unfortunately, she has also had some rhythm problems and had been in and out of atrial fibrillation and she looks a bit better today, but she is reaccumulating the fluid on the right. I had a long talk with the patient as well as with Dr. Constantino Shannon. There are some issues with this patient. First and foremost is she has a large open wound which is an open fungating cancer in her left breast. She also has some eschar around this which may be radiation induced. She accumulated her malignant pleural effusion quite quickly. Our cytology was positive for triple negative breast cancer. As the fluid reaccumulated in just 3 days, I did not think that a repeat thoracentesis would be helpful. In addition, she is simply not a candidate for anything more aggressive such as a thoracoscopy. At this point, I did not want to insert a PleurX catheter as definitive therapy as I am afraid this will get infected; however, I think placing it to drain her and then using as a conduit for pleurodesis is appropriate. We are going to move forward with that plan. On 02/19/2019, the patient underwent uncomplicated insertion of a left PleurX catheter. A 1200 mL of a yellowish light fluid was drained. She tolerated it well. DESCRIPTION OF PROCEDURE: At the patient's bedside in the medical intensive care unit, we tried to lay her down in the left lateral decubitus position, but she simply could not lay down secondary to pain of her left anterior chest and also her breathing. For this reason, we kept her sitting up. Under ultrasound guidance, we found an area which was a good window just posterior to the mid axillary line at about the ninth interspace in the right chest. She was prepped and draped in the usual sterile fashion. Two skin wheals were raised about 10 cm apart using 1% Xylocaine without epinephrine and 25-gauge needle. A 1 cm incisions were made in each. A needle was inserted through the posterior incision into the chest to anesthetize the deeper intercostal muscles and pleura and we got free flowing fluid. A guidewire was inserted and needle removed. The guidewire was left in place. A tunneler was attached to the PleurX catheter and dragged from the anterior to posterior incision and then disconnected from the catheter. An introducer sheath with an inner cannula was slid over the guidewire into the pleural cavity and the inner cannula and guidewire removed. A triple lumen catheter was slid into this peel away sheath which was peeled away. Two separate 3-0 silk sutures were used to close the skin posteriorly and a single 2-0 silk suture was used to anchor the catheter to the patient's skin anteriorly. A 1200 mL of a light yellow fluid was drained. She started having some mild increase in pain and coughing, so we stopped, capped this catheter, and placed antimicrobial dressings on it. She tolerated it quite well. An x-ray showed a good response, although she still had some fluid. We will shortly drain this in the next day or so. I attest to the content of the Intraoperative Record and any orders documented therein. Any exception s are noted below.
[2019-02-19] MEDS: ZOLPIDEM TARTRATE 5 MG TAB PO PRN (22:32)
[2019-02-20] MEDS: OXYCODONE HCL IR 5 MG TAB (IMMEDIATE RELEASE) PO PRN ×3 (06:07→14:27)
[2019-02-20] MEDS: LEVOTHYROXINE SODIUM 50 MCG TABLET PO SCH (06:07)
[2019-02-20 06:26] LABS: Basophils # (auto) 0.01 K/uL (0-0.2); Basophils % (auto) 0.1 %; Eosinophils # (auto) 0.17 K/uL (0-0.5); Hematocrit (blood only) 31.4 % (37-47); Hemoglobin 9.5 g/dL (12.0-16.0); Immature Granulocytes # (auto) 0.02 K/uL (0.00-0.02); Immature Granulocytes % (auto) 0.2 %; Lymphocytes # (auto) 0.63 K/uL (1.2-3.4); Lymphocytes % (auto) 7.4 %; Mean Corpuscular Hgb Conc 30.3 g/dL (32-36); Mean Corpuscular Volume 77.5 fL (80-100); Mean Platelet Volume 9.7 fL (7.4-10.4); Monocytes # (auto) 0.78 K/uL (0.11-0.59); Monocytes % (auto) 9.2 %; Neutrophils # (auto) 6.91 K/uL (1.4-6.5); Neutrophils % (auto) 81.1 %; Platelet Count 397 K/uL (130-400); Red Blood Count 4.05 M/uL (4.2-5.4); White Blood Count 8.52 K/uL (4.8-10.8)
[2019-02-20 06:51] LABS: Anisocytosis Present; Hypochromasia Present; Microcytosis Present; Ovalocytes 1+
[2019-02-20 07:04] LABS: BUN Creatinine Ratio 45.8 (10-20); Calcium 8.8 mg/dl (8.5-10.1); Est GFR (African American) 130.3; Est GFR (Non-African American) 112.4; Potassium 4.4 mmol/L (3.5-5.1)
--- NOTE | 2019-02-20 07:10 | XRay Report ---
XR chest 1V portable CLINICAL HISTORY: effusion COMPARISON STUDY: Chest radiograph February 19, 2019 10:18 AM. FINDINGS: A right subclavian [id number] is in place. A right pleural catheter is noted. Tip projec ts over the mediastinum. Patient is rotated. Right pleural effusion has significantly decreased in si ze. There is a small residual right pleural effusion. Numerous pulmonary metastases are again noted. Cardiomediastinal is stable. IMPRESSION: 1. Right pleural catheter in place. Significant decrease in size of a right pleural effusion. Small r esidual effusion. 2. No pneumothorax. 3. Extensive pulmonary metastases. Electronically signed by: Flash Rios M.D. 02/20/2019 7:09 AM
[2019-02-20] MEDS: POLYETHYLENE (MIRALAX) 17 GM PACK PO SCH (08:42)
[2019-02-20] MEDS: OXYCODONE HCL 40 MG TABCR (OXYCONTIN) PO SCH ×2 (08:44→19:58)
[2019-02-20] MEDS: HEPARIN SOD 5,000 UNIT/0.5 ML VIAL SQ SCH ×2 (08:46→20:00)
[2019-02-20] MEDS: DOXYCYCLINE HYCLATE 100 MG CAP PO SCH ×2 (08:46→19:59)
[2019-02-20] MEDS: AMIODARONE 200 MG TAB PO SCH ×2 (08:46→19:59)
[2019-02-20] MEDS: CHOLECALCIFEROL 1,000 UNITS TAB PO SCH (10:01)
[2019-02-20] MEDS: DOCUSATE SODIUM 100 MG CAP PO SCH ×2 (10:01→19:59)
[2019-02-20] MEDS: SENNA 8.6 MG TAB PO SCH (10:01)
[2019-02-20] MEDS: ASCORBIC ACID 500 MG TAB PO SCH (10:01)
[2019-02-20] MEDS: TOCOPHERYL, DL-ALPHA 400 UNITS CAP PO SCH (10:01)
[2019-02-20] MEDS: CeleBREX 200 MG CAP PO SCH (10:02)
--- NOTE | 2019-02-20 10:59 | Hematology/Oncology Prog Note ---
Date of Service February 20, 2019 Assessment & Plan (1) Metastatic breast cancer: Ms. Epstein is doing very poorly. She has a rapidly reaccumulating pleural effusion. She now has a Pleur-x drain, placed yesterday by Dr. Sams, but has not seen much improvement in her breathing since it was placed. If anything, she feels worse overall today. She is very weak and has deteriorated dramatically since I last saw her. I am very worried that she is becoming too weak and decompensated for further anti-cancer therapy. Her son is coming tomorrow and I will arrange a sit down with the two of them to discuss her worsening prognosis and plans for possible transition to end-of-life care. For now, I would continue with maximal supportive care. Present on Admission?: Yes Subjective Ms. Epstein looks the worst I've ever seen her today. She was struggling to sit upright and was very uncomfortable. She had a Pleur-x drain placed earlier today, with nearly a liter of output. She is sore from that procedure. She also has a coarse, junky cough that she cannot clear. She is very weak and tired and her spirits are low. Her sons are coming to see her in the next day or two. Constitutional: + fatigue and + weakness (generalized) Respiratory: + cough, + dyspnea and + pain on inspiration Cardiovascular: no chest pain, no palpitations and no edema Gastrointestinal: no abdominal pain, no nausea and no vomiting Genitourinary (Female): no dysuria and no urinary frequency Discomfort from her extensive cutaneous cancer nodules Neurologic: no headache(s) and no confusion Physical Exam Vital Signs (Past 24 Hours): Last Vital Signs Temp 36.7 C 02/20/19 07:54 Pulse 78 02/20/19 07:54 Resp 20 02/20/19 07:54 BP 117/72 02/20/19 07:54 Pulse Ox 94 02/20/19 09:00 Constitutional: + ill appearing and + thin; no acute distress Eyes: + anicteric sclerae and EOM intact bilaterally Respiratory: + cough; no respiratory distress Auscultation: + diminished lung sounds (at the left base) Cardiovascular: RRR, no murmur, no edema Chest (Breasts): Additional Comments: She has extensive nodular skin metastases from her breast cancer across her chest wall and up into her neck Gastrointestinal (Abdomen): normal bowel sounds, soft, nontender, no hepatosplenomegaly Psychiatric: Orientation: alert and oriented x 3 Affect: + depressed affect Results & Data Laboratory Results Abnormal lab results 02/20/19 02/20/19 Range/Units 06:09 06:09 RBC 4.05 L (4.2-5.4) M/uL Hgb 9.5 L (12.0-16.0) g/dL Hct 31.4 L (37-47) % MCV 77.5 L (80-100) fL MCH 23.5 L (25-34) pg MCHC 30.3 L (32-36) g/dL RDW Std Deviation 57.0 H (36.4-46.3) fL RDW Coeff of Nahun 20.0 H (11.5-14.5) % Neut # (Auto) 6.91 H (1.4-6.5) K/uL Lymph # (Auto) 0.63 L (1.2-3.4) K/uL [place] # (Auto) 0.78 H (0.11-0.59) K/uL Sodium 135 L (136-145) mmol/L Chloride 95 L (98-107) mmol/L Carbon Dioxide 36 H (21-32) mmol/L Creatinine 0.33 L (0.6-1.2) mg/dl BUN/Creatinine Ratio 45.8 H (10-20)
[2019-02-20] MEDS: CALCIUM CITRATE 950 MG TAB PO SCH (11:59)
[2019-02-20] MEDS: dexAMETHasone 1 MG TAB PO SCH ×2 (12:00→16:46)
--- NOTE | 2019-02-20 12:23 | Family Medicine Progress Note ---
Date of Service February 20, 2019 Assessment & Plan (1) Pleural effusion: 68 yo F w/ pMHx of metastatic, triple negative breast CA receiving chemo, chronic L breast wound, hypothyroidism, anemia, dCHF admitted to [facility] for recurrent cellulitis of a nonhealing wound of L breast despite 2 week course of IV Zerbaxa and PO Doxy to cover both MRSA and Pseudomonas which were cultured from the wound as well as progressive SOB and hypoxia 2/2 large R pleural effusion with right lower lobe with volume loss and associated cystic/necrotic parenchymal change found on CTA. SOB 2/2 right lung malignant pleural effusion Thoracic surgery consulted, recs appreciated. Drained 1500cc via thoracentesis on 02/16. Re-accumulation of fluid with repeat thoracentesis on 02/19, draining additional 1000 cc of fluid. s/p PleurX insertion on 02/19 with 1000cc drained again on 02/20. Fluid showed malignant cells consistent with breast cancer, neg for bacterial infection - Maintain PleurX catheter - Dr. Sams plans to use this as a conduit for pleurodesis - O2 supplementation to maintain sats >92% (no O2 use at baseline) Metastatic triple negative breast adenocarcinoma with painful subcut skin nodules Managed by Dr. Arroyo. Oncology consulted, recs appreciated. Chemotherapy held due to persistent infection. - Discussion re: prognosis by Dr. Arroyo today, with plans to continue discussion with son tomorrow. Unless requested by patient sooner, palliative consult deferred until after family meeting - Continue daily wound dressing - Pain mx: IV morphine 2mg q4h, PO oxycodone 80mg q12h, PO oxycodone 15mg q4h, celecoxib 200mg qAM. Initiated PO dexamethsone 2mg BID to help with inflamm/pain. - Bowel regimen: docusate, Sennakot, MiraLax Atrial Fibrillation Had two runs of asymptomatic afib on 02/16 (~15 mins - reverted to NSR s/p 5mg of IV lopressor, then ~3 minutes with spontaneous resolution), then sustained symptomatic afib with RVR 160bpm ~1h long on 02/18, which reverted to NSR s/p 5 mg of IV Lopressor. Cardiology consulted, recs appreciated. Patient transitioned from amio drip to PO amio. ECHO -> limited secondary to motion degradation/bandages over chest but showed EF of 60-65%. CHADS-VASc score of 2, but decided deferral of anticoagulation during acute illness for potential additional interventions and high risk for hemorrhagic effusion. - Continue PO amiodarone 400mg BID x 7 days, then reduce to 200mg daily thereafter - patient has controlled rates since initiating amio Cellulitis of L breast Follows at a wound clinic. Completed 2 week antibiotic course of doxycycline and ceftolazone/tazobactam on 02/18/2019 - Continue doxycycline at present Hypothyroidism - Continue levothyroxine Anemia -Hgb is at baseline level Diet: Regular, no IVF DVT Prophylaxis: 5,000 units heparin BID Disposition: Transfer to med/surg Code status: Full Code (2) Hypoxia: (3) Metastatic breast cancer: (4) Breast mass, right: (5) Cellulitis of left breast: (6) MRSA (methicillin resistant Staphylococcus aureus) infection: (7) Pseudomonas aeruginosa infection: (8) Chronic diastolic heart failure: (9) Hypothyroidism: (10) Anemia due to antineoplastic chemotherapy: Supervising Physician Co-Signing Physician Notes ATTENDING NOTE I saw the patient concurrent with the resident physician and confirmed dover portions of the history and physical exam. I agree with the impression and plan as noted above. Upon examination, the patient looks less energetic than she did yesterday. Another approximately 1 L was drained from her Pleurx catheter. She has spoken with Dr. Arroyo this morning and the plan is to speak again tomorrow morning when her son is also present. EXAM Alert and oriented. No acute distress. Afebrile; vital signs as noted. Heart is irregularly irregular; rate in the mid 70s. Breath sounds are pretty clear in the apices; decreased in the bases. She does some generalized lower extremity edema but no calf tenderness upon palpation IMPRESSION/PLAN Right-sided pleural effusion, recurrent, secondary to widely metastatic breast cancer -improved symptomatically yesterday with thoracentesis, however quickly reaccumulated 1 L. We will start dexamethasone to see if we can both help with her discomfort and some appetite stimulation. Atrial fibrillation with rapid ventricular response, suspect secondary to acute illness -on amiodarone, transition from IV to p.o. yesterday. Chronic anemia -secondary to malignancy Hypoalbuminemia -secondary to malignancy Overall her prognosis is poor. Discussed with Dr. Arroyo today. He intends to meet again with the patient tomorrow when her son is present to unfortunately discuss transition from curative to palliative care. She is stable to move from a monitor bed to the oncology floor. Subjective Patient is sitting in bed which is steeply inclined. She is complaining of significant discomfort at the site of Pleurx insertion as well as SOB despite O2 supplementation, likely due to shallow breathing to minimize pain. She does state that the pain medication helps to relieve her symptoms. She did have a conversation with Dr. Arroyo this morning and is beginning to comprehend her prognosis is poor. She is complaining of fatigue and her appetite is poor. Physical Exam Vital Signs (Past 24 Hours): Last Vital Signs Temp 36.7 C 02/20/19 07:54 Pulse 78 02/20/19 07:54 Resp 20 02/20/19 07:54 BP 117/72 02/20/19 07:54 Pulse Ox 94 02/20/19 09:00 Constitutional: + acute distress (Mild respiratory distress), + ill appearing and + cachectic Eyes: + anicteric sclerae; no scleral abnormality ENMT: external ear and nose normal, oropharynx normal Neck: normal visual inspection Respiratory: + respiratory distress (Somewhat shallow and rapid breathing); no cough Auscultation: + diminished lung sounds and + crackles ([place]); no wheezes Cardiovascular: Rate/Rhythm: regular rate and regular rhythm Heart Sounds: normal S1 and normal S2 Extremities: normal capillary refill; no calf tenderness and no edema Chest (Breasts): Chest: + vascular access device or port (Pleurx catheter covered by dressing on right posterior chest) Gastrointestinal (Abdomen): normal bowel sounds, soft, nontender, no hepatosplenomegaly Inspection/Auscultation: abdomen not distended Percussion/Palpation: no guarding Musculoskeletal: Head/Neck/Chest: normocephalic, head atraumatic and neck supple Extremities: extremities normal to inspection Skin: + subcutaneous nodules (From metastatic cancer) Neurologic: moves all extremities; no focal motor deficits Psychiatric: Orientation: alert and oriented x 3 Speech: normal rate/rhythm/volume of speech Mood: + anxious mood (Healing appropriate, gven symptoms and discussion about prognosis) Insight: good insight Results & Data Laboratory Results Laboratory Results - last 24 hr 02/20/19 02/20/19 06:09 06:09 WBC 8.52 RBC 4.05 L Hgb 9.5 L Hct 31.4 L MCV 77.5 L MCH 23.5 L MCHC 30.3 L RDW Std Deviation 57.0 H RDW Coeff of [place]un 20.0 H Plt Count 397 MPV 9.7 Immature Gran % (Auto) 0.2 Neut % (Auto) 81.1 Lymph % (Auto) 7.4 [place] % (Auto) 9.2 Eos % (Auto) 2.0 Baso % (Auto) 0.1 Immature Gran # (Auto) 0.02 Neut # (Auto) 6.91 H Lymph # (Auto) 0.63 L [place] # (Auto) 0.78 H Eos # (Auto) 0.17 Baso # (Auto) 0.01 Hypochromasia Present Anisocytosis Present Microcytosis Present Ovalocytes 1+ Sodium 135 L Potassium 4.4 Chloride 95 L Carbon Dioxide 36 H Anion Gap 4.0 BUN 15 Creatinine 0.33 L Est Cr Clr Drug Dosing 182.0 Est GFR ( Amer) 130.3 Est GFR (Non-Af Amer) 112.4 BUN/Creatinine Ratio 45.8 H Glucose 95 Calcium 8.8 Resident Activity Tracking Resident Involvement: Resident Care Provided Care Provided: Adult Hospital Medicine (1) Hypothyroidism Hypothyroidism type: acquired Qualified Code(s): E03.9 - Hypothyroidism, un specified
--- NOTE | 2019-02-20 12:33 | Progress Note ---
DATE: 02/20/2019 Ms. Epstein was seen today. Her x-ray looks much better. It still looks terrible. She has bilateral metastatic disease; however, from a pleural effusion standpoint in the right, she has expanded. 1000 mL were drained today. Her breathing is better. She is on 4 liters with O2 sat of 95% and sounds better, although she has a few rhonchi. At this point, we are going to continue draining her on a daily basis. My hope is that the drainage will decrease and we will sclerose her. I do not want to leave this catheter in place. I think she is a setup for having infection due to her open wounds.
[2019-02-20] MEDS: DOCUSATE SODIUM/SENNA 50/8.6MG TAB PO SCH (18:44)
[2019-02-20] MEDS: MoRPHine SULFATE 2 MG/ML CARP IV PRN (18:44)
[2019-02-20] MEDS: ZOLPIDEM TARTRATE 5 MG TAB PO PRN (19:58)
[2019-02-21] MEDS: OXYCODONE HCL IR 5 MG TAB (IMMEDIATE RELEASE) PO PRN ×3 (03:42→18:21)
[2019-02-21] MEDS: MoRPHine SULFATE 2 MG/ML CARP IV PRN ×2 (06:14→10:23)
[2019-02-21] MEDS: HEPARIN 100 UNIT/ML 5ML FLUSH FLUSH PRN ×2 (06:17→10:23)
[2019-02-21] MEDS: LEVOTHYROXINE SODIUM 50 MCG TABLET PO SCH (07:04)
--- NOTE | 2019-02-21 07:42 | Family Medicine Progress Note ---
Date of Service February 21, 2019 Assessment & Plan (1) Pleural effusion: 68 yo F w/ pMHx of metastatic, triple negative breast CA receiving chemo, chronic L breast wound, hypothyroidism, anemia, dCHF admitted to [facility] for recurrent cellulitis of a nonhealing wound of L breast despite 2 week course of IV Zerbaxa and PO Doxy to cover both MRSA and Pseudomonas which were cultured from the wound as well as progressive SOB and hypoxia 2/2 large R pleural effusion with right lower lobe with volume loss and associated cystic/necrotic parenchymal change found on CTA. SOB 2/2 right lung malignant pleural effusion Thoracic surgery consulted, recs appreciated. Drained 1500cc via thoracentesis on 02/16. Re-accumulation of fluid with repeat thoracentesis on 02/19, draining additional 1000 cc of fluid. Fluid showed malignant cells consistent with breast cancer, neg for bacterial infection. s/p PleurX insertion on 02/19 with 1000cc drained again on 02/20. 1800cc removed 02/21. - Maintain PleurX catheter - Dr. Sams has thoughts to possibly use this as a conduit for pleurodesis - O2 supplementation to maintain sats >92% (no O2 use at baseline) Metastatic triple negative breast adenocarcinoma with painful subcut skin nodules Managed by Dr. Arroyo. Oncology consulted, recs appreciated. Chemotherapy held due to persistent infection. - Discussion re: prognosis by Dr. Arroyo 02/20, with plans to continue discussion with son today. Unless requested by patient sooner, palliative consult deferred until after family meeting - Continue daily wound dressing - Pain mx: IV morphine 2mg q2h (increased freq on 02/21 from q4h), PO oxycodone 80mg q12h, PO oxycodone 15mg q4h, celecoxib 200mg qAM, PO dexamethsone 2mg BID. Lidocaine path, heat and ice compress ordered - Bowel regimen: docusate, Sennakot, MiraLax. Bisacodyl added. Atrial Fibrillation Had two runs of asymptomatic afib on 02/16 (~15 mins - reverted to NSR s/p 5mg of IV lopressor, then ~3 minutes with spontaneous resolution), then sustained symptomatic afib with RVR 160bpm ~1h long on 02/18, which reverted to NSR s/p 5 mg of IV Lopressor. Cardiology consulted, recs appreciated. Patient transitioned from amio drip to PO amio. ECHO -> limited secondary to motion degradation/bandages over chest but showed EF of 60-65%. CHADS-VASc score of 2, but decided deferral of anticoagulation during acute illness for potential additional interventions and high risk for hemorrhagic effusion. - Continue PO amiodarone 400mg BID x 7 days (initiated 02/19), then reduce to 200mg daily thereafter Cellulitis of L breast Follows at a wound clinic. Completed 2 week antibiotic course of doxycycline and ceftolazone/tazobactam on 02/18/2019 - Continue doxycycline at present Weight loss, hypoalbuminemia - secondary to malignancy - Continue PO dexamethsone 2mg BID to stimulate appetite hopefully - Order placed for nutritional supplements, should patient like Hypothyroidism - Continue levothyroxine Anemia -Hgb is at baseline level, no evidence of bleeding Diet: Regular, no IVF DVT Prophylaxis: 5,000 units heparin BID Disposition: med/surg Code status: Full Code (2) Hypoxia: (3) Metastatic breast cancer: (4) Breast mass, right: (5) Cellulitis of left breast: (6) MRSA (methicillin resistant Staphylococcus aureus) infection: (7) Pseudomonas aeruginosa infection: (8) Chronic diastolic heart failure: (9) Hypothyroidism: (10) Anemia due to antineoplastic chemotherapy: Supervising Physician Co-Signing Physician Notes ATTENDING NOTE I saw the patient independently and performed my own history and physical exam. I discussed the case with Dr. Terry. I agree with the impression and plan as noted above. Upon examination, the patient looks to be in some mild to moderate discomfort of though she is just finishing up a dressing change. Another 800 mL was drained from her Pleurx catheter; this in addition to the 1 L each of the last 2 days. EXAM Alert and oriented. Mild distress. Afebrile; vital signs as noted. Heart is irregularly irregular; rate in the 70s. Breath sounds are pretty clear in the apices; decreased in the bases. Her open chest wounds of metastatic disease are bandaged and not examined today. She does some generalized lower extremity edema but no calf tenderness upon palpation IMPRESSION/PLAN Right-sided pleural effusion, recurrent, secondary to widely metastatic breast cancer -she is unfortunately reaccumulating fluid at a rate that would preclude pleurodesis, and it is a poor prognostic indicator. The patient is planning to meet with Dr. Arroyo this afternoon around 3:00 when her son is also present. 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 Ultimately think with the point of transitioning from curative to palliative care. Increase morphine 2 mg IV every 2 hours as needed in addition to her other pain medications. Dependent on the patient's discussion with oncology later today, palliative care consult on Friday. Subjective Patient is sitting in bed, although she states she just laid down after sitting in the bedside chair for some time. She states her breathing is somewhat more comfortable, but she is having significant discomfort at the site of Pleurx insertion still as well as neck/shoulder pain. She does state that the pain medication helps to reduce her symptoms but not always sufficiently. She is having BM, but admits that she is straining. She denies noting blood in her stool. She has scheduled a tentative family meeting with Dr. Arroyo and her son for this afternoon. Her other son is en route from [place] via motorcycle. She has not yet noted change/improvement in appetite with recent initiation of dexamethasone. She states she did get some sleep last night, which was much needed, but continues to feel fatigued. She states she would like to go home, and in fact feels comfortable with running her household independently without assistance. Review of Systems All systems reviewed & are unremarkable except as noted in HPI & below Physical Exam Vital Signs (Past 24 Hours): Last Vital Signs Temp 36.3 C L 02/21/19 07:34 Pulse 73 02/21/19 07:34 Resp 16 02/21/19 07:34 BP 123/55 L 02/21/19 07:34 Pulse Ox 93 02/21/19 07:34 Constitutional: WD/WN, vitals as above + ill appearing (appears fatigued) and + cachectic; no acute distress Eyes: no scleral abnormality ENMT: external ear and nose normal, oropharynx normal NC in situ - 2L O2 Neck: normal visual inspection Respiratory: + respiratory distress (Somewhat shallow, but rate improved); no labored breathing and no cough Auscultation: + diminished lung sounds and + crackles (right basilar); no wheezes Cardiovascular: Rate/Rhythm: regular rate and regular rhythm Heart Sounds: normal S1 and normal S2 Extremities: normal capillary refill; no calf tenderness and no edema Chest (Breasts): Chest: + vascular access device or port (Pleurx catheter covered by dressing on right posterior chest) Gastrointestinal (Abdomen): normal bowel sounds, soft, nontender, no hepatosplenomegaly Inspection/Auscultation: abdomen not distended Percussion/Palpation: no guarding Musculoskeletal: Head/Neck/Chest: normocephalic, head atraumatic and neck supple Extremities: extremities normal to inspection Skin: + subcutaneous nodules (From metastatic cancer) Neurologic: moves all extremities; no focal motor deficits Psychiatric: A+Ox3, euthymic affect Speech: normal rate/rhythm/volume of speech Resident Activity Tracking Resident Involvement: Resident Care Provided Care Provided: Adult Hospital Medicine (1) Hypothyroidism Hypothyroidism type: acquired Qualified Code(s): E03.9 - Hypothyroidism, unspecified
[2019-02-21] MEDS: OXYCODONE HCL 40 MG TABCR (OXYCONTIN) PO SCH ×2 (08:37→20:00)
[2019-02-21] MEDS: POLYETHYLENE (MIRALAX) 17 GM PACK PO SCH (08:38)
[2019-02-21] MEDS: TOCOPHERYL, DL-ALPHA 400 UNITS CAP PO SCH (08:39)
[2019-02-21] MEDS: CHOLECALCIFEROL 1,000 UNITS TAB PO SCH (08:40)
[2019-02-21] MEDS: ASCORBIC ACID 500 MG TAB PO SCH (08:40)
[2019-02-21] MEDS: SENNA 8.6 MG TAB PO SCH (08:40)
[2019-02-21] MEDS: AMIODARONE 200 MG TAB PO SCH ×2 (08:40→20:00)
[2019-02-21] MEDS: dexAMETHasone 1 MG TAB PO SCH ×2 (08:40→16:24)
[2019-02-21] MEDS: CeleBREX 200 MG CAP PO SCH (08:40)
[2019-02-21] MEDS: DOCUSATE SODIUM 100 MG CAP PO SCH ×2 (08:40→20:05)
[2019-02-21] MEDS: DOXYCYCLINE HYCLATE 100 MG CAP PO SCH ×2 (08:40→20:01)
[2019-02-21] MEDS: HEPARIN SOD 5,000 UNIT/0.5 ML VIAL SQ SCH ×2 (08:41→20:01)
[2019-02-21] MEDS: CALCIUM CITRATE 950 MG TAB PO SCH (11:02)
[2019-02-21] MEDS: LIDOCAINE 5% 1 PATCH TD SCH (11:32)
--- NOTE | 2019-02-21 13:20 | Progress Note ---
DATE: 02/21/2019 The patient was seen today. She is on 2 liters 93% saturations. She drained about 800 mL from her PleurX today (the notes say 1800, but it was 1000 yesterday and 800 today). The patient has widely metastatic disease. I have discussed this with Dr. Arroyo. Right now, she is draining far too much fluid to sclerose her; however, she is at risk for an infection and I have explained to her today that will be a life-threatening issue. She is eager to go home and get restarted on her chemotherapy. I would probably send her home right now, but my plan would be to remove this PleurX catheter one way or another in the near future. She understands. We will check an x-ray on her tomorrow.
[2019-02-21] MEDS: ZOLPIDEM TARTRATE 5 MG TAB PO PRN (20:00)
[2019-02-21] MEDS: DOCUSATE SODIUM/SENNA 50/8.6MG TAB PO SCH (21:20)
[2019-02-22] MEDS: OXYCODONE HCL IR 5 MG TAB (IMMEDIATE RELEASE) PO PRN ×3 (01:58→18:37)
[2019-02-22] MEDS: MoRPHine SULFATE 2 MG/ML CARP IV PRN ×2 (06:05→10:24)
[2019-02-22] MEDS: HEPARIN 100 UNIT/ML 5ML FLUSH FLUSH PRN ×3 (06:24→12:01)
[2019-02-22] MEDS: LEVOTHYROXINE SODIUM 50 MCG TABLET PO SCH (06:24)
--- NOTE | 2019-02-22 07:45 | Family Medicine Progress Note ---
Date of Service February 22, 2019 Assessment & Plan (1) Pleural effusion: Ms. Epstein is a 68 year old female with a past medical history of metastatic, triple negative breast CA receiving chemo, chronic L breast wound, hypothyroidism, anemia, dCHF admitted to [facility] for SOB and hypoxia secondary to a large R pleural effusion and associated cystic/necrotic parenchymal change found on CTA. SOB secondary to right lung malignant pleural effusion Thoracic surgery consulted, recs appreciated. - s/p PleurX insertion on 02/19. Drained approx 550mLs of fluid today. - Maintain PleurX catheter - will have to discuss w/Dr. Sams the time frame for keeping the PleurX in. - O2 supplementation to maintain sats >92% (no O2 use at baseline) -> currently requiring 2L of oxygen Metastatic triple negative breast adenocarcinoma with painful subcut skin nodules Managed by Dr. Arroyo. Oncology consulted, recs appreciated. Chemotherapy had been held due to persistent infection. - can restart chemo in outpatient setting upon d/c - Continue daily wound dressing - Pain mx: IV morphine 2mg q2h (increased freq on 02/21 from q4h), PO oxycodone 80mg q12h, PO oxycodone 15mg q4h, celecoxib 200mg qAM, PO dexamethsone 2mg BID. Lidocaine path, heat and ice compress ordered. Pain well controlled on this regimen - Bowel regimen: docusate, Sennakot, MiraLax, Bisacodyl Atrial Fibrillation -New onset during this admission. -Cardiology consulted, recs appreciated. - ECHO -> limited secondary to motion degradation/bandages over chest but showed EF of 60-65%. - CHADS-VASc score of 2, but decided deferral of anticoagulation during acute illness for potential additional interventions and high risk for hemorrhagic effusion. - Continue PO amiodarone 400mg BID x 7 days (initiated 02/19), then reduce to 200mg daily thereafter Cellulitis of L breast Follows at a wound clinic. Completed 2 week antibiotic course of doxycycline and ceftolazone/tazobactam on 02/18/2019 - Continue doxycycline at present until f/u with Dr. Britton in clinic Weight loss, hypoalbuminemia - secondary to malignancy - Continue PO dexamethsone 2mg BID to stimulate appetite - Order placed for nutritional supplements Hypothyroidism - Continue levothyroxine Anemia -Hgb is at baseline level, no evidence of bleeding Diet: Regular, no IVF DVT Prophylaxis: 5,000 units heparin BID Disposition: 4E med/surg. PT/OT evals - pt is safe to return home w/family support and home health. Code status: Full Code (2) Hypoxia: (3) Metastatic breast cancer: (4) Breast mass, right: (5) Cellulitis of left breast: (6) MRSA (methicillin resistant Staphylococcus aureus) infection: (7) Pseudomonas aeruginosa infection: (8) Chronic diastolic heart failure: (9) Hypothyroidism: (10) Anemia due to antineoplastic chemotherapy: Supervising Physician Co-Signing Physician Notes I personally examined the patient and verified all dover points of history and exam, discussed case, and agree with decision making with Dr Benavides. Feeling better, wants to work towards getting home. Wants outpatient chemo again. Son from [place] is present, answered all questions to the best my ability and to their satisfaction. Vitals noted, in general she is awake and alert pleasant no distress. She does appear uncomfortable and further changing her dressing, but overall tolerable. Her chest wall has diffuse ulceration and scarring as well as overt and obvious large amounts of skin metastases. There is no tracking erythema, there is a fairly significant amount of superficial exudate Cellulitisappears to have improvedcontinue antibiotics Weaknessfortunately appears well enough to be able to go home with family support Metastatic breast cancershe chooses to have ongoing chemotherapy, see hematology/oncology input further. DVT prophylaxisheparin subcu Subjective Ms. Epstein reports she feels better today than she did over the weekend. She states her pain is the worst with dressing changes or when they drain her PleurX catheter, but otherwise states that her pain is well controlled. She is eager to return home with the help of her sons. She denies any other complaints today. Constitutional: + fatigue and + weakness; no fever and no chills Respiratory: + cough and + dyspnea on exertion; no wheezing Cardiovascular: no chest pain Gastrointestinal: no abdominal pain, no nausea and no vomiting Physical Exam Vital Signs (Past 24 Hours): Last Vital Signs Temp 36.6 C 02/22/19 03:00 Pulse 71 02/22/19 03:00 Resp 20 02/22/19 03:00 BP 112/68 02/22/19 03:00 Pulse Ox 92 02/22/19 03:00 Constitutional: WD/WN, vitals as above + frail appearing, cooperative and comfortable Respiratory: no respiratory distress Auscultation: + diminished lung sounds Cardiovascular: Rate/Rhythm: regular rate and regular rhythm Extremities: + pedal edema (1+ edema b/l) Gastrointestinal (Abdomen): Percussion/Palpation: abdomen soft; abdomen nontender, no guarding and abdomen not rigid Skin: no rashes, warm and dry Psychiatric: A+Ox3, euthymic affect Resident Activity Tracking Resident Involvement: Resident Care Provided Care Provided: Adult Hospital Medicine (1) Hypothyroidism Hypothyroidism type: acquired Qualified Code(s): E03.9 - Hypothyroidism, unspecified
[2019-02-22] MEDS: CHOLECALCIFEROL 1,000 UNITS TAB PO SCH (08:21)
[2019-02-22] MEDS: OXYCODONE HCL 40 MG TABCR (OXYCONTIN) PO SCH ×2 (08:21→20:14)
[2019-02-22] MEDS: TOCOPHERYL, DL-ALPHA 400 UNITS CAP PO SCH (08:22)
[2019-02-22] MEDS: DOXYCYCLINE HYCLATE 100 MG CAP PO SCH ×2 (08:22→20:15)
[2019-02-22] MEDS: CeleBREX 200 MG CAP PO SCH (08:22)
[2019-02-22] MEDS: dexAMETHasone 1 MG TAB PO SCH ×2 (08:22→16:56)
[2019-02-22] MEDS: ASCORBIC ACID 500 MG TAB PO SCH (08:22)
[2019-02-22] MEDS: SENNA 8.6 MG TAB PO SCH (08:23)
[2019-02-22] MEDS: LIDOCAINE 5% 1 PATCH TD SCH (08:23)
[2019-02-22] MEDS: BISACODYL 5 MG TABEC PO SCH (08:23)
[2019-02-22] MEDS: AMIODARONE 200 MG TAB PO SCH ×2 (08:23→20:15)
[2019-02-22] MEDS: HEPARIN SOD 5,000 UNIT/0.5 ML VIAL SQ SCH ×2 (08:24→20:16)
[2019-02-22] MEDS: POLYETHYLENE (MIRALAX) 17 GM PACK PO SCH (08:40)
[2019-02-22] MEDS: DOCUSATE SODIUM 100 MG CAP PO SCH ×2 (08:40→20:20)
[2019-02-22] MEDS: CALCIUM CITRATE 950 MG TAB PO SCH (13:33)
--- NOTE | 2019-02-22 17:04 | Hematology/Oncology Prog Note ---
Date of Service February 22, 2019 Assessment & Plan (1) Metastatic breast cancer: Ms. Epstein is looking better today. I remain concerned about her prognosis, but she is highly motivated to proceed with treatment. Some of the progression we've seen has been since she was off of treatment, so there is reason to think she might benefit from more chemo. However, I had a long conversation with her and her sons about my worry that we may be approaching the end of the utility of further therapy. I encouraged them to discuss her longer term goals of care and to think carefully about the point at which she would be ready to stop. For now, if possible, I would prefer to maintain the Pleur-x until we see if she is going to respond to more chemo. I will make arrangements to resume treatment [facility] as an outpatient, potentially as soon as later this week if she is ready and the arrangements can be made. My office will coordinate this with her. Subjective Ms. Epstein looks substantially better than she did over the weekend. She is breathing more comfortably and her energy is much better. She has some modest pain, but it is tolerable. The output from her drain is down as well. Constitutional: + fatigue and + weakness (generalized) Respiratory: + cough, + dyspnea and + pain on inspiration Cardiovascular: no chest pain and no palpitations Gastrointestinal: no abdominal pain and no nausea Genitourinary (Female): no dysuria Extensive cutaneous involvement from breast cancer, largely stable Neurologic: no localized weakness and no headache(s) Physical Exam Vital Signs (Past 24 Hours): Last Vital Signs Temp 36.6 C 02/22/19 15:42 Pulse 74 02/22/19 15:42 Resp 22 02/22/19 15:42 BP 115/71 02/22/19 15:42 Pulse Ox 94 02/22/19 15:42 Constitutional: + ill appearing (chronically, and less so than at our last encounter) and + thin; no acute distress Eyes: + anicteric sclerae and EOM intact bilaterally Respiratory: + cough; no respiratory distress Auscultation: + diminished lung sounds (at the left base) Cardiovascular: RRR, no murmur, no edema Gastrointestinal (Abdomen): normal bowel sounds, soft, nontender, no hepatosplenomegaly Skin: Extensive tumor nodularity involving the skin of her chest wall, largely stable from over the weekend Psychiatric: Orientation: alert and oriented x 3 Affect: + depressed affect Results & Data Laboratory Results No recent lab work t review
[2019-02-22] MEDS: DOCUSATE SODIUM/SENNA 50/8.6MG TAB PO SCH (18:37)
[2019-02-22] MEDS: ZOLPIDEM TARTRATE 5 MG TAB PO PRN (20:14)
--- NOTE | 2019-02-22 21:40 | Progress Note ---
DATE: 02/22/2019 The patient has decreasing drainage from her PleurX. She actually looks pretty good. Her PleurX drained 525 mL today after draining 800 yesterday and 1000 the day before. She looks better clinically. I think this effusion was really affecting her. This patient has widely metastatic disease, but Dr. Arroyo is hopeful she may respond to therapy. At this point, we will leave the catheter in, but I would definitely have an eye towards removing this in the short term. She will not survive an empyema associated with this catheter.
[2019-02-23] MEDS: OXYCODONE HCL IR 5 MG TAB (IMMEDIATE RELEASE) PO PRN ×2 (05:27→11:31)
[2019-02-23] MEDS: LEVOTHYROXINE SODIUM 50 MCG TABLET PO SCH (06:19)
[2019-02-23] MEDS: MoRPHine SULFATE 2 MG/ML CARP IV PRN (06:19)
[2019-02-23] MEDS: AMIODARONE 200 MG TAB PO SCH (08:43)
[2019-02-23] MEDS: CeleBREX 200 MG CAP PO SCH (08:43)
[2019-02-23] MEDS: OXYCODONE HCL 40 MG TABCR (OXYCONTIN) PO SCH (08:43)
[2019-02-23] MEDS: dexAMETHasone 1 MG TAB PO SCH (08:43)
[2019-02-23] MEDS: CHOLECALCIFEROL 1,000 UNITS TAB PO SCH (08:43)
[2019-02-23] MEDS: SENNA 8.6 MG TAB PO SCH (08:44)
[2019-02-23] MEDS: BISACODYL 5 MG TABEC PO SCH (08:44)
[2019-02-23] MEDS: HEPARIN SOD 5,000 UNIT/0.5 ML VIAL SQ SCH (08:44)
[2019-02-23] MEDS: DOXYCYCLINE HYCLATE 100 MG CAP PO SCH (08:44)
[2019-02-23] MEDS: TOCOPHERYL, DL-ALPHA 400 UNITS CAP PO SCH (08:44)
[2019-02-23] MEDS: ASCORBIC ACID 500 MG TAB PO SCH (08:44)
[2019-02-23] MEDS: LIDOCAINE 5% 1 PATCH TD SCH (08:45)
[2019-02-23] MEDS: POLYETHYLENE (MIRALAX) 17 GM PACK PO SCH (08:46)
[2019-02-23] MEDS: DOCUSATE SODIUM 100 MG CAP PO SCH (08:54)
[2019-02-23] MEDS: CALCIUM CITRATE 950 MG TAB PO SCH (11:32)
[2019-02-23 14:35] VITALS: BP 104/66; TEMP 97.9
[2019-02-23 16:52] VITALS: PULSE 83; O2SAT 94
--- NOTE | 2019-02-23 17:12 | Progress Note ---
DATE: 02/23/2019 Ms. Epstein was seen today. She drained over 500 mL from her PleurX catheter; however, she looks very good. She is ambulating in her room with her walker on room air. Her son is visiting from [place]. I had a long discussion about her discharge plans. She is being discharged today. We will arrange for her to get drained at home on a daily basis. In the meantime, I will see her back in the office in a week or so with an x-ray. I have discussed this case with Dr. Arroyo from oncology.
--- NOTE | 2019-02-23 18:21 | Discharge Summary ---
Date of Service February 23, 2019 Admission HPI Per Admitting Provider Chief Complaint: 68 y/o F Hx metastatic breast CA receiving chemo, chronic L breast wound, hypothyroidism, anemia, diastolic CHF. The pt was recently admitted for recurrent cellulitis of a nonhealing wound of the L breast. She was placed on a 2 week course of IV Zerbaxa and PO Doxy to cover both MRSA and Pseudomonas which were cultured from the wound. She was DCd to [facility] to complete her IV antibiotics. She presents from [facility] with progressive SOB and hypoxia. A CTA was obtained in the ER demonstrating a large R pleural effusion with right lower lobe volume loss and associated cystic/necrotic parenchymal change. She does not have acute CP or a productive cough and denies recent fevers or rigors. Initial labs are consistent with baseline values and also demonstrate a degree of protein malnutrition PMH: 1) Breast CA with lung mets - diagnosed 2015. Post partial L mastectomy, XRT and multiple chemo regimens, currently with Eribulin. 2) Nonhealing L breast wound and recurrent cellulitis - prior infections with Pseudomonas and MRSA 3) Chronic diastolic CHF 4) Hypothyroidism 5) Chronic anemia - Hb 9-10 at baseline 6) Chronic lower extremity edema Surgical: 1) Partial mastectomy 2) cataracts 3) Foot surgery 4) R chest port-a-cath Social: Does not drink or smoke Family: Mother due to leukemia Father due to complications of a CVA Admission Exam Per Admitting Provider General: AAO x 3, no distress ENT: No erythema or exudates, no thrush Eyes: MARLENA, EOMI Head and neck: Normocephalic, atraumatic, No JVD, neck is supple. Chest/heart: Nontender, S1,2, RRR - Extensive wound/ulceration of L breast with exudate and crusting Lungs: There is no air entry into the R base - L lung is clear Abdomen: Nontender, nondistended, BS+ Neuro: AAO x 3, speech is clear, no unilateral weakness or loss of sensation, coordination intact Musculoskeletal: No joint inflammation, muscle tenderness, FROM - BL 2+ edema Skin: No acute rashes or ulcers - chornic ulcer/wound of L breast as above Extremities: No clubbing, cyanosis - + edema Principal Diagnosis Pleural Effusion Discharge Exam Constitutional WD/WN, vitals as above + frail appearing, cooperative and comfortable Respiratory able to speak in complete sentences; no respiratory distress Auscultation: + diminished lung sounds Cardiovascular Rate/Rhythm: regular rate and regular rhythm Extremities: + edema (1+ edema bilaterally) Gastrointestinal (Abdomen) Percussion/Palpation: abdomen soft; abdomen nontender Psychiatric A+Ox3, euthymic affect Discharge Data Allergies Allergy/AdvReac Type Severity Reaction Status Date / Time No Known Allergies Allergy Verified 02/15/19 13:47 Consultations 02/15/19 20:59 Consult Thoracic Surgery Stat 02/16/19 08:00 Consult Case Management - Discharge Planning Routine 02/16/19 13:14 Consult Oncology Routine 02/18/19 10:56 Consult Cardiology Routine 02/23/19 09:44 Consult Case Management - Discharge Planning Routine Ordered Studies 02/15/19 15:19 CT angio chest PE protocol Stat 02/15/19 17:11 US venous doppler LE Stat Hospital Course (1) Pleural effusion: Ms. Epstein is a 68 year old female with a past medical history of metastatic, triple negative breast CA receiving chemo, chronic L breast wound, hypothyroidism, anemia, dCHF admitted to [facility] for SOB and hypoxia secondary to a large R pleural effusion and associated cystic/necrotic parenchymal change found on CTA. SOB secondary to right lung malignant pleural effusion - s/p PleurX insertion on 02/19. Initially was draining ~1L of fluid, on day of discharge, drained approx 500mLs of fluid - fluid w/malignant cells consistent with metastatic adenocarcinoma which is triple negative - f/u with Dr. 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 Arroyo. Chemotherapy had been held due to persistent infection. - can restart chemo in outpatient setting upon d/c - Pain mx: PO oxycodone 80mg q12h, PO oxycodone 15mg q4h, celecoxib 200mg qAM. Pain well controlled on this regimen Atrial Fibrillation -New onset during this admission. -Cardiology consulted - ECHO -> limited secondary to motion degradation/bandages over chest but showed EF of 60-65%. - CHADS-VASc score of 2, but decided to defer anticoagulation during acute illness due to potential additional interventions and high risk for hemorrhagic effusion. - Continue PO amiodarone 400mg BID x 3 more days, then reduce to 200mg daily thereafter Cellulitis of L breast Follows at a wound clinic. Completed 2 week antibiotic course of doxycycline and ceftolazone/tazobactam on 02/18/2019 - Continue doxycycline at present until f/u with Dr. Britton in clinic Weight loss, hypoalbuminemia - secondary to malignancy - Continue PO dexamethsone 2mg BID to stimulate appetite Hypothyroidism - Continue levothyroxine Anemia -Hgb is at baseline level of 9.5, no evidence of bleeding (2) Hypoxia: (3) Metastatic breast cancer: (4) Breast mass, right: (5) Cellulitis of left breast: (6) MRSA (methicillin resistant Staphylococcus aureus) infection: (7) Pseudomonas aeruginosa infection: (8) Chronic diastolic heart failure: (9) Hypothyroidism: (10) Anemia due to antineoplastic chemotherapy: Total Time Total Time Spent Total Time Spent (In Minutes): <30 Discharge Plan Discharge Items Patient Disposition: Home - Home Health Services Reason For Visit: SHORTNESS OF BREATH,PLEURAL EFFUSIONS Discharge Diagnosis: Pleural Effusion Discharge Goals: Decrease discomfort, Improve disease control and Improve function Activity: Resume your previous activity Non-emergency contact: Primary Care Provider Call non-emergency contact if: you have any medication questions and your temperature is above 101 Follow-up/Referrals: Jonathan Dhillon MD [Primary Care Provider] - 03/02/19 10:15 am (A follow up appointment was made with Dr. Dhillon on Friday 03/02 at 10:15am. If you have any questions or nee to reschedule, please call the office at [phone].) Diet: Regular Addtl Provider Instructions: Ms. Epstein, you were admitted to [facility] due to fluid build up in the right side of your lung. You were seen by Dr. Sams, who placed a PleurX catheter which will stay in place until you see him in clinic. This will continue to drain the fluid from your lungs, to help you breathe better. 1) Pleural Effusion - this is due to your cancer, and will hopefully improve with chemotherapy. Dr. Sams will be following up with you in clinic regarding this. At present, you are requiring oxygen at a setting of 3L (three liters) with walking. Your numbers are reasonable when you're at rest, but because movement requires more oxygen, you'll need the oxygen when you're doing anything besides simply sitting at rest. 2) Atrial Fibrillation - your heart went into an abnormal rhythm while you were admitted. You were seen by our heart doctors, who started you on a medication called amiodarone. Please take 400mg (2 tablets) twice a day, for the next 3 days, and then take one tablet (200mg) daily after that. We are not starting you on blood thinners for this as you are at risk for bleeding in your lungs. 3) Cancer - you will be following up with Dr. Arroyo in clinic, who plans to restart your chemotherapy 4) Wounds - please continue to take the doxycycline (antibiotic) twice a day, until you see Dr. Britton at the wound clinic. She will tell you when you can stop this medication. 5) We have also started you on a medication called dexamethasone, which you can take twice a day, as this will hopefully help stimulate your appetite. Prescriptions: New amiodarone 200 mg Tablet 200 mg PO DAILY 30 Days Qty: 30 RF: 3 dexamethasone 1 mg Tablet 2 mg PO BIDM 30 Days Qty: 120 RF: 0 Continued ascorbic acid (vitamin C) 500 mg tablet,chewable 500 mg PO QAM RF: 0 omega 4-att-jdj-fish oil 1,000 mg (120 mg-180 mg) capsule 1 tab PO DAILY RF: 0 levothyroxine 50 mcg tablet 50 mcg PO DAILY RF: 0 vitamin E (dl, acetate) 400 unit capsule 400 units PO QAM RF: 0 doxycycline hyclate 100 mg capsule 100 mg PO BID RF: 0 calcium citrate 250 mg calcium tablet 250 mg PO DAILY RF: 0 cholecalciferol (vitamin D3) 1,000 unit capsule 1,000 units PO DAILY RF: 0 ondansetron HCl [Zofran] 8 mg Tablet 8 mg PO Q8 PRN (Reason: Nausea) RF: 0 oxycodone [OxyContin] 40 mg Tablet,Oral Only,Ext.Rel.12 Hr 80 mg PO Q12 Qty: 12 RF: 0 celecoxib [Celebrex] 200 mg Capsule 200 mg PO QAM Qty: 30 RF: 0 oxycodone 5 mg Tablet 15 mg PO Q4H PRN (Reason: pain) Qty: 30 RF: 0 zolpidem 5 mg Tablet 5 mg PO HS PRN (Reason: insomnia) Qty: 3 RF: 0 sennosides [Senokot] 8.6 mg Tablet 17.2 mg PO QAM Qty: 60 RF: 0 polyethylene glycol 3350 [Miralax] 17 gram Powder In Packet 17 g PO DAILY Qty: 30 RF: 0 sennosides-docusate sodium [Senna with Docusate Sodium] 8.6-50 mg Tablet 1 tab PO DAILY@1900 Qty: 30 RF: 0 docusate sodium 100 mg Capsule 100 mg PO BID Qty: 60 RF: 0 Stand-Alone Forms: [facility] Discharge Orders: Discharge Order (Routine); Ordered 02/23/19 Ordered By: Marcio Farias Admission Data Admit Date/Time: 02/18/19 16:47 Attending Provider: Marcio Farias Admit Provider: Lonny Pan Primary Care Provider: Jonathan Dhillon Other Providers: Bradley Sams ; Constantino Shannon V ; Gerald Escobar ; Ramesh Crowder Service: Oncology Other Interventions: Discharge Summary Assessment (RN) Last Done: 02/23/19 16:45 DC Date/Time DO NOT enter until pt leaves facility: 02/23/19 18:20 Supervising Physician Co-Signing Physician Notes I personally examined the patient and verified all dover points of history and exam, discussed case, and agree with decision making with Dr Benavides feeling better would like to go home. O2 set up. Vitals noted, in general she is in no distress, she appears much brighter. Breathing is unlabored no accessory muscle use. Metastatic breast cancer with malignant effusions and diffuse skin metastases -Pleurx drainage for now, close follow-up given the high risk for infection as noted by thoracic surgery -Outpatient hematology/oncology follow-up for ongoing chemo -Continue doxycycline as per infectious disease -Home oxygen -Stable for home Otherwise as above Resident Activity Tracking Resident Involvement: Resident Care Provided Care Provided: Adult Hospital Medicine
== END 2019-02-23 18:20 | disposition home health service (06) | DRG 598 ==
LOC: ED 14:52 → 2S 14:52 → SUATTDRO 19:45 → 2S 20:21 → SUATTDRO 02-18 16:47 → 4E 02-20 12:23